=== PATIENT | male | born 1945 | race Caucasian/White ===

== ENCOUNTER → 2017-12-21 12:15 | Outpatient (CLI) | payer MEDICARE, SELFPAY ==
[2017-12-21 12:48] LABS: Alanine Aminotransfer ALT/SGPT 30 U/L (16-61); Anion Gap 5 (5-15); BUN 18 mg/dL (7-18); BUN/Creat Ratio 16.5 RATIO (10-20); CPK Total, Creatine Kinase 43 U/L (39-308); Calcium,Total 9.1 mg/dL (8.5-10.1); Chloride 105 mmol/L (98-107); Cholesterol 139 mg/dL (200); Creatinine, Serum 1.09 mg/dL (0.70-1.30); EST Glomerular Filtration Rate 70 mL/min (>60); Est Glom Filt Rate - Afr Amer 85 mL/min (>60); Glucose 143 mg/dL (74-106); High Density Lipoprotein 45 mg/dL; Potassium 3.9 mmol/L (3.5-5.1); Sodium Level 142 mmol/L (136-145); Triglycerides 129 mg/dL; Very Low Density Lipoprotein 26 mg/dL (5-40)
== END ==
PROVIDERS: Visit Provider Internal Medicine Cardiovascular Disease
DX: I25.10 Atherosclerotic heart disease of native coronary artery without angina pectoris (principal); I10 Essential (primary) hypertension
CPT/HCPCS: 80048; 80061; 82550; 84460

== ENCOUNTER → 2019-12-08 | Outpatient (CLI) | payer MEDICARE, SELFPAY ==
[2019-11-15 09:37] VITALS: BMI 28.5
--- NOTE | 2019-12-08 06:10 | ECHOCS_ITS ---
Reason For Study: CAD Procedure This was a 2D Doppler, Color Flow transthoracic echocardiogram. The study was technically difficult. Exam performed in department. Left Ventricle Normal LV size. Mild concentric left ventricular hypertrophy. The estimated ejection fraction is 40 %. Mild to moderate segmental systolic dysfunction (see wall motion). Infero-Basal: Akinetic. Basal inferoseptal: Akinetic. Mid-Inferior: Hypokinetic. Posterior-Basal: Hypokinetic. The rest of the wall segments are normal. Right Ventricle Normal RV size. Normal systolic function. Atria The left atrium is mildly enlarged. Normal right atrium. Mitral Valve Normal mitral valve. Mild (1+) eccentric mitral valve insufficiency. Tricuspid Valve The tricuspid valve is not well visualized. Mild (1+) tricuspid valve insufficiency. Pulmonary artery systolic pressure is 30 mmHg. Aortic Valve The aortic valve is not well visualized. Pulmonic Valve The pulmonic valve is not well visualized. Great Vessels Normal aortic root. The pulmonary artery is normal size. Normal inferior vena cava. Pericardium/Pleural No pericardial effusion. Medication Diluted definity 4ml given slow IV push to enhance endocardial definition. MMode/2D Measurements & Calculations LVIDd: 4.9 cm IVSd: 1.4 cm Ao root diam: 4.1 cm LVIDs: 4.1 cm LVPWd: 1.3 cm RVDd: 3.2 cm FS: 16.8 % LAV(MOD-bp): 66.8 ml LVAd ap4: 36.5 cm2 SV(MOD-sp4): 48.0 ml LAV(MOD-bp) Indexed: 32.7 ml/m2 EDV(MOD-sp4): 125.0 ml LAV(MOD-sp2): 59.4 ml EDV(sp4-el): 131.6 ml LAV(MOD-sp4): 79.3 ml LVAs ap4: 26.8 cm2 ESV(MOD-sp4): 77.1 ml ESV(sp4-el): 78.7 ml EF(MOD-sp4): 38.4 % EF(sp4-el): 40.2 % SV(sp4-el): 53.0 ml LA A4 area: 24.6 cm2 LA dimension(2D): 4.6 cm RA A4 area: 17.2 cm2 Doppler Measurements & Calculations MV E max bandar: 81.4 cm/sec Lat Peak E' Bandar: 7.0 cm/sec Med Peak E' Bandar: 2.9 cm/sec MV A max bandar: 104.5 cm/sec E/E' lat: 11.5 E/E' med: 28.0 MV E/A: 0.78 Ao V2 max: 132.0 cm/sec LV V1 max: 99.9 cm/sec PA V2 max: 69.3 cm/sec Ao max P.0 mmHg LV V1 max P.0 mmHg TR max bandar: 250.9 cm/sec TR max P.2 mmHg Interpretation Summary Normal LV size. The estimated ejection fraction is 40 %. Mild to moderate segmental systolic dysfunction (see wall motion). Pulmonary artery systolic pressure is 30 mmHg. Ordering Physician: Dylan Walker Referring Physician: Wilfred Luu Performed By: Merly Domínguez RDCS
--- NOTE | 2019-12-08 13:33 | STRESSREP ---
Stress Test Report Pharmacologic myocardial perfusion stress test. 74-year-old male with a history of coronary artery bypass surgery. Stress protocol: Resting EKG demonstrates normal sinus rhythm with a rate of 68 bpm left bundle branch block is noted. 0.4 mg of regadenoson was infused per usual protocol followed by rapid intravenous saline flush injection continuous EKG monitoring was performed. The maximum heart rate attained was 90 bpm which was 62% of maximal predicted heart rate the maximum workload was 1 metabolic equivalent. At rest there were no ST or T wave changes noted to suggest abnormal flow reserve left bundle branch block pattern was noted at peak infusion nonspecific ST-T wave changes were noted. The resting blood pressure was 120/72 with a final blood pressure 134/72 mmHg. Myocardial perfusion protocol. 14.6 mCi of technetium 99m sestamibi was injected at rest. 0.4 mg of regadenoson was infused per usual protocol peak infusion 45.0 mCi of technetium 99m sestamibi was injected stress images were obtained stress and rest images were reconstructed and compared in the short axis vertical long horizontal long axis. Gated images were also seen. Perfusion SPECT analysis: Review of the stress images demonstrate a mild defect noted in the mid anterior wall. This appears to be medium size. There is a large defect involving the basal to mid and distal inferior wall. The resting images demonstrate mild improvement in the mid anterior wall suggestive of mild anterior ischemia. The defect in the inferior wall is largely fixed suggestive of a previous extensive previous myocardial infarction. Gated SPECT analysis: The gated ejection fraction is 38%. Conclusion: Pharmacologic myocardial perfusion stress test with evidence of mild anterior ischemia. Previous inferior infarct noted. Mild cardiomyopathy present. Left bundle branch block present.
== END | disposition home or self-care (01) ==
PROVIDERS: PCP Family Medicine; Referring Provider Internal Medicine Cardiovascular Disease; Visit Provider Internal Medicine Cardiovascular Disease
DX: I25.10 Atherosclerotic heart disease of native coronary artery without angina pectoris (principal); Z95.1 Presence of aortocoronary bypass graft
CPT/HCPCS: 78452; 93017; 93306; A9500; Q9957; A4216; C8929; J2785

== ENCOUNTER 2019-12-18 08:25 | Day surgery (SDC) | payer MEDICARE, SELFPAY ==
[2019-11-15 09:37] VITALS: BMI 28.5
[2019-12-12 09:32] LABS: Absolute Lymphocyte Count 1.41 X10^3/uL (0.83-4.51); Absolute Neutrophil Count 4.4 X10^3/uL (2.0-7.7); Basophil# 0.04 X10^3/uL; Basophil% 0.6 % (0-1); Eosinophil# 0.42 X10^3/uL; Eosinophils% 6.1 % (0-5); Hematocrit 41.3 % (40-54); Hemoglobin 13.7 g/dL (13.0-16.5); Lymphocyte # 1.41 X10^3/ul (4.0); Lymphocyte % 20.5 % (19-41); Mean Corp Hgb Conc 33.2 g/dL (32-36); Mean Corpuscular Hgb 30.9 pg (27.0-32.0); Mean Corpuscular Volume 93.2 fL (80-94); Mean Platelet Vol. 10.2 fl (6.2-12.0); Monocyte# 0.64 X10^3/uL; Monocyte% 9.3 % (0-10); NRBC Flagged by Analyzer 0 % (0-5); Neutrophil # 4.35 X10^3/uL (2.7-7.7); Neutrophil % 63.2 % (47-70); Platelet Count 262 K/mm3 (150-450); RBC Distribution Width CV 12.8 % (11.6-14.6); RBC Distribution Width SD 43.8 fl (35.1-43.9); Red Blood Count 4.43 M/mm3 (4.6-6.2); White Blood Count 6.9 K/mm3 (4.4-11.0)
--- NOTE | 2019-12-12 09:35 | RAD_ITS ---
STUDY: X-RAY CHEST REASON FOR EXAM: Male, 74 years old. Abnormal stress test. No chest complaints. TECHNIQUE: PA and lateral views. COMPARISON: None. FINDINGS: Median sternotomy from prior CABG procedure. The lungs are clear and expanded. There is no demonstrated pleural abnormality. Normal size heart. Normal mediastinum and rolf. Normal visualized pulmonary arteries. Normal visualized aortic arch and descending thoracic aorta. Mild anterior wedging of T8, T9, T10 and T12 vertebral bodies are presumably from remote injury. Normal visualized ribs, clavicles, and shoulders. There is no demonstrated abnormality of the visualized soft tissue structures of the upper abdomen. RAD/Chest PA and Lateral IMPRESSION: 1. No acute cardiopulmonary pathology. 2. Mild anterior wedging of the T8, T9, T10 and T12 vertebral bodies are presumably from remote injury. Electronically Signed: Ld Davis MD at 8:35 EDT , Service support ,
[2019-12-12 09:41] LABS: International Normalized Ratio 1.3; Prothrombin Time (Protime)PT. 15.6 SECONDS (11.7-14.9)
[2019-12-12 09:42] LABS: Partial Thromboplast Time 30.3 Seconds (24.1-36.2)
[2019-12-12 10:02] LABS: Anion Gap 4 (5-15); BUN 20 mg/dL (7-18); BUN/Creat Ratio 16.3 RATIO (10-20); Calcium,Total 9.1 mg/dL (8.5-10.1); Chloride 108 mmol/L (98-107); Creatinine, Serum 1.23 mg/dL (0.70-1.30); EST Glomerular Filtration Rate 61 mL/min (>60); Est Glom Filt Rate - Afr Amer 74 mL/min (>60); Glucose 140 mg/dL (74-106); Potassium 3.9 mmol/L (3.5-5.1); Sodium Level 143 mmol/L (136-145)
[2019-12-15 08:45] VITALS: BMI 28.5
[2019-12-18] VITALS (13 sets, daily range): BP systolic 115–161; BP diastolic 70–87; PULSE 66–86; RESP 14–19; TEMP 36.6–37.2; O2SAT 92–96
--- NOTE | 2019-12-18 06:00 | HP_ITS ---
HPI HPI History of Present Illness Surgical H&P: Yes Details: Pleasant 74-year-old man who is transitioning his care to our practice here. He underwent coronary artery bypass surgery in 2004 with a saphenous vein graft to the circumflex artery, saphenous vein graft to the diagonal branch, and saphenous vein graft to the ramus intermedius and the right coronary artery. 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 In addition he does have a history of hypertension, hyperlipidemia, diabetes mellitus, chronic left bundle branch block. He underwent a stress test on 12/08/2019 which demonstrated evidence of mild anterior ischemia. Previous inferior infarct noted. Mild cardiomyopathy present. Left bundle branch block present. His echocardiogram demonstrated Normal LV size. The estimated ejection fraction is 40 %. Mild to moderate segmental systolic dysfunction (see wall motion). Pulmonary artery systolic pressure is 30 mmHg. Based on his stress test he will undergo a heart cath today. Intake Vital Signs 12/29/19 BMI 28.5 Intake Visit Reasons: Amb Documentation Allergies No Known Allergies Allergy (Unverified 11/15/19 09:35) Medications aspirin 81 mg tablet,delayed release 81 mg PO DAILY 11/13/19 [History Confirmed 12/29/19] atenolol 100 mg tablet 100 mg PO DAILY tab 11/13/19 [History Confirmed 12/29/19] cholecalciferol (vitamin D3) 25 mcg (1,000 unit) tablet 500 unit PO DAILY tab 11/13/19 [History Confirmed 12/29/19] fenofibric acid (choline) 135 mg capsule,delayed release 135 mg PO DAILY 11/13/19 [History Confirmed 12/29/19] hydrochlorothiazide 25 mg tablet 25 mg PO DAILY tab 11/13/19 [History Confirmed 12/29/19] lisinopril 40 mg tablet 40 mg PO DAILY tab 11/13/19 [History Confirmed 12/29/19] metformin 1,000 mg tablet 1,000 mg PO BID tab 11/13/19 [History Confirmed 12/29/19] multivitamin 1 tab PO DAILY 11/13/19 [History Confirmed 12/29/19] omega-3 fatty acids-fish oil 340 mg-1,000 mg capsule 1 cap PO DAILY 11/13/19 [History Confirmed 12/29/19] potassium chloride 10 mEq tablet,extended release(part/cryst) 10 meq PO DAILY tab 11/13/19 [History Confirmed 12/29/19] simvastatin 80 mg tablet 40 mg PO QHS tab 11/13/19 [History Confirmed 12/29/19] clopidogrel 75 mg tablet 75 mg PO DAILY #30 tab 12/08/19 [Rx Confirmed 12/29/19] PFSH Medical History Atherosclerosis of coronary artery of [place] heart without angina pectoris (Chronic) 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/05) Ischemic cardiomyopathy (Chronic) Left bundle branch block (LBBB) (Chronic) Essential (primary) hypertension (Chronic) Hyperlipidemia (Chronic) BPH (benign prostatic hyperplasia) (Chronic) Obesity (Chronic) Type 2 diabetes mellitus (Chronic) Surgical History Stented coronary artery (Chronic 12/18/19) H/O coronary artery bypass surgery (Resolved 07/08/05) History of cataract surgery (Resolved) History of left heart catheterization (Resolved 07/06/05) Family History Mother Hypertension Diabetes Father Heart disease Social History Smoking Status: Never smoker ROS Const Const: Negative for fatigue, weakness, headache(s), frequent falls, difficulty sleeping or excessive sweating Eyes Eyes: Negative for loss of peripheral vision, transient loss of vision, blurry vision, double vision or tunnel vision ENT ENT: Negative for headache(s) or balance problems Cardio Chest Pain: No Palpitations: No Edema: Bilateral (BLE areas of redness and trace swelling) Muscle aches with walking: None Resp Respiratory: Negative for SOB with activity, SOB at rest, SOB orthopnea\SOB lying down, Cough or paroxysmal nocturnal dyspnea GI GI: Negative nausea, vomiting, heartburn or black,tarry stools : Negative for hematuria Musc Musc: Negative for muscle aches/ myalgia, muscle weakness, joint pain or balance problems Skin Skin: Positive for rash (BLE areas of redness and trace swelling); negative non-healing lesions or unusual bruising Neuro Neuro: Negative for frequent falls, headache(s), weakness, blurry vision or double vision [place] Hematologic/Lymphatic: Negative for easy bleeding or easy bruising Endo Endo: Negative for fatigue or excessive sweating Psych Psych: Negative for anxiety or depression Allergy Allergy/Immunology: Positive for rash (BLE areas of redness and trace swelling) Cardiology Exam Const Appearance: cooperative, healthy appearing, no acute distress, well developed and well groomed Nutritional Appearance: average body habitus and well nourished Orientation: alert, awake and oriented x3 Head Head: normal to inspection, normocephalic and atraumatic Ears: hearing grossly normal bilaterally and external ears normal Nose: external nose normal, nares normal, nasal mucous membranes and turbinates normal, septum normal, no nasal discharge Face and Sinus: face symmetric Mouth: oral mucosae normal, tongue normal, oropharynx normal and moist mucous membranes Teeth and gingiva: dentition normal Throat: posterior oropharynx normal, tonsils normal and uvula midline Eyes General: appearance normal, both eyes and all related structures Eyelids: eyelids normal Conjunctivae: conjunctivae normal Pupils: PERRL, normal by confrontation and accommodation normal EOM: EOM intact bilaterally Neck Neck: normal visual inspection, trachea midline and no JVD JVD: +5 Carotids: normal carotid upstroke and bounding pulses Chest Chest inspection: normal inspection of the chest, symmetric chest movement and normal respiratory effort Auscultation: Bilateral: Clear to Auscultation Cardio Palpation: normal PMI Rate: regular rate Rhythm: regular rhythm Heart sounds: S1 normal, S2 normal and normal, physiologic split S2; negative rub, gallop or murmur GI GI: normal to inspection, soft, no hepatosplenomegaly and bowel sounds present Neuro General: alert, awake, oriented x3, gait normal, moves all extremities and no focal sensory deficit Skin Skin: no rashes or lesions noted Extremities Pulses: Normal: Right Femoral Pulse, Left Femoral Pulse, Right Dorsalis Pedis Pulse, Left Dorsalis Pedis Pulse, Right Posterior Tibial Pulse, Left Posterior Tibial Pulse, Right Radial Pulse, Left Radial Pulse Lower Extremity Edema: None: Bilateral Musculoskel Musculoskeletal: No joint tenderness Psych Psychological: normal affect Assessment & Plan Problems 1. Atherosclerosis of coronary artery of [place] heart without angina pectoris I25.10 Severe coronary artery disease involving the [place] left anterior descending artery in the proximal and mid areas, totally occluded left circumflex artery, high-grade stenosis noted of the ostial ramus intermedius, totally occluded right coronary artery. RECOMMENDATIONS ;Referred for immediate PCI per C done 12/18/2019 per [facility] @ [facility] 2. H/O coronary artery bypass surgery Z95.1 CABG x 3: SVG-D1, SVG-Ramus, SVG-RCA w/ excision of LA myxoma utilizing transatrial approach and pericardial patch to repair intra atrial septal defect 07/08/2005 3. Cardiomyopathy, ischemic I25.5 4. Essential hypertension I10 5. Old inferior wall myocardial infarction I25.2 with RV Infarct 6. Abnormal cardiovascular stress test R94.39 Plan Pt will undergo a heart cath today (12/18/2019), he will follow up accordingly in the office after procedure. He is aware that if he were to need a stent placed that he will need to spend the night. Coding Level of Care Code No Charge Diagnoses Atherosclerosis of coronary artery of [place] heart without angina pectoris I25.10 H/O coronary artery bypass surgery Z95.1 Cardiomyopathy, ischemic I25.5 Essential hypertension I10 Old inferior wall myocardial infarction I25.2 Abnormal cardiovascular stress test R94.39 Coding Level of Care Code No Charge Diagnoses Atherosclerosis of coronary artery of [place] heart without angina pectoris I25.10 H/O coronary artery bypass surgery Z95.1 Cardiomyopathy, ischemic I25.5 Essential hypertension I10 Old inferior wall myocardial infarction I25.2 Abnormal cardiovascular stress test R94.39 Supplemental Info Supplemental Information Labs LDL Cholesterol 68 mg/dL (0-130) 12/21/17 HDL Cholesterol 45 mg/dL (40-) 12/21/17 Triglycerides 129 mg/dL (-199) 12/21/17 VLDL Cholesterol 26 mg/dL (5-40) 12/21/17 Diagnostics Electrocardiogram 12/19/19 Echocardiogram 12/08/19 Stress Test Nuclear Medicine 12/08/19 Stress Test 12/08/19 Cardiac Catheterization 12/18/19 Chest X-Ray 12/12/19
--- NOTE | 2019-12-18 11:21 | CL.D_ITS ---
Patient Name: RAINA DELGADO Study Date: 12/18/2019 Performing: Dylan Walker MD Ht: 68.89 inches 175 cm : 1945 Wt: 194.01 lbs 88 kg Age: 74 Gender: male BSA: 2.04 PROCEDURE(S) PERFORMED [id number]/COR/LV/CABG [id number]-AWJ W OR WO PTCA, SINGLE CORONARY ARTERY [id number] AND/OR PTCA, SINGLE GRAFT CLINICAL PROFILE AND INDICATIONS Indications: Suspected CAD Heart Failure: None Stress/Imaging Stress Test w/SPECT MPI: Yes Result: Positive Intermediate RiskStress Test with SP ECT MPI: Positive Intermediate Risk CAD Presentations: No Sxs, no angina. CONCLUSIONS Severe coronary artery disease involving the [place] left anterior descending artery in the proximal a nd mid areas, totally occluded left circumflex artery, high-grade stenosis noted of the ostial ramus intermedius, totally occluded right coronary artery. RECOMMENDATIONS Referred for immediate PCI DESCRIPTION OF PROCEDURE The patient arrived to the procedure lab. The risks and benefits of the procedure as well as a full d escription of our services here and current unavailability of surgical backup were fully explained to the patient and/or their significant other prior to the catheterization. The Timeout was completed, verifying the correct patient and procedure. The patient's procedural site was prepped and draped in the usual fashion. Local anesthetic was given subcutaneously to right radial region with Lidocaine 2% . Using a modified Seldinger technique, arterial access was obtained via the right radial artery, a 6 Fr sheath was inserted. Left Coronary Artery selective angiography was performed in multiple views u sing a 5 Fr. 4.0 [place] catheter. Saphenous Vein graft to the DIAG 1 selective angiography was perform ed in multiple views using a 5 Fr. 4.0 [place] catheter. Right Coronary Artery selective angiography wa s then performed in multiple views using a 5 Fr. JR 5 catheter. Saphenous Vein graft to the Circumflex selective angiography was performed in multiple views using a 5 Fr. JR5 catheter. Saph enous Vein graft to the RCA selective angiography was performed in multiple views using a 5 Fr. JR5 c atheter. Left Ventriculography was performed in ORDONEZ projection using a 5 Fr. Pigtail catheter. LV to AO pullback pressures were then recorded. CORONARY ANGIOGRAPHY DOMINANCE: Right Dominant LEFT HEART ASSESSMENT Left Ventricular Ejection Fraction: by LV Gram 35 % Inferior Mid Akinesis. Anterior Hypokinesis - Moderate Depressed Left Ventricular systolic function LEFT MAIN: Mild calcification LEFT ANTERIOR DESCENDING ARTERY: PROX LAD: Moderate calcification, 70 % Stenosis MID LAD: 80 % Stenosis CIRCUMFLEX ARTERY: OSTIAL CIRC: is occluded RAMUS: 90 % Stenosis RIGHT CORONARY ARTERY: PROX RCA: is occluded GRAFTS: Saphenous Vein graft to the 1st Diagonal has a distal lesion of 95 % Saphenous Vein graft to the CIRC is totally occluded Saphenous Vein graft to the RCA is patent COLLATERAL FLOW: Collateral flow from Left to Right COMPLICATIONS PROCEDURE MEDICATIONS Fentanyl 50 mcg IV Versed 1 mg IV Oxygen: 2 L/min via nasal cannula Heparin diluted in 23cc Heparinized saline. Patient given 10cc IA of this solution. 12/18/2019 10:34: 12 Heparin 5000 unit(s) IV 12/18/2019 11:08:52 Verapamil 2.5mg, Ntg 100mcgs, 2000 units of Heparin diluted in 23cc Heparinized saline. Patient give n 10cc IA of this solution. 12/18/2019 10:34:12 SUMMARY OF HEMODYNAMIC DATA Time AIR REST ECG 08:47:18 ECG 10:18:56 AO 104/55 (74) SA 10:39:46 LV 115/-6, 2 11:00:07 LV 117/-4, 5 11:00:14 LV 98/-5, 2 11:01:00 LV 101/-3, 4 11:01:07 LVp 103/-3, 4 11:01:11 AOp 106/39 (64) 11:01:16 Signed By Dylan Walker MD On 12/18/2019 11:20:11 Dylan Walker MD
[2019-12-18 12:10] LABS: ACT Activated Clotting Time 186 sec (74-137)
--- NOTE | 2019-12-18 12:35 | EKG12_ITS ---
Test Reason : POST CATH Blood Pressure : / mmHG Vent. Rate : 067 BPM Atrial Rate : 067 BPM P-R Int : 204 ms QRS Dur : 170 ms QT Int : 482 ms P-R-T Axes : 046 014 159 degrees QTc Int : 509 ms Normal sinus rhythm Left bundle branch block Abnormal ECG When compared with ECG of 11-AUG-2005 10:33, Left bundle branch block has replaced Incomplete left bundle branch block Confirmed by BELKIS ALBRIGHT, DYLAN ([id number]), shim plug cutter DANIELLE LEMUS ([id number]) on 12/19/2019 7:49:05 AM Referred By: Dylan Tamayo Confirmed By:DYLAN TAMAYO MD
--- NOTE | 2019-12-18 15:18 | CHAPLAIN ---
Type of Pastoral Visit _x__ Initial Visit ___ Follow-up Visit ___ On-call Visit ___ General Patient Visit ___ Spiritual Assessment ___ Family Conference ___ Bereavement ___ Rapid Response ___ Code Blue ___ Other (describe below) Pastoral Care Referral From _x__ Patient _x__ Family ___ Nurse ___ Physician ___ Software Testing Specialist ___ Design Engineer Agricultural Equipment ___ Other (describe below) Sacrament/Intervention _x__ Active listening ___ Anointing ___ Adventist ___ Bereavement ___ Communion ___ Christal exploration ___ ___ Life review _x__ Prayer ___ Reconciliation ___ Sacrament of Sick _x__ Supportive presence ___ Wedding ___ Other (describe below) Pastoral Comments
--- NOTE | 2019-12-18 18:08 | PCM.DC.CCA ---
Discharge Diet: Low fat/ Low Cholesterol Discharge Activity: Return to Normal Activity Lifting Restrictions: 10 pounds and also avoid any pushing or pulling for 3 days after your test. Call your doctor if your incision/area has: Continuous Slow Oozing, Increased Pain/ Swelling, Increased Redness, Foul Smelling Discharge, Swelling at the incision site Call your doctor if you observe: Fever of 101 or Higher, Shortness of breath, Chest pain Remove Dressing in (days):: 1 Additional Dressing/Incision Instructions:: Keep the dressing (bandage) on until the next morning. You may then shower, but do not take a tub bath for 5 days after your test. It is normal to have some tenderness and discomfort at the puncture site. Sometimes bruising also occurs. However, if pain, numbness, or coldness occurs below the puncture site (in your leg, toes, arms or fingers) call your doctor at once. You may have a small, marble sized knot at the puncture site. This is normal. Do not rub it. It will go away in 4-6 weeks. Bleeding can occur from the area where the puncture was done. Blood may spurt or drip from the site. If blood spurts, apply pressure right away to stop bleeding and call 911. Although rare, bleeding into the tissue (hematoma) can also occur. If this happens, a large, firm area goose egg under the skin will appear. If any of these occur, lie down as flat as you can and have someone apply firm pressure to the cath site with a gauze pad or a clean washcloth for 10-15 minutes. Call 911 or go to the Emergency Department. Additional Instructions: You will need to stay on your Plavix for at least one year prior to stopping this for any reason. The purpose of this is to keep your stent open. If someone asks you to stop this you need to call the [facility] to ask if this is okay. Please keep your follow up with the [facility]. If you need to change this appt please call us to reschedule. We would like for you to participate in cardiac rehab. We can further discuss this at you office visit. There are several medications at are important for cardiac health. Below is a list of several medication classifactions, if you are on them and how much. If you are not on them the reason why. Aspirin at discharge? Yes This is an antiplatelet. Antiplatelet therapy at discharge? Yes- plavix This is also an antiplatelet. KEVIN/ARB at discharge? Yes- lisinopril This is for blood pressure. Statin at discharge? Yes- simvastatin. This is for cholesterol. Beta-meredith at discharge? yes- metoprolol This helps to control your heart rate. Allergies/Adverse Reactions: Allergies No Known Allergies Allergy (Unverified 11/15/19 09:35) Medications to take at Discharge aspirin 81 mg tablet,delayed release 81 mg PO DAILY 11/13/19 atenolol 100 mg tablet 100 mg PO DAILY tab 11/13/19 cholecalciferol (vitamin D3) 25 mcg (1,000 unit) tablet 500 unit PO DAILY tab 11/13/19 fenofibric acid (choline) 135 mg capsule,delayed release 135 mg PO DAILY 11/13/19 hydrochlorothiazide 25 mg tablet 25 mg PO DAILY tab 11/13/19 lisinopril 40 mg tablet 40 mg PO DAILY tab 11/13/19 metformin 1,000 mg tablet 1,000 mg PO BID tab 11/13/19 multivitamin 1 tab PO DAILY 11/13/19 omega-3 fatty acids-fish oil 340 mg-1,000 mg capsule 1 cap PO DAILY 11/13/19 potassium chloride 10 mEq tablet,extended release(part/cryst) 10 meq PO DAILY tab 11/13/19 simvastatin 80 mg tablet 40 mg PO QHS tab 11/13/19 clopidogrel 75 mg tablet 75 mg PO DAILY #30 tab 12/08/19 Orders to be completed after discharge: Phase II, Outpatient Cardiac Rehab Location: None Selected Primary Care Physician: Wilfred Luu MD [Primary Care Provider] - Test Results: Test results from this visit will be discussed in further detail at your follow-up appointment, if applicable. Please Follow Up With: Nicki Mazariegos PA When: 01/08 at 1530 Cardiac Rehabilitation Info Cardiac Rehabilitation Program Information: Cardiac Rehabilitation is important for patients like you who are recovering from a heart problem. Cardiac rehabilitation programs are recognized as integral to the continued care of the patient with coronary heart disease. The cardiac rehabilitation program is designed to optimize a patient's physical, psychological, and social functioning. Health infant childcare provider work in cardiac rehabilitation programs and assist you with getting the treatments you need to get stronger and healthier - like exercise, healthy eating habits, and medications. Cardiac rehabilitation has been show to help people with heart problems live longer and have better life enjoyment than people who do not go to cardiac rehabilitation. Please contact the Cardiac Rehabilitation Program at [facility] at in two weeks if you have not heard from them.
[2019-12-18] MEDS: Atorvastatin Calcium 20 MG Tablet PO (20:48)
--- NOTE | 2019-12-18 22:53 | NURSING ---
PATIENT REFUSING TO WEAR 02 AT THIS TIME. 92% RA
--- NOTE | 2019-12-18 23:54 | NURSING ---
PATIENT TOOK OFF HEART MONITOR. TRYING TO PULL OUT IV. RN EXPLAINED TO PATIENT IMPORTANCE OF LEAVING ALL THAT ON DUE TO HIM HAVING STENTS PLACED IN HIS HEART. PATIENT IS A/OX3 AND GETS VERY AGITATED WITH RN WHEN ASKING ORIENTATION QUESTIONS. PATIENT STATED GOT UPSET DUE TO BED ALARM GOING OFF EXPLAINED TO PATIENT JUST WANTED SOMEONE IN HERE WITH HIM TO REMIND HIM OF MOVING HIS RIGHT ARM. PATIENT HAS BEEN NOTED TO PUSH OFF WITH RIGHT ARM AND MOVE THAT EXTREMITY FREQUENTLY, AFTER BEING EDUCATED ABOUT RISK OF BLEEDING. PATIENT NOW IS REFUSING TO PUT ON HOSPITAL GOWN AND LAY IN BED. EDUCATED PATIENT THAT HE IS HERE OVER NIGHT TO MONITOR HIM AFTER HIS STENT BEING PLACED AND THEY WILL BE IN THE MORNING TO TAKE ANOTHER EKG OF HIS HEART, WHICH HE REPLIED, IF THEY CAN CATCH ME. ASKED IF RN CAN CALL , AND TOLD NO. WILL CONTINUE TO MONITOR.
--- NOTE | 2019-12-19 00:52 | NURSING ---
PATIENT GOT COAT ON STATES HE WANTS TO LEAVE, RN CALLED PATIENT'S SCOTT WHO SAID PATIENT GETS LIKE THIS AT NIGHT TIME, IT IS VERY COMMON FOR HIM TO ACT LIKE THIS AND GET DISORIENTATED IN NEW ENVIRONMENT. SHE SPOKE TO PATIENT AND TOLD HIM TO GO BACK ASLEEP AND SHE WILL BE HERE IN THE MORNING. PATIENT WAS AGREEABLE TO STAY AT THIS TIME.
[2019-12-19 02:53] VITALS: PULSE 73
[2019-12-19 03:00] VITALS: BP 137/70; PULSE 73; RESP 18; TEMP 36.6; O2SAT 95
--- NOTE | 2019-12-19 05:46 | NURSING ---
PATIENT MORE COOPERATIVE THIS AM, STATES VOIDING FINE. RIGHT WRIST IS STABLE NO HEMATOMA NOTED
[2019-12-19 06:04] VITALS: PULSE 72
[2019-12-19 06:36] LABS: Hematocrit 40.7 % (40-54); Hemoglobin 13.6 g/dL (13.0-16.5); Mean Corp Hgb Conc 33.4 g/dL (32-36); Mean Corpuscular Hgb 30.8 pg (27.0-32.0); Mean Corpuscular Volume 92.3 fL (80-94); Mean Platelet Vol. 10.4 fl (6.2-12.0); Platelet Count 226 K/mm3 (150-450); RBC Distribution Width SD 43.9 fl (35.1-43.9); Red Blood Count 4.41 M/mm3 (4.6-6.2); White Blood Count 8.2 K/mm3 (4.4-11.0)
[2019-12-19 06:59] LABS: ALB/GLOB Ratio 1.1 RATIO (0.9-2.4); AST(SGOT) 18 U/L (15-37); Alanine Aminotransfer ALT/SGPT 27 U/L (16-61); Albumin, Serum 3.8 g/dL (3.2-5.0); Alkaline Phosphatase 79 U/L (45-117); Anion Gap 4 (5-15); BUN 23 mg/dL (7-18); Calcium,Total 9.2 mg/dL (8.5-10.1); Chloride 108 mmol/L (98-107); Creatinine, Serum 1.15 mg/dL (0.70-1.30); EST Glomerular Filtration Rate 66 mL/min (>60); Est Glom Filt Rate - Afr Amer 80 mL/min (>60); Estimated Creatinine Clearance 54.65 ml/min; Globulin 3.6 g/dL (2.2-4.2); Glucose 129 mg/dL (74-106); Potassium 3.6 mmol/L (3.5-5.1); Protein, Total 7.4 g/dL (6.4-8.2); Sodium Level 140 mmol/L (136-145)
[2019-12-19] MEDS: Aspirin E.C. 81 MG Tablet PO (07:52)
[2019-12-19] MEDS: Fenofibrate 145 MG Tablet PO (07:52)
[2019-12-19] MEDS: Multivitamins,Therapeutic Tablet 1 TABLET PO (07:52)
[2019-12-19 08:00] VITALS: BP 130/65; PULSE 78; RESP 18; TEMP 36.6; O2SAT 90; O2SAT 95
--- NOTE | 2019-12-19 08:08 | PCM.PN.CARD ---
Subjectve: Patient seen and evaluated. Appears to be doing well post angioplasty. No complaints. Objective: Vital Signs Temp Pulse Resp BP Pulse Ox 97.8 F 72 18 137/70 H 95 12/19/19 03:00 12/19/19 06:04 12/19/19 03:00 12/19/19 03:00 12/19/19 03:00 Oxygen Flow Rate (L/min) 2 Oxygen Delivery Method Room Air Weight: 193 lb Body Mass Index (BMI) 28.5 General: Awake, Alert, Oriented x 3 HEENT: PERRL, EOMI, Sclera Non Icteric Neck: Supple, Good ROM, No Lymph Node Enlargement Lungs: Clear to auscultation Cardiovascular: Regular Rhythm, Normal S1, Normal S2, No Murmurs, No Rubs, No Gallops Vascular: No Carotid Bruits, Normal Femoral Pulses, Normal Radial Pulses, Normal Dorsalis Pedal Pulse, Normal Posterior Tibial Pulses Abdomen: Bowel Sounds Present, Soft, Non Tender, No HSM, No Organomegaly Extremities: No Cyanosis, No Clubbing, No edema Lymphatic: No Lymph Node Enlargement Neurological: No Focal Motor or Sensory Deficit 12/19/19 06:00: WBC 8.2, RBC 4.41 L, Hgb 13.6, Hct 40.7, MCV 92.3, MCH 30.8, MCHC 33.4, Plt Count 226, MPV 10.4 12/19/19 06:00: Sodium 140, Potassium 3.6, Chloride 108 H, Carbon Dioxide 28.0, Anion Gap 4 L, BUN 23 H, Creatinine 1.15, Est GFR (MDRD) Af Amer 80, Est GFR (MDRD) Non-Af 66, BUN/Creatinine Ratio 20.0, Glucose 129 H, Calcium 9.2, Total Bilirubin 0.40 Rhythm: EKG: ECHO: Stress Test: Cardiac Cath: PCI: CT Surgery: Holter monitor: EPS: PPM: CXR: Chest CT Scan: Medical Necessity - Tobacco Use Smoking Status: Never smoker Assessment/Plan Status post angioplasty and stenting of the left anterior descending artery as well as the ramus intermedius. No problems overnight and no laboratory abnormalities. Will discharge home for observation. The saphenous vein graft to the small diagonal branch would be observed for now. If he continues to exhibit symptoms then we may attempt to angioplasty and stents the above.
--- NOTE | 2019-12-19 09:03 | CRPHASE1_ITS ---
Patient Communication Former Patient:: Phase II PHII Cardiac Rehab Discussed with Patient:: Yes Guide to Cardiac Rehab Given to Patient:: Yes Cardiac Rehab Facility Choice List Given to Patient:: Yes Choice Program [facility] [place] PHII:: Communication Given to CR, Refer to [facility] Epic Cupid Analyst:: Rios Williamson Phase II Cardiac Rehab:: Yes Sessions:: 36 sessions - 3 days/wk, 12 weeks Risk Factors/Lifestyle Smoking Status: Never smoker Hx Hypertension: Yes Hx Diabetes Mellitus Type 1: No Hx Diabetes Mellitus Type 2: Yes Hx Metabolic Disorders: Yes Hx Dyslipidemia: Yes Hx Obesity: No - BMI 28.5 Stress: Home/Family Risk Factor for Sedentary Lifestyle: Moderate Risk Family History: Family History (Last Reviewed 11/15/19 @ 10:[address] Dylan Walker MD) Mother Hypertension Diabetes Father Heart disease Past Cardiac Illness: Coronary Artery Disease, Myocardial Infarction, Previous PCI w/Stent, Coronary Artery Bypass Graft Phase I Education Given On:: [place], Nutrition, Antiplatelet medication, Diabetes - Type II Issues Affecting Care:: None Knowledge of Condition:: Yes Learning Preferences: Verbal, Written - AT BEDSIDE Medical/Surgical History [place]:: Yes - HX 2004 CAD:: Yes Cardiomyopathy:: Yes - ISCHEMIC COPD:: No Diabetes:: Yes Diabetes Type I:: No Diabetes Type II:: Yes Hypertension:: Yes Dyslipidemia:: Yes PTCA:: Yes Pacemaker:: No Discharge/Home/Social Eval Discharge Disposition: Home Marital Status: Cardiac Rehabilitation Info Cardiac Rehabilitation Program Information: Cardiac Rehabilitation is important for patients like you who are recovering from a heart problem. Cardiac rehabilitation programs are recognized as integral to the continued care of the patient with coronary heart disease. The cardiac rehabilitation program is designed to optimize a patient's physical, psychological, and social functioning. Health rn care transition work in cardiac rehabilitation programs and assist you with getting the treatments you need to get stronger and healthier - like exercise, healthy eating habits, and medications. Cardiac rehabilitation has been show to help people with heart problems live longer and have better life enjoyment than people who do not go to cardiac rehabilitation. Please contact the Cardiac Rehabilitation Program at [facility] at in two weeks if you have not heard from them.
--- NOTE | 2019-12-19 09:08 | CRPH1.INSTRU ---
General Education CAD and cardiac anatomy and function:: Patient communicates acknowledgment - AT BEDSIDE, Family communicates acknowledgment Explanation of diagnoses and procedures:: Patient communicates acknowledgment, Family communicates acknowledgment Sign/Symptoms of CO:: Patient communicates acknowledgment, Family communicates acknowledgment Antiplatelet therapy: Patient communicates acknowledgment, Family communicates acknowledgment Proper use of NTG-SL: Not instructed Emergency procedures and activation of EMS: Patient communicates acknowledgment, Family communicates acknowledgment Compliance of all prescribed medications: Patient communicates acknowledgment, Family communicates acknowledgment Smoking Patient Nicotine/Smoking Risk Factors Are:: Never smoked Dyslipidemia Patient Dyslipidemia Risk Factors Are:: Total Cholesterol, Triglycerides, HDL, LDL Recommendations Include:: Lipid profile provided, Reviewed NCEP/ATP guidelines, Therapeutic Lifestyle Change dietary guidelines Dyslipidemia Response Code:: Patient communicates acknowledgment, Family communicates acknowledgment Overweight/Obesity Patient Overweight/Obesity Risk Factors Are:: BMI Normal [24-29 & > 65 years old] Hypertension Recommendations Include:: BP <130/80 if diabetic, DASH dietary guidelines, Decrease/maintain normal body weight, Moderation of ETOH Hypertension:: Patient communicates acknowledgment, Family communicates acknowledgment Heart Disease Patient Heart Disease Risk Factors Are:: Previous cardiac event Recommendations Include:: Educated family members of their risk, Educated family members of importance of prevention of heart disease Heart Disease Response Code:: Patient communicates acknowledgment, Family communicates acknowledgment Diabetes Patient Diabetes Risk Factors Are:: Elevated blood sugars Recommendations Include:: Maintain fasting blood sugars 70-110 md/dL, Maintain HgbA1c of 6% or less, Monitor blood sugar as prescribed, Diabetic dietary guidelines, Decrease/maintain body weight Diabetes:: Patient communicates acknowledgment, Family communicates acknowledgment Metabolic Syndrome Patient Metabolic Syndrome Risk Factors Are [3 of 5]:: Fasting blood sugar > 100 mg/dL, Waist circumference > 35 [female] or 40 [male], Hypertension Recommendations Include:: Reinforce compliance to risk factor modifications, Patient is diabetic, Encouraged follow-up with Primary Care Physician Metabolic Syndrome Response Code:: Patient communicates acknowledgment, Family communicates acknowledgment Sedentary Patient Sedentary Risk Factors Are:: Lack of regular exercise Recommendations Include:: Aerobic exercise 5-7 times/week for 20-30 minutes continuously, Benefits of regular exercise, Discussed home walking program, Monitored Outpatient Cardiac Rehab Sedentary Response Code:: Patient communicates acknowledgment, Family communicates acknowledgment Stress Recommendations Include:: Identification of stressors, and assessment of coping skills, Stress management techniques Stress Response Code:: Patient communicates acknowledgment, Family communicates acknowledgment
--- NOTE | 2019-12-19 10:00 | EKG12_ITS ---
Test Reason : AM EKG Blood Pressure : / mmHG Vent. Rate : 068 BPM Atrial Rate : 068 BPM P-R Int : 192 ms QRS Dur : 170 ms QT Int : 480 ms P-R-T Axes : 044 -10 151 degrees QTc Int : 510 ms Normal sinus rhythm Left bundle branch block Abnormal ECG When compared with ECG of 18-DEC-2019 13:09, MANUAL COMPARISON REQUIRED, DATA IS UNCONFIRMED Confirmed by DIMITRI GUERRA ([id number]), brands editor YOSVANY NEWMAN ([id number]) on 12/21/2019 9:32:07 AM Referred By: Dylan Walker Confirmed By:DIMITRI GUERRA
--- NOTE | 2019-12-21 17:27 | CL.I_ITS ---
Patient Name: RAINA DELGADO Study Date: 12/18/2019 Performing: Jeri Williamson MD Ht: 68.9 inches 175 cm : 1945 Wt: 194.01 lbs 88 kg Age: 74 Gender: male BSA: 2.04 PROCEDURE(S) PERFORMED [id number] W OR WO PTCA, SINGLE CORONARY ARTERY [id number] W OR WO PTCA, SINGLE CORONARY ARTERY CLINICAL PROFILE AND CO-MORBIDITIES Indications: Suspected CAD Heart Failure: None Stress/Imaging Stress Test w/SPECT MPI: Yes Result: Positive Intermediate Risk Stress Test with S PECT MPI: Positive Intermediate Risk CAD Presentations: No Sxs, no angina. CONCLUSIONS Successful PCI of LAD ands Ramus with ANUJA RECOMMENDATIONS GURJIT Suh for at least 12 months Follow up with Dr. Walker DESCRIPTION OF PROCEDURE The patient arrived to the procedure lab. The risks and benefits of the procedure as well as a full d escription of our services here and current unavailability of surgical backup were fully explained to the patient and/or their significant other prior to the catheterization. The Timeout was completed, verifying the correct patient and procedure. The patient's procedural site was prepped and draped in the usual fashion. Local anesthetic was given subcutaneously to right radial region with Lidocaine 2% Using a modified Seldinger technique,arterial access was obtained via the right radial artery, a 6Fr sheath was inserted. Left Coronary Artery selective angiography was performed in multiple views usin g a 5 Fr. 4.0 [place] catheter. Saphenous Vein graft to the DIAG 1 selective angiography was performed in multiple views using a 5 Fr. 4.0 [place] catheter. Right Coronary Artery selective angiography was t hen performed in multiple views using a 5 Fr. JR 5 catheter. Saphenous Vein graft to the Circumflex selective angiography was performed in multiple views using a 5 Fr. JR5 catheter. Saphenou s Vein graft to the RCA selective angiography was performed in multiple views using a [address] Left Ventriculography was performed in ORDONEZ projection using a 5 Fr. Pigtail catheter. LV to AO p ullback pressures were then recorded.The images were reviewed and options discussed. A decision was t hen made to proceed with an Intervention, IVUS or other adjunct procedure. Arterial sheath was exchanged for a 6 Fr Raabe Sheath. XB3.0 Guide catheter was inserted and enga ged into the LCA. BMW Guide wire was advanced to the LAD. Angiogram performed pre balloon dilatation. 2.5x20 Emerge Balloon catheter was advanced across lesion in the LAD, mid. PTCA balloon inflated at 10 atms for 30 secs. Angiogram performed post balloon dilatation. PTCA balloon inflated at 12 atms fo r 35 secs. Angiogram performed post balloon dilatation. 3.0x.38 Synergy Drug Eluting stent was advanc ed across the lesion in the LAD, mid. Angiogram performed pre stent deployment. Drug Eluting stent wa s removed intact, failed to cross lesion 2.5x30 NC Emerge Balloon catheter was advanced across lesion in the LAD, mid. PTCA balloon inflated at 16 atms for 31 secs. PTCA balloon inflated at 20 atms for 45 secs. Angiogram performed post balloon dilatation. 3.0x38 Synergy Drug Eluting stent was advanced across the lesion in the LAD, mid. Drug Eluting stent was removed intact, failed to cross lesion Runthru Guide wire was inserted as a zulema wire 3.0x38 Synergy Drug Eluting stent was advanced across the lesion in the LAD, mid. Angiogram performed pre stent deployment. Angiogram performed pos t stent deployment. 3.0x30 NC Emerge Balloon catheter was inserted post stent. Angiogram performed po st balloon dilatation. 2.0x12 Emerge Balloon catheter was advanced across lesion in the ramus branch, ostial. Angiogram performed pre balloon dilatation. PTCA balloon inflated at 14 atms for 39 secs. An giogram performed post balloon dilatation. 2.5x12 Synergy Drug Eluting stent was advanced across the lesion in the ramus branch, ostial. Angiogram performed post stent deployment. 2.5x12 NC Emerge Ballo on catheter was inserted post stent. Angiogram performed post balloon dilatation. The arterial padilla th was pulled and a TR Band was applied for hemostasis. 14cc air INTERVENTION INFORMATION LESION SITE: LAD (Mid) Lesion Complexity: High/C, chronic total occlusion: No, lesion at bifurcation: No, thrombus present: No, lesion length: 36 mm, culprit lesion: Yes, Previously treated lesion: No Pre Stenosis: 90 % Pre intervention MIRNA flow: 3 PROCEDURE: Drug Eluting Stent with pre and post dilatation Post Stenosis: 0 % Post intervention MIRNA flow: 3 Lesion Devices: Desai .014 BMW [place] Straight 190cm Cardinal 6 Fr XB3.0 100cm Guide Catheter Matt Sci EMERGE MR 2.50x20 BALLOON Matt Sci Synergy MR ANUJA 3.00x38 Matt Sci NC EMERGE MR 2.50x30 BALLOON Terumo .014 Runthrough Extra Floppy 180cm straight Matt Sci NC EMERGE MR 3.00x30 BALLOON LESION SITE: Ramus (Ostial) Lesion Complexity: High/C, chronic total occlusion: No, lesion at bifurcation: Yes, thrombus present: No, lesion length: 10 mm, culprit lesion: Yes, Previously treated lesion: No Pre Stenosis: 80 % Pre intervention MIRNA flow: 3 PROCEDURE: Drug Eluting Stent with pre and post dilatation Post Stenosis: 0 % Post intervention MIRNA flow: 3 Lesion Devices: Cardinal 6 Fr XB3.0 100cm Guide Catheter Terumo .014 Runthrough Extra Floppy 180cm straight Matt Sci EMERGE MR 2.00x12 BALLOON Matt Sci Synergy MR ANUJA 2.50x12 Matt Sci NC EMERGE MR 2.50x12 BALLOON COMPLICATIONS No Complications PROCEDURE MEDICATIONS Fentanyl 50 mcg IV Versed 1 mg IV Oxygen: 2 L/min via nasal cannula Heparin diluted in 23cc Heparinized saline. Patient given 10cc IA of this solution. 12/18/2019 10:34: 12 Heparin 5000 unit(s) IV 12/18/2019 11:08:52 Heparin 2000 unit(s) IV 12/18/2019 11:56:05 Verapamil 2.5mg, Ntg 100mcgs, 2000 units of Heparin diluted in 23cc Heparinized saline. Patient give n 10cc IA of this solution. 12/18/2019 10:34:12 IV Fluids: .9 NaCl 300cc 12/18/2019 12:11:51 SUMMARY OF HEMODYNAMIC DATA Time AIR REST ECG 08:47:18 ECG 10:18:56 AO 104/55 (74) SA 10:39:46 LV 115/-6, 2 11:00:07 LV 117/-4, 5 11:00:14 LV 98/-5, 2 11:01:00 LV 101/-3, 4 11:01:07 LVp 103/-3, 4 11:01:11 AOp 106/39 (64) 11:01:16 Signed By Jeri Williamson MD On 12/21/2019 17:26:40 Jeri Williamson MD
== END 2019-12-19 08:12 | disposition home or self-care (01) ==
LOC: CLSP 08:26 → PCU 12-19 07:16
PROVIDERS: Physician Assistant Medical; Specialist; PCP Family Medicine; Referring Provider Internal Medicine Cardiovascular Disease; Visit Provider Internal Medicine Cardiovascular Disease
DX: I25.10 Atherosclerotic heart disease of native coronary artery without angina pectoris (principal); R94.39 Abnormal result of other cardiovascular function study; I25.2 Old myocardial infarction; I10 Essential (primary) hypertension; E78.5 Hyperlipidemia, unspecified; E66.9 Obesity, unspecified; E11.9 Type 2 diabetes mellitus without complications; N40.0 Benign prostatic hyperplasia without lower urinary tract symptoms; I25.5 Ischemic cardiomyopathy; I44.7 Left bundle-branch block, unspecified; Z68.29 Body mass index [BMI] 29.0-29.9, adult; Z95.1 Presence of aortocoronary bypass graft; Z86.018 Personal history of other benign neoplasm; Z79.82 Long term (current) use of aspirin; Z79.899 Other long term (current) drug therapy; Z79.84 Long term (current) use of oral hypoglycemic drugs
CPT/HCPCS: 36415; 71046; 80048; 80053; 85025; 85027; 85347; 85610; 85730; 92928; 93005; 93459; 99152; 99153; J7040; Q9967; C1725; C1769; C1874; C1887; C1894; C9600

== ENCOUNTER → 2020-02-07 | Outpatient (CLI) | payer MEDICARE, SELFPAY ==
[2019-12-15 08:45] VITALS: BMI 28.5
[2020-01-09 11:26] VITALS: BMI 28.5
--- NOTE | 2020-02-07 13:01 | PCM.CR.ITP ---
Diagnosis - General Information Admitting Diagnosis: Z95.5 PCI with Stent Personal Learning Style:: Audio/Visual, Demonstration Stage of change r/t lifestyle modifications:: Contemplation Gave educational material for:: Treating Heart Disease, Emotions & Heart Disease, Stress Management & Relaxation, Sleep Disorders & Heart Disease, How The Heart Works, What it means to have Heart Disease, How Coronary Artery Disease is Diagnosed, Heart Procedures, What Heart Medications Do, Risk Factors & Modifications, Living an Active Life, Nutrition - Education/Goals Cardiac Rehabilitation Goals: 1. Maintain the individual as the primary focus of care. 2. To improve the patient's quality of life. 3. Identification of cardiac risk factors and provide cardiac risk factor management. 4. Enhance the psychosocial status of the patient. 5. Reconditioning enough to allow the patient to resume customary activities. 6. Control symptoms of cardiac disease Personal Goals: Initial Assessment: Improve energy level, Participate in home exercise program, Get back to work, or to resume activities faster, Improve knowledge of cardiac disease, Improve muscle strength and endurance, Improve diet and eating habits (eat healthier) Scale for measuring improvement of personal goals: Enter appropriate number in Comments. 2 = Unchanged. 3 = Slightly Better. 4 = Moderate Improvement. 5 = Met my Goal - Diagnosis & Disease Process Outcomes/Goals: Pt IDs own risk factors & lifestyle modifications by Session 10, Verbalizes symptoms of angina & response by session 3., Pt independently manages, Other Additional Outcomes/Goals: - Safety Referral to Physical Therapy: No Referral to [facility] Case Management: No Fall Risk Assessed:: Yes Assistive Devices:: None Exercise - Initial Assessment - Visit Date of Eval: 02/07/20 - initial eval - Physician Prescribed Exercise Modalities: Treadmill, Biodyne, Rower, Airdyne, NuStep, SciFit Frequency: 3x/week for 12 weeks [36 sessions] Intensity: 60-80% of age predicted maximum heart rate reserve Current METSs:: 3.0 Target Heart Rate:: 94-122 EKG Type: NSR - Outcomes & Goals Goals:: Verbalizes understanding of THR, RPE & goal METS by session 6, Documents in home exercise log/reports 30 min aerobic 5 day/wk by DC, Demonstrates accurate pulse taking by DC, Other additional outcome/goals: see below - Intervention & Plan Exercise Program Goals: Instruct on personal THR & RPE, Instruct on MET level & personal MET goal, Show patient to take own pulse /validate performance until accurate, Instruct on home exercise, Other additional plan/int - Physical Activity Home Exercise Physical Activity - Home Exercise: Safe Exercise, Warm-up, Self-monitoring, Cool-Down, Home Exercise > 30 min Daily, Sitting Time <3 hours/daily - Outcomes & Goals Outcomes/Goals: Demonstrates correct Warm-up/exercise Cool-Down (S3) if = 2.5 METs, Verbalizes symptoms of exercise intolerance by Session 3 (S3), Demonstrate safe equipment use (S3) & follows exercise prescrition (6), Other: See below - Intervention & Plan Plan/Intervention: Instruct warm-up & cool-down if exercising at > 2 METs, Instruct on symptoms of exercise intolerance & actions to take, Instruct & monitor on saf, Assess intial functional capacity & safety risk, Other See below Nutrition - Initial Assessment - Program Goals Nutrition Program Goals: LDL <100 optimal. 100 - 129 Near optimal. 130 - 159 Borderline High. 160 - 189 High. Total Cholesterol <200 desirable. 200 - 239 Borderline High. >/= 240 High. HDL < 40 Low >/=60 High. Triglycerides <150 desirable. <199 optimal. VlDL 5 - 40. HgbA1C <7%. BMI <25 Patient has diagnosis of Hyperlipidemia (ICD E78)?: Yes - Visit Date of Assessment:: 02/07/20 - initial eval - Cholesterol/Lipids Determine presence & major risk factors that modify LDL goal: Hypertension or hypertensive medication, Low HDL cholesterol <40 mg/dL*, Family history of premature CHD in Male < 55 years: female <65 yearsFa, Age men > 45 years; women >/= 55 years Outcomes/Goals: Pt IDs own risk factors & lifestyle modifications by Session 10, Verbalizes symptoms of angina & response by session 3., Pt independently manages, Other Additional Outcomes/Goals: Intervention/Plan: Advocate for lipid panel cholesterol medication if applicable, Instruct on personal lipid levels & lipid goals/NCEP guidelines, Instruct on cholesterol, Other additional plan/int Referral to dietitian:: No - declines - Diabetes (Other Core Measures) Diabetes Type: Diagnosis Type II ICD-10 E11 Non-Insulin Dependent?: Yes Referral to Diabetic Clinic:: No - Weight Mgt (Other Care) Height: 5 ft 8.9 in Weight:: 87.997 kg BMI: 28.7 Diagnosis Overweight/Obesity BMI> 30% ICD-10 E66: Yes Outcomes/Goals: Pt sets, maintains & shows weight loss goal & trend during rehab, Other additional outcomes/goals Intervention/Plan: Instruct on ideal BMI & set weight loss goal w/patient, Assist pt to ID & incorporate diet changes for weight loss by S9, Refer to Structured Weight Loss program as appropriate, Encourage goal of using 250-300dcal per session for weight loss, Other additional plan/interventions - Healthy Eating Habits Will attend diet classes:: Yes Outcomes/Goals:: Consume diet rich in vegs,fruits,whole grain/high fiber,fish,lean meat, Limit sat/trans fats,cholesterol & added salts & sugars, Other additional outcome/goals: Intervention/Plan:: Assess current eating habits, Other Additional plan/interventions - Education Gave educational materials for:: Signs & symptoms of hypoglycemia, Signs & symptoms of hyperglycemia, Relate diabetes to coronary artery disease, Healthy eating Medical - Initial Assessment - Visit Date of Eval: 02/07/20 - initial eval - Medication Compliance Preventative Medication(s):: Aspirin, KEVIN inhibitor, Statin/lipid, Beta meredith, ARB (Angiotensi Rcap) Doesn?t believe in the benefits of treatment?: No Believes medications are unnecessary or harmful?: No Has a concern about medication side effects?: No Expresses concern over the cost of medications?: No Outcomes/Goals: Verbalizes medications,desired effect & common side effects @ DC, Pt self-reports following medication regimen, Keeps card in wallet w/medications listed by DC, Other additional outcome/goals: Interventions/plans: Instruct on medication effects & side effects, Review medication list w/patient every two weeks, Instruct importance of taking meds as ordered & assist problem solving, Other additional - Tobacco Use Tobacco Use: Non-smoker Do you use smokeless tobacco?: No - Hypertension Hypertension Diagnosis:: Hypertension ICD-10 I10 Resting Blood Pressure:: 120/66 [place] [employer] Hypertension Guidelines: [place] [employer] Hypertension Guidelines. Normal BP Less than 120/80. Elevated BP 120/80. Hypertension Stage 1: BP 130-139/80-89. Hypertesnion Stage 2: BP 140 or higher/90 or higher. Hypertension Crisis: BP higher than 180/120 Outcomes/Goals: Able to verbalize/achieve optimal blood pressure <130/80, Incorporates diet changes & exercise for blood pressure control by DC, Other additional outcomes/goals Interventions/plan: Instruct on optimal blood pressure, hypertension & medications, Instruct on effects of sodium, alcohol, stress, exercise &hypertension, Other additional plan/interventions - Tobacco Cessation Referral Smoking Cessation Referral:: No Individual Education/Counseling:: No Education Schedule Given:: Yes Psychosocial - Initial Assess - VIsit Date of Eval: 02/07/20 - initial eval History of previous Mental disease:: No - Target Goals Target Goals: Assess presence or absence of depression. Using a valid screening tool, maximizes coping skills. Positive support system - Psychosocial Test Tool Used:: Vesna Roman QOL Cardiac, PHQ-9 Questionnaire phq-9 Severity: Severity. 1-4 Minimal Depression. 5-9 Mild Depression. 10-14 Moderate Depression. 15-19 Moderately Sever Depression. 20-27 Severe Depression. Rule: See PHQ-9 Score: 2 - Referral to Behavioral Health PS - Interventions: Yes Attend Stress Management Classes, No Referral to Behavioral Health if PHQ-9 score >9:, No Referral to [facility], No Referral to Physician if PHQ-9 if score is 5-9: - Outcomes/Goals: See list Psychosocial Outcomes/Goals:: ID's personal stressors & 2 strategies to manage stress by discharge, Other Additional outcome/goals: - Intervention/Plan: See List Interventions/Plan:: Assess stressors,coping strategies & signs of derpression on admission, Instruct/assist pt to develop coping & personal stress Mgt strategies, Refer to Behavioral Health if appropriate, Refer to Physician if appropriate, Instruct patient to recognize signs & symptoms of depression, Instruct patient to recog, Other additional plan/intervention Patient Health Questionnaire Initial Assessment 1. Little interest or pleasure in doing things: Not at all 2. Feeling down, depressed, or hopeless: Not at all 3. Trouble falling or staying asleep, or sleeping too much: Not at all 4. Feeling tired or having little energy: Several days 5. Poor appetite or overeating: Several days 6. Feeling bad about yourself -- or that you are a failure or have let yourself or your family down: Not at all 7. Trouble concentrating on things, such as reading the newspaper or watching television: Not at all 8. Moving or speaking so slowly that other people could have noticed. Or the opposite - being so fidgety or restless that you have been moving around a lot more than usual: Not at all 9. Thoughts that you would be better off , or of hurting yourself in some way: Not at all How difficult have these problems made it for you to do your work, take care of things at home, or get along with other people?: Not difficult at all Total Score: 2 ALBA-Q SV Test - Statements CAD is a disease of the arteries in the heart: I Don't Know Examples of risk factors for heart disease: True Angina is chest pain or discomfort: True The benefits of resistance training include: I Don't Know Eating more meat and dairy products: I Don't Know Anti-platelet medications such as aspirin are important: I Don't Know The only effective way to manage stress: False An exercise warm-up slowly increases heart rate: I Don't Know Prepared, processed foods usually have high sodium: True Depression is common after a heart attack: True The statin medications lower cholesterol: I Don't Know To control blood pressure, lower the amount of sodium: I Don't Know If someone gets chest discomfort during walking: I Don't Know Transfats are partially hydrogenated vegetable oils: I Don't Know Sleep apnea that is not treated increases the risk: I Don't Know To control cholesterol, one should become a vegetarian: I Don't Know Someone knows if he/she is exercising at the right level: I Don't Know Diabetes cannot be prevented with exercise & health eating: True Stress is a large risk for heart attack: True A diet that can help lower blood pressure is rich in: True - Total Score Total Correct Responses: 7 Self-Efficacy Initial Assessment We would like to know how confident you are in doing certain activities. Please select your confidence level for:: Select your confidence level for the following using the scale 1-10 where 1 is not at all confident and 10 is totally confident. Your score is the average of all 6 responses. Fatigue: How confident are you that you can keep the fatigue caused by your disease from interfering with the things you want to do? Select Number: 6 Physical Discomfort or Pain: How confident are you that you can keep the physical discomfort or pain of your disease from interfering with the things you want to do? Select Number: 8 Emotional Distress: How confident are you that you can keep the emotional distress caused by your disease from interfering with the things you want to do? Select Number: 6 Other Symptoms or Health Problems: How confident are you that you can keep other symptoms or health problems from interfering with the things you want to do? Select Number: 6 Different Tasks and Activities: How confident are you that you can do the different tasks and activities needed to manage your health condition so as to reduce your need to see a doctor? Select Number: 6 Medication: How confident are you that you can do things other than just taking medication to reduce how much your illness affects your everyday life? Select Number: 6 Total Score:: 6 Nutrition Survey - Nutrition Survey Instructions Scoring Instructions: Scoring is as follows: Yes = 1 points. No = 0 point. Patient score that is >/=12 is considered to be at potential nutritional risk and could benefit from a referral to a registered dietitian. - Nutrition Survey Initial Have you lost >10 lbs over the past 2 months without trying?: No Are you following a special diet at home for diabetes, low fat, or low salt?: No Are you interested in meeting with a dietitian for help understanding your diet?: No Do you eat less than 3 meals a day?: No Do you eat fatty meats (cruz, sausage, ribs, etc), fried foods, desserts, large amounts of salad dressings, margarine, butter, or cheese most days?: No Do you have food allergies? [Enter types in comment field]: No Do you eat in restaurants more than 3 times a week?: No Do you season food with salt, seasoning salt, or garlic salt?: No Do you used canned, boxed, frozen meals, or soups, seasoning packets?: No Total Score:: 0
--- NOTE | 2020-02-07 13:03 | CR.HP_ITS ---
CR - History & Physical - General Arrival date:: 02/07/20 Arrival time:: 13:03 Date of Referral:: 12/18/19 Date of CR Evaluation:: 02/07/20 Referring Physician: Dr. Dylan Walker Primary Diagnosis: Z95.5 PCI with Stent - History of Present Cardiac Event Onset Date: Enter Onset Date of cardiac illnesses in Comment field below Current stable Angina Pectoris:: No Acute Myocardial Infarction within 12 months:: No Coronary Artery Bypass Graft:: Yes - 2004 Heart valve replacement or repair:: No PTCA or coronary stenting:: Yes Interventions with present event:: PCI with Stent - Medications Home Medications: Ambulatory Orders Medication Instructions Recorded aspirin 81 mg tablet,delayed 81 mg PO DAILY 11/13/19 release atenolol 100 mg tablet 100 mg PO DAILY tab 11/13/19 hydrochlorothiazide 25 mg tablet 25 mg PO DAILY tab 11/13/19 lisinopril 40 mg tablet 40 mg PO DAILY tab 11/13/19 metformin 1,000 mg tablet 1,000 mg PO BID tab 11/13/19 multivitamin 1 tab PO DAILY 11/13/19 omega-3 fatty acids-fish oil 340 1 cap PO DAILY 11/13/19 mg-1,000 mg capsule potassium chloride 10 mEq 10 meq PO DAILY tab 11/13/19 tablet,extended release(part/cryst) simvastatin 80 mg tablet 40 mg PO QHS tab 11/13/19 allopurinol 100 mg tablet PO 01/09/20 clopidogrel 75 mg tablet 75 mg PO DAILY #90 tab 01/09/20 magnesium sulfate 100 mg capsule 100 mg PO DAILY 01/09/20 - Allergies Allergies/Adverse Reactions: Allergies No Known Allergies Allergy (Unverified 01/09/20 11:14) - Sleep Disorder Evaluation Hx of Sleep Apnea: No Do you snore loudly (louder than talking or can be heard through closed doors)?: No Do you often feel tired/ fatigued/ sleepy during daytime?: No Has anyone observed you stop breathing during sleep?: No History of Hypertension (for STOP score): Yes STOP Results: Negative Advanced Directives - Advanced Directives Power of Elevator Builder: Yes Living Will: Yes Advance Directives Information Provided: Yes Advance Directives on File: Yes DNR Order?:: No Past Medical History - Past Medical Illness Medical History: Past Medical History (Last Reviewed 12/29/19 @ 15:32 by PATRICIA Perkins) Atherosclerosis of coronary artery of [place] heart without angina pectoris (Chronic) I25.10 Severe coronary artery disease involving the [place] left anterior descending artery in the proximal and mid areas, totally occluded left circumflex artery, high-grade stenosis noted of the ostial ramus intermedius, totally occluded right coronary artery. 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/05 Z86.018 excision of LA myxoma utilizing transatrial approach and pericardial patch to repair intra atrial septal defect 07/08/2005 Ischemic cardiomyopathy (Chronic) I25.5 Left bundle branch block (LBBB) (Chronic) I44.7 Essential (primary) hypertension (Chronic) I10 Hyperlipidemia (Chronic) E78.5 BPH (benign prostatic hyperplasia) N40.0 Obesity E66.9 Type 2 diabetes mellitus E11.9 - Past Surgical History Surgical History: Past Surgical History (Last Reviewed 12/29/19 @ 15:32 by PATRICIA Perkins) Stented coronary artery (Chronic) Onset Date: 12/18/19 Z95.5 3.00 x 38 mm Synergy MR ANUJA to mLAD, 2.50 x 12 mm Synergy MR ANUJA to ramus 12/18/19 H/O coronary artery bypass surgery (Resolved) Onset Date: 07/08/05 Z95.1 CABG x 3: SVG-D1, SVG-Ramus, SVG-RCA w/ excision of LA myxoma utilizing transatrial approach and pericardial patch to repair intra atrial septal defect 07/08/2005 History of cataract surgery Z98.49 History of left heart catheterization Onset Date: 07/06/05 Z98.890 - Family History Summary Family History: Family History (Last Reviewed 12/29/19 @ 15:32 by PATRICIA Perkins) Mother Hypertension Diabetes Father Heart disease Social History - Smoking History Hx Tobacco Use: No Hx Smoking Exposure: No - Alcohol Use Alcohol Usage: No - Occupation Occupation (List type of work in comments):: Retired - Hobbies, Recreation, Social Activities Hobbies: None Recreational Activities: I am able to engage in all my recreational activities Social Environment - Status Marital Status: - Current Living Arrangements Living Environment:: Spouse - Children How many children do you have?: 3 Do any of your children live nearby?: Yes - Safety Do you feel safe in your surroundings?: Yes - Assistance Do you need any assistance at home?: none Review of Systems - Review of Systems Hints: Right click = Denies (Slash). Left click = Reports ([place]) Review of Present Symptoms: Reports: Appetite - Normal, Appetite - Special Diet, Sleep - Normal. Denies: Shortness of Breath at Rest, Shortness of Breath with Exertion, PVD, Operative Discomfort, Angina, Wound Healing, Dizziness/Lightheadedness, Fatigue, Heart Arrhythmia/Irregularities, Sexual Changes - Pain Is Patient Pain Free?: Yes Pain Location: none Risk Factor Assessment - Vital Signs Pulse Ox: 94 Blood Pressure: 120/66 - Pulse Pulse Rate: 72 Pulse Rhythm: Regular - Hypertension Blood Pressure Sitting - Left Arm: 120/66 - Stress Stress: Long-standing - Diabetes Diabetic History: Type II Nutrition Referral for Diabetes: No - Obesity Height: 5 ft 8.9 in Weight:: 88.001 kg Weight in Pounds: 194.0 lbs Body Mass Index (BMI): 28.7 Nutritional Referral for Obesity: No - Physical Inactivity Physical Inactivity: None - Risk Stratification Risk Guidelines: Lowest Risk: Risk Factor for Smoking, Moderate Risk: Risk Factor for Dyslipidemia, Risk Factor for Obesity, Risk Factor for Hypertension, Risk Factor for Sedentary Lifestyle, Risk Factor for Depression, Highest Risk: Risk Factor for Diabetes - For Smoking Smoking Risk Guidelines: Smoking Low Risk: None or quit greater than 6 months ago. Smoking Moderate Risk: Smoker or quit 6 months or less ago. Smoking High Risk: Smoker - For Dyslipidemia Dyslipidemia Risk Guidelines: Low Risk: Moderate Risk: High Risk: 15-25% fat 25.1-29% fat >/= 30% fat. <7% sat fat 7-9% sat fat >9% sat fat. <150 mg chol 150-299 mg chol >/= 300 mg chol. LDL <100 LDL 100-129 LDL >/= 130. Chol/HDL ratio <5.0 Chol/HDL ratio 5.0-6.0 Chol/HDL ratio >6.0. Triglycerides <100 Triglycerides 100-149 Triglycerides >/= 150 - For Diabetes Mellitus Diabetes Risk Guidelines: Diabetes Low Risk: HgA1c <6.5% and/or FBG <120. Diabetes Moderate Risk: HgA1c 6.6-7.9% and/or FBG 120-180. Diabetes High Risk: HgA1c >/= 8% and/or FBG >180 - For Obesity/Overweight Obesity/Overweight Risk Guidelines: Obesity Low Risk: BMI <25.0. Obesity Moderate Risk: BMI 25-29.9. Obesity High Risk: BMI >/= 30.0 - For Hypertension Hypertension Risk Guidelines: Hypertension Low Risk: Systolic <120 and Diastolic <80. Hypertension Moderate Risk: Systolic 120-139 and Diastolic 80-89. Hypertension High Risk: Systolic >/= 140 and Diastolic >/= 90 - For Sedentary Lifestyle Sedentary Lifestyle Risk Guidelines: Sedentary Lifestyle Low Risk: >/= 1,500 kcal/week. Sedentary Lifestyle Moderate Risk: 700-1,499 kcal/week. Sedentary Lifestyle High Risk: < 700 kcal/week - For Depression Depression Risk Guidelines: Depression Low Risk: Not clinically depressed. Depression Moderate Risk: Mildly depressed. Depression High Risk: Clinically depressed - Family History Family History: Family History (Last Reviewed 12/29/19 @ 15:32 by PATRICIA Perkins) Mother Hypertension Diabetes Father Heart disease Motivation - Motivation to Participate On a scale of 1 to 10, how prepared are you to commit to attending program?: 10 What do you see as barriers to successfully being able to complete the program?: none What do you see as the benefits of succesfully completing the program? In other words, what do you hope to get out of participating in the program?: improved health Are there issues you are dealing with that will interfere with completing the program?: none Do you have a spouse or signficant other, family or friends who will help support you to complete the program?: spouse
[2020-02-07 13:59] VITALS: BP 120/66; PULSE 72; O2SAT 94; BMI 28.7
[2020-02-07 14:08] VITALS: BP 120/66; BMI 28.7
== END | disposition home or self-care (01) ==
LOC: CR 12:55
PROVIDERS: PCP Family Medicine; Referring Provider Internal Medicine Cardiovascular Disease; Visit Provider Internal Medicine Cardiovascular Disease
DX: Z95.5 Presence of coronary angioplasty implant and graft (principal)

== ENCOUNTER 2020-03-01 11:30 | Outpatient (RCR) | payer MEDICARE, SELFPAY ==
[2020-02-07 13:54] VITALS: BMI 28.7
[2020-02-07 13:56] VITALS: BMI 28.7
== END 2020-03-03 23:59 ==
LOC: CR 11:30
PROVIDERS: PCP Family Medicine; Referring Provider Internal Medicine Cardiovascular Disease; Visit Provider Internal Medicine Cardiovascular Disease
DX: I25.10 Atherosclerotic heart disease of native coronary artery without angina pectoris (principal); Z95.1 Presence of aortocoronary bypass graft
CPT/HCPCS: 93798

== ENCOUNTER → 2020-03-11 11:45 | Outpatient (CLI) | payer MEDICARE, SELFPAY ==
[2020-02-07 13:59] VITALS: BMI 28.7
[2020-03-08 09:02] VITALS: BMI 28.4
[2020-03-11 12:59] LABS: Anion Gap 7 (5-15); BUN 22 mg/dL (7-18); BUN/Creat Ratio 18.3 RATIO (10-20); Calcium,Total 9.6 mg/dL (8.5-10.1); Chloride 103 mmol/L (98-107); EST Glomerular Filtration Rate 63 mL/min (>60); Est Glom Filt Rate - Afr Amer 76 mL/min (>60); Glucose 90 mg/dL (74-106); Magnesium 2.1 mg/dL (1.6-2.6); Potassium 3.9 mmol/L (3.5-5.1); Sodium Level 138 mmol/L (136-145); Thyroid Stim Hormone (TSH) 2.58 uIU/mL (0.358-3.74)
== END ==
PROVIDERS: PCP Family Medicine; Referring Provider Internal Medicine Cardiovascular Disease; Visit Provider Internal Medicine Cardiovascular Disease
DX: I25.10 Atherosclerotic heart disease of native coronary artery without angina pectoris (principal); I25.5 Ischemic cardiomyopathy; I10 Essential (primary) hypertension; Z95.1 Presence of aortocoronary bypass graft; Z95.5 Presence of coronary angioplasty implant and graft; Z86.018 Personal history of other benign neoplasm
CPT/HCPCS: 36415; 80048; 83735; 84443; 93798

== ENCOUNTER 2020-04-01 11:30 | Outpatient (RCR) | payer MEDICARE, SELFPAY ==
[2020-02-07 13:59] VITALS: BMI 28.7
[2020-02-07 14:08] VITALS: BMI 28.7
--- NOTE | 2020-03-08 08:52 | CR.ITP_ITS ---
Exercise - 30-day Assessment - Visit Date of Eval: 03/08/20 Session #:: 10 - Physician Prescribed Exercise Modalities: Treadmill, Airdyne, NuStep Frequency: 3x/week for 12 weeks [36 sessions] Intensity: 60-80% of age predicted maximum heart rate reserve Current METSs:: 3.5 Target Heart Rate:: 94-122 Target RPE 12-16:: Current RPE:: 11-13 Maximum Excercise HR:: 98 Resting Blood Pressure: 124/58 Maximum Exercise Blood Pressure: 140/64 EKG Type: NSR with BBB AND RARE PVCs AND PVCs. - Outcomes & Goals Goals:: Verbalizes understanding of THR, RPE & goal METS by session 6, Documents in home exercise log/reports 30 min aerobic 5 day/wk by DC, Demonstrates accurate pulse taking by DC - Intervention & Plan Exercise Program Goals: Instruct on personal THR & RPE, Instruct on MET level & personal MET goal, Show patient to take own pulse /validate performance until accurate, Instruct on home exercise - 30-day Reassessments 30 day Reassessments:: Progressing - Physical Activity Home Exercise Physical Activity - Home Exercise: Safe Exercise, Warm-up, Self-monitoring, Cool-Down, Home Exercise > 30 min Daily, Sitting Time <3 hours/daily - Outcomes & Goals Outcomes/Goals: Demonstrates correct Warm-up/exercise Cool-Down (S3) if = 2.5 METs, Verbalizes symptoms of exercise intolerance by Session 3 (S3), Demonstrate safe equipment use (S3) & follows exercise prescrition (6) - Intervention & Plan Plan/Intervention: Instruct warm-up & cool-down if exercising at > 2 METs, Instruct on symptoms of exercise intolerance & actions to take, Instruct & monitor on saf, Assess intial functional capacity & safety risk - 30-day Reassessments 30 day Reassessments:: Progressing Nutrition - 30-Day Assessment - Program Goals Nutrition Program Goals: LDL <100 optimal. 100 - 129 Near optimal. 130 - 159 Borderline High. 160 - 189 High. Total Cholesterol <200 desirable. 200 - 239 Borderline High. >/= 240 High. HDL < 40 Low >/=60 High. Triglycerides <150 desirable. <199 optimal. VlDL 5 - 40. HgbA1C <7%. BMI <25 Patient has diagnosis of Hyperlipidemia (ICD E78)?: Yes - Visit Date of Assessment:: 03/08/20 Session #:: 10 - Cholesterol/Lipids Triglycerides (mg/dL): 129 Total Cholesterol (mg/dL): 139 LDL Cholesterol (mg/dL): 68 HDL Cholesterol (mg/dL): 45 Determine presence & major risk factors that modify LDL goal: Hypertension or hypertensive medication, Age men > 45 years; women >/= 55 years Outcomes/Goals: Pt IDs own risk factors & lifestyle modifications by Session 10, Verbalizes symptoms of angina & response by session 3., Pt independently manages Intervention/Plan: Instruct on personal lipid levels & lipid goals/NCEP guidelines, Instruct on cholesterol Referral to dietitian:: Yes - MEDICAL NUTRITION THERAPY 30-day Reassessments:: Progressing - Diabetes (Other Core Measures) Diabetes Type: Not Applicable - Weight Mgt (Other Care) Not Applicable: Yes Height: 5 ft 8.9 in Weight:: 192 lb BMI: 28.4 Diagnosis Overweight/Obesity BMI> 30% ICD-10 E66: No Diagnosis High BMI/Morbid Obesity BMI> 35% ICD-10 Z68: No Outcomes/Goals: Pt sets, maintains & shows weight loss goal & trend during rehab Intervention/Plan: Instruct on ideal BMI & set weight loss goal w/patient, Assist pt to ID & incorporate diet changes for weight loss by S9, Encourage goal of using 250-300dcal per session for weight loss 30 day Reassessments:: Progressing - Healthy Eating Habits Will attend diet classes:: Yes Outcomes/Goals:: Consume diet rich in vegs,fruits,whole grain/high fiber,fish,lean meat, Limit sat/trans fats,cholesterol & added salts & sugars Intervention/Plan:: Assess current eating habits 30-day Reassessments:: Progressing - Education Gave educational materials for:: Healthy eating Medical- 30-Day Assessment - Visit Date of Eval: 03/08/20 Session #:: 10 - Medication Compliance Preventative Medication(s):: Aspirin, Clopidogrel/P2Y12 inhibit, Statin/lipid, Beta meredith H/O mental health issues: depression, anxiety, or addiction?: No Doesn?t believe in the benefits of treatment?: No Believes medications are unnecessary or harmful?: No Has a concern about medication side effects?: No Expresses concern over the cost of medications?: No Outcomes/Goals: Verbalizes medications,desired effect & common side effects @ DC, Pt self-reports following medication regimen, Keeps card in wallet w/medications listed by DC Interventions/plans: Instruct on medication effects & side effects, Review medication list w/patient every two weeks, Instruct importance of taking meds as ordered & assist problem solving 30-day Reassessments:: Progressing - Tobacco Use Tobacco Use: Non-smoker - Hypertension Hypertension Diagnosis:: Hypertension ICD-10 I10 Resting Blood Pressure:: 124/58 [place] [employer] Hypertension Guidelines: [place] [employer] Hypertension Guidelines. Normal BP Less than 120/80. Elevated BP 120/80. Hypertension Stage 1: BP 130-139/80-89. Hypertesnion Stage 2: BP 140 or higher/90 or higher. Hypertension Crisis: BP higher than 180/120 Peak Exercise Blood Pressure:: 140/64 Outcomes/Goals: Able to verbalize/achieve optimal blood pressure <130/80, Incorporates diet changes & exercise for blood pressure control by DC Interventions/plan: Instruct on optimal blood pressure, hypertension & medications, Instruct on effects of sodium, alcohol, stress, exercise &hypertension 30 day Reassessments:: Progressing - Tobacco Cessation Referral Smoking Cessation Referral:: No Individual Education/Counseling:: No Education Schedule Given:: Yes Psychosocial - 30-Day Assess - VIsit Date of Eval: 03/08/20 Session #:: 10 Not Applicable: No History of previous Mental disease:: Yes History of Emotional Disorders: Dementia - MILD DEMENTIA, PATIENT HAS DIFFICULTY RECALLING INSTRUCTIONS - Target Goals Target Goals: Assess presence or absence of depression. Using a valid screening tool, maximizes coping skills. Positive support system - Psychosocial Test Tool Used:: [employer] QOL Cardiac, PHQ-9 Questionnaire phq-9 Severity: Severity. 1-4 Minimal Depression. 5-9 Mild Depression. 10-14 Moderate Depression. 15-19 Moderately Sever Depression. 20-27 Severe Depression. Rule: - Referral to Behavioral Health PS - Interventions: Yes Attend Stress Management Classes, No Referral to Behavioral Health if PHQ-9 score >9:, No Referral to [facility], No Referral to Physician if PHQ-9 if score is 5-9: - Outcomes/Goals: See list Psychosocial Outcomes/Goals:: ID's personal stressors & 2 strategies to manage stress by discharge - Intervention/Plan: See List Interventions/Plan:: Assess stressors,coping strategies & signs of derpression on admission, Instruct/assist pt to develop coping & personal stress Mgt strateg ies, Instruct patient to recognize signs & symptoms of depression, Instruct patient to recog - 30-day Reassessments: 30 day Reassessments:: Progressing Patient Health Questionnaire 30-Day Re-eval Assessment 1. Little interest or pleasure in doing things: Not at all 2. Feeling down, depressed, or hopeless: Not at all 3. Trouble falling or staying asleep, or sleeping too much: Not at all 4. Feeling tired or having little energy: Not at all 5. Poor appetite or overeating: Not at all 6. Feeling bad about yourself -- or that you are a failure or have let yourself or your family down: Not at all 7. Trouble concentrating on things, such as reading the newspaper or watching television: Not at all 8. Moving or speaking so slowly that other people could have noticed. Or the opposite - being so fidgety or restless that you have been moving around a lot more than usual: Not at all 9. Thoughts that you would be better off , or of hurting yourself in some way: Not at all How difficult have these problems made it for you to do your work, take care of things at home, or get along with other people?: Not difficult at all Total Score: 0 Self-Efficacy 30-Day Re-eval Assessment We would like to know how confident you are in doing certain activities. Please select your confidence level for:: Select your confidence level for the following using the scale 1-10 where 1 is not at all confident and 10 is totally confident. Your score is the average of all 6 responses. Fatigue: How confident are you that you can keep the fatigue caused by your disease from interfering with the things you want to do? Select Number: 6 Physical Discomfort or Pain: How confident are you that you can keep the physical discomfort or pain of your disease from interfering with the things you want to do? Select Number: 8 Emotional Distress: How confident are you that you can keep the emotional distress caused by your disease from interfering with the things you want to do? Select Number: 6 Other Symptoms or Health Problems: How confident are you that you can keep other symptoms or health problems from interfering with the things you want to do? Select Number: 6 Different Tasks and Activities: How confident are you that you can do the different tasks and activities needed to manage your health condition so as to reduce your need to see a doctor? Select Number: 7 Medication: How confident are you that you can do things other than just taking medication to reduce how much your illness affects your everyday life? Select Number: 8 Total Score:: 6
[2020-03-08 09:02] VITALS: BP 124/58; BP 140/64; BMI 28.4
== END 2020-04-02 23:59 ==
LOC: CR 11:30
PROVIDERS: PCP Family Medicine; Referring Provider Internal Medicine Cardiovascular Disease; Visit Provider Internal Medicine Cardiovascular Disease
DX: I25.10 Atherosclerotic heart disease of native coronary artery without angina pectoris (principal); Z95.1 Presence of aortocoronary bypass graft
CPT/HCPCS: 93798

== ENCOUNTER 2020-05-03 11:30 | Outpatient (RCR) | payer MEDICARE, SELFPAY ==
[2020-02-07 13:59] VITALS: BMI 28.7
[2020-03-08 09:02] VITALS: BMI 28.4
[2020-04-03 00:29] VITALS: BP 124/58; BP 140/64
--- NOTE | 2020-04-08 08:16 | CR.ITP_ITS ---
Diagnosis - General Information Admitting Diagnosis: PCI with stent - Education/Goals Cardiac Rehabilitation Goals: 1. Maintain the individual as the primary focus of care. 2. To improve the patient's quality of life. 3. Identification of cardiac risk factors and provide cardiac risk factor management. 4. Enhance the psychosocial status of the patient. 5. Reconditioning enough to allow the patient to resume customary activities. 6. Control symptoms of cardiac disease Scale for measuring improvement of personal goals: Enter appropriate number in Comments. 2 = Unchanged. 3 = Slightly Better. 4 = Moderate Improvement. 5 = Met my Goal Exercise - 60-day Assessment - Visit Date of Eval: 04/08/20 Session #:: 22 - Physician Prescribed Exercise Modalities: Treadmill, Airdyne, NuStep Frequency: 3x/week for 12 weeks [36 sessions] Intensity: 60-80% of age predicted maximum heart rate reserve Current METSs:: 3.5 Target Heart Rate:: 94-122 Current RPE:: 11-13 Maximum Excercise HR:: 95 Resting Blood Pressure: 126/62 Maximum Exercise Blood Pressure: 132/64 EKG Type: NSR W/LBBB - Outcomes & Goals Goals:: Verbalizes understanding of THR, RPE & goal METS by session 6, Documents in home exercise log/reports 30 min aerobic 5 day/wk by DC, Demonstrates ac curate pulse taking by DC, Other additional outcome/goals: see below - Intervention & Plan Exercise Program Goals: Instruct on personal THR & RPE, Instruct on MET level & personal MET goal, Show patient to take own pulse /validate performance until accurate, Instruct on home exercise, Other additional plan/int - 30-day Reassessments 30 day Reassessments:: Progressing - Physical Activity Home Exercise Physical Activity - Home Exercise: Safe Exercise, Warm-up, Self-monitoring, [employer] l-Down, Home Exercise > 30 min Daily, Sitting Time <3 hours/daily - Outcomes & Goals Outcomes/Goals: Demonstrates correct Warm-up/exercise Cool-Down (S3) if = 2.5 METs, Verbalizes symptoms of exercise intolerance by Session 3 (S3), Demonstrate safe equipment use (S3) & follows exercise prescrition (6), Other: See below - Intervention & Plan Plan/Intervention: Instruct warm-up & cool-down if exercising at > 2 METs, Instruct on symptoms of exercise intolerance & actions to take, Instruct & monitor on saf, Assess intial functional capacity & safety risk, Other See below - 30-day Reassessments 30 day Reassessments:: Progressing Nutrition - 60-Day Assessment - Program Goals Nutrition Program Goals: LDL <100 optimal. 100 - 129 Near optimal. 130 - 159 Borderline High. 160 - 189 High. Total Cholesterol <200 desirable. 200 - 239 Borderline High. >/= 240 High. HDL < 40 Low >/=60 High. Triglycerides <150 desirable. <199 optimal. VlDL 5 - 40. HgbA1C <7%. BMI <25 Patient has diagnosis of Hyperlipidemia (ICD E78)?: Yes - Visit Date of Assessment:: 04/08/20 Session #:: 22 - Cholesterol/Lipids Determine presence & major risk factors that modify LDL goal: Hypertension or hypertensive medication, Family history of premature CHD in Male < 55 years: female <65 yearsFa Outcomes/Goals: Pt IDs own risk factors & lifestyle modifications by Session 10, Verbalizes symptoms of angina & response by session 3., Pt independently manages, Other Additional Outcomes/Goals: Intervention/Plan: Advocate for lipid panel cholesterol medication if applicable, Instruct on personal lipid levels & lipid goals/NCEP guidelines, Instruct on cholesterol, Other additional plan/int Referral to dietitian:: Yes - Medical nutrition therapy 30-day Reassessments:: Progressing - Diabetes (Other Core Measures) Diabetes Type: Not Applicable - Weight Mgt (Other Care) Height: 5 ft 8.9 in Weight:: 88.677 kg BMI: 28.9 Intervention/Plan: Instruct on ideal BMI & set weight loss goal w/patient, Assist pt to ID & incorporate diet changes for weight loss by S9, Refer to Structured Weight Loss program as appropriate, Encourage goal of using 250- 300dcal per session for weight loss, Other additional plan/interventions 30 day Reassessments:: Progressing - Healthy Eating Habits Will attend diet classes:: Yes Outcomes/Goals:: Consume diet rich in vegs,fruits,whole grain/high fiber,fish,lean meat, Limit sat/trans fats,cholesterol & added salts & sugars, Other additional outcome/goals: Intervention/Plan:: Assess current eating habits, Other Additional plan/interventions 30-day Reassessments:: Progressing Medical- 60-Day Assessment - Visit Date of Eval: 04/08/20 Session #:: 22 - Medication Compliance Preventative Medication(s):: Aspirin, Clopidogrel/P2Y12 inhibit H/O mental health issues: depression, anxiety, or addiction?: No Doesn?t believe in the benefits of treatment?: No Believes medications are unnecessary or harmful?: No Has a concern about medication side effects?: No Expresses concern over the cost of medications?: No Outcomes/Goals: Verbalizes medications,desired effect & common side effects @ DC, Pt self-reports following medication regimen, Keeps card in wallet w/medications listed by DC, Other additional outcome/goals: Interventions/plans: Instruct on medication effects & side effects, Review medication list w/patient every two weeks, Instruct importance of taking meds as ordered & assist problem solving, Other additional 30-day Reassessments:: Progressing - Hypertension Hypertension Diagnosis:: Hypertension ICD-10 I10 [place] [employer] Hypertension Guidelines: [place] [employer] Hypertension Guidelines. Normal BP Less than 120/80. Elevated BP 120/80. Hypertension Stage 1: BP 130-139/80-89. Hypertesnion Stage 2: BP 140 or higher/90 or higher. Hypertension Crisis: BP higher than 180/120 Outcomes/Goals: Able to verbalize/achieve optimal blood pressure <130/80, Incorporates diet changes & exercise for blood pressure control by DC, Other additional outcomes/goals Interventions/plan: Instruct on optimal blood pressure, hypertension & medications, Instruct on effects of sodium, alcohol, stress, exercise &hypertension, Other additional plan/interventions 30 day Reassessments:: Progressing - Tobacco Cessation Referral Smoking Cessation Referral:: No Individual Education/Counseling:: No Education Schedule Given:: Yes Psychosocial - 60-Day Assess - VIsit Date of Eval: 04/08/20 Session #:: 22 History of previous Mental disease:: Yes History of Emotional Disorders: Dementia - mild - Target Goals Target Goals: Assess presence or absence of depression. Using a valid screening tool, maximizes coping skills. Positive support system - Psychosocial Test Tool Used:: [employer] QOL Cardiac, PHQ-9 Questionnaire phq-9 Severity: Severity. 1-4 Minimal Depression. 5-9 Mild Depression. 10-14 Moderate Depression. 15-19 Moderately Sever Depression. 20-27 Severe Depression. Rule: - Referral to Behavioral Health PS - Interventions: Yes Attend Stress Management Classes, No Referral to Behavioral Health if PHQ-9 score >9:, No Referral to [facility], No Referral to Physician if PHQ-9 if score is 5-9: - 30-day Reassessments: 30 day Reassessments:: Progressing Patient Health Questionnaire 60-Day Re-eval Assessment 1. Little interest or pleasure in doing things: Not at all 2. Feeling down, depressed, or hopeless: Not at all 3. Trouble falling or staying asleep, or sleeping too much: Not at all 4. Feeling tired or having little energy: Not at all 5. Poor appetite or overeating: Not at all 6. Feeling bad about yourself -- or that you are a failure or have let yourself or your family down: Not at all 7. Trouble concentrating on things, such as reading the newspaper or watching television: Not at all 8. Moving or speaking so slowly that other people could have noticed. Or the opposite - being so fidgety or restless that you have been moving around a lot more than usual: Not at all 9. Thoughts that you would be better off , or of hurting yourself in some way: Not at all Total Score: 0 Self-Efficacy 60-Day Re-eval Assessment We would like to know how confident you are in doing certain activities. Please select your confidence level for:: Select your confidence level for the following using the scale 1-10 where 1 is not at all confident and 10 is totally confident. Your score is the average of all 6 responses. Fatigue: How confident are you that you can keep the fatigue caused by your disease from interfering with the things you want to do? Select Number: 6 Physical Discomfort or Pain: How confident are you that you can keep the physical discomfort or pain of your disease from interfering with the things you want to do? Select Number: 8 Emotional Distress: How confident are you that you can keep the emotional distress caused by your disease from interfering with the things you want to do? Select Number: 6 Other Symptoms or Health Problems: How confident are you that you can keep other symptoms or health problems from interfering with the things you want to do? Select Number: 6 Different Tasks and Activities: How confident are you that you can do the different tasks and activities needed to manage your health condition so as to reduce your need to see a doctor? Select Number: 7 Medication: How confident are you that you can do things other than just taking medication to reduce how much your illness affects your everyday life? Select Number: 8 Total Score:: 6
[2020-04-08 08:28] VITALS: BP 126/62; BMI 28.9
== END 2020-05-03 23:59 ==
LOC: CR 11:30
PROVIDERS: PCP Family Medicine; Referring Provider Internal Medicine Cardiovascular Disease; Visit Provider Internal Medicine Cardiovascular Disease
DX: I25.10 Atherosclerotic heart disease of native coronary artery without angina pectoris (principal); Z95.1 Presence of aortocoronary bypass graft; Z95.5 Presence of coronary angioplasty implant and graft
CPT/HCPCS: 93798

== ENCOUNTER 2020-05-08 11:30 | Outpatient (RCR) | payer MEDICARE, SELFPAY ==
[2020-02-07 13:59] VITALS: BMI 28.7
[2020-04-08 08:28] VITALS: BMI 28.9
[2020-05-04 00:28] VITALS: BP 124/58; BP 126/62; BP 140/64
== END 2020-06-03 23:59 ==
LOC: CR 11:30
PROVIDERS: PCP Family Medicine; Referring Provider Internal Medicine Cardiovascular Disease; Visit Provider Internal Medicine Cardiovascular Disease
DX: I25.10 Atherosclerotic heart disease of native coronary artery without angina pectoris (principal); Z95.1 Presence of aortocoronary bypass graft; Z95.5 Presence of coronary angioplasty implant and graft
CPT/HCPCS: 93798

== ENCOUNTER → 2020-11-25 08:44 | Outpatient (CLI) | payer MEDICARE, SELFPAY ==
[2020-04-08 08:28] VITALS: BMI 28.9
[2020-11-22 10:58] VITALS: BMI 29.2
[2020-11-25 10:50] LABS: AST(SGOT) 15 U/L (15-37); Alanine Aminotransfer ALT/SGPT 28 U/L (16-61); Albumin, Serum 3.7 g/dL (3.2-5.0); Alkaline Phosphatase 86 U/L (45-117); Bilirubin, Direct 0.15 mg/dL (0.00-0.30); Cholesterol 163 mg/dL (200); Globulin 3.6 g/dL (2.2-4.2); High Density Lipoprotein 48 mg/dL; Protein, Total 7.3 g/dL (6.4-8.2); Triglycerides 148 mg/dL; Very Low Density Lipoprotein 30 mg/dL (5-40)
== END ==
PROVIDERS: PCP Family Medicine; Referring Provider Internal Medicine Cardiovascular Disease; Visit Provider Internal Medicine Cardiovascular Disease
DX: E78.5 Hyperlipidemia, unspecified (principal); I25.10 Atherosclerotic heart disease of native coronary artery without angina pectoris
CPT/HCPCS: 36415; 80061; 80076

== ENCOUNTER 2020-12-02 06:45 | Outpatient (RCR) | payer MEDICARE, SELFPAY ==
[2020-04-08 08:28] VITALS: BMI 28.9
[2020-11-22 10:58] VITALS: BMI 29.2
== END 2020-12-02 23:59 ==
LOC: IMMUN 06:45
PROVIDERS: PCP Family Medicine; Visit Provider Family Medicine
DX: Z23 Encounter for immunization (principal)
CPT/HCPCS: 0011A; 0012A

== ENCOUNTER 2023-05-10 11:30 | Outpatient (RCR) | payer MEDICARE, SELFPAY ==
[2020-04-08 08:28] VITALS: BMI 28.9
--- NOTE | 2023-04-16 10:54 | HP.PTEVAL_ITS ---
Patient's Visit Information Visit Information Visit Information: RAINA DELGADO Jr. is a 77 year old M referred to Physical Therapy by Dr. Kyle Franco MD with a diagnosis of Axonal Sensorimotor Neuropathy. Date of Evaluation: 04/16/23 Physical Therapist: Zaida Jiménez DPT Visit Plan Plan: Follow up with [facility] for vestibular and goals/POC will be established Subjective Subjective: Patient is with today- who reports that neurologist sent them here for his balance. He gets dizzy- if he is somewhere that he doesn't have something to grab onto he falls and lands on his knees. He has dementia and sleeps for the majority of the day. is unsure of how often he is dizzy- some days are worse than others- she thinks its probably multiple times a day. He ended up on his knees yesterday due to his dizziness. He is able to get up off the floor as long as he has something to hold onto. They have a walker and 2 canes but he will not use them. Dizziness does not hinder him and thinks his notices it more than he does. He has no pain. He does sometimes struggle to get out of his recliner. No injuries from falls. reports in the last 2 weeks he has had a fall a week. PMHx: Meds: only change is now metamalamide which is for dementia Objective Objective: Posture: FH, RS-can correct with tactile cues but does not maintain Gait: no deviation noted- tess is slow- no loss of balance in clinic. HR/TR: able with UE A Strength: Core: fair plus, Hip: 5/5, Knee: 5/5, Ankle: 5/5 Flex: HS: moderate, Gastroc: moderate Balance/Special Test Scores Functional Gait Assessment Score: 18 % Disability: 40.0000 CATSIB Score (Max score 120 seconds): 90 Lower Extremity Functional Score: 47 Rehabilitation Potential Physical Therapy Diagnosis: Patient presents with imbalance leading to falls Rehabilitation Potential: Good Anticipated Interventions Patient/Client Instruction: Educate patient on: Benefits of Fitness Program Therapeutic Exercise to Include: Strength training, Endurance training, Balance training, Coordination, Agility training, Body mechanics, Postural training, Flexibilty training, Gait and locomotor training, Neuromotor development, Dynamic Lumbar Stabilization and Scapular Strength/Stabilization Text: Thank you for the opportunity to evaluate your patient. For Medicare and Medicare HMO plans, please review the plan of care and approve it. It will need to be FAXED BACK to us at [phone] for Medicare purposes. For Medicare only, by signing this I certify the plan of care. Please let me know if there are questions or concerns regarding this plan of car e. Physician Signature: Date:
--- NOTE | 2023-04-19 12:43 | HP.PTREVAL ---
Re-Evaluation Intro: Dr. Kyle Franco MD, It has been my pleasure to treat RAINA DELGADO Jr. 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 Please see the progress note below for an update on the physical therapy plan of care! Subjective Subjective: Trouble with dizzyness. says he was dizzy 3x in the last week, he cannot remember any of these. [place] a thud and found him on knees and he said at that time he was dizzy. Got up from floor one time and had to hold on as he was dizzy. He sits for 5 minutes and then he is fine. Happens about every other day. May hernandez ve been happening for a year or more. Not falling otherwise. Family Dr. Luu sent to [place] to check for Parkinsons. Now diagnosed with dementia, not Parkinson's. Is on a med called memantine to slow down dementia. Any falls seems to be dizzyness according to who relays all info to me as he cannot remember these things. Objective Objective/Function: FGA is slightly below normal for age. Appropriate corrections in foam stance , slower with ec. cervical aROM is WFL and painfree. as is UE AROM. - B hallpike kimo and roll testing. Oculomotor: no nystagmus with gaze or head shaking - ocular tilt - skew eye deviation - head thrust. Normal gaze and pursuit and saccades normal VOR No dizzyness or symptoms with position changes or bending today. Head shake not causing dizzyness. Plan Plan Plan: No signs of vestibular problems leading to dizzyness and falls. Recommended use of cane at all times based on FGA score and unknown cause of dizzyness leading to falls. Recommended also the benefits of balance ex foam ec and weight shifts as well as general strength which adn he are willing to pursue and be compliant with terminal make up operator. Please see 2x/week for 3-4 weeks for... 1. teach weight shifting and foam/ec ex as safety allows for balance 2. teach home based general strength Progress both of these to I. Please do some walking and head movements and bending to see if we can uncover pattern to dizzy symptoms Balance/Gait/Functional tests Balance/Special Test Scores Functional Gait Assessment Score: 21 % Disability: 30.0000 CATSIB Score (Max score 120 seconds): 112 Lower Extremity Functional Score: 47 Goals Goals Goal 1:: FGA to reduce fallr isk Goal Time Frame: 2-4 Weeks Goal 2:: Pt use cane regularly willingly in community Goal Time Frame: 2 Weeks Goal 3:: I appropriate HEP balance and strength to minimize future problems Goal Time Frame: 2-4 Weeks Goal 4:: Abolish falls due to dizzyness x 2 weeks Goal Time Frame: 2-4 Weeks Anticipated Interventions Anticipated Interventions Patient/Client Instruction: Educate patient on: Benefits of Fitness Program Therapeutic Exercise to Include: Strength training, Endurance training, Balance training, Coordination, Agility training, Body mechanics, Postural training, Flexibilty training, Gait and locomotor training, Neuromotor development, Dynamic Lumbar Stabilization and Scapular Strength/Stabilization Re-Evaluation Ending Re-evaluation ending: Please do not hesitate to contact me at [phone] by phone or if you have questions or concerns regarding this new plan of care! Sincerely, Clint Junior, DPT, OCS, CSCS
--- NOTE | 2023-05-10 12:23 | HP.PTDCSUM_ITS ---
Discharge Summary D/C summary: It has been my pleasure to treat RAINA DELGADO Jr. referred by Dr. Kyle Franco MD, with the diagnosis of Axonal Sensorimotor Neuropathy for a total of 8 visit(s). Discharge Date: Please see the following information for a summary of their discharge status. Subjective Subjective: Patient attends with - she feels that his dizziness is still there but he is a little more stable. They saw Dr. Luu who also told them that it the balance issue was probably because of his dementia. Overall Improvement % Improvement: 50 Objective Objective/Function: Pt has good strength via objective from evaluation- with training from ENVIRONMENTAL PROPERTY ASSESSOR patient was completing exercises of eyes closed and open on and off foam with sba for safety- and walking with head turns. is indep with HEP Goals Goal 1:: FGA to reduce fallr isk Goal Progress: Goal Met Goal 2:: Pt use cane regularly willingly in community Goal Progress: Goal Met Goal 3:: I appropriate HEP balance and strength to minimize future problems Goal Progress: Goal Met Goal 4:: Abolish falls due to dizzyness x 2 weeks Goal Progress: Progressing Plan Plan: Patient will continue his current HEP of 5 exercises with his - she also plans to do some research into using their [employer] membership and get him into pool exercises. D/C Information d/c sentence: If there are questions or concerns regarding this patient's physical therapy, please feel free to call me at [phone]. Thank you for the referral of this patient. Sincerely, Zaida Jiménez, DPT Balance/Gait/Functional tests Balance/Special Test Scores Functional Gait Assessment Score: 21 % Disability: 30.0000 CATSIB Score (Max score 120 seconds): 112 Lower Extremity Functional Score: 57
== END 2023-05-10 13:35 | disposition home or self-care (01) ==
LOC: PT 11:30
PROVIDERS: PCP Family Medicine; Referring Provider Psychiatry & Neurology Neurology; Visit Provider Psychiatry & Neurology Neurology
DX: R26.81 Unsteadiness on feet (principal); G62.89 Other specified polyneuropathies
CPT/HCPCS: 97110; 97162; 97164; 97530

== ENCOUNTER 2025-08-21 09:36 | Observation (INO) | payer MEDICARE, SELFPAY ==
[2020-04-08 08:28] VITALS: BMI 28.9
[2025-08-21] VITALS (13 sets, daily range): BP systolic 84–156; BP diastolic 52–89; PULSE 72–104; RESP 14–20; TEMP 36.3–37.1; O2SAT 93–99; BMI 29.5; BMI 28.2
--- NOTE | 2025-08-21 09:51 | CT_ITS ---
PROCEDURE: BRAIN/HEAD WITHOUT CONTRAST 08/21/2025 REASON FOR EXAM: FALL, CHANGE IN MENTAL STATUS TECHNIQUE: Procedure Code: CTBR Modality: CT Procedure: BRAIN/HEAD WITHOUT CONTRAST Coronal and Sagittal reconstruction series were provided. One or more dose reduction techniques were used (e.g., Automated exposure control, adjustment of the mA and/or kV according to patient size, use of iterative reconstruction technique. RADIATION DOSE SUMMARY: CTDlvol: 44.99 mGy DLP: 880.47 mGycm COMPARISON: None FINDINGS: Brain: Low density in the periventricular white matter suggests mild chronic small vessel ischemic changes. CSF Spaces: Moderate generalized cerebral atrophy findings suggestive of normal pressure hydrocephalus. Sinuses/Mastoids: Clear at visualized levels Bones: Unremarkable CT/Brain/Head without Contrast IMPRESSION: CHRONIC CHANGES. NO ACUTE FINDINGS. Questionable element of normal pressure h ydrocephalus. Reading Location: [id number]
--- NOTE | 2025-08-21 09:52 | EKG12_ITS ---
Test Reason : WEAKNES Blood Pressure : */* mmHG Vent. Rate : 69 BPM Atrial Rate : 69 BPM P-R Int : 172 ms QRS Dur : 170 ms QT Int : 492 ms P-R-T Axes : 20 -25 149 degrees QTcB Int : 527 ms Normal sinus rhythm Left bundle branch block Abnormal ECG Confirmed by LEATHA TAMAYO MD ([id number]), managing editor LUIS MATHEWS ([id number]) on 08/22/2025 6:50:05 AM Referred By: Confirmed By: LEATHA TAMAYO MD
--- NOTE | 2025-08-21 09:54 | ED.VIS.FALL ---
HPI HPI - Fall History of Present Illness Chief Complaint: Fall Detail of Chief Complaint: Fall Wednesday, and he had a fall today Informant: spouse/S.O. Limited: dementia (Vascular/Alzheimer's dementia per . Patient had MRI approximately 2 to 3 years ago at [facility]) Occured/Mechanism Occurred: Days Mechanism/Context: Yes cannot recall fall Narrative: is the primary informant. See HPI narrative Fall from Height (ft): Standing position Usually ambulates: Walker Pain/Injury Location: Unknown Associated Symptoms Associated Symptoms: Positive for - (Unknown) Length of loss of consciousness: Unknown Narrative Narrative: Patient is a 79-year-old male. Patient does have a living will. is the POA. did arrive. She states she was doing well until Wednesday. He is seen by visiting nurse through [facility]. Patient had fall on Wednesday. Since Wednesday he has not done well. He is much more confused than normal. When patient was asked why he was here his response was I do not know. He was unaware that he arrived by ambulance. He takes repeated verbal and tactile stimulus to open his eyes and attempt to answer questions. History is limited to what is able to tell me. Patient apparently fell on Wednesday. It was unwitnessed fall. He is not on an anticoagulant or antithrombotic. He was found on the floor facedown. He had a banana and 1 hand and a banana pill on the other hand. He had a fall today. He again was on the floor. When squad arrived he was on his hands and knees. states that she has been able to get him to walk from room to room. He has less energy. No other history is available. Prior similar symptoms: No Recent Illness/Hospitalization: No [facility] Medical History (Updated 08/21/25 @ 12:[address] 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) Essential (primary) hypertension Atherosclerosis of coronary artery of [place] heart without angina pectoris Home Medications ?Medication ?Instructions ?Recorded ?Last Taken ?Type atenolol 100 mg tablet 100 mg PO DAILY 11/13/19 08/17/25 History lisinopril 40 mg tablet 40 mg PO DAILY blood pressure 11/13/19 08/17/25 History metformin 1,000 mg tablet 1,000 mg PO BID blood sugar 11/13/19 08/17/25 History multivitamin 1 tab PO DAILY 11/13/19 08/17/25 History glimepiride 1 mg tablet 1 mg PO DAILY blood sugar 05/28/21 08/17/25 History allopurinol 100 mg tablet 200 mg PO DAILY gout 02/12/22 08/17/25 History aspirin 81 mg tablet,delayed 81 mg PO DAILY heart 08/21/25 08/17/25 History release (Ecotrin Low Strength) simvastatin 40 mg tablet 40 mg PO QHS 08/21/25 08/17/25 History Allergy/AdvReac Type Severity Reaction Status Date / Time No Known Allergies Allergy Verified 02/10/23 10:05 Family History Mother Hypertension Diabetes Father Heart disease Surgical History History of coronary artery stent placement (12/18/19) History of left heart catheterization (07/06/05) History of cataract surgery H/O coronary artery bypass surgery (07/08/05) Social History (Updated 08/21/25 @ 09:[address] Bertin Zamora MD) household members: spouse Smoking Status: Former smoker ROS ROS ED Review of Systems ROS Unobtainable: due to mental status EXAM Physical Exam Const Vital Signs: 08/21/25 09:38 08/21/25 09:40 08/21/25 10:37 Temperature 98.4 F Temperature Source Oral Pulse Rate 78 78 Respiratory Rate 18 16 Respiratory Effort Normal Non-Labored Respiratory Depth Normal Respiratory Pattern Normal Blood Pressure 156/88 H 115/72 Blood Pressure Mean 110 86 Pulse Ox 93 98 Oxygen Delivery Method Room Air Room Air Room Air 08/21/25 11:00 08/21/25 12:00 Temperature Temperature Source Pulse Rate 88 89 Respiratory Rate 18 18 Respiratory Effort Respiratory Depth Respiratory Pattern Blood Pressure 115/78 129/77 H Blood Pressure Mean 90 94 Pulse Ox 98 98 Oxygen Delivery Method Room Air Room Air Positive well nourished and well developed General Appearance ED: well developed and NAD HEENT Reports normocephalic, TM's clear and TM's normal bilaterally atraumatic Tympanic Membrane ED: Yes TM's clear Eyes PERRL and EOMs intact bilaterally Eyes Narrative: There is no nystagmus. General Eye ED: Yes pale conjunctiva; Negative for scleral icterus Neck full ROM, no lymphadenopathy and supple Chest Wall inspection of chest normal and palpation of chest normal Resp normal respiratory effort, no retractions and clear to auscultation bilaterally Cardio regular rate, regular rhythm, S1 normal heart sound, S2 normal heart sound and no murmurs GI non-tender, non-distended and no masses Narrative: Uncircumcised. Testes descended bilaterally. Yeast infection noted Back/Spine no CVA tenderness Extremity Extremity Narrative: Edema lower extremities. Avulsion of toenail second left toe. There is erythema of that toe. Neuro No oriented x3, CN's II-XII intact bilaterally and moves all extremities [place] Coma Scale: document GCS findings To Voice Obeys Commands Confused 13 Sensorium / Orientation: Negative for alert Psych Mood & Affect: depressed Skin Skin Narrative: Erythema second left toe. MDM MDM MDM Narrative Medical decision making narrative: Need to rule out traumatic injury, metabolic or infectious etiology for his decline in mental status since it was abrupt. Will obtain CT of the head, appropriate blood work, UA, since he is not tachypneic febrile or hypoxic and lungs were clear to auscultation x-ray was not obtained of the chest. He has no prior records. This is the first time he has been here. History & Record Review Additional record(s) reviewed:: No prior records Lab Data Attestation: I reviewed the patient's lab results. (CBC reveals mild anemia compared to prior. Comprehensive metabolic panel is unremarkable. Glucose slight elevated 115. BUN is slightly elevated 21. BUN to creatinine ratio is less than 20-1. Urine is negative.) Lab results narrative: CBC reveals mild anemia. Comparison was from 2019. With a normal BUN/creatinine ratio doubt this to be due to recent GI bleed. Urine is negative. Electrolyte panel is remarked for slight elevation in glucose at 115 with a slightly decreased CO2 and a normal anion gap. Labs: Laboratory Results - last 24 hr 08/21/25 08/21/25 10:32 11:00 WBC 8.4 RBC 3.79 L Hgb 11.2 L Hct 35.5 L MCV 93.7 MCH 29.6 MCHC 31.5 L RDW Std Deviation 50.9 H RDW Coeff of Carlos Enrique 14.8 H Plt Count 209 MPV 11.3 Immature Gran % (Auto) 0.500 Neut % (Auto) 77.1 H Lymph % (Auto) 5.2 L [place] % (Auto) 7.1 Eos % (Auto) 9.6 H Baso % (Auto) 0.5 Absolute Neuts (auto) 6.5 Absolute Lymphs (auto) 0.44 L Nucleated RBC % 0 Sodium 141 Potassium 3.6 Chloride 107 Carbon Dioxide 20.1 L Anion Gap 15 BUN 21 H Creatinine 1.10 Estim Creat Clear Calc 58.69 Est GFR (MDRD) Non-Af 67 BUN/Creatinine Ratio 18.6 Glucose 115 H Lactic Acid 1.3 Calcium 8.3 Total Bilirubin 0.82 AST 35 ALT 35 Alkaline Phosphatase 74 Total Protein 6.4 Albumin 3.4 Globulin 3.0 Albumin/Globulin Ratio 1.1 Urine Color Yellow Urine Clarity Clear Urine pH 5.0 Ur Specific [place] 1.025 Urine Protein 100 H Urine Glucose (UA) Normal Urine Ketones 5 H Urine Occult Blood 10 H Urine Nitrite Negative Urine Bilirubin Negative Urine Urobilinogen Normal Ur Leukocyte Esterase Negative Urine RBC 0-5 SEEN Urine WBC 0 SEEN Ur Squamous Epith Cells 0 SEEN Urine Bacteria 0 SEEN Urine Mucus 0 SEEN Radiography Diagnostic Testing: Clinical Impression(s) from Imaging Studies Brain CT 08/21/25 09:51 IMPRESSION: CHRONIC CHANGES. NO ACUTE FINDINGS. Questionable element of normal pressure hydrocephalus. Reading Location: [facility] CT of the head reveals no evidence of intracranial bleed on my review. There is no fluid noted in the sinuses. Awaiting formal read by radiologist, 1132 radiologist raise concern for normal pressure hydrocephalus. Since patient is not able to walk he will need to be admitted and have workup which would include an MRI which is much more sensitive than a CAT scan. EKG Initial EKG: Attestation: I personally reviewed and interpreted this EKG as follows: Interpretation: Sinus Rhythm (Rate is 69. There is a left bundle branch block. RI interval is 172 ms. Cures duration 170 ms. QT duration of 192 ms. [place] is to the left. This is unchanged from December 19, 2019. There is artifact) Prior: Unchanged Management Discussion w/another healthcare provider: Hospitalist (Spoke with Dr. Burrell. Patient to be admitted to PCU.) Treatment and Re-Evaluation Narrative: Patient's mental status has not changed. 's been informed of results and concerned that he may have normal pressure hydrocephalus based on CT interpretation by radiologist Discharge Plan Dx/Rx/DC Orders Clinical Impression: Acute alteration in mental status, Inability to walk, Frequent falls, Essential (primary) hypertension, Left bundle branch block (LBBB), History of coronary artery disease, Hyperlipidemia Disposition Disposition: Acute Care [facility]
[2025-08-21 10:45] LABS: Hematocrit 35.5 % (40-54); Hemoglobin 11.2 g/dL (13.0-16.5); Immature Granulocytes Count 0.040 X10^3/uL (0.0-0.0); Mean Corp Hgb Conc 31.5 g/dL (32-36); Mean Corpuscular Volume 93.7 fL (80-94); Mean Platelet Vol. 11.3 fl (6.2-12.0); NRBC Flagged by Analyzer 0 % (0-5); POSITIVE DIFFERENTIAL YES; Platelet Count 209 K/mm3 (150-450); RBC Distribution Width CV 14.8 % (11.6-14.6); RBC Distribution Width SD 50.9 fl (35.1-43.9); Red Blood Count 3.79 M/mm3 (4.6-6.2); White Blood Count 8.4 K/mm3 (4.4-11.0)
[2025-08-21 11:02] LABS: Mucous, Urine 0 SEEN /hpf (<or=2+); Squamous Epithelial Cells - UA 0 SEEN /hpf (0-5)
[2025-08-21 11:03] LABS: AST(SGOT) 35 U/L (<=37); Alanine Aminotransfer ALT/SGPT 35 U/L (<=46); Albumin, Serum 3.4 g/dL (3.4-4.8); Alkaline Phosphatase 74 U/L (40-129); Anion Gap 15 (5-15); BUN 21 mg/dL (4-19); BUN/Creat Ratio 18.6 RATIO (10-20); Calcium,Total 8.3 mg/dL (7.6-11.0); Carbon Dioxide 20.1 mmol/L (21.0-32.0); Chloride 107 mmol/L (98-108); Estimated Creatinine Clearance 58.69 ml/min (50-250); Globulin 3.0 g/dL (2.2-4.2); Glucose 115 mg/dL (70-99); Potassium 3.6 mmol/L (3.3-5.1)
[2025-08-21 11:04] LABS: Color, Urine Yellow (Yellow); Glucose, Dipstick Normal (Normal); Ketone-Dipstick 5 mg/dl (Negative); Leukocyte Esterase-Dipstick Negative /ul (Negative); Nitrite-Dipstick Negative (Negative); Occult Blood-Urine 10 /ul (Negative); Protein-Dipstick 100 mg/dl (Negative); Specific Gravity, Urine 1.025 (1.002-1.030); Urine Bilirubin Dipstick Negative (Negative)
[2025-08-21 11:12] LABS: Red Blood Cells-Urine 0-5 SEEN /hpf (0-5)
--- NOTE | 2025-08-21 12:46 | CASEMGMT ---
Care Management Face to Face with patient for initial transition planning/care coordination assessment in the ED. This lead technical writer introduced self and role at [facility]. Patient asleep on bed; patient's Heavenly was at bedside and welcomed SW visit. Heavenly willing to participate in assessment and is able to answer all questions appropriately. Care providers, pharmacy, and demographics verified. Admitting Diagnosis: Acute alteration in mental status Other diagnosis history: dementia, Ischemic cardiomyopathy, Hyperlipidemia, CAD PCP: [facility] Specialists: none Preferred Pharmacy: [facility] Insurance: [facility] Medicare Prescription Benefit: yes Living Will/HPOA: Heavenly is primary -- intends to bring in copies to place on file. LNOK: Heavenly, daughters Clara and Lala, son Rah Living Arrangements: lives with in a 2 story home with first floor living. 3 steps to enter from the front; 4 steps to enter from the side. has to help patient with all ADLs. Transportation: drives DME: shower chair, grab bars, walker. O2 in ED was simply for comfort, though states last doctor appointment, patient's O2 was low. HHC: none SNF/Rehab: none Community Resources: pays a production aide to come to the home for 3 hours on Mondays to give a break Patient goals: Patient's states not knowing what the plan should be. There has been conversation about palliative care or hospice care due to patient's dementia and decline. Patient denies any further needs or concerns at this time. Disposition Plan: admission to acute; RN CM/SW to follow for discharge planning needs that may arise. Kylee Patel, BUSINESS OFFICE SPECIALIST, SEPARATING MACHINE OPERATOR
--- NOTE | 2025-08-21 13:04 | MRI_ITS ---
PROCEDURE: BRAIN WITHOUT CONTRAST 08/21/2025 REASON FOR EXAM: [place] CONCERN FOR NPH TECHNIQUE: Procedure Code: MRIBR Modality: MR Procedure: BRAIN WITHOUT CONTRAST Multiplanar and multisequence images were obtained. COMPARISON: CT brain August 21, 2025. FINDINGS: Brain: Foci of hyperintense signal on T2 and FLAIR which are nonspecific but most likely due to chronic small vessel ischemia. Parenchymal volume loss consistent with brain atrophy. No restricted diffusion. No hemorrhage. No mass-effect or midline shift. The orbits are unremarkable. The midline structures and craniocervical junctions are within normal limits. No ventriculomegaly. Partial empty sella. Ventricles: Dilated out of proportion to the degree of cerebral atrophy. Major Intracranial Vessels: Patent. Sinuses: Clear. Mastoids: Clear. MRI/Brain without Contrast IMPRESSION: Dilated ventricles out of proportion to the degree of cerebral atrophy concerni ng for normal pressure hydrocephalus. Reading Location: [id number]
--- OUTSIDE RECORDS SUMMARY | 2025-08-21 13:08 | XMS RPT_ITS | CCD ---
Author Organization [facility] Care Team Providers Care Real Estate Branch Manager Name Role Phone AMARJIT, NAEEM E Unavailable Unavailable AMARJIT, NAEEM E Unavailable Unavailable AMARJIT, NAEEM Unavailable Unavailable AMARJIT, NAEEM Unavailable Unavailable WILFRED PUENTE Unavailable Unavailable AMARJIT, NAEEM Unavailable Unavailable SIDNEY OCASIONETH Unavailable Unavailable WILFRED PUENTE Unavailable Unavailable Wilfred Puente MD Primary Care Provider Wilfred Puente MD Primary Care Provider Dr. Wilfred Puente Primary Care Provider Dr. Wilfred Puente Referring Provider [phone] PATRICIA Mitchell Attending Provider Nicki Mitchell Attending Unavail able Wilfred Puente Referring Unavailable Wilfred Puente Primary Care Unavailable Wilfred Puente Primary Care Unavailable Dereck Franco Referring Unavailable Dereck Franco Attending Unavailable WILFRED PUENTE Primary Care Unavailable WILFRED PUENTE Attending Unavailable WILFRED PUENTE Primary Care Unavailable JANES ZAMORANO Attending Unavailable JANES ZAMORANO Attending Unavailable WILFRED PUENTE Primary Care Unavailable WILFRED PUENTE Primary Care Unavailable WILFRED PUENTE Attending Unavailable Medications Current Medications Medication Drug Class(es) Dates Sig (Normalized) Sig (Original) allopurinol 100 mg oral tablet (20 sources) Xanthine Oxidase Inhibitor Start: 06-16-2024 End: 07-18-2025 take 2 tablets by mouth once daily allopurinol (Zyloprim) 100 MG tablet Take 2 tablets (200 mg) by mouth daily. 180 tablet 1 07/18/2025 Active Start: 06-09-2022 End: 12-16-2023 take 2 tablets by mouth once daily allopurinol (Zyloprim) 100 MG tablet Take 2 tablets (200 mg) by mouth daily. 180 tablet 1 12/16/2023 Active Start: 02-12-2022 take 100 mg by mouth twice daily Allopurinol Active 100 MG PO TWICE A DAY February 12, 2022 10:42am Start: 01-09-2020 End: 02-12-2022 Allopurinol Discontinued PO January 09, 2020 12:00am February 12, 2022 10:43am aspirin 81 mg delayed release oral tablet (20 sources) Platelet Aggregation Inhibitor, Nonsteroidal Anti-inflammatory Drug Start: 11-13-2019 Aspirin (Adult Low Dose Aspirin) 81 mg tablet,delayed release (DR/EC) Active 81 MG PO DAILY November 13, 2019 1:00am atenolol 100 mg oral tablet (20 sources) beta-Adrenergic Meredith Start: 02-07-2015 End: 07-18-2025 take 1 tablet by mouth once daily atenolol (Tenormin) 100 MG tablet Take 1 tablet (100 mg) by mouth daily. 90 tablet 1 07/18/2025 Active clopidogrel 75 mg oral tablet (16 sources) P2Y12 Platelet Inhibitor Start: 09-12-2021 End: 04-29-2023 take 1 tablet by mouth in the morning clopidogrel (Plavix) 75 MG tablet Take 75 mg by mouth in the morning. 0 06/07/2022 Active Start: 12-08-2019 End: 05-28-2021 take 1 tablet by mouth once daily Clopidogrel (Plavix) 75 mg tablet Discontinued 75 MG PO DAILY 90 July 09, 2020 2:18pm May 28, 2021 8:59am donepezil hydrochloride 10 mg oral tablet (6 sources) Start: 01-19-2023 End: 01-19-2024 take 10 mg by mouth once daily Donepezil Active 10 MG PO DAILY February 10, 2023 12:00am Garlic (20 sources) Non-Standardized Food Allergenic Extract Start: 02-10-2023 take 1000 mg by mouth once daily Garlic Active 1000 MG PO DAILY February 10, 2023 12:00am End: 11-02-2024 Garlic 1000 MG capsule Take by mouth. 11/02/2024 Discontinued (Therapy completed) Garlic 1000 MG c apsule Take by mouth. Active Garlic 1000 MG c apsule Take by mouth. 0 Active glimepiride 1 mg oral tablet (20 sources) Sulfonylurea Start: 10-09-2024 End: 04-11-2025 take 1 tablet by mouth once daily at breakfast glimepiride (Amaryl) 1 MG tablet Take 1 tablet (1 mg) by mouth daily (with breakfast). 90 tablet 1 04/11/2025 Active Start: 04-07-2024 take 1 tablet by chai th once daily at breakfast glimepiride (Amaryl) 1 MG tablet Take 1 tablet (1 mg) by mouth daily (with breakfast). 90 tablet 1 04/07/2024 Active Start: 10-08-2023 take 1 tablet by chai th once daily before breakfast glimepiride (Amaryl) 1 MG tablet Take 1 tablet (1 mg) by mouth every morning (before breakfast). 90 tablet 1 10/08/2023 Active Start: 04-12-2023 take 1 tablet by chai th once daily before breakfast glimepiride (Amaryl) 1 MG tablet Take 1 tablet (1 mg) by mouth every morning (before breakfast). 90 tablet 1 04/12/2023 Active Start: 05-28-2021 End: 04-10-2023 take 1 tablet by mouth once daily before breakfast glimepiride (Amaryl) 1 MG tablet Take 1 tablet (1 mg) by mouth every morning (before breakfast). 90 tablet 1 10/02/2022 Active linseed oil 1000 mg oral capsule (20 sources) Start: 02-10-2023 End: 11-02-2024 take 1000 mg by mouth once daily Flaxseed Oil Active 1000 MG PO DAILY February 10, 2023 12:00am administer with a meal lisinopril 40 mg oral tablet (20 sources) Angiotensin Converting Enzyme Inhibitor Start: 02-14-2025 take 1 tablet by mouth once daily lisinopril 40 MG tablet Take 1 tablet (40 mg) by mouth daily. 90 tablet 1 02/14/2025 Active Start: 08-21-2024 take 1 tablet by chai th once daily lisinopril 40 MG tablet Take 1 tablet (40 mg) by mouth daily. 90 tablet 1 08/21/2024 Active Start: 02-21-2024 take 1 tablet by chai th once daily lisinopril 40 MG tablet Take 1 tablet (40 mg) by mouth daily. 90 tablet 1 02/21/2024 Active Start: 11-13-2019 End: 08-27-2023 take 1 tablet by mouth in the morning lisinopril 40 MG tablet Take 1 tablet (40 mg) by mouth in the morning. 90 tablet 1 08/20/2022 Active magnesium sulfate 100 mg oral capsule (2 sources) Start: 02-12-2022 take 250 mg by mouth once daily Magnesium Sulfate Active 250 MG PO DAILY February 12, 2022 10:43am Start: 01-09-2020 End: 02-12-2022 take 100 mg by mouth once daily Magnesium Sulfate Discontinued 100 MG PO DAILY January 09, 2020 12:00am February 12, 2022 10:43am metFORMIN hydrochloride 1000 mg oral tablet (20 sources) Biguanide Start: 06-16-2024 End: 08-10-2025 take 1 tablet by mouth twice daily at mealtime metFORMIN (Glucophage) 1000 MG tablet Take 1 tablet (1,000 mg) by mouth 2 times daily (with meals). 180 tablet 1 08/10/2025 Active Start: 11-13-2019 End: 12-16-2023 take 1 tablet by mouth in the morning metFORMIN (Glucophage) 1000 MG tablet Indications: Diabetes mellitus type 2 in obese (CMS/HCC) (HCC) Take 1 tablet (1,000 mg) by mouth in the morning and 1 tablet (1,000 mg) in the evening. Take with meals. 180 tablet 1 09/02/2022 Active Start: 11-13-2019 End: 11-13-2019 take 500 mg by mouth twice daily Metformin Discontinued 500 MG PO TWICE A DAY November 13, 2019 1:00am November 13, 2019 3:37pm Multivitamin preparation (1 source) Start: 11-13-2019 take 1 tablet by mouth once daily Multivitamin Active 1 TABLET PO DAILY November 13, 2019 1:00am potassium gluconate 2.5 meq oral tablet (1 source) Start: 02-10-2023 take 595 mg by mouth once daily Potassium Gluconate Active 595 MG PO DAILY February 10, 2023 12:00am simvastatin 40 mg oral tablet (20 sources) HMG-CoA Reductase Inhibitor Start: 07-06-2022 End: 07-25-2025 take 1 tablet by mouth once daily simvastatin (Zocor) 40 MG tablet Take 1 tablet (40 mg) by mouth Nightly. 90 tablet 1 07/25/2025 Active Start: 11-13-2019 take 40 mg by mouth at bedtime Simvastatin Active 40 MG PO AT BEDTIME November 13, 2019 1:00am Completed/Discontinued Medications Medication Drug Class(es) Dates Sig (Normalized) Sig (Original) cholecalciferol 0.025 mg oral tablet (1 source) Vitamin D Start: 0 End: 0 take 500 [IU] by mouth once daily Cholecalciferol (Vitamin D3) Discontinued 500 UNIT PO DAILY November 13, 2019 1:00am January 09, 2020 11:17am fenofibric acid 135 mg delayed release oral capsule (12 sources) Peroxisome Proliferator Receptor alpha Agonist Start: 0 End: 3 take 135 mg by mouth once daily Fenofibric Acid (Choline) Discontinued 135 MG PO DAILY November 13, 2019 1:00am January 09, 2020 11:18am hydroCHLOROthiazide 25 mg oral tablet (20 sources) Thiazide Diuretic Start: 4 End: 5 take 1 tablet by mouth once daily hydroCHLOROthiazide (HYDRODiuril) 25 MG tablet Indications: Essential hypertension Take 1 tablet (25 mg) by mouth daily. 90 tablet 1 08/21/2024 11/02/2024 Discontinued (Therapy completed) Start: 02-21-2024 take 1 tablet by chai th once daily hydroCHLOROthiazide (HYDRODiuril) 25 MG tablet Indications: Essential hypertension Take 1 tablet (25 mg) by mouth daily. 90 tablet 1 02/21/2024 Active Start: 11-13-2019 End: 08-27-2023 take 1 tablet by mouth once daily hydroCHLOROthiazide (HYDRODiuril) 25 MG tablet Indications: Essential hypertension Take 1 tablet (25 mg) by mouth daily. 90 tablet 1 09/02/2022 Active magnesium gluconate 500 mg oral tablet (20 sources) End: 11-02-2024 magnesium gluconate (Magonate) 500 MG tablet Take 250 mg by mouth in the morning. 11/02/2024 Discontinued (Therapy completed) memantine hydrochloride 10 mg oral tablet (20 sources) T-ncdzca-J-aspart ate Receptor Antagonist Start: 04-07-2023 End: 04-18-2025 take 1 tablet by mouth twice daily, then take 1 tablet by mouth once daily, then take 1 tablet by mouth twice daily memantine (Namenda) 10 MG tablet Take 1 tablet (10 mg) by mouth 2 times daily. He was told to take 1 tab nightly only for 7 days, then 1 tab po BID. 180 tablet 3 04/18/2024 11/02/2024 Discontinued (Therapy completed) Multiple Vitamins-Minerals (Oncovite) tablet (20 sources) Start: 08-12-2006 End: 11-02-2024 Multiple Vitamins-Minerals (Oncovite) tablet Take by mouth. 08/12/2006 11/02/2024 Discontinued (Therapy completed) Start: 08-12-2006 Multiple Vitam ins-Minerals (Oncovite) tablet Take by mouth. 08/12/2006 Active Start: 08-12-2006 Multiple Vitam ins-Minerals (Oncovite) tablet Take by mouth. 0 08/12/2006 Active [place]-3 Fatty Acids-Fish Oil (Fish Oil) 340-1,000 mg capsule (1 source) Start: 11-13-2019 End: 02-10-2023 take 1 capsule by mouth once daily [place]-3 Fatty Acids-Fish Oil (Fish Oil) 340-1,000 mg capsule Discontinued 1 CAP PO DAILY November 13, 2019 1:00am February 10, 2023 10:08am microencapsulated potassium chloride 10 meq extended release oral tablet (20 sources) Start: 11-13-2019 End: 02-10-2023 take 10 mEq by mouth once daily Potassium Chloride Discontinued 10 MEQ PO DAILY November 13, 2019 1:00am February 10, 2023 10:06am Start: 12-21-2016 End: 11-02-2024 take 1 tablet by mouth in the morning potassium chloride CR (Klor-Con) 10 MEQ ER tablet Take 10 mEq by mouth in the morning. 12/21/2016 11/02/2024 Discontinued (Therapy completed) Problems Active Problems Problem Classification Problem Date Documented Date Episodic/Chronic Conduction disorders (1 source) Left bundle branch block; Translations: [Left bundle-branch block, unspecified] 11-13-2019 Chronic Congestive heart failure; nonhypertensive (20 sources) Heart failure; Translations: [Heart failure, unspecified] Onset: 10-04-2023 08-07-2024 Chronic Coronary atherosclerosis and other heart disease (20 sources) Atherosclerotic heart disease of [place] coronary artery without angina pectoris; Translations: [Coronary atherosclerosis] Onset: 10-04-2004 07-16-2022 Chronic Delirium, dementia, and amnestic and other cognitive disorders (20 sources) Dementia; Translations: [Unspecified dementia without behavioral disturbance] Onset: 04-29-2023 Resolved: 05-03-2025 04-07-2023 Chronic Diabetes mellitus with complications (20 sources) Type 2 diabetes mellitus in obese; Translations: [Type 2 diabetes mellitus with other specified complication] Onset: 04-22-2022 Resolved: 11-02-2024 07-16-2022 Chronic Diabetes mellitus without complication (2 sources) Type 2 diabetes mellitus; Translations: [Type 2 diabetes mellitus without complications] Onset: 04-22-2022 08-07-2024 Chronic Disorders of lipid metabolism (20 sources) Hyperlipidemia; Translations: [Hyperlipidemia, unspecified] Onset: 09-23-2016 07-16-2022 Chronic Essential hypertension (20 sources) Essential (primary) hypertension; Translations: [Essential hypertension] Onset: 06-26-2015 07-16-2022 Chronic Gout and other crystal arthropathies (20 sources) Primary chronic gout without tophus of ankle and/or foot; Translations: [Idiopathic chronic gout, right ankle and foot, without tophus (tophi)] Onset: 04-16-2020 07-16-2022 Chronic Other nervous system disorders (1 source) Axonal sensorimotor neuropathy; Translations: [Other specified polyneuropathies] 04-07-2023 Chronic Other nervous system disorders (20 sources) Mixed sensory-motor polyneuropathy; Translations: [Other hereditary and idiopathic neuropathies] Onset: 06-29-2023 06-29-2023 Chronic Other nervous system disorders (2 sources) Numbness of lower limb ; Translations: [Anesthesia of skin] Episodic Other nervous system disorders (2 sources) Apraxia; Translations: [Apraxia] Episodic Other nervous system disorders (5 sources) Unsteady when standing; Translations: [Unsteadiness on feet] Episodic Other nervous system disorders (3 sources) Neglect of left side of body; Translations: [Neurologic neglect syndrome] 03-03-2024 Episodic Other nutritional; endocrine; and metabolic disorders (13 sources) Obesity; Translations: [Other obesity due to excess calories] Onset: 10-22-2021 10-28-2022 Chronic Other nutritional; endocrine; and metabolic disorders (20 sources) Obesity caused by energy imbalance; Translations: [Other obesity due to excess calories] Onset: 10-22-2021 10-28-2022 Chronic Other nutritional; endocrine; and metabolic disorders (2 sources) Obesity, unspecified; Translations: [Obesity, unspecified] Onset: 11-02-2024 Chronic Retinal detachments; defects; vascular occlusion; and retinopathy (1 source) Occlusion of right branch retinal artery; Translations: [Retinal artery branch occlusion, right eye] 06-16-2023 Chronic Unclassified (1 source) Unknown / UNK(Unknown) Onset: 12-21-2017 Past or Other Problems Problem Classification Problem Date Documented Da te Episodic/Chronic Cancer; other and unspecified primary (1 source) History of atrial myxoma; Translations: [Personal history of other benign neoplasm] Onset: 07-08-2005 11-14-2019 Episodic Mood disorders (18 sources) Mood disorders Onset: 09-14-2024 09-14-2024 Other nervous system disorders (20 sources) Ataxia; Translations: [Ataxia, unspecified] Onset: 10-28-2022 10-28-2022 Episodic Residual codes; unclassified (20 sources) Amnesia; Translations: [Other amnesia] Onset: 04-22-2022 07-16-2022 Episodic Results Test Name Value Interpretation Reference Range [facility] 36on 08-10-2025 36 Rx sent. Follow up as scheduled. [place] [id number] 07-25-2025 36 Rx sent. Follow up as scheduled. [address] 07-18-2025 36 Reviewed chart. Refi ll appropriate. RX sent. [facility] 36 Prescription Request : Last medication check: 05/03/25 Last physical exam: 11/02/24 Next scheduled appointment: 11/06/25 Last date of refill on this medication 01/09/25 [place] [id number] Prescription Request : Last medication check: 05/03/25 Last physical exam: 11/02/24 Next scheduled appointment: 11/06/25 Last date of refill on this medication 12/26/24 [facility] AMB POC HEMOGLOBIN A1C HbA1c (Bld) [Mass fraction] 6.1 % Abnormal - 5.7 % [facility] HbA1c (Bld) [Mass fraction]o n 05-03-2025 Interpretation and review of laboratory results Abnormal [facility] Office Visiton 05-03-2025 Follow-up visit [id number] Raina Valdez 1945 M Date Provider Department Center 05/03/2025 [id number] [facility] Family History Problem Relation Age of Onset High Blood Pressure Mother Diabetes Mother Dementia Father Heart disease Father Family Status - Relation Status Age at Mother Father Level of Service:46658 PA OFFICE/OUTPATIENT ESTABLISHED MOD MDM 30 MIN Reason for Visit and Comments: Alzheimer's Disease [423] Gout [3371147690] Diabetes [34] Hyperlipidemia [182] Hypertension [682123] Medication Check [[id number]] - 6 month Cough [28] - With a chest rattle - lots of phlegm Normal [facility] Progress Noteon 05-03-2025 Progress Note Controlled, continue simvastatin 40 mg nightly Normal [facility] Progress Note Controlled, today's A1c is 6.1 this is a significant improvement from previous when it was 9.0, continue metformin 1000 mg twice a day. Normal [facility] Progress Note Controlled, continue allopurinol 200 mg daily Normal [facility] Progress Note Controlled, continue lisinopril 40 mg daily, atenolol 100 mg daily Normal [facility] Progress Note 05/03/2025 Raina Valdez (: 1945) is a 79 y.o. male , Established patient, here for evaluation of the following chief complaint(s): Alzheimer's Disease, Gout, Diabetes, Hyperlipidemia, Hypertension, Medication Check (6 month), and Cough (With a chest rattle - lots of phlegm ) ASSESSMENT/PLAN: 1. 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 2. Essential hypertension Assessment & Plan: Controlled, continue lisinopril 40 mg daily, atenolol 100 mg daily 3. Type 2 diabetes mellitus with obesity (CMS/HCC) (HCC) (HCC) Assessment & Plan: Controlled, today's A1c is 6.1 this is a significant improvement from previous when it was 9.0, continue metformin 1000 mg twice a day. Orders: - AMB POC HEMOGLOBIN A1C 4. Hyperlipidemia LDL goal <70 Assessment & Plan: Controlled, continue simvastatin 40 mg nightly 5. 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 SUBJECTIVE/OBJECTIVE: UNRULY Whitney comes in today for 6-month follow-up on his Alzheimer's, he has progressively worsened and is pretty much full hands-on care and I did discuss with his to make sure she has the help that she needs to prevent burnout. He is also here for follow-up on his blood pressure which is excellent, his diabetes and his hyperlipidemia which is controlled. Review of Systems Unable to perform ROS: Dementia Vitals: 05/03/25 1018 BP: 132/70 Pulse: 71 Temp: 36.9 ?C (98.5 ?F) SpO2: (!) 87% Weight: 194 lb (88 kg) Height: 5' 6.5 (1.689 m) Physical Exam Vitals and nursing note reviewed. Constitutional: General: He is not in acute distress. Appearance: Normal appearance. HENT: Head: Normocephalic. Right Ear: Tympanic membrane, ear canal and external ear normal. Left Ear: Tympanic membrane, ear canal and external ear normal. Mouth/Throat: Mouth: Mucous membranes are moist. Pharynx: Oropharynx is clear. Eyes: Extraocular Movements: Extraocular movements intact. Pupils: Pupils are equal, round, and reactive to light. Cardiovascular: Rate and Rhythm: Normal rate and regular rhythm. Heart sounds: Normal heart sounds. Pulmonary: Effort: Pulmonary effort is normal. Breath sounds: Normal breath sounds. Musculoskeletal: Cervical back: Neck supple. Neurological: Mental Status: He is alert. Psychiatric: Cognition and Memory: Cognition is impaired. Memory is impaired. An electronic signature was used to authenticate this note. Wilfred Puente MD 05/03/2025 10:59 AM [facility] 36on 04-11-2025 36 Reviewed chart. Refi ll not appropriate, too soon. RX refused [facility] 36 Reviewed chart. Refi ll appropriate. RX sent. [facility] 36 Prescription Request : Last medication check: 04/26/24 Last physical exam: 11/02/24 Next scheduled appointment: 05/03/25 Last date of refill on this medication 10/09/24 Normal [facility] 36 Just refilled on 01/09 For 90 days with 1 refill. Please confirm and refuse rx. Normal [facility] Office Visiton 03-15-2025 Follow-up visit [id number] GeorgeRaina martinez 1945 M Date Provider Department Center 03/15/2025 [id number] ZAMORANO [facility] CS None Family History Problem Relation Age of Onset High Blood Pressure Mother Diabetes Mother Dementia Father Heart disease Father Family Status - Relation Status Age at Mother Father Level of Service:55126 PA OFFICE/OUTPATIENT ESTABLISHED HIGH MDM 40 MIN Reason for Visit and Comments: Dementia [30] Normal [facility] Progress Noteon 03-15-2025 Progress Note [facility] Social History Present at visit: patient, Heavenly Marital status: Children: 3 children (2 local) Living arrangement: with , own home >>09/14/24 same >>03/15/25 same Household safety problems: 2 falls backward >>09/14/24 almost fell backwards yesterday >>03/15/25 left a burner on recently, took off knobs, one fall Concerning Behaviors: owning, acts childlike >>09/14/24 same >>03/15/25 some hallucinations Wandering potential: Yes, patient was looking for , patient went out and got in the car, plan to put alarms on doors, another time, went out in the car at 4:00 AM, had opened garage door, got in car and started beeping horn >>09/14/24 now alarms and locks on doors, no incidents >>03/15/25 no Pets: Yes, dog , cares for dog Guns in the home: Unloaded and Ammunition kept in separate place Elder abuse: No/Denied Concerns >>09/14/24 no >>03/15/25 no Alcohol/Tobacco/Marijuana/Drug Use History: none service: Patient is , served in wartime (during ) Highest level of education: 2 years college Occupation: retired from [employer], owned a small business Activities: watches tv, not interested in things anymore, will sit on back porch >>09/14/24 watches tv, sleeps >>03/15/25 same Exercise: 3 days a week to do physical therapy exercises with him >>09/14/24 none Finances: not reviewed My Chart: Only uses Healthcare Power of Category Director: Yes: Heavenly then son Iker Financial Power of Category Director: Yes: Heavenly, then son Iker Living Will: Yes Guardian: No Code Status: Full Code Primary Caregiver: Heavenly Current care plan/supervision: can leave him for short periods of time, mostly with him >>09/14/24 only leaves patient twice per week to get groceries on Fridays or to volunteer on Mondays >>03/15/25 no longer leaving patient alone Community resources: None >>03/15/25 has a private pay caregiver once per week, 3 hours Caregiver stressors: has some stress, feels she is managing it ok >>03/15/25 feeling some stress, son comes once per week and talks with to help her with stress, helps her with technical stuff in the home Goals for care: evaluate memory, resources As a Caregiver, What Matters Most to You: >>03/23/24 Patient has had dementia diagnosis for at least 3 years. Patient needs much help. is providing most care, patient needs help with personal care. Patient unable to use phone, has apathy, some sundowning. SW talked to about considering video monitoring, alarms on doors, possibly a life alert. Discussed whether patient would know what to do in case of emergency. Discussed potential for wandering and falls. still leaves patient for up to 3 hours alone. >>09/14/24 Patient had some decline on memory test today. Staying stable in function. still is able to leave him about 2 times per week for short periods of time. SW went over some options to increase supervision during that time such as Adult Day Program[facility] and [facility]. >>03/15/25 Patient continues to have memory and functional decline. now has hired a private caregiver for 3 hours/1 day per week. Her son also helps her with some things and is a good support to to help her with caregiver stress. Wandering around in the house in the night. has door locks, alarms, and child locks on doors to help prevent wandering. No resources given today. Functional Status (I: Independent, A: Assisted, D: Dependent) ADLs I A D Notes Bathing [] [] [x] cues him to shower >>09/14/24 same >>03/15/25 doing more hands on help Dressing [] [] [x] lays out his clothes, sometimes helps him with dressing, will wear pjs under jeans sometimes >>09/14/24 same >>03/15/25 hands on help with dressing Toileting [] [] [x] Some accidents, wears Depends when going out, needs help with clean up >>09/14/24 same >>03/15/25 same Transfers [x] [] [] No issues >>09/14/24 has lift chair, has some trouble operating >>03/15/25 mostly can do on his own Feeding [x] [] [] No issues Ambulation [] [x] [] Has cane Assistive devices: Cane, Grab bars, and Walker IADLs I A D Telephone [] [] [x] Unable to use phone, sets up appointments, provides reminders >>09/14/24 same >>03/15/25 same Transportation [] [] [x] Driving safety concerns: Not currently driving >>09/14/24 now has State ID Shopping [] [] [x] shops >>09/14/24 same Meal prep [] [x] [] Can get cereal for himself, does prepare food for him if she will be gone, gets own snacks, mostly puts food in front of him, can't make coffee anymore >>09/14/24 sometimes has been eating cat food like cereal, needs more assistance >>03/15/25 will getting snacks for himself, puts meals in front of him Housework [] [] [x] Can do tasks if cued >>09/14/24 same >>03/15/25 cleans Medications [] [] [x (more content not included)... Normal [facility] Progress Note Review of Systems Constitutional: Positive for appetite change and fatigue. Negative for unexpected weight change. HENT: Positive for hearing loss and trouble swallowing. Negative for dental problem. Eyes: Positive for visual disturbance. Gastrointestinal: Negative for constipation and diarrhea. Genitourinary: Negative for difficulty urinating and dysuria. Musculoskeletal: Positive for gait problem. Negative for arthralgias and back pain. Neurological: Positive for speech difficulty and weakness. Negative for tremors. Psychiatric/Behavioral: Positive for confusion, hallucinations and sleep disturbance. Negative for agitation and dysphoric mood. The patient is not nervous/anxious. Normal [facility] Progress Note [facility] [place] [address] [facility] [address] Dept: [phone] Dept Loc: [phone] Visit type: [facility] Follow Up Visit Reason for Visit: Dementia Visit Date: 03/15/2025 Assessment and Plan 1. Mixed Alzheimer's and vascular dementia (HCC) -Slow progressive course of dementia -Discussed hallucinations are likely related to a combination of impaired vision and dementia. Likely misinterpreting objects. Hallucinations do not need treatment unless causing distress (not currently distressing -Letter written stating that he had a cognitive evaluation consistent with mixed vascular and Alzheimer's Disease dementia at our office in October 2020. I, Janes Zamorano MD, furnish ongoing care related to Raina Valdez single, serious and complex condition(s) dementia. I assume responsibility for the patient's ongoing medical care of this condition. Follow up in about 6 months (around 09/14/2025). Subjective HPI: Raina Valdez is a 79 y.o. male with past medical history of dementia, diabetes, CAD, hypertension, gout, Retinal artery occlusion of right eye who presents to the [facility] for a follow-up visit. The patient is known to me. Chart Review -We saw him at the [facility] over three years ago. He only did one appointment and did not follow up. I was concerned for Alzheimer's and/or vascular dementia. MOCA was a at that time. -His cognitive issues became apparent in July 2020 when was hospitalized for a broken knee cap. He didn't change his clothes and had trouble taking care of himself independently. reports that prior to that episode they had noticed a little bit of memory issues -He has been following with Dr Franco (Neurology) for dementia since 2022. [place] to be mixed Alzheimer's Disease and Vascular Dementia. He is on namenda. He used to be on aricept, but it was stopped due to decrease in appetite. -Seen by Dr Franco in February 2024. Dr Franco noted left sided nabila-neglect, which was new, and he ordered an MRI. Dr Franco referred to the [facility] to help him access services in the home. (MRI ended up being stable - no new strokes). -Re-established with [facility] in March 2024. Agree with diagnosis of mixed Alzheimer's Disease and vascular dementia. [place] it was likely moderate-severe mixed Alzheimer's Disease. Safest to have 24/7 supervision. MOCA 10/02 -Last seen in clinic in September 2024: Slow progressive course of mixed dementia but overall doing OK. MOCA: 07/03 He did see his PCP in October 2024. They opted to stop the memantine given the degree of his dementia. History obtained from caregiver(s): Heavenly -No changes when the memantine was stopped In October. No positive or negative changes. -Memory: Very poor. He does remember some remote computer terminal operator memory things but it is not reliable. She reports: I don't know what to believe anymore in terms of what he actually tells her. -He will see things now. For example: He pointed outside and said there was a gorilla. E may have thought the fence post was 2 men in pointy hats. Only makes these types of comments on objects at a distance. He is not distressed by the hallucination. It also doesn't happen every day. -He does have an eye doctor appointment coming up. He goes yearly. He does have cataracts. -Sleep: He has been awake at night a lot recently. He goes through cycles. Does wander within the house in the middle of the night. -2 weeks ago he left a burner on. She has since removed the knobs and only puts the knobs back on temporarily when she cooks. -Now has a recliner and TV in his bedroom. Will fall asleep in the recliner when the TV is on. Then, when he wakes up at night, he will just watch TV as opposed to wandering around the home -No wandering outside of the house Appetite: OK. He does snack in the middle of the night. Weight stable. Physical Health: No new issues. Doesn't leave house after dark because he doesn't maneuver well. He has a walker that he uses when needed. Mood: Good. Still makes a lot of jokes. Not all are appropriate says there is a lawsuit concerning [place] [employer] (involving potential exposure to toxins that could lead to disorders like Alzheimer's Disease) that they may join. Needs documentation about dementia prior to 2021 (when the lawsuit began). History obtained from patient: Doing Good. Memory: sometimes I think it is perfect and other times I think what in the world is going on here. Doesn't identify that he is receiving help due to his memory issues Sleep: No problem. Appetite: Certainly no problem. Mood: No problem there. Physical Health: fine. Eyesight OK. Not blurry Reviewed progress notes completed by KUSHAL (JOSH) and social work. Allergies[1] Current Medications[2] Medical History[3] Social History Tobacco (more content not included)... [place] [id number] 36 Rx sent. Follow up as scheduled. [place] [address] Prescription Request : lisinopril 40 MG tablet Last medication check: 11/02/24 Last physical exam: 11/02/24 Next scheduled appointment: 05/03/25 Last date of refill on this medication 08/21/24 ( qty 90 refill 1) [address] 01-09-2025 36 Reviewed chart. Refi ll appropriate. RX sent. [place] [address] Prescription Request : atenolol (Tenormin) 100 MG tablet simvastatin (Zocor) 40 MG tablet Last medication check: 11/02/24 Last physical exam: 11/02/24 Next scheduled appointment: 05/03/25 Last date of refill on this medication 07/07/24 - Both qty 90 [address] 12-26-2024 36 Prescription Request : Last medication check: 04/26/24 Last physical exam: 11/02/24 Next scheduled appointment: 05/03/25 Last date of refill on this medication 06/16/2024 [facility] 36on 11-07-2024 36 Called Heavenly hemphill and got Raina scheduled. [facility] 36 Name of Caller: Rosa adair Contact Reason for Appointment: 6 Month Check up in March - Requesting Wednesday or (Late morning/early Afternoon) Office Name: [facility] Medication Refills need, if any: N/A Medication Name: N/A [facility] 36on 11-06-2024 36 Patient established with geriatrics. Has appt with neurology within the next 2 weeks. Patient was seen by Dr. Puente on 11/02/2024. [place] [address] Message released to patient as written. Patient's further questions if applicable: Blood sugar is a little high at 165, chemistry is good with a slight decrease in kidney function although not significant. A1c is high at 9.0 which should give an average blood sugar of 210. Cholesterol is good, triglycerides are little high most likely due to his sugars being up a little bit. Uric acid is normal. Mrs Valdez is very concerned with his mental state. He gets up in the middle of the night. She tries to watch what he eats. She stated he was eating cat food one time. She is getting frustrated. Were all questions from office addressed or relayed to the patient from encounter: Yes [facility] 36 Lm on home and cell numbers [facility] 3611-03-2024 36 Lm for Heavenly to return call [facility] 36 ----- Message from Tima Puente MD sent at 11/03/2024 10:15 AM EST ----- Blood sugar is a little high at 165, chemistry is good with a slight decrease in kidney function although not significant. A1c is high at 9.0 which should give an average blood sugar of 210. Cholesterol is good, triglycerides are little high most likely due to his sugars being up a little bit. Uric acid is normal. [facility] 2911-02-2024 29 Addended by: WILFRED PUENTE on: 11/02/2024 10:58 AM Modules accepted: Orders [facility] 37on 11-02-2024 37 Personalized Prevent ative Plan for Raina Valdez - 11/02/2024 Medicare offers a range of preventative health benefits. Some of the tests and screenings are paid in full while others may be subject to a deductible, co-insurance, and / or copay. Some of these benefits include a comprehensive review of your medical history including lifestyle, illnesses that may run in your family, and various assessments and screenings as appropriate. After reviewing your medical record and screening and assessments performed today, your provider may have ordered immunizations, labs, imaging, and / or referrals for you. A list of these orders (if applicable) as well as your Preventative Care list are included within your After Visit Summary for your review. Other Preventative Recommendations: A preventive eye exam by an computer support specialist is recommended every 1-2 years to screen for glaucoma, cataracts, macular degeneration, and other eye disorders. A preventive dental visit is recommended every 6 months. Try to get at least 150 minutes of exercise per week or 10,000 steps per day on a pedometer. You need 1200-1500mg of calcium and 3787-1193 international units of vitamin D per day. It is possible to meet your calcium requirement with diet alone, but a vitamin D supplement is usually necessary to meet this goal. When exposed to the sun, use a sunscreen that protects against both UVA and UVB radiation with an SPF of 30 or greater. Reapply every 2-3 hours or after sweating, drying off with a towel, or swimming. Always wear a seat belt when traveling in a car. Always wear a helmet when riding a bicycle or a motorcycle [facility] Office Visiton 11-02-2024 Follow-up visit [id number] Raina Valdez 1945 M Date Provider Department Center 11/02/2024 [id number] PUENTE [facility] Family History Problem Relation Age of Onset High Blood Pressure Mother Diabetes Mother Dementia Father Heart disease Father Family Status - Relation Status Age at Mother Father Level of Service:G0439 PA PPPS, SUBSEQ VISIT Reason for Visit and Comments: Medicare Annual Wellness Visit Subsequent [677] Blood Work [775797] Normal [facility] Progress Noteon 11-02-2024 Progress Note Controlled, continue simvastatin 40 mg nightly Normal [facility] Progress Note Controlled, continue his metformin 1000 mg 2 times daily and his glimepiride 1 mg daily [facility] Progress Note Controlled, continue allopurinol 200 mg daily [facility] Progress Note Blood pressure is ac tually on the low side we will stop his hydrochlorothiazide and continue his atenolol 100 mg daily and his lisinopril 40 mg daily [facility] Progress Note Currently is very si gnificant, Vivek is no longer doing anything so we will stop that today. Normal [facility] Progress Note Patient verified by last name and date of . [facility] Progress Note Okay just [facility] [place] [address] [address] [facility] [address] Dept: [phone] Dept Chief Complaint: Raina Valdez is an 79 y.o. male here for an annual wellness visit. Assessment/Plan : Problem List Items Addressed This Visit 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) Currently is very significant, Vivek is no longer doing anything so we will stop that today. 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 Current Outpatient Medications Medication Sig Dispense Refill allopurinol (Zyloprim) 100 MG tablet Take 2 tablets (200 mg) by mouth daily. 180 tablet 1 aspirin 81 MG EC tablet Take 81 mg by mouth daily. atenolol (Tenormin) 100 MG tablet Take 1 tablet (100 mg) by mouth daily. 90 tablet 1 glimepiride (Amaryl) 1 MG tablet Take 1 tablet (1 mg) by mouth daily (with breakfast). 90 tablet 1 Glucose Blood (Blood Glucose Test) strip Test Bs daily 100 strip 5 Lancets Test Bs daily 50 each 2 lisinopril 40 MG tablet Take 1 tablet (40 mg) by mouth daily. 90 tablet 1 metFORMIN (Glucophage) 1000 MG tablet Take 1 tablet (1,000 mg) by mouth in the morning and 1 tablet (1,000 mg) in the evening. Take with meals. 180 tablet 1 simvastatin (Zocor) 40 MG tablet Take 1 tablet (40 mg) by mouth Nightly. 90 tablet 1 No current facility-administered medications for this visit. Also reviewed during this visit: The following health maintenance schedule was reviewed with the patient and provided in printed form in the after visit summary: Health Maintenance Topic Date Due Diabetes: Urine Albumin-Creatinine Ratio for Kidney Health 10/28/2023 Diabetes: Estimated Glomerular Filtration Rate for Kidney Health 11/01/2024 Depression Screening 09/14/2025 Medicare Advantage Annual Wellness Visit Completed Influenza Vaccine Completed Pneumococcal Vaccine: 50+ Years Completed RSV Immunization under 20 Months Aged Out HIB Vaccines Aged Out Hepatitis B Vaccines Aged Out IPV Vaccines Aged Out Hepatitis A Vaccines Aged Out Meningococcal Vaccine Aged Out Rotavirus Vaccines Aged Out HPV Vaccines Aged Out RSV Immunization for Adults Discontinued DTaP/Tdap/Td Vaccines Discontinued Zoster Vaccines Discontinued COVID-19 Vaccine Discontinued List of current healthcare providers: Patient Care Team: Wilfred Puente MD as PCP - General Orders Placed This Encounter Procedures Handicap Olivia 5 2029 Order Specific Question: The face to face evaluation was performed on Answer: 11/02/2024 Lipid panel Standing Status: Future Number of Occurrences: 1 Standing Expiration Date: 11/02/2025 Comprehensive metabolic panel Standing Status: Future Number of Occurrences: 1 Standing Expiration Date: 11/02/2025 Hemoglobin A1c Standing Status: Future Number of Occurrences: 1 Standing Expiration Date: 11/02/2025 Uric acid Standing Status: Future Number of Occurrences: 1 Standing Expiration Date: 11/02/2025 ROS: Unable to be done due to patient's dementia Physical Exam Vitals and nursing note reviewed. Constitutional: General: He is not in acute distress. Appearance: Normal appearance. HENT: Mouth/Throat: Mouth: Mucous membranes are moist. Pharynx: Oropharynx is clear. Eyes: Extraocular Movements: Extraocular movements intact. Conjunctiva/sclera: Conjunctivae normal. Pupils: Pupils are equal, round, and reactive to light. Neck: Vascular: No carotid bruit. Cardiovascular: Rate and Rhythm: Normal rate and regular rhythm. Heart sounds: Normal heart sounds. No murmur heard. Pulmonary: Effort: Pulmonary effort is normal. Breath sounds: Normal breath sounds. Abdominal: General: Bowel sounds are normal. Palpations: Abdomen is soft. Tenderness: There is no abdominal tenderness. Musculoskeletal: General: Normal range of motion. Cervical back: Neck supple. Lymphadenopathy: Cervical: No cervical adenopathy. Skin: General: Skin is warm and dry. Neurological: General: No focal deficit present. Mental Status: He is alert and oriented to person (more content not included)... [facility] 36on 10-27-2024 36 lm to pre-visit plan for appointment with Dr Puente on 11/02/24 10:30. Please ask patient to arrive 15 minutes early with Photo ID, insurance card Fasting: yes Put call through to office for pvp [facility] 36on 10-09-2024 36 Rx sent. Follow up as scheduled. [facility] 36 Prescription Request : Last medication check: 04/26/24 Last physical exam: 11/01/23 Next scheduled appointment: 11/02/24 Last date of refill on this medication 04/07/24 [facility] 37on 09-14-2024 37 He was first seen fo r his memory issues on 10/28/2020. In the note, it lists my concern for Dementia. You can call our office for further directions on how to request records. [facility] Office Visiton 09-14-2024 Follow-up visit [id number] Raina Valdez 1945 M Date Provider Department Center 09/14/2024 [id number] ZAMORANO [facility] None Family History Problem Relation Age of Onset High Blood Pressure Mother Diabetes Mother Dementia Father Heart disease Father Family Status - Relation Status Age at Mother Father Level of Service:12372 PA OFFICE/OUTPATIENT ESTABLISHED MOD MDM 30 MIN Reason for Visit and Comments: Dementia [30] Normal [facility] Progress Noteon 09-14-2024 Progress Note [facility]/Kecia french Social History Present at visit: patient, reema Burdick Marital status: Children: 3 children (2 local) Living arrangement: with , own home >>09/14/24 same Household safety problems: 2 falls backward >>09/14/24 almost fell backwards yesterday Concerning Behaviors: owning, acts childlike >>09/14/24 same Wandering potential: Yes, patient was looking for , patient went out and got in the car, plan to put alarms on doors, another time, went out in the car at 4:00 AM, had opened garage door, got in car and started beeping horn >>09/14/24 now alarms and locks on doors, no incidents Pets: Yes, dog , cares for dog Guns in the home: Unloaded and Ammunition kept in separate place Elder abuse: No/Denied Concerns >>09/14/24 no Alcohol/Tobacco/Marijuana/Drug Use History: none service: Patient is , served in wartime (during ) Highest level of education: 2 years college Occupation: retired from [employer], owned a small business Activities: watches tv, not interested in things anymore, will sit on back porch >>09/14/24 watches tv, sleeps Exercise: 3 days a week to do physical therapy exercises with him >>09/14/24 none Finances: not reviewed My Chart: Only uses Healthcare Power of Category Director: Yes: Heavenly then alvin Dong Financial Power of Category Director: Yes: Heavenly, then alvin Dong Living Will: Yes Guardian: No Code Status: Full Code Primary Caregiver: Heavenly Current care plan/supervision: can leave him for short periods of time, mostly with him >>09/14/24 only leaves patient twice per week to get groceries on Fridays or to volunteer on Mondays Community resources: None Caregiver stressors: has some stress, feels she is managing it ok Goals for care: evaluate memory, resources As a Caregiver, What Matters Most to You: >>06/20/24 Patient has had dementia diagnosis for at least 3 years. Patient needs much help. is providing most care, patient needs help with personal care. Patient unable to use phone, has apathy, some sundowning. SW talked to about considering video monitoring, alarms on doors, possibly a life alert. Discussed whether patient would know what to do in case of emergency. Discussed potential for wandering and falls. still leaves patient for up to 3 hours alone. >>09/14/24 Patient had some decline on memory test today. Staying stable in function. still is able to leave him about 2 times per week for short periods of time. SW went over some options to increase supervision during that time such as Adult Day Program/[facility] and [facility]. Resources given today: [employer] [facility] info, [facility] Functional Status (I: Independent, A: Assisted, D: Dependent) ADLs I A D Notes Bathing [] [x] [] cues him to shower >>09/14/24 same Dressing [] [x] [] lays out his clothes, sometimes helps him with dressing, will wear pjs under jeans sometimes >>09/14/24 same Toileting [] [x] [] Some accidents, wears Depends when going out, needs help with clean up >>09/14/24 same Transfers [x] [] [] No issues >>09/14/24 has lift chair, has some trouble operating Feeding [x] [] [] No issues Ambulation [] [x] [] Has cane Assistive devices: Cane, Grab bars, and Walker IADLs I A D Telephone [] [] [x] Unable to use phone, sets up appointments, provides reminders >>09/14/24 same Transportation [] [] [x] Driving safety concerns: Not currently driving >>09/14/24 now has State ID Shopping [] [] [x] shops >>09/14/24 same Meal prep [] [x] [] Can get cereal for himself, does prepare food for him if she will be gone, gets own snacks, mostly puts food in front of him, can't make coffee anymore >>09/14/24 sometimes has been eating cat food like cereal, needs more assistance Housework [] [x] [] Can do tasks if cued >>09/14/24 same Medications [] [] [x] administers >>09/14/24 same Finances [] [] [x] handles >>09/14/24 same Normal [facility] Progress Note [facility] [place] [address] [place] [address] Dept: [phone] Dept Loc: [phone] Visit type: [facility] Follow Up Visit Reason for Visit: Dementia Visit Date: 09/14/2024 Assessment and Plan 1. Mixed Alzheimer's and vascular dementia (HCC) -Slow progressive worsening of mixed Alzheimer's Disease and vascular dementia. Now with more safety features in the house hold. -Continue memantine Follow up in about 6 months (around 03/15/2025). Subjective HPI: Raina Valdez is a 78 y.o. male with past medical history of dementia, diabetes, CAD, hypertension, gout, Retinal artery occlusion of right eye who presents to the [facility] for a follow-up visit. The patient is known to me. Chart Review -We saw him at the [facility] over three years ago. He only did one appointment and did not follow up. I was concerned for Alzheimer's and/or vascular dementia. MOCA was a 17/30 at that time. -His cognitive issues became apparent in July 2020 when was hospitalized for a broken knee cap. He didn't change his clothes and had trouble taking care of himself independently. reports that prior to that episode they had noticed a little bit of memory issues -He has been following with Dr Franco (Neurology) for dementia since 2022. [place] to be mixed Alzheimer's Disease and Vascular Dementia. He is on namenda. He used to be on aricept, but it was stopped due to decrease in appetite. -Seen by Dr Franco in February 2024. Dr Franco noted left sided nabila-neglect, which was new, and he ordered an MRI. Dr Franco referred to the [facility] to help him access services in the home. (MRI ended up being stable - no new strokes). -Re-established with [facility] in March 2024. Agree with diagnosis of mixed Alzheimer's Disease and vascular dementia. [place] it was likely moderate-severe mixed Alzheimer's Disease. Safest to have 26/04 supervision. MOCA 10/02 History obtained from caregiver(s): Heavenly -He has been doing well since the last appointment in March -He now has alarms on the doors. Has a bar on the sliding door at night so that he can't open it on his own (before she started putting the bar there, he did get out into the backyard in the middle of the night and was not able to get back in) -Only on his own for a couple of hours 2 times a week when is out shopping/volunteering -There are video cameras in the house now to help with supervision -He sometimes has trouble recognizing his house. -May get a bit anxious in the middle of the night. Fretted about needing to get a big order in the middle of the night. He was able to be redirected to bed. -Does get up in the middle of the night and will eat. Ate some cat food with milk (thought it was cereal. Didn't eat too much of itl). has been putting out other foods for him to snack on to distract him from the cat food. He will eat bananas and oranges if left on the counter for him. Appetite: OK. Sometimes expresses that he isn't hungry. will be able to get him to eat small portions when that occurs Mood: Doing well overall. Some worrying in the middle of the night. If upset - will be childlike. Hallucinations: May misinterpret some objects if he cannot see them clearly. Physical health: no new health issues. No medication changes History obtained from patient: Memory: Seems alright. Hasn't notice any trouble - helps him at home. For example: will help with appointments. Not sure what else she helps with Sleep: No problem. Appetite: No problem Mood: No complaints, I don't know. Has been feel OK - not worried or upset Vision: Fine. Physical health: no problems. Feels well. Reviewed progress notes completed by KUSHAL (JOSH) and social work. No Known Allergies Current Outpatient Medications Medication Sig Dispense Refill allopurinol (Zyloprim) 100 MG tablet Take 2 tablets (200 mg) by mouth daily. 180 tablet 1 aspirin 81 MG EC tablet Take 81 mg by mouth daily. atenolol (Tenormin) 100 MG tablet Take 1 tablet (100 mg) by mouth daily. 90 tablet 1 Flaxseed, Linseed, (Flax Seed Oil) 1000 MG capsule Take by mouth. Garlic 1000 MG capsule Take by mouth. glimepiride (Amaryl) 1 MG tablet Take 1 tablet (1 mg) by mouth daily (with breakfast). 90 tablet 1 Glucose Blood (Blood Glucose Test) strip Test Bs daily 100 strip 5 hydroCHLOROthiazide (HYDRODiuril) 25 MG tablet Take 1 tablet (25 mg) by mouth daily. 90 tablet 1 Lancets Test Bs daily 50 each 2 lisinopril 40 MG tablet Take 1 tablet (40 mg) by mouth daily. 90 tablet 1 magnesium gluconate (Magonate) 500 MG tablet Take 250 mg by mouth in the morning. memantine (Namenda) 10 MG tablet Take 1 tablet (10 mg) by mouth 2 times daily. He was told to take 1 tab nightly only for 7 days, then 1 tab po BID. 180 tablet 3 metFORMIN (Glucophage) 1000 MG tabl (more content not included)... Normal [facility] Progress Note Review of Systems Constitutional: Positive for appetite change and fatigue. Negative for unexpected weight change. HENT: Positive for hearing loss. Negative for dental problem and trouble swallowing. Eyes: Positive for visual disturbance. Gastrointestinal: Positive for constipation and diarrhea. Genitourinary: Negative for difficulty urinating and dysuria. Musculoskeletal: Negative for arthralgias, back pain and gait problem. Neurological: Negative for tremors, speech difficulty and weakness. Psychiatric/Behavioral: Positive for confusion, hallucinations and sleep disturbance. Negative for agitation and dysphoric mood. The patient is nervous/anxious. Normal [facility] 36on 08-21-2024 36 Should have refills available for the glucose test strips. Rx sent for the hydrochlorothiazide and lisinopril. Follow up as scheduled. Normal [facility] 36 Prescription Request : Last medication check: 04/26/24 Last physical exam: 11/01/23 Next scheduled appointment: 11/02/24 Last date of refill on this medication 06/16/24 100 strips 5 refills 02/21/24 90 and [address] med[address] [facility] AMB POC HEMOGLOBIN A1Con HbA1c (Bld) [Mass fraction] 7.1 % Abnormal - 5.7 % [facility] HbA1c (Bld) [Mass fraction]o n 04-26-2024 Interpretation and review of laboratory results Abnormal [facility] MR Brain WO contraston 04-03 1. Diminished cerebr al volume and evidence of chronic white matter small vessel ischemic change without acute intracranial abnormality. 2. Partial empty sella configuration. 3. Paranasal sinus disease. 4. Small bilateral mastoid effusions, right greater than left. Report Dictated on Electronically Signed By: Fernando Eagle MD Electronically Signed Date/Time: 04/03/2024 4:52 PM EDT [facility] Patient Name: RAINA VALDEZ : 1945 Exam Date/Time: 04/03/2024 16:03 Procedure: MR BRAIN WO CONTRAST Ordering Provider: FRANCO JAMES Reason For Exam: Left hemineglect, new since prior MRI in February 2023 EXAMINATION: MRI of the brain without contrast. EXAM DATE & TIME: 04/03/2024 4:03 PM EDT INDICATION: Left hemineglect, new since prior MRI in February 2023 ADDITIONAL INFORMATION: 78-year-old male with new left hemineglect since prior brain MRI presents for evaluation COMPARISON: MRI brain dated 02/09/2023 LIMITATIONS: None TECHNIQUE: Sagittal T1, coronal T2, transaxial T2, FLAIR, gradient echo and diffusion weighted sequences were performed through the brain. FINDINGS: Ventricular system and Extra-axial spaces: Generalized enlargement of the ventricles and sulci is noted without extracerebral collection with mass effect. Cerebral and cerebellar parenchyma: Periventricular foci of increased signal intensity on T2 and FLAIR are identified without mass effect or restricted diffusion, compatible with chronic microvascular ischemic change. No additional focal parenchymal enhancing or nonenhancing lesion is identified throughout the cerebrum or cerebellum. Brainstem: Normal. Sella turcica and pituitary: There is partial empty sella configuration. Vascular system: Normal signal void is noted within the major intracranial vessels. Paranasal sinuses: Mucosal thickening is present in the ethmoid and maxillary sinuses. Mastoid air cells: There are small bilateral mastoid effusions, right greater than left. Orbits: Normal. [facility] Fernando Eagle MD - 04/03/2024 [facility] 1945 [id number] Exam Date/Time: 04/03/2024 16:03 Procedure: MR BRAIN WO CONTRAST Ordering Provider: FRANCO JAMES Reason For Exam: Left hemineglect, new since prior MRI in February 2023 EXAMINATION: MRI of the brain without contrast. EXAM DATE & TIME: 04/03/2024 4:03 PM EDT INDICATION: Left hemineglect, new since prior MRI in February 2023 ADDITIONAL INFORMATION: 78-year-old male with new left hemineglect since prior brain MRI presents for evaluation COMPARISON: MRI brain dated 02/09/2023 LIMITATIONS: None TECHNIQUE: Sagittal T1, coronal T2, transaxial T2, FLAIR, gradient echo and diffusion weighted sequences were performed through the brain. FINDINGS: Ventricular system and Extra-axial spaces: Generalized enlargement of the ventricles and sulci is noted without extracerebral collection with mass effect. Cerebral and cerebellar parenchyma: Periventricular foci of increased signal intensity on T2 and FLAIR are identified without mass effect or restricted diffusion, compatible with chronic microvascular ischemic change. No additional focal parenchymal enhancing or nonenhancing lesion is identified throughout the cerebrum or cerebellum. Brainstem: Normal. Sella turcica and pituitary: There is partial empty sella configuration. Vascular system: Normal signal void is noted within the major intracranial vessels. Paranasal sinuses: Mucosal thickening is present in the ethmoid and maxillary sinuses. Mastoid air cells: There are small bilateral mastoid effusions, right greater than left. Orbits: Normal. IMPRESSION: 1. Diminished cerebral volume and evidence of chronic white matter small vessel ischemic change without acute intracranial abnormality. 2. Partial empty sella configuration. 3. Paranasal sinus disease. 4. Small bilateral mastoid effusions, right greater than left. Report Dictated on Electronically Signed By: Fernando Eagle MD Electronically Signed Date/Time: 04/03/2024 4:[address] [facility] Radiology Study observation (narrative) [facility] MR Brain WO contrastOrdered By: Fernando Eagle on 04-03-2024 [facility] Work Phone: PT D/C Summary (1)on 023 PT D/C Summary (1) [facility] [address] [place] [address] / REHABILITATION SERVICES DISCHARGE SUMMARY MR#: [id number] Acct: [id number] Name: RAINA VALDEZ Jr. Rep #: [id number] : 1945 77 From: Zaida Jiménez DPT Referring Dr.: Dr. Dereck Franco MD Status: REG RCR Insurance: [employer] SELF PAY INSURANCE Discharge Summary D/C summary: It has been my pleasure to treat RAINA VALDEZ Jr. referred by Dr. Dereck Franco MD, with the diagnosis of Axonal Sensorimotor Neuropathy for a total of 8 visit(s). Discharge Date: Please see the following information for a summary of their discharge status. Subjective Subjective: Patient attends with - she feels that his dizziness is still there but he is a little more stable. They saw Dr. Puente who also told them that it the balance issue was probably because of his dementia. Overall Improvement % Improvement: 50 Objective Objective/Function: Pt has good strength via objective from evaluation- with training from MET[employer]IE FINISH[employer] patient was completing exercises of eyes closed and open on and off foam with sba for safety- and walking with head turns. is indep with HEP Goals Goal 1:: FGA to reduce fallr isk Goal Progress: Goal Met Goal 2:: Pt use cane regularly willingly in community Goal Progress: Goal Met Goal 3:: I appropriate HEP balance and strength to minimize future problems Goal Progress: Goal Met Goal 4:: Abolish falls due to dizzyness x 2 weeks Goal Progress: Progressing Plan Plan: Patient will continue his current HEP of 5 exercises with his - she also plans to do some research into using their [email or web address] membership and get him into pool exercises. D/C Information d/c sentence: If there are questions or concerns regarding this patient's physical therapy, please feel free to call me at [phone]. Thank you for the referral of this patient. Sincerely, Zaida Jiménez DPT Balance/Gait/Functional tests Balance/Special Test Scores Functional Gait Assessment Score: 21 % Disability: 30.0000 CATSIB Score (Max score 120 seconds): 112 Lower Extremity Functional Score: 57 05/10/23 1223 CC: Dr. Wilfred Puente MD; Dr. Dereck Franco MD ELR Signed Normal [facility] Re-Evaluation - PT (1)on Re-Evaluation - PT (1) [facility] [address] [place] [address] / REEVALUATION / MEDICARE RECERTIFICATION PHYSICAL THERAPY MR#: [id number] Acct: [id number] Name: RAINA VALDEZ JrAc Rep #: [id number] : 1945 77 From: Clint Junior DPT, OCS, CSCS Referring Dr.: Dr. Dereck Franco MD Status:REG RCR Insurance: [employer] SELF PAY INSURANCE Re-Evaluation Intro: Dr. Dereck Franco MD, It has been my pleasure to treat RAINA VALDEZ over the last 2 visits for Axonal Sensorimotor Neuropathy. Please see the progress note below for an update on the physical therapy plan of care! Subjective Subjective: Trouble with dizzyness. says he was dizzy 3x in the last week, he cannot remember any of these. [place] a thud and found him on knees and he said at that time he was dizzy. Got up from floor one time and had to hold on as he was dizzy. He sits for 5 minutes and then he is fine. Happens about every other day. May hernandez ve been happening for a year or more. Not falling otherwise. Family Dr. Puente sent to [place] to check for Parkinsons. Now diagnosed with dementia, not Parkinson's. Is on a med called memantine to slow down dementia. Any falls seems to be dizzyness according to who relays all info to me as he cannot remember these things. Objective Objective/Function: FGA is slightly below normal for age. Appropriate corrections in foam stance , slower with ec. cervical aROM is WFL and painfree. as is UE AROM. - B hallpike kimo and roll testing. Oculomotor: no nystagmus with gaze or head shaking - ocular tilt - skew eye deviation - head thrust. Normal gaze and pursuit and saccades normal VOR No dizzyness or symptoms with position changes or bending today. Head shake not causing dizzyness. Plan Plan Plan: No signs of vestibular problems leading to dizzyness and falls. Recommended use of cane at all times based on FGA score and unknown cause of dizzyness leading to falls. Recommended also the benefits of balance ex foam ec and weight shifts as well as general strength which adn he are willing to pursue and be compliant with remote computer terminal operator. Please see 2x/week for 3-4 weeks for... 1. teach weight shifting and foam/ec ex as safety allows for balance 2. teach home based general strength Progress both of these to I. Please do some walking and head movements and bending to see if we can uncover pattern to dizzy symptoms Balance/Gait/Functional tests Balance/Special Test Scores Functional Gait Assessment Score: 21 % Disability: 30.0000 CATSIB Score (Max score 120 seconds): 112 Lower Extremity Functional Score: 47 Goals Goals Goal 1:: FGA to reduce fallr isk Goal Time Frame: 2-4 Weeks Goal 2:: Pt use cane regularly willingly in community Goal Time Frame: 2 Weeks Goal 3:: I appropriate HEP balance and strength to minimize future problems Goal Time Frame: 2-4 Weeks Goal 4:: Abolish falls due to dizzyness x 2 weeks Goal Time Frame: 2-4 Weeks Anticipated Interventions Anticipated Interventions Patient/Client Instruction: Educate patient on: Benefits of Fitness Program Therapeutic Exercise to Include: Strength training, Endurance training, Balance training, Coordination, Agility training, Body mechanics, Postural training, Flexibilty training, Gait and locomotor training, Neuromotor development, Dynamic Lumbar Stabilization and Scapular Strength/Stabilization Re-Evaluation Ending Re-evaluation ending: Please do not hesitate to contact me at [phone] by phone or if you have questions or concerns regarding this new plan of care! Sincerely, Clint Junior, DPT, OCS, CSCS 04/19/23 1243 CC: Dr. Wilfred Puente MD; Dr. Dereck Franco MD EBG Signed For Medicare only, by signing this I certify the plan of care. Physicians Signature Date Normal [facility] Inital Evaluation (1) - PTon 04-16-2023 Inital Evaluation (1) - PT [facility] [address] [place] [address] / REHABILITATION SERVICES INITIAL EVALUATION MR#: [id number] Acct: [id number] Name: RAINA VALDEZ Jr. Rep #: [id number] : 1945 77 From: Zaida Jiménez DPT Referring Dr.: Dr. Dereck Franco MD Status: REG RCR Insurance: [employer] SELF PAY INSURANCE Patient's Visit Information Visit Information Visit Information: RAINA VALDEZ Jr. is a 77 year old M referred to Physical Therapy by Dr. Dereck Franco MD with a diagnosis of Axonal Sensorimotor Neuropathy. Date of Evaluation: 04/16/23 Physical Therapist: Zaida Jiménez DPT Visit Plan Plan: Follow up with EBG for vestibular and goals/POC will be established Subjective Subjective: Patient is with today- who reports that neurologist sent them here for his balance. He gets dizzy- if he is somewhere that he doesn't have something to grab onto he falls and lands on his knees. He has dementia and sleeps for the majority of the day. is unsure of how often he is dizzy- some days are worse than others- she thinks its probably multiple times a day. He ended up on his knees yesterday due to his dizziness. He is able to get up off the floor as long as he has something to hold onto. They have a walker and 2 canes but he will not use them. Dizziness does not hinder him and thinks his notices it more than he does. He has no pain. He does sometimes struggle to get out of his recliner. No injuries from falls. reports in the last 2 weeks he has had a fall a week. PMHx: Meds: only change is now metamalamide which is for dementia Objective Objective: Posture: FH, RS-can correct with tactile cues but does not maintain Gait: no deviation noted- tess is slow- no loss of balance in clinic. HR/TR: able with UE A Strength: Core: fair plus, Hip: 5/5, Knee: 5/5, Ankle: 5/5 Flex: HS: moderate, Gastroc: moderate Balance/Special Test Scores Functional Gait Assessment Score: 18 % Disability: 40.0000 CATSIB Score (Max score 120 seconds): 90 Lower Extremity Functional Score: 47 Rehabilitation Potential Physical Therapy Diagnosis: Patient presents with imbalance leading to falls Rehabilitation Potential: Good Anticipated Interventions Patient/Client Instruction: Educate patient on: Benefits of Fitness Program Therapeutic Exercise to Include: Strength training, Endurance training, Balance training, Coordination, Agility training, Body mechanics, Postural training, Flexibilty training, Gait and locomotor training, Neuromotor development, Dynamic Lumbar Stabilization and Scapular Strength/Stabilization Text: Thank you for the opportunity to evaluate your patient. For Medicare and Medicare HMO plans, please review the plan of care and approve it. It will need to be FAXED BACK to us at [phone] for Medicare purposes. For Medicare only, by signing this I certify the plan of care. Please let me know if there are questions or concerns regarding this plan of care. Physician Signature: Date:__ 04/16/23 1054 CC: Dr. Wilfred Puente MD; Dr. Dereck Franco MD ELR Signed Normal [facility] Cardiology Visit Reporton Cardiology Visit Report [facility] [address] [place] [address] OFFICE VISIT Date of Service: 02/10/23 MR#: [id number] Acct: [id number] Name: RAINA VALDEZ Jr. Rep #: [id number] : 1945 Provider: PATRICIA Evans Age/Sex: 77/M Location: [facility] [place] [facility] Status: Signed HPI HPI History of Present Illness Details: This is a 76-year-old gentleman that presents here today for a cardiovascular follow-up.He underwent coronary artery bypass surgery in 2004 with a saphenous vein graft to the circumflex artery, saphenous vein graft to the diagonal branch, and saphenous vein graft to the ramus intermedius and the right coronary artery with most recent stenting to his LAD and ramus in December 2019. 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 In addition he does have a history of hypertension, hyperlipidemia, diabetes mellitus, chronic left bundle branch block. Pt is having issues with balance and dizziness. He is being worked up for dementia. He does not have any chest discomfort/heaviness/tightness. He does not have any worsening symptoms of shortness of breath. He denies any PND. He does not have any orthopnea. He does not have any symptoms of congestive heart failure. He does not have any palpitations that he is aware of. He does not have any lightheadedness or dizziness. He does not have any near-syncope or syncope. He does not have any lower extremity edema. He does not have any symptoms of claudication. Intake Vital Signs 02/10/23 10:01 02/10/23 10:05 Height 5 ft 9 in 5 ft 9 in Weight: 197 lb 2 oz BMI 29.1 BP 129/74 H Blood Pressure Location Lt brachial Position Sitting Respiration 16 Pulse 69 Pulse Source Auscultation Intake Visit Reasons: 1 YR FU Occupational Therapy Teacher Required: No Accompanied by: Allergies No Known Allergies Allergy (Verified 02/10/23 10:05) Medications aspirin 81 mg tablet,delayed release (Adult Low Dose Aspirin) 81 mg PO DAILY 11/13/19 [History Confirmed 02/10/23] atenolol 100 mg tablet 100 mg PO DAILY 11/13/19 [History Confirmed 02/10/23] hydrochlorothiazide 25 mg tablet 25 mg PO DAILY 11/13/19 [History Confirmed 02/10/23] lisinopril 40 mg tablet 40 mg PO DAILY 11/13/19 [History Confirmed 02/10/23] metformin 1,000 mg tablet 1,000 mg PO BID 11/13/19 [History Confirmed 02/10/23] multivitamin 1 tab PO DAILY 11/13/19 [History Confirmed 02/10/23] simvastatin 80 mg tablet 40 mg PO QHS 11/13/19 [History Confirmed 02/10/23] glimepiride 1 mg tablet 1 mg PO DAILY 05/28/21 [History Confirmed 02/10/23] allopurinol 100 mg tablet 100 mg PO BID 02/12/22 [History Confirmed 02/10/23] magnesium sulfate 100 mg capsule 250 mg PO DAILY 02/12/22 [History Confirmed 02/10/23] donepezil 10 mg tablet 10 mg PO DAILY 02/10/23 [History Confirmed 02/10/23] flaxseed oil 1,000 mg capsule 1,000 mg PO DAILY 02/10/23 [History Confirmed 02/10/23] garlic 1,000 mg capsule 1,000 mg PO DAILY 02/10/23 [History Confirmed 02/10/23] potassium gluconate 595 mg (99 mg) tablet 595 mg PO DAILY 02/10/23 [History Confirmed 02/10/23] [facility] Medical History Atherosclerosis of coronary artery of [place] heart without angina pectoris BPH (benign prostatic hyperplasia) Essential (primary) hypertension History of atrial myxoma (07/08/05) Hyperlipidemia Ischemic cardiomyopathy Left bundle branch block (LBBB) Obesity Old inferior wall myocardial infarction (2004) Type 2 diabetes mellitus Surgical History H/O coronary artery bypass surgery (07/08/05) History of cataract surgery History of coronary artery stent placement (12/18/19) History of left heart catheterization (07/06/05) Family History Mother Hypertension Diabetes Father Heart disease ROS Const Const: Negative for fatigue, weakness, body ache, fever(s), headache(s), chills, frequent falls, night sweats, daytime sleepiness, difficulty sleeping, excessive sweating, weight gain, weight loss, increased appetite, poor appetite, anorexia or other Eyes Eyes: Negative for blurry vision or double vision ENT ENT: Positive for dizziness (follow w/ neurologist, recent MRI, no results as of yet) and balance problems (patient has a cane and walker, not using); Negative for headache(s) Cardio Chest Pain: No Palpitations: No Edema: None Muscle aches with walking: None Resp Respiratory: Negative for SOB with activity, SOB at rest, SOB orthopnea SOB lying down, Cough, Coughing up blood/hemoptysis, chest congestion, pain on inspiration, snoring, stridor, wheezing, crackles, paroxysmal nocturnal dyspnea or other Musc Musc: Positive for balance problems (pat (more content not included)... Normal [facility] Comprehensive metabolic 1998 panelon 10-29-2022 Albumin [Mass/Vol] 4.3 g/dL 3.6 - 5.1 g/dL [facility] ALP [Catalytic activity/Vol] 93 U/L 35 - 144 U/L [facility] ALT [Catalytic activity/Vol] 13 U/L 9 - 46 U/L [facility] Anion gap [Moles/Vol] 8 mmol/L [facility] AST [Catalytic activity/Vol] 13 U/L 10 - 35 U/L [facility] Bilirubin [Mass/Vol] 0.5 mg/dL 0.2 - 1.2 mg/dL [facility] Calcium [Mass/Vol] 9.6 mg/dL 8.6 - 10.3 mg/dL [facility] Chloride [Moles/Vol] 100 mmol/L 98 - 110 mmol/L [facility] CO2 [Moles/Vol] 31 mmol/L 20 - 32 mmol/L [facility] Creatinine [Mass/Vol] 1.22 mg/dL 0.70 - 1.28 mg/dL [facility] GFR/1.73 sq M.predicted among non-blacks MDRD (S/P/Bld) [Vol rate/Area] 60 mL/min/{1.73_m2} > OR = 60 mL/min/1.[address] [facility] Comment on above: The eGFR is based on the CKD-EPI 2020 eq uation. To calculate the new eGFR from a previous Creatinine or Cystatin C result, go to https://www.kidney.org/professionals/ kdoqi/gfr%5Fcalculator Glucose [Mass/Vol] 102 mg/dL High 65 - 99 mg/dL [facility] Comment on above: Fasting reference interval For someone without known diabetes, a glucose value between 100 and 125 mg/dL is consistent with prediabetes and should be confirmed with a follow-up test. Potassium [Moles/Vol] 3.9 mmol/L 3.5 - 5.3 mmol/L [facility] Protein [Mass/Vol] 6.9 g/dL 6.1 - 8.1 g/dL [facility] Sodium [Moles/Vol] 139 mmol/L 135 - 146 mmol/L [facility] Urea nitrogen [Mass/Vol] 25 mg/dL 7 - 25 mg/dL [facility] Hemoglobin A1con 10-29-2022 HbA1c (Bld) [Mass fraction] 7.0 % High [facility] Comment on above: For someone without known diabetes, a he [facility] A1c value of 6.5% or greater indicates that they may have diabetes and this should be confirmed with a follow-up test. For someone with known diabetes, a value <7% indicates that their diabetes is well controlled and a value greater than or equal to 7% indicates suboptimal control. A1c targets should be individualized based on duration of diabetes, age, comorbid conditions, and other considerations. Currently, no consensus exists regarding use of hemoglobin A1c for diagnosis of diabetes for children. Lipid 1996 panelon 3 Cholesterol [Mass/Vol] 133 mg/dL [facility] - 200 mg/dL [facility] Cholesterol in HDL [Mass/Vol] 35 mg/dL Low > OR = 40 [facility] Cholesterol in LDL [Mass/Vol] 72 mg/dL mg/dL (calc) [facility] Comment on above: Reference range: <100 Desirable range <100 mg/dL for primary prevention; <70 mg/dL for patients with CHD or diabetic patients with > or = 2 CHD risk factors. LDL-C is now calculated using the Jose Luis-Saida calculation, which is a validated novel method providing better accuracy than the Friedewald equation in the estimation of LDL-C. Jose Luis DASILVA et al. LUI. 2013;310(19): 5314-1992 (http://education.[employer]/faq/VAW835) Cholesterol non HDL [Mass/Vol] 98 mg/dL [facility] Comment on above: For patients with diabetes plus 1 major ASCVD risk factor, treating to a non-HDL-C goal of <100 mg/dL (LDL-C of <70 mg/dL) is considered a therapeutic option. Cholesterol.tota l/Cholesterol in HDL [Mass ratio] 3.8 {ratio} [facility] Triglyceride [Mass/Vol] 189 mg/dL High [facility] - 150 mg/dL [facility] Microalbumin/Creatinine rati o panel (U)on 10-29-2022 Albumin DL <= 20 mg/L (U) [Mass/Vol] 1.4 mg/dL See Note: [facility] Comment on above: Reference Range: Reference Range Not established Albumin/Creatini ne (U) [Mass ratio] 12 [facility] Comment on above: The ADA defines abnormalities in albumin excretion as follows: Albuminuria Category Result (mcg/mg creatinine) Normal to Mildly increased <30 Moderately increased 30-299 Severely increased > OR = 300 The ADA recommends that at least two of three specimens collected within a 3-6 month period be abnormal before considering a patient to be within a diagnostic category. Creatinine (U) [Mass/Vol] 117 mg/dL 20 - 320 mg/dL [facility] No Panel Informationon 10-29 Interpretation and review of laboratory results Abnormal [facility] Uric acidon 10-29-2022 Urate [Mass/Vol] 4.7 mg/dL 4.0 - 8.0 mg/dL [facility] Comment on above: Therapeutic target for gout patients: <6 .0 mg/dL CNOVon 12-21-2017 CNOV Office Visit (AGCARDWST) REBEKAH VALDEZ JR. ([id number]) 1945 MDate Time Provider Department12/21/17 9:30 AM NAEEM OACSIO During your visit today, we recorded the following information about you: Pulse Blood pressure Weight Height 67/minute 128/90 89 kg 1.727 Aleisha Ocasio MD 12/21/2017 12:02 PM SignedPERTINENT CARDIAC HISTORYASHD - s/p CABG 2005Atrial myxoma resected 2005HTNHLLBBBDMADHERENCE TO GUIDELINESACE-I or ARB for HF with prior LVEFANDlt;40 (NQF 0081) - N/AASA or Plavix for ASHD (NQF 0067) - metBeta meredith for ASHD with prior MD or prior LVEFANDlt;40 (NQF 0070) - N/ABeta meredith for HF with prior LVEFANDlt;40 (NQF 0083) - N/AACE-I or ARB for ASHD with DM or prior LVEFANDlt;40 (NQF 0066) - N/AStatin therapy for ASHD or FHL or DM - metBMI documented and plan if ANDgt;25 (NQF 0421) - lifestyle recommendation formTobacco use screening and referral (NQF 0028) - lifestyle recommendation formRecommendation for whole food, plant based diet - lifestyle recommendation formCLINICAL IMPRESSION/PLAN:Raina Valdez Jr. has stable ischemic heart disease. His blood pressure iswell-controlled. There is no evidence of progressive conduction disease.I reminded him to have labs done. He reports blood pressures at home have beenin the 120/70 range. I asked him to monitor these.I will see him in 8 months or as needed. If there is increased chest pain orshortness of breath, he has been advised to contact me.Written and verbal health teaching given to patient, patient verbalizesunderstanding and agrees with treatment plan.This note was generated using [employer] voice recognition system, and there may besome incorrect words, spellings, and punctuation that were not noted inchecking the note before saving.DIAGNOSIS FOR VISIT:Left bundle branch blockASHDHISTORY OF PRESENT ILLNESSRaina Valdez Jr. returns for follow-up of multiple cardiac issues, as notedabove.He reports stable exercise tolerance. He takes his dog for a walk several timesper day. He's had no chest discomfort. He denies orthopnea, edema, syncope,palpitations, TIAs, amaurosis and claudication.ALLERGIES:ALLERGIESN o Known AllergiesCURRENT OUTPATIENT MEDICATIONS:CHOLECALCIFEROL, VITAMIN D3, (VITAMIN D3 ORAL) Take 500 mg by mouth once daily.potassium chloride (K-TAB) 10 mEq tablet Take 1 tablet by mouth once daily.hydrochlorothiazide (HYDRODIURIL, ESIDRIX) 25 mg tablet Take 1 tablet by mouthonce daily.atenolol (TENORMIN) 100 mg tablet Take 1 tablet by mouth once daily.Fenofibric Acid 135 mg cpDR Take 135 mg by mouth once daily.metFORMIN 500 mg tablet Take 1 tablet by mouth twice daily with meals.lisinopril 40 mg tablet Take 1 tablet by mouth once daily.simvastatin 80 mg ORAL tablet Take 80 mg by mouth daily at bedtime.THERAPEUTIC MULTIVITAMIN TAB Take one(1) tablet daily.FISH OIL CAP 1000mg once daily by mouthASPIRIN 81 MG TAB Take one (1) tablet daily .PHYSICAL EXAMINATION:VITAL SIGNS: BP 128/90 Pulse 67 Ht 5' 8ANDquot; (1.73m) Wt 196 lb 4.8 oz(89.0kg) BMI 29.85 kg/(m2).Chest: Clear to percussion and auscultation. Trachea is midline. Air entry isequal. Cardiac: Regular rhythm. S2 is paradoxically split. PMI isnondisplaced. There is a soft systolic ejection murmur. Carotids are briskwithout bruits. JVP is less than 10 cm. Abdomen: Soft and nontender. Thereare no pulsatile masses or bruits. No liver enlargement. Bowel sounds areactive. Extremities: No edema. Pulses are intact and symmetrical.EKG shows sinus rhythm with left bundle. There is no change from 12/21/16.Laboratory studies are due.Electronically Signed:Naeem Ocasio [facility] 2017 9:45 [facility]: Ari Reese MD 12/21/2017 9:45 AM SignedLIFESTYLE CHANGEA healthy lifestyle is the most important component of your overall treatmentplan. Please give serious thought to the following areas and commit to makinglong term changes.EAT A WHOLE FOOD, PLANT BASED DIETThe nutrition your body gets is more important than the medicine you take.What matters most is the overall way you eat. We encourage you to minimize theuse of animal products (which include dairy and all meats except fatty fish)and use whole, unprocessed plant foods to provide your protein, vitamins andother nutrients. We have a lot of information to share with you on this topic. We also hold Shared Medical Appointments, where you can come visit with in the company of other patients and spend over an hour talking aboutthe challenges of changing the way you eat. This is not a ANDquot;dietANDquot;.It is a way of life that you will keep with you.EXERCISE REGULARLYIt is not important to spend hours in the gym, lifting weights and perspiringheavily. A total of 2-3 hours per week of aerobic (causing you to bemoderately short of breath) exercise is sufficient to improve your health.Talk to us before you begin a new exercise program, if you have heart diseaseor experience shortness of breath or chest pain.REDUCE STRESSChronic emotional and physical stress leads to disease. Ways of reducingstress include meditation, visualization, prayer, yoga and other forms ofrelaxation therapy. Consistency is the house. Find a technique that works foryou and do it every day.CULTIVATE RELATIONSHIPSLoneliness and isolation have a major negative impact on health. Seek outothers who can love, care for and nurture you. Avoid hurtful relationships.MAINTAIN IDEAL BODY WEIGHTThe best way to do this is to do all the things above. Our bodies naturallyfind the right weight if we keep moving and feed ourselves the right food. Ifyour BMI is greater than 25, we strongly recommend a referral to a weightmanagement program. Please speak to us or your family physician aboutavailable programs.AVOID NICOTINE IN ALL FORMSThis includes all tobacco products, whether chewed, smoked, vaped, or rubbed onthe skin. Smoking cessation programs, which can make use of tobaccosubstitutes, medications to suppress cravings and behavior management, areavailable. Please contact your family physician about programs in your area.Referring Provider: NAEEM OCASIO [[id number]]Allergies As of Date: 12/21/2017(No Known Allergies)Date Reviewed: 12/21/2017Reviewed by: Lay Valentine - Fully AssessedReason for Visit: Follow Up [171]Primary Visit Diagnosis:ASHD (arteriosclerotic heart disease) [I25.10] Other Visit Diagnosis:Essential hypertension [I10]Order(s):ECG B/O W INTERP (MED OFFICE) [ECG06] Order #: [id number] BASIC METABOLIC PNL [SQBMP] Order #: [id number] FUTURE LIPID PANEL BASIC [SQLIPB] Order #: [id number] FUTURE ALT/SGPT [SQALT] Order #: [id number] FUTURE CK CREATINE KINASE [SQCK] Order #: [id number] FUTUREPrescriptions as of 12/21/2017 Sig: VITAMIN D3 ORAL Take 500 mg by mouth once frandy* POTASSIUM CHLORIDE ER 10 MEQ * Take 1 tablet by mouth once d* HYDROCHLOROTHIAZIDE 25 MG TAB* Take 1 tablet by mouth once d* ATENOLOL 100 MG TABLET Take 1 tablet by mouth once d* FENOFIBRIC ACID (CHOLINE) 135* Take 135 mg by mouth once frandy* METFORMIN 500 MG TABLET Take 1 tablet by mouth twice * Patient taking differently: Take 1,000 mg by mouth twice * LISINOPRIL 40 MG TABLET Take 1 tablet by mouth once d* SIMVASTATIN 80 MG TABLET Take 80 mg by mouth daily at * THERAPEUTIC MULTIVITAMIN TABL* Take one(1) tablet daily. FISH OIL 500 MG CAPSULE 1000mg once daily by mouth ASPIRIN 81 MG TABLET Take one (1) tablet daily .Problem List As Of Date 12/21/2017 Noted Resolved HYPERTENSION NOS [I10] INVALID FOR* MIXED HYPERLIPIDEMIA [E78.2] INVALID FOR* Other instructions from your clinician: LIFESTYLE CHANGE A healthy lifestyle is the most important component of your overall treatment plan. Please give serious thought to the following areas and commit to making snf changes. EAT A WHOLE FOOD, PLANT BASED DIET The nutrition your body gets is more important than the medicine you take. What matters most is the overall way you eat. We encourage you to minimize the use of animal products (which include dairy and all meats except fatty fish) and use whole, unprocessed plant foods to provide your protein, vitamins and other nutrients. We have a lot of information to share with you on this topic. We also hold Shared Medical Appointments, where you can come visit with Dr. Ocasio in the company of other patients and spend over an hour talking about the challenges of changing the way you eat. This is not a diet. It is a way of life that you will keep with you. EXERCISE REGULARLY It is not important to spend hours in the gym, lifting weights and perspiring heavily. A total of 2-3 hours per week of aerobic (causing you to be moderately short of breath) exercise is sufficient to improve your health. Talk to us before you begin a new exercise program, if you have heart disease or experience shortness of breath or chest pain. REDUCE STRESS Chronic emotional and physical stress leads to disease. Ways of reducing stress include meditation, visualization, prayer, yoga and other forms of relaxation therapy. Consistency is the house. Find a technique that works for you and do it every day. CULTIVATE RELATIONSHIPS Loneliness and isolation have a major negative impact on health. Seek out others who can love, care for and nurture you. Avoid hurtful relationships. MAINTAIN IDEAL BODY WEIGHT The best way to do this is to do all the things above. Our bodies naturally find the right weight if we keep moving and feed ourselves the right food. If your BMI is greater than 25, we strongly recommend a referral to a weight management program. Please speak to us or your family physician about available programs. AVOID NICOTINE IN ALL FORMS This includes all tobacco products, whether chewed, smoked, vaped, or rubbed on the skin. Smoking cessation programs, which can make use of tobacco substitutes, medications to suppress cravings and behavior management, are available. Please contact your family physician about programs in your area. Status:Closed by NAEEM OCASIO MD on 12/21/17 [facility] PROGRESSon 12-21-2017 PROGRESS HNO ID: [id number] thor: Naeem Meredith: (none)Author Type: PhysicianType: Progress NotesFiled: 12/21/2017 12:02 PMNote Text:PERTINENT CARDIAC HISTORYASHD - s/p CABG 2005Atrial myxoma resected 2005HTNHLLBBBDMADHERENCE TO GUIDELINESACE-I or ARB for HF with prior LVEF<40 (NQF 0081) - N/AASA or Plavix for ASHD (NQF 0067) - metBeta meredith for ASHD with prior MD or prior LVEF<40 (NQF 0070) - N/ABeta meredith for HF with prior LVEF<40 (NQF 0083) - N/AACE-I or ARB for ASHD with DM or prior LVEF<40 (NQF 0066) - N/AStatin therapy for ASHD or FHL or DM - metBMI documented and plan if >25 (NQF 0421) - lifestyle recommendation formTobacco use screening and referral (NQF 0028) - lifestyle recommendationformRecommendation for whole food, plant based diet - lifestyle recommendationformCLINICAL IMPRESSION/PLAN:Raina Valdez Jr. has stable ischemic heart disease. His blood pressure iswell-controlled. There is no evidence of progressive conduction disease.I reminded him to have labs done. He reports blood pressures at home havebeen in the 120/70 range. I asked him to monitor these.I will see him in 8 months or as needed. If there is increased chest painor shortness of breath, he has been advised to contact me.Written and verbal health teaching given to patient, patient verbalizesunderstanding and agrees with treatment plan.This note was generated using Pro[employer] voice recognition system, and theremay be some incorrect words, spellings, and punctuation that were notnoted in checking the note before saving.DIAGNOSIS FOR VISIT:Left bundle branch blockASHDHISTORY OF PRESENT ILLNESSRaina Valdez Jr. returns for follow-up of multiple cardiac issues, asnoted above.He reports stable exercise tolerance. He takes his dog for a walk severaltimes per day. He's had no chest discomfort. He denies orthopnea, edema,syncope, palpitations, TIAs, amaurosis and claudication.ALLERGIES:ALLERGIESN o Known AllergiesCURRENT OUTPATIENT MEDICATIONS:CHOLECALCIFEROL, VITAMIN D3, (VITAMIN D3 ORAL) Take 500 mg by mouth oncedaily.potassium chloride (K-TAB) 10 mEq tablet Take 1 tablet by mouth oncedaily.hydrochlorothiazide (HYDRODIURIL, ESIDRIX) 25 mg tablet Take 1 tablet bymouth once daily.atenolol (TENORMIN) 100 mg tablet Take 1 tablet by mouth once daily.Fenofibric Acid 135 mg cpDR Take 135 mg by mouth once daily.metFORMIN 500 mg tablet Take 1 tablet by mouth twice daily with meals.lisinopril 40 mg tablet Take 1 tablet by mouth once daily.simvastatin 80 mg ORAL tablet Take 80 mg by mouth daily at bedtime.THERAPEUTIC MULTIVITAMIN TAB Take one(1) tablet daily.FISH OIL CAP 1000mg once daily by mouthASPIRIN 81 MG TAB Take one (1) tablet daily .PHYSICAL EXAMINATION:VITAL SIGNS: BP 128/90 Pulse 67 Ht 5' 8 (1.73m) Wt 196 lb 4.8 oz(89.0kg) BMI 29.85 kg/(m2).Chest: Clear to percussion and auscultation. Trachea is midline. Airentry is equal. Cardiac: Regular rhythm. S2 is paradoxically split.PMI is nondisplaced. There is a soft systolic ejection murmur. Carotidsare brisk without bruits. JVP is less than 10 cm. Abdomen: Soft andnontender. There are no pulsatile masses or bruits. No liverenlargement. Bowel sounds are active. Extremities: No edema. Pulses areintact and symmetrical.EKG shows sinus rhythm with left bundle. There is no change from 12/21/16.Laboratory studies are due.Electronically Signed:Naeem Ocasio, [facility] 2017 9:45 [facility]: Wilfred Puente MD [facility] Vital Signs Date Time Vital Sign Value Performing Clinician Facility 05-03-2025 10:18-0400 Body height 168.9 cm Wilfred Puente MD Work Phone: [facility] 05-03-2025 10:18-0400 Body mass index (BMI) [Ratio] 30.84 kg/m2 Wilfred Puente MD Work Phone: [facility] 05-03-2025 10:18-0400 Body temperature 98.49 [degF] Wilfred Puente MD Work Phone: [facility] 05-03-2025 10:18-0400 Body weight 88 kg Wilfred Puente MD Work Phone: [facility] 05-03-2025 10:18-0400 Diastolic blood pressure 70 mm[Hg] Wilfred Puente MD Work Phone: [facility] 05-03-2025 10:18-0400 Heart rate 71 /min Wilfred Puente MD Work Phone: [facility] 05-03-2025 10:18-0400 SaO2% (BldA) [Mass fraction] 87 % Wilfred Puente MD Work Phone: [facility] 05-03-2025 10:18-0400 Systolic blood pressure 132 mm[Hg] Wilfred Puente MD Work Phone: [employer] 03-15-2025 12:49-0400 Body mass index (BMI) [Ratio] 31.13 kg/m2 Janes Zamorano MD Work Phone: [employer] 03-15-2025 12:49-0400 Body weight 88.81 kg Janes Zamorano MD Work Phone: [employer] [facility] 03-15-2025 12:49-0400 Diastolic blood pressure 69 mm[Hg] Janes Zamorano MD Work Phone: [facility] 03-15-2025 12:49-0400 Heart rate 71 /min Janes Zamorano MD Work Phone: [employer] 03-15-2025 12:49-0400 Systolic blood pressure 128 mm[Hg] Janes Zamorano MD Work Phone: [facility] 11-02-2024 10:16-0500 Body height 168.9 cm Wilfred Puente MD Work Phone: [employer] 11-02-2024 10:16-0500 Body mass index (BMI) [Ratio] 31.73 kg/m2 Wilfred Puente MD Work Phone: [employer] 11-02-2024 10:16-0500 Body weight 90.54 kg Wilfred Puente MD Work Phone: [employer] 11-02-2024 10:16-0500 Diastolic blood pressure 62 mm[Hg] Wilfred Puente MD Work Phone: [employer] 11-02-2024 10:16-0500 Heart rate 74 /min Wilfred Puente MD Work Phone: [employer] 11-02-2024 10:16-0500 SaO2% (BldA) [Mass fraction] 90 % Wilfred Puente MD Work Phone: [employer] 11-02-2024 10:16-0500 Systolic blood pressure 98 mm[Hg] Wilfred Puente MD Work Phone: [employer] 09-14-2024 10:49-0500 Body mass index (BMI) [Ratio] 31.51 kg/m2 Janes Zamorano MD Work Phone: [facility] 09-14-2024 10:49-0500 Body weight 89.9 kg Janes Zamorano MD Work Phone: [facility] 09-14-2024 10:49-0500 Diastolic blood pressure 73 mm[Hg] Janes Zamorano MD Work Phone: [facility] 09-14-2024 10:49-0500 Heart rate 81 /min Janes Zamorano MD Work Phone: [facility] 09-14-2024 10:49-0500 Systolic blood pressure 122 mm[Hg] Janes Zamorano MD Work Phone: [facility] 04-26-2024 10:19-0400 Body height 168.9 cm Wilfred Puente MD Work Phone: [facility] 04-26-2024 10:19-0400 Body mass index (BMI) [Ratio] 31.48 kg/m2 Wilfred Puente MD Work Phone: [facility] 04-26-2024 10:19-0400 Body weight 89.81 kg Wilfred Puente MD Work Phone: [facility] 04-26-2024 10:19-0400 Diastolic blood pressure 65 mm[Hg] Wilfred Puente MD Work Phone: [facility] 04-26-2024 10:19-0400 Heart rate 68 /min Wilfred Puente MD Work Phone: [facility] 04-26-2024 10:19-0400 SaO2% (BldA) [Mass fraction] 91 % Wilfred Puente MD Work Phone: [facility] 04-26-2024 10:19-0400 Systolic blood pressure 106 mm[Hg] Wilfred Puente MD Work Phone: [facility] 04-18-2024 10:00-0400 Body height 168.9 cm Pilar Danielle CNP Work Phone: [facility] 04-18-2024 10:00-0400 Body mass index (BMI) [Ratio] 31.19 kg/m2 Pilar Lewis INVOICE MACHINE OPERATOR - CHOIR ACCOMPANIST Work Phone: [facility] 04-18-2024 10:00-0400 Body weight 89 kg Pilar Wagnerlellan INVOICE MACHINE OPERATOR - CHOIR ACCOMPANIST Work Phone: [facility] 04-18-2024 10:00-0400 Diastolic blood pressure 71 mm[Hg] Pilar Lewis INVOICE MACHINE OPERATOR - CHOIR ACCOMPANIST Work Phone: [facility] 04-18-2024 10:00-0400 Heart rate 75 /min Pilar Joshua INVOICE MACHINE OPERATOR - CHOIR ACCOMPANIST Work Phone: [facility] 04-18-2024 10:00-0400 Systolic blood pressure 129 mm[Hg] Pilar Geean INVOICE MACHINE OPERATOR - CHOIR ACCOMPANIST Work Phone: [facility] 03-23-2024 15:53-0400 Diastolic blood pressure 71 mm[Hg] Janes Zamorano MD Work Phone: [facility] 03-23-2024 15:53-0400 Heart rate 86 /min Janes Zamorano MD Work Phone: [facility] 03-23-2024 15:53-0400 Systolic blood pressure 125 mm[Hg] Janes Zamorano MD Work Phone: [facility] 03-23-2024 15:50-0400 Body height 168.9 cm Janes Zamorano MD Work Phone: [facility] 03-23-2024 15:50-0400 Body mass index (BMI) [Ratio] 31.19 kg/m2 Janes Zamorano MD Work Phone: [facility] 03-23-2024 15:50-0400 Body weight 89 kg Janes Zamorano MD Work Phone: [facility] 03-03-2024 09:59-0400 Body height 170.2 cm Dereck Franco MD Work Phone: [facility] 03-03-2024 09:59-0400 Body mass index (BMI) [Ratio] 30.54 kg/m2 Dereck Franco MD Work Phone: [facility] 03-03-2024 09:59-0400 Body weight 88.45 kg Dereck Franco MD Work Phone: [facility] 03-03-2024 09:59-0400 Diastolic blood pressure 78 mm[Hg] Dereck Franco MD Work Phone: [facility] 03-03-2024 09:59-0400 Heart rate 78 /min Dereck Franco MD Work Phone: [facility] 03-03-2024 09:59-0400 Systolic blood pressure 127 mm[Hg] Dereck Franco MD Work Phone: [facility] 11-01-2023 14:09-0500 Body height 170.2 cm Wilfred Puente MD Work Phone: [employer] 11-01-2023 14:09-0500 Body mass index (BMI) [Ratio] 30.98 kg/m2 Wilfred Puente MD Work Phone: [employer] 11-01-2023 14:09-0500 Body weight 89.72 kg Wilfred Puente MD Work Phone: [employer] 11-01-2023 14:09-0500 Diastolic blood pressure 65 mm[Hg] Wilfred Puente MD Work Phone: [employer] 11-01-2023 14:09-0500 Heart rate 70 /min Wilfred Puente MD Work Phone: [employer] 11-01-2023 14:09-0500 SaO2% (BldA) [Mass fraction] 90 % Wilfred Puente MD Work Phone: [employer] 11-01-2023 14:09-0500 Systolic blood pressure 115 mm[Hg] Wilfred Puente MD Work Phone: [employer] 06-16-2023 10:34-0400 Body mass index (BMI) [Ratio] 30.7 kg/m2 Dereck Franco MD Work Phone: [facility] 06-16-2023 10:34-0400 Body weight 88.91 kg Dereck Franco MD Work Phone: [facility] [facility] 06-16-2023 10:34-0400 Diastolic blood pressure 75 mm[Hg] Dereck Franco MD Work Phone: [facility] 06-16-2023 10:34-0400 Heart rate 65 /min Dereck Franco MD Work Phone: [facility] 06-16-2023 10:34-0400 Systolic blood pressure 134 mm[Hg] Dereck Franco MD Work Phone: [facility] 04-29-2023 14:21-0400 Body height 170.2 cm Wilfred Puente MD Work Phone: [facility] 04-29-2023 14:21-0400 Body mass index (BMI) [Ratio] 30.13 kg/m2 Wilfred Puente MD Work Phone: [facility] 04-29-2023 14:21-0400 Body weight 87.27 kg Wilfred Puente MD Work Phone: [facility] 04-29-2023 14:21-0400 Diastolic blood pressure 67 mm[Hg] Wilfred Puente MD Work Phone: [facility] 04-29-2023 14:21-0400 Heart rate 73 /min Wilfred Puente MD Work Phone: [facility] 04-29-2023 14:21-0400 SaO2% (BldA) [Mass fraction] 92 % Wilfred Puente MD Work Phone: [facility] 04-29-2023 14:21-0400 Systolic blood pressure 112 mm[Hg] Wilfred Puente MD Work Phone: [facility] 04-07-2023 09:54-0400 Body height 170.2 cm Dereck Franco MD Work Phone: [facility] 04-07-2023 09:54-0400 Body mass index (BMI) [Ratio] 30.35 kg/m2 Dereck Franco MD Work Phone: [facility] 04-07-2023 09:54-0400 Body weight 87.91 kg Dereck Franco MD Work Phone: [facility] 04-07-2023 09:54-0400 Diastolic blood pressure 85 mm[Hg] Dereck Franco MD Work Phone: [facility] 04-07-2023 09:54-0400 Heart rate 66 /min Dereck Franco MD Work Phone: [facility] 04-07-2023 09:54-0400 Systolic blood pressure 146 mm[Hg] Dereck Franco MD Work Phone: [facility] 02-10-2023 10:05-0400 Body height 175.[address] Wilfred Puente Work Phone: [facility] 02-10-2023 10:05-0400 Body mass index (BMI) [Ratio] 29.1 kg/m2 Dr. Wilfred Puente Work Phone: [facility] 02-10-2023 10:05-0400 Body weight 89.[address] Wilfred Puente Work Phone: [facility] 02-10-2023 10:05-0400 Diastolic blood pressure 74 mm[Hg] Dr. Wilfred Puente Work Phone: [facility] 02-10-2023 10:05-0400 Heart rate 69 /min Dr. Wilfred Puente Work Phone: [facility] 02-10-2023 10:05-0400 Respiratory rate 16 /min Dr. Wilfred Puente Work Phone: [facility] 02-10-2023 10:05-0400 Systolic blood pressure 129 mm[Hg] Dr. Wilfred Puente Work Phone: [facility] 10-28-2022 13:07-0500 Body height 171.5 cm Wilfred Puente MD Work Phone: [facility] 10-28-2022 13:07-0500 Body mass index (BMI) [Ratio] 30.46 kg/m2 Wilfred Puente MD Work Phone: [facility] 10-28-2022 13:07-0500 Body weight 89.54 kg Wilfred Puente MD Work Phone: [facility] 10-28-2022 13:07-0500 Diastolic blood pressure 68 mm[Hg] Wilfred Puente MD Work Phone: [facility] 10-28-2022 13:07-0500 Heart rate 69 /min Wilfred Puente MD Work Phone: [facility] 10-28-2022 13:07-0500 Systolic blood pressure 122 mm[Hg] Wilfred Puente MD Work Phone: [facility] Encounters Encounter Date Encounter Type Care Provider Facility Start: 08-10-2025 End: 08-10-2025 Refill Wilfred Puente MD Work Phone: [facility] Start: 07-25-2025 End: 07-25-2025 Refill Nena Bridenthal INVOICE MACHINE OPERATOR - CHOIR ACCOMPANIST Work Phone: [facility] Start: 07-18-2025 End: 07-18-2025 Refill Nena Bridenthal INVOICE MACHINE OPERATOR - CHOIR ACCOMPANIST Work Phone: [facility] Start: 05-03-2025 End: 05-03-2025 Office outpatient visit 25 minutes Wilfred Puente MD Work Phone: 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 Start: 12-26-2024 End: 12-26-2024 Refill Keturah Pizarro INVOICE MACHINE OPERATOR - CHOIR ACCOMPANIST Work Phone: [facility] Start: 11-07-2024 End: 11-07-2024 Telephone encounter Janes Zamorano MD Work Phone: [facility] Comment on above: Appointment Start: 11-03-2024 End: 11-06-2024 Telephone encounter Wilfred Puente MD Work Phone: [facility] Comment on above: Results Start: 11-02-2024 End: 11-02-2024 Assay of hemosiderin, quant Wilfred Puente MD Work Phone: [facility] Work Phone: Start: 11-02-2024 End: 11-02-2024 Patient encounter procedure Wilfred Puente MD Work Phone: 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; Hyperlipidemia LDL goal <70 Start: 11-02-2024 End: 11-02-2024 ambulatory [facility] Start: 11-02-2024 End: 11-02-2024 Encounter for general adult medical examination without abnormal findings [facility] Start: 09-14-2024 End: 09-14-2024 Office outpatient visit 25 minutes Janes Zamorano MD Work Phone: [facility] Comment on above: 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; Diabetes mellitus type 2 in obese (HCC); Hyperlipidemia LDL goal <70; Essential hypertension Start: 04-18-2024 End: 04-18-2024 Office outpatient visit 25 minutes Pilar Lewis INVOICE MACHINE OPERATOR - CHOIR ACCOMPANIST Work Phone: [facility] Comment on above: Dementia without beh avioral disturbance (HCC) (Primary Dx); Unsteadiness on feet Start: 04-03-2024 End: 04-03-2024 Subsequent hospital visit by physician Dereck Franco MD Work Phone: [facility] Comment on above: Nabila-neglect of left side; Ataxia Start: 03-23-2024 End: 03-23-2024 Office outpatient new 60 minutes Janes Zamorano MD Work Phone: [facility] Comment on above: 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) Start: 03-03-2024 End: 03-03-2024 Office outpatient visit 25 minutes Dereck Franco MD Work Phone: [facility] Comment on above: Nabila-neglect of left side (Primary Dx); Dementia with behavioral disturbance (HCC); Ataxia Start: 01-11-2024 Refill Keturah Pizarro APRN - CHOIR ACCOMPANIST Work Phone: [facility] Start: 12-16-2023 Maisha Puente MD Work Phone: [facility] Comment on above: Diabetes mellitus ty pe 2 in obese (CMS/HCC) (HCC) (HCC) Start: 11-01-2023 End: 11-01-2023 Patient encounter procedure Wilfred Puente MD Work Phone: [facility] Comment on above: Medicare annual well ness visit, subsequent (Primary Dx); Diabetes mellitus type 2 in obese (CMS/HCC) (HCC) (HCC); 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); Essential hypertension; Atherosclerosis of [place] coronary artery of [place] heart without angina pectoris; 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; Hyperlipidemia LDL goal <70 Start: 08-27-2023 Maisha Puente MD Work Phone: [facility] Comment on above: Essential hypertensi on Start: 07-07-2023 Maisha Puente MD Work Phone: [facility] Start: 06-22-2023 Maisha Puente MD Work Phone: [facility] Start: 06-16-2023 End: 06-16-2023 Office outpatient visit 25 minutes Dereck Franco MD Work Phone: [facility] Comment on above: Dementia without beh avioral disturbance (HCC) (Primary Dx); Retinal artery branch occlusion of right eye; Hypertriglyceridemia; Unsteadiness on feet Start: 05-23-2023 Refill Nena erickson INVOICE MACHINE OPERATOR - CHOIR ACCOMPANIST Work Phone: [facility] Comment on above: Diabetes mellitus ty pe 2 in obese (CMS/HCC) (HCC) Start: 05-10-2023 End: 05-10-2023 ambulatory Wilfred Puente Facility:[facility] Start: 05-10-2023 End: 05-10-[address] Wilfred Puente Work Phone: [facility] Work Phone: Start: 05-10-2023 End: 05-10-[address] 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); 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 behavioral disturbance, psychotic disturbance, mood disturbance, or anxiety (HCC) Start: 04-10-2023 Refill Keturah Pizarro INVOICE MACHINE OPERATOR - CHOIR ACCOMPANIST Work Phone: [facility] Start: 04-07-2023 End: 04-07-2023 Office outpatient visit 25 minutes Dereck Franco MD Work Phone: [facility] Comment on above: Axonal sensorimotor neuropathy (Primary Dx); Dementia without behavioral disturbance (HCC); Unsteadiness on feet Start: 02-10-2023 End: 02-10-2023 ambulatory Nicki GOMEZ Facility:[facility] Start: 02-10-2023 End: 02-10-[address] Wilfred Puente Work Phone: [facility] Work Phone: Start: 02-09-2023 End: 02-09-2023 Subsequent hospital visit by physician [facility] Mr Exam Room 1 [facility] Comment on above: Ataxia; Apraxia; Unsteadiness on feet Start: 02-01-2023 End: 02-01-2023 Subsequent hospital visit by physician Dereck Franco MD Work Phone: [facility] Comment on above: Numbness in both leg s Start: 01-10-2023 Refill Wilfred Puente MD Work Phone: [facility] Start: 12-15-2022 Refill Wilfred Puente MD Work Phone: [facility] Start: 10-28-2022 End: 10-28-2022 Patient encounter procedure Wilfred Puente MD Work Phone: 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; Diabetes mellitus type 2 in obese (CMS/HCC) (HCC); Memory loss; Hyperlipidemia LDL goal <70; Ataxia; Atherosclerosis of [place] coronary artery of [place] heart without angina pectoris Start: 08-23-2018 Ambulatory NAEEM OCASIO Facility :[facility] Start: 12-21-2017 End: 12-21-2017 Ambulatory NAEEM OCASIO [facility] Procedures Date Procedure Procedure Detail Performing Clinician Start: 05-03-2025 Hemoglobin glycosyla boone a1c Wilfred Puente MD Work Phone: Start: 03-15-2025 Adult depression screening assessment Janes Zamorano MD Work Phone: Start: 11-02-2024 Adult depression screening assessment Wilfred Puente MD Work Phone: Start: 09-14-2024 Adult depression screening assessment Janes Zamorano MD Work Phone: Start: 04-26-2024 Hemoglobin glycosyla boone a1c Wilfred Puente MD Work Phone: Start: 04-26-2024 Adult depression screening assessment Wilfred Puente MD Work Phone: Start: 04-03-2024 Mri brain brain stem w/o contrast material Dereck Franco MD Work Phone: Start: 03-23-2024 Adult depression screening assessment Janes Zamorano MD Work Phone: Start: 11-01-2023 Adult depression screening assessment Wilfred Puente MD Work Phone: Start: 10-28-2022 Comprehensive metabo lic panel Wilfred Puente MD Work Phone: Start: 10-28-2022 Lipid panel Wilfred Smith MD Work Phone: Start: 10-28-2022 Urine albumin quantitative Wilfred Puente MD Work Phone: Start: 10-28-2022 Lipid 1996 panel - S hugo or Plasma Wilfred Puente MD Work Phone: Start: 10-27-2022 Adult depression screening assessment [facility] 1 Start: 10-22-2021 Lipid 1996 panel - S hugo or Plasma Wilfred Puente MD Work Phone: Start: 12-18-2019 History of placement of stent for coronary artery disease History of coronary artery stent placement Dr. Wilfred Puente Work Phone: Start: 07-08-2005 History of coronary artery bypass grafting H/O coronary artery bypass surgery Dr. Wilfred Puente Work Phone: Plan of Treatment Date Care Activity Detail Author Start: 03-15-2026 Depression Screening Depression Screening [facility] Start: 11-06-2025 End: 11-06-2025 Patient encounter procedure 11/06/2025 11:15 AM EST Office Visit [facility] [address] [place] [address] Wilfred Puente MD [address] [place], [place] [address] [address] [facility] Start: 11-02-2025 Depression Screening Depression Screening [facility] Start: 11-02-2025 Diabetes: Estimated Glomerular Filtration Rate for [facility] Diabetes: Estimated Glomerular Filtration Rate for [facility] Start: 09-14-2025 Depression Screening Depression Screening [facility] Start: 09-13-2025 End: 09-13-2025 Patient encounter procedure 09/13/2025 1:00 PM EST Office Visit [facility] [place] [phone] Janes Zamorano MD [address] [place] [id number] [facility] Start: 06-04-2025 Influenza vaccination Influenza Vaccine (#1) [facility] Start: 05-03-2025 End: 05-03-2025 Patient encounter procedure 05/03/2025 10:30 AM EDT Office Visit [address] [place] [address] Wilfred Puente MD [address] [place], [place] [address] [address] [facility] Start: 04-26-2025 Depression Screening Depression Screening [facility] Start: 03-23-2025 Depression Screening Depression Screening [facility] Start: 03-15-2025 End: 03-15-2025 Patient encounter procedure 03/15/2025 1:00 PM EDT Office Visit [facility] [place] [phone] Janes Zamorano MD [address] [address] 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 Comment on above: Expected: 11/02/2024 (Approximate), Expi res: 11/02/2025 Start: 11-02-2024 End: 11-02-2025 Hemoglobin A1c measurement Hemoglobin A1c Lab Routine Type 2 diabetes mellitus with obesity (CMS/HCC) (HCC) (HCC) Expected: 11/02/2024 (Approximate), Expires: 11/02/2025 [facility] Comment on above: Expected: 11/02/2024 (Approximate), Expi res: 11/02/2025 Start: 11-02-2024 End: 11-02-2025 Lipid 1996 panel - Serum or Plasma Lipid panel Lab Routine Hyperlipidemia LDL goal <70 Expected: 11/02/2024 (Approximate), Expires: 11/02/2025 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 Comment on above: Expected: 11/02/2024 (Approximate), Expi res: 11/02/2025 Start: 11-02-2024 End: 11-02-2024 Patient encounter procedure [facility] Start: 11-01-2024 Depression Screening Depression Screening [facility] Start: 11-01-2024 Diabetes: Estimated Glomerular Filtration Rate for [facility] Diabetes: Estimated Glomerular Filtration Rate for [facility] Start: 10-10-2024 End: 10-10-2024 Patient encounter procedure 10/10/2024 11:00 AM EST Office Visit [facility] [address] [facility] [address] [place] [address] Pilar Lewis APRN - ANILA [address] [place] [address] [facility] Start: 09-14-2024 End: 09-14-2024 Patient encounter procedure 09/14/2024 11:00 AM EST [facility] [address] [place] [phone] Janes Zamorano MD [address] [address] [facility] Start: 08-23-2024 End: 08-23-2024 Patient encounter procedure [facility] Start: 06-08-2024 End: 06-08-2024 Patient encounter procedure [facility] Start: 06-04-2024 Influenza vaccination Influenza Vaccine (#1) [facility] Start: 04-29-2024 DTaP/Tdap/Td Vaccines (1 - Tdap) DTaP/Tdap/Td Vaccines (1 - Tdap) [facility] Comment on above: Postponed from 1962 (Patient Refus ed) Start: 04-29-2024 Hepatitis C screening Hepatitis C Screening [facility] Comment on above: Postponed from 1961 (Patient Refus ed) Start: 04-29-2024 Zoster Vaccines (1 of 2) Zoster Vaccines (1 of 2) [facility] Comment on above: Postponed from 1993 (Patient Refus ed) Start: 04-26-2024 End: 04-26-2024 Patient encounter procedure 04/26/2024 10:30 AM EDT Office Visit [facility] [address] [place] [address] [place] [address] Wilfred Puente MD [address] [place] [address] [facility] [place] [address] [facility] Start: 04-18-2024 End: 04-18-2024 Patient encounter procedure 04/18/2024 10:00 AM EDT Office Visit [facility] [address] [place] [phone] Pilar Lewis APRN - CHOIR ACCOMPANIST [address] [place] [address] [facility] Start: 04-03-2024 End: 04-03-2024 Patient encounter procedure 04/03/2024 3:30 PM EDT Appointment [facility] [address] [place] [phone] Dereck Franco MD [address] [place] [address] [facility] Start: 03-03-2024 End: 03-03-2025 MR Brain WO contrast MR brain wo contrast Imaging Routine Nabila-neglect of left side Ataxia Expected: 03/03/2024, Expires: 03/03/2025 [facility] Work Phone: Comment on above: Expected: 03/03/2024, Expires: Start: 03-03-2024 End: 03-03-2024 Patient encounter procedure 03/03/2024 10:00 AM EDT Office Visit [facility] [address] [place] [phone] Dereck Franco MD [address] [place] [address] [facility] Start: 11-27-2023 Medicare Advantage Annual Wellness Visit (AWV) Medicare Advantage Annual Wellness Visit (AWV) [facility] Start: 11-01-2023 End: 11-01-2024 Comprehensive metabolic 1998 panel - Serum or Plasma Comprehensive metabolic panel Lab Routine Diabetes mellitus type 2 in obese (CMS/HCC) (HCC) (HCC) Expected: 11/01/2023 (Approximate), Expires: 11/01/2024 [facility] Work Phone: Comment on above: Expected: 11/01/2023 (Approximate), Expi res: 11/01/2024 Start: 11-01-2023 End: 11-01-2024 Hemoglobin A1c measurement Hemoglobin A1c Lab Routine Diabetes mellitus type 2 in obese (CMS/HCC) (HCC) (HCC) Expected: 11/01/2023 (Approximate), Expires: 11/01/2024 [facility] Comment on above: Expected: 11/01/2023 (Approximate), Expi res: 11/01/2024 Start: 11-01-2023 End: 11-01-2024 Microalbumin/Creatini ne panel in random Urine Microalbumin / creatinine urine ratio Lab Routine Diabetes mellitus type 2 in obese (CMS/HCC) (HCC) (HCC) Expected: 11/01/2023 (Approximate), Expires: 11/01/2024 [facility] Comment on above: Expected: 11/01/2023 (Approximate), Expi res: 11/01/2024 Start: 11-01-2023 End: 11-01-2023 Patient encounter procedure [facility] Start: 11-01-2023 End: 11-01-2024 Urate [Mass/volume] in Serum or Plasma Uric acid Lab Routine 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 Start: 10-28-2023 Lip[address] Lipid Panel [facility] Start: 10-28-2023 Urine screening for protein Diabetes: Urine Protein Screening [facility] Start: 10-27-2023 Depression Screening Depression Screening [facility] Start: 09-03-2023 End: 09-03-2023 Patient encounter procedure 09/03/2023 12:00 PM EST Office Visit [facility] [address] [facility] [address] [place] [address] Dereck Franco MD [address] [facility] [address] [place] [address] [facility] Start: 06-16-2023 End: 06-16-2024 Lipid 1996 panel - Serum or Plasma Lipid panel Lab Routine Retinal artery branch occlusion of right eye Hypertriglyceridemia Expected: 06/16/2023 (Approximate), Expires: 06/16/2024 [facility] Work Phone: Comment on above: Expected: 06/16/2023 (Approximate), Expi res: 06/16/2024 Start: 06-16-2023 End: 06-16-2023 Patient encounter procedure 06/16/2023 10:30 AM EDT Office Visit [facility] [address] [facility] [address] [place] [address] Dereck Franco MD [address] [facility] [address] [place] [address] [facility] Start: 06-04-2023 COVID-19 Vaccine () COVID-19 Vaccine ( season) [facility] Start: 06-04-2023 Influenza vaccination Influenza Vaccine (#1) [facility] Start: 04-29-2023 End: 04-29-2023 Patient encounter procedure [facility] Start: 04-29-2023 End: 04-29-2024 Basic metabolic 1998 panel - Serum or Plasma Basic metabolic panel Lab Routine Diabetes mellitus type 2 in obese (CMS/HCC) (HCC) Expected: 04/29/2023 (Approximate), Expires: 04/29/2024 [facility] Comment on above: Expected: 04/29/2023 (Approximate), Expi res: 04/29/2024 Start: 04-29-2023 End: 04-29-2024 Hemoglobin A1c/Hemoglobin.total in Blood Hemoglobin A1c Lab Routine Diabetes mellitus type 2 in obese (CMS/HCC) (HCC) Expected: 04/29/2023 (Approximate), Expires: 04/29/2024 [facility] Work Phone: Comment on above: Expected: 04/29/2023 (Approximate), Expi res: 04/29/2024 Start: 04-07-2023 End: 04-07-2023 Patient encounter procedure 04/07/2023 Office Visit Neurology Dereck Franco MD [address] [facility] [address] [place] [address] [facility] Start: 02-09-2023 End: 02-09-2023 Patient encounter procedure 02/09/2023 Appointment Radiology [facility] Start: 01-26-2023 Hemoglobin A1c measurement Diabetes: Hemoglobin A1C [facility] Start: 01-19-2023 End: 01-19-2023 Patient encounter procedure 01/19/2023 Office Visit Neurology Dereck Franco MD [address] [facility] [address] [place] [address] [facility] [employer] [facility] Start: 12-01-2022 COVID-19 Vaccine (5 - Moderna series) COVID-19 Vaccine (5 - Moderna series) [facility] Start: 10-28-2022 End: 10-27-2023 Comprehensive metabolic 1998 panel - Serum or Plasma Comprehensive metabolic panel Lab Routine Diabetes mellitus type 2 in obese (CMS/HCC) (HCC) Expected: 10/28/2022 (Approximate), Expires: 10/27/2023 [facility] Comment on above: Expected: 10/28/2022 (Approximate), Expi res: 10/27/2023 Start: 10-28-2022 End: 10-27-2023 Hemoglobin A1c/Hemoglobin.total in Blood Hemoglobin A1c Lab Routine Diabetes mellitus type 2 in obese ([facility]/HCC) ([facility]) Expected: 10/28/2022 (Approximate), Expires: 10/27/2023 [facility] Comment on above: Expected: 10/28/2022 (Approximate), Expi res: 10/27/2023 Start: 10-28-2022 End: 10-27-2023 Lipid 1996 panel - Serum or Plasma Lipid panel Lab Routine Hyperlipidemia LDL goal <70 Expected: 10/28/2022 (Approximate), Expires: 10/27/2023 [facility] Comment on above: Expected: 10/28/2022 (Approximate), Expi res: 10/27/2023 Start: 10-28-2022 End: 10-27-2023 Microalbumin/Creatini ne panel in random Urine Microalbumin / creatinine urine ratio Lab Routine Diabetes mellitus type 2 in obese ([facility]) ([facility]) Expected: 10/28/2022 (Approximate), Expires: 10/27/2023 [facility] Work Phone: Comment on above: Expected: 10/28/2022 (Approximate), Expi res: 10/27/2023 Start: 10-28-2022 End: 10-28-2023 Urate [Mass/volume] in Serum or Plasma Uric acid Lab Routine 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 Start: 10-22-2022 Urine screening for protein Diabetes: Urine Protein Screening [facility] Start: 07-23-2022 Hemoglobin A1c measurement Diabetes: Hemoglobin A1C [facility] Start: 2003 Hepatitis B Vaccines (1 of 3 - Risk 3-dose series) Hepatitis B Vaccines (1 of 3 - Risk 3-dose series) [facility] Start: 2003 RSV Immunization aged 60 or older (1 - 1-dose 60+ series) RSV Immunization aged 60 or older (1 - 1-dose 60+ series) [facility] Start: 1993 Zoster Vaccines (1 of 2) Zoster Vaccines (1 of 2) [facility] Start: 1962 DTaP/Tdap/Td Vaccines (1 - Tdap) DTaP/Tdap/Td Vaccines (1 - Tdap) [facility] Start: 1961 Hepatitis C screening Hepatitis C Screening [facility] Start: 1953 Diabetic foot examination Diabetes: Foot Exam [facility] Start: 1953 Glaucoma screening Diabetes: Retinopathy Screening [facility] Start: 1953 Preventive dental service Diabetes: Dental Exam [facility] Start: 1943 Hepatitis B Vaccines (1 of 3 - 3-dose series) Hepatitis B Vaccines (1 of 3 - 3-dose series) [facility] Start: 1943 Medicare Advantage Annual Wellness Visit (AWV) Medicare Advantage Annual Wellness Visit (AWV) [facility] End: 02-09-2023 MR Brain WO contrast [employer] Work Phone: Comment on above: Once for 1 Occurrences starting 02/10/20 until 02/09/2023 End: 02-01-2023 Nerve conduction test with EMG [facility] Work Phone: Comment on above: Once for 1 Occurrences starting 02/02/20 until 02/01/2023 Immunizations Immunization Date Immunization Notes Care Provider [facility] 08-03-2024 influenza, high dose seasonal, preservative-free Janes Zamorano MD Work Phone: [facility] 08-03-2024 influenza virus vacc ine, unspecified formulation Keturah Pizarro INVOICE MACHINE OPERATOR - CHOIR ACCOMPANIST Work Phone: [facility] 07-14-2023 Influenza, High-dose Seasonal, Quadrivalent, Preservative Free Janes Zamorano MD Work Phone: [facility] 07-14-2023 influenza, seasonal, injectable, preservative free Wilfred Puente MD Work Phone: [facility] 07-14-2023 influenza virus vacc ine, unspecified formulation Dereck Franco MD Work Phone: [facility] 07-15-2022 Influenza, High-dose Seasonal, Quadrivalent, Preservative Free Wilfred Puente MD Work Phone: [facility] 07-15-2022 influenza virus vacc ine, unspecified formulation Dereck Franco MD Work Phone: [facility] 09-12-2021 Pfizer SARS-CoV-2 Vaccination Wilfred Puente MD Work Phone: [facility] 08-04-2021 influenza, high dose seasonal, preservative-free Wilfred Puente MD Work Phone: [facility] 08-04-2021 Influenza, High-dose Seasonal, Quadrivalent, Preservative Free Wilfred Puente MD Work Phone: [facility] 12-30-2020 Covid (Moderna) Dr. Wilfred Puente Work Phone: [facility] 12-02-2020 Covid (Moderna) Dr. Wilfred Puente Work Phone: [facility] 07-15-2020 influenza virus vacc ine, unspecified formulation Wilfred Puente MD Work Phone: [facility] 07-15-2020 Seasonal, quadrivale nt, recombinant, injectable influenza vaccine, preservative free Wilfred Puente MD Work Phone: [facility] 04-16-2020 pneumococcal polysaccharide vaccine, 23 valent Wilfred Puente MD Work Phone: [facility] 07-19-2019 Seasonal, quadrivale nt, recombinant, injectable influenza vaccine, preservative free Wilfred Puente MD Work Phone: [facility] 04-12-2019 pneumococcal conjuga te vaccine, 13 valent Wilfred Puente MD Work Phone: [facility] 07-18-2018 influenza, high dose seasonal, preservative-free Wilfred Puente MD Work Phone: [facility] 09-02-2017 influenza virus vacc ine, unspecified formulation Wilfred Puente MD Work Phone: [facility] 09-02-2017 influenza, high dose seasonal, preservative-free Wilfred Puente MD Work Phone: [facility] 09-12-2016 influenza virus vacc ine, unspecified formulation Wilfred Puente MD Work Phone: [facility] 07-10-2015 influenza virus vacc ine, unspecified formulation Wilfred Puente MD Work Phone: [facility] 07-10-2015 influenza virus vacc ine, whole virus Wilfred Puente MD Work Phone: [facility] 06-20-2014 influenza, seasonal, injectable Wilfred Puente MD Work Phone: [facility] Payers Date Payer Category Payer Self-pay [id number] 2022 Medicare [id number] 2022 Medicare HMO [employer] [id number] 2022 Medicare [id number] Medicare MEDICARE PART A B [id number] Unknown [id number] Unknown [id number] Social History Date Type Detail Facility Tobacco smoking status NHIS Never smoked tobacco [facility] Start: 10-28-2022 End: 05-03-2025 Alcohol intake Current non-drinker of alcohol (finding) [facility] Start: 10-28-2022 End: 10-30-2024 Alcohol intake [facility] Start: 10-27-2022 History SDOH Alcohol Frequency [address] [facility] Start: 10-27-2022 History SDOH Alcohol Std Drinks 0 [facility] Start: 1945 Sex Assigned At Not on file S [facility] Start: 10-18-2022 End: 06-16-2023 Exposure to SARS-CoV-2 (event) Not sure [facility] Start: 10-27-2022 End: 10-30-2024 Alcohol Use Disorder Identification Test - Consumption [AUDIT-C] [facility] How often to you hav e a drink containing alcohol? Never [facility] How many standard dr inks containing alcohol do you have on a typical day? Patient does not drink [facility] (I/We) worried wheth er (my/our) food would run out before (I/we) got money to buy more. Never true [facility] In the past 12 month s, was there a time when you were not able to pay the mortgage or rent on time? No [facility] Start: 01-01-2020 Tobacco smoking status NHIS Un known if ever smoked [facility] Start: 1945 Sex Assigned At Male W [facility] Are you now , , , , never or living with a partner? [facility] Do you feel stress - tense, restless, nervous, or anxious, or unable to sleep at night because your mind is troubled all the time - these days [OSQ] Not at all [facility] Start: 05-04-2022 [facility]finding[facility] Do you belong to any clubs or organizations such as pentecostal groups, unions, fraternal or athletic groups, or school groups? Yes [facility] Do you feel stress - tense, restless, nervous, or anxious, or unable to sleep at night because your mind is troubled all the time - these days [OSQ] Very much [facility] How often do you nee d to have someone help you when you read instructions, pamphlets, or other written material from your doctor or pharmacy [SILS] Always [facility] Medical Equipment Procedure Code Equipment Code Equipment Origin al Text Equipment Identifier Dates Test Bs bid [id number] Start: 05-19-2021 End: 04-29-2023 Test Bs daily [id number] Start: 04-29-2023 End: 11-01-2023 Test Bs daily [id number] Start: 04-29-2023 Test Bs daily [id number] Start: 11-01-2023 Test Bs daily [id number] Start: 06-16-2024 Functional Status Date Assessment Result Facility 03-15-2025 Patient Health Questionnaire 2 item (PHQ- 2) [Reported] [facility] Clinical Notes 10-28-2022 to 08-10-2025 Telephone Encounter - MADELIN Lynn CNP - 08/10/2025 11:31 AM ESTTelephone Encounter - MADELIN Lynn CNP - 08/10/2025 11:31 AM Dennis Puente MD - 05/03/2025 10:30 AM EDT Note Date & Type Note Facility 08-10-2025 Telephone encounter Note Rx sent. Follow up as scheduled. [facility] 08-10-2025 Miscellaneous Notes Rx sent. Follow up as scheduled. documented in this encounter [facility] 07-25-2025 Telephone encounter Note Rx sent. Follow up as scheduled. [facility] 07-25-2025 Miscellaneous Notes Rx sent. Follow up as scheduled. documented in this encounter [facility] 07-18-2025 Telephone encounter Note Reviewed chart. Refill appropriate. RX sent. [facility] 07-18-2025 Miscellaneous Notes Reviewed chart. Refill appropriate. RX sent. Prescription Request: Last medication check: 05/03/25 Last physical exam: 11/02/24 Next scheduled appointment: 11/06/25 Last date of refill on this medication 01/09/[address] this encounter [facility] 07-18-2025 Telephone encounter Note Prescription Request: Last medication check: 05/03/25 Last physical exam: 11/02/24 Next scheduled appointment: 11/06/25 Last date of refill on this medication 01/09/25 [facility] 07-18-2025 Telephone encounter Note Prescription Request: Last medication check: 05/03/25 Last physical exam: 11/02/24 Next scheduled appointment: 11/06/25 Last date of refill on this medication 12/26/24 [facility] 07-18-2025 Miscellaneous Notes Prescription Request: Last medication check: 05/03/25 Last physical exam: 11/02/24 Next scheduled appointment: 11/06/25 Last date of refill on this medication 12/26/24 documented in this encounter [facility] 05-03-2025 Evaluation + Plan note Associated Problem(s): Hyperlipidemia LDL goal <70 Controlled, continue simvastatin [address] [facility] 05-03-2025 Miscellaneous Notes Associated Problem(s): Hyperlipidemia LDL goal <70 Controlled, continue simvastatin 40 mg nightly Associated Problem(s): Type 2 diabetes mellitus with obesity (CMS/HCC) (HCC) (HCC) Controlled, today's A1c is 6.1 this is a significant improvement from previous when it was 9.0, continue metformin 1000 mg twice a day. 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 documented in this encounter [facility] 05-03-2025 Evaluation + Plan note Associated Problem(s): Type 2 diabetes mellitus with obesity (CMS/HCC) (HCC) (HCC) Controlled, today's A1c is 6.1 this is a significant improvement from previous when it was 9.0, continue metformin 1000 [address] 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 05-03-2025 Evaluation + Plan note Associated Problem(s): Essential hypertension Controlled, continue lisinopril 40 mg daily, atenolol [address] [facility] 05-03-2025 Evaluation + Plan note Associated Problem(s): 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) Slowly progressing, discussed with his the need for help to make sure she does not get burned out and she does have some help in place. [facility] 05-03-2025 Note Slowly progressing, discussed with his the need for help to make sure she does not get burned out and she does have some help in place. [facility] 05-03-2025 History of Present illness Narrative Images from the original note were not included. 05/03/2025 Raina Valdez (: 1945) is a 79 y.o. male , Established patient, here for evaluation of the following chief complaint(s): Alzheimer's Disease, Gout, Diabetes, Hyperlipidemia, Hypertension, Medication Check (6 month), and Cough (With a chest rattle - lots of phlegm ) ASSESSMENT/PLAN: 1. 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 2. Essential hypertension Assessment & Plan: Controlled, continue lisinopril 40 mg daily, atenolol 100 mg daily 3. Type 2 diabetes mellitus with obesity (CMS/HCC) ([facility]) ([facility]) Assessment & Plan: Controlled, today's A1c is 6.1 this is a significant improvement from previous when it was 9.0, continue metformin 1000 mg twice a day. Orders: - AMB POC HEMOGLOBIN A1C 4. Hyperlipidemia LDL goal <70 Assessment & Plan: Controlled, continue simvastatin 40 mg nightly 5. 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 SUBJECTIVE/OBJECTIVE: UNRULY Whitney comes in today for 6-month follow-up on his Alzheimer's, he has progressively worsened and is pretty much full hands-on care and I did discuss with his to make sure she has the help that she needs to prevent burnout. He is also here for follow-up on his blood pressure which is excellent, his diabetes and his hyperlipidemia which is controlled. Review of Systems Unable to perform ROS: Dementia Vitals: 05/03/25 1018 BP: 132/70 Pulse: 71 Temp: 36.9 C (98.5 F) SpO2: (!) 87% Weight: 194 lb (88 kg) Height: 5' 6.5 (1.689 m) Physical Exam Vitals and nursing note reviewed. Constitutional: General: He is not in acute distress. Appearance: Normal appearance. HENT: Head: Normocephalic. Right Ear: Tympanic membrane, ear canal and external ear normal. Left Ear: Tympanic membrane, ear canal and external ear normal. Mouth/Throat: Mouth: Mucous membranes are moist. Pharynx: Oropharynx is clear. Eyes: Extraocular Movements: Extraocular movements intact. Pupils: Pupils are equal, round, and reactive to light. Cardiovascular: Rate and Rhythm: Normal rate and regular rhythm. Heart sounds: Normal heart sounds. Pulmonary: Effort: Pulmonary effort is normal. Breath sounds: Normal breath sounds. Musculoskeletal: Cervical back: Neck supple. Neurological: Mental Status: He is alert. Psychiatric: Cognition and Memory: Cognition is impaired. Memory is impaired. An electronic signature was used to authenticate this note. Wilfred Puente MD 05/03/2025 10:59 AM documented in this encounter [facility] 04-11-2025 Telephone encounter Note Reviewed chart. Refill not appropriate, too soon. RX refused [facility] 04-11-2025 Miscellaneous Notes Reviewed chart. Refill not appropriate, too soon. RX refused Just refilled on 01/09/25 For 90 days with 1 refill. Please confirm and refuse rx. documented in this encounter [facility] 04-11-2025 Telephone encounter Note Reviewed chart. Refill appropriate. RX sent. [facility] 04-11-2025 Miscellaneous Notes Reviewed chart. Refill appropriate. RX sent. Prescription Request: Last medication check: 04/26/24 Last physical exam: 11/02/24 Next scheduled appointment: 05/03/25 Last date of refill on this medication 10/09/[address] encounter [facility] 04-11-2025 Telephone encounter Note Prescription Request: Last medication check: 04/26/24 Last physical exam: 11/02/24 Next scheduled appointment: 05/03/25 Last date of refill on this medication 10/09/24 [facility] 04-11-2025 Telephone encounter Note Just refilled on 01/09/25 For 90 days with 1 refill. Please confirm and refuse rx. [facility] 03-15-2025 History of Present illness Narrative Images from the original note were not included. [facility] [address] Dept: [phone] Dept Loc: [phone] Visit type: [facility] Follow Up Visit Reason for Visit: Dementia Visit Date: 03/15/2025 Assessment and Plan 1. Mixed Alzheimer's and vascular dementia (HCC) -Slow progressive course of dementia -Discussed hallucinations are likely related to a combination of impaired vision and dementia. Likely misinterpreting objects. Hallucinations do not need treatment unless causing distress (not currently distressing -Letter written stating that he had a cognitive evaluation consistent with mixed vascular and Alzheimer's Disease dementia at our office in October 2020. IJanes MD, furnish ongoing care related to Raina Valdez single, serious and complex condition(s) dementia. I assume responsibility for the patient's ongoing medical care of this condition. Follow up in about 6 months (around 09/14/2025). Subjective HPI: Raina Valdez is a 79 y.o. male with past medical history of dementia, diabetes, CAD, hypertension, gout, Retinal artery occlusion of right eye who presents to the [facility] for a follow-up visit. The patient is known to me. Chart Review -We saw him at the [facility] over three years ago. He only did one appointment and did not follow up. I was concerned for Alzheimer's and/or vascular dementia. MOCA was a at that time. -His cognitive issues became apparent in July 2020 when was hospitalized for a broken knee cap. He didn't change his clothes and had trouble taking care of himself independently. reports that prior to that episode they had noticed a little bit of memory issues -He has been following with Dr Franco (Neurology) for dementia since 2022. [place] to be mixed Alzheimer's Disease and Vascular Dementia. He is on namenda. He used to be on aricept, but it was stopped due to decrease in appetite. -Seen by Dr Franco in February 2024. Dr Franco noted left sided nabila-neglect, which was new, and he ordered an MRI. Dr Franco referred to the [facility] to help him access services in the home. (MRI ended up being stable - no new strokes). -Re-established with [facility] in March 2024. Agree with diagnosis of mixed Alzheimer's Disease and vascular dementia. [place] it was likely moderate-severe mixed Alzheimer's Disease. Safest to have / supervision. MOCA 10/02 -Last seen in clinic in September 2024: Slow progressive course of mixed dementia but overall doing OK. MOCA: 07/03 He did see his PCP in October 2024. They opted to stop the memantine given the degree of his dementia. History obtained from caregiver(s): Heavenly -No changes when the memantine was stopped In October. No positive or negative changes. -Memory: Very poor. He does remember some snf memory things but it is not reliable. She reports: I don't know what to believe anymore in terms of what he actually tells her. -He will see things now. For example: He pointed outside and said there was a gorilla. E may have thought the fence post was 2 men in pointy hats. Only makes these types of comments on objects at a distance. He is not distressed by the hallucination. It also doesn't happen every day. -He does have an eye doctor appointment coming up. He goes yearly. He does have cataracts. -Sleep: He has been awake at night a lot recently. He goes through cycles. Does wander within the house in the middle of the night. -2 weeks ago he left a burner on. She has since removed the knobs and only puts the knobs back on temporarily when she cooks. -Now has a recliner and TV in his bedroom. Will fall asleep in the recliner when the TV is on. Then, when he wakes up at night, he will just watch TV as opposed to wandering around the home -No wandering outside of the house Appetite: OK. He does snack in the middle of the night. Weight stable. Physical Health: No new issues. Doesn't leave house after dark because he doesn't maneuver well. He has a walker that he uses when needed. Mood: Good. Still makes a lot of jokes. Not all are appropriate says there is a lawsuit concerning [place] [employer] (involving potential exposure to toxins that could lead to disorders like Alzheimer's Disease) that they may join. Needs documentation about dementia prior to 2021 (when the lawsuit began). History obtained from patient: Doing Good. Memory: sometimes I think it is perfect and other times I think what in the world is going on here. Doesn't identify that he is receiving help due to his memory issues Sleep: No problem. Appetite: Certainly no problem. Mood: No problem there. Physical Health: fine. Eyesight OK. Not blurry Reviewed progress notes completed by KUSHAL BALLARD) and social work. Allergies[1] Current Medications[2] Medical History[3] Social History Tobacco Use Smoking status: Never Smokeless tobacco: Never Substance Use Topics Alcohol use: No Surgical History[4] Family History[5] Family Status Relation Name Status Mother Kelly valdez Father Raina valdez sr No partnership data on file Objective Vitals: 03/15/25 1249 BP: 128/69 BP Location: Left arm Patient Position: Sitting Pulse: 71 Weight: 195 lb 12.8 oz (88.8 kg) Wt Readings from Last 3 Encounters: 03/15/25 195 lb 12.8 oz (88.8 kg) 11/02/24 199 lb 9.6 oz (90.5 kg) 09/14/24 198 lb 3.2 oz (89.9 kg) Physical Exam Constitutional: General: He is not in acute distress. Appearance: He is not ill-appearing. Comments: He has a cane with him HENT: Head: Normocephalic and atraumatic. Right Ear: No decreased hearing noted. Left Ear: No decreased hearing noted. Cardiovascular: Rate and Rhythm: Normal rate and regular rhythm. Heart sounds: No murmur heard. No friction rub. No gallop. Pulmonary: Effort: Pulmonary effort is normal. Breath sounds: Normal breath sounds. No wheezing, rhonchi or rales. Musculoskeletal: Right lower leg: No edema. Left lower leg: Edema (trace) present. Neurological: Mental Status: He is alert. Psychiatric: Attention and Perception: Attention normal. Cognition and Memory: Cognition is impaired. Memory is impaired. Data Reviewed and Summarized Testing: The following tests were performed at today's visit and scanned in to thechart: MMSE score:1130 Clock drawing score: 2/7 PHQ-9 score: 0 I independently reviewed the Mini Mental Status Exam and Clock Draw Test from 03/15/2025. Test scanned in to the chart. I spent total time of 45 minutes face to face with the patient and/or family discussing the diagnosis and importance of compliance with the treatment plan as well as documenting on the day of the visit. In addition, that total time includes the following (this does not include the time spent in Advanced Care Planning which, if done, was documented elsewhere in the note): -Reviewing previous notes, -Reviewing previous cognitive tests, -Obtaining and/or reviewing separately obtained history, -Communicating results to the patient/family/caregiver, -Counseling/educating the patient/family/caregiver, -Documenting clinical information in the patients electronic record, -Coordination of care for the patient, and -Performing a medically appropriate exam and/or evaluation [1] No Known Allergies [2] Current Outpatient Medications Medication Sig Dispense Refill allopurinol (Zyloprim) 100 MG tablet Take 2 tablets (200 mg) by mouth daily. 180 tablet 1 aspirin 81 MG EC tablet Take 81 mg by mouth daily. atenolol (Tenormin) 100 MG tablet Take 1 tablet (100 mg) by mouth daily. 90 tablet 1 glimepiride (Amaryl) 1 MG tablet Take 1 tablet (1 mg) by mouth daily (with breakfast). 90 tablet 1 Glucose Blood (Blood Glucose Test) strip Test Bs daily 100 strip 5 Lancets Test Bs daily 50 each 2 lisinopril 40 MG tablet Take 1 tablet (40 mg) by mouth daily. 90 tablet 1 metFORMIN (Glucophage) 1000 MG tablet Take 1 tablet (1,000 mg) by mouth 2 times daily (with meals). 180 tablet 1 simvastatin (Zocor) 40 MG tablet Take 1 tablet (40 mg) by mouth Nightly. 90 tablet 1 No current facility-administered medications for this visit. [3] Past Medical History: Diagnosis Date CAD (coronary artery disease) Contact dermatitis and other eczema, due to unspecified cause Dementia (HCC) Hyperlipidemia Hypertension Hypertrophy of prostate without urinary obstruction and other lower urinary tract symptoms (LUTS) Nonspecific abnormal finding in stool contents Type II or unspecified type diabetes mellitus without mention of complication, not stated as uncontrolled (HCC) [4] Past Surgical History: Procedure Laterality Date CARDIAC CATHETERIZATION 12/18/2019 CATARACT EXTRACTION Bilateral CORONARY ARTERY BYPASS GRAFT STENT CENTRAL VEIN AV GRAFT [5] Family History Problem Relation Name Age of Onset High Blood Pressure Mother Kelly valdez Diabetes Mother Kelly valdez Dementia Father Raina valdez sr Heart disease Father Raina valdez sr Review of Systems Constitutional: Positive for appetite change and fatigue. Negative for unexpected weight change. HENT: Positive for hearing loss and trouble swallowing. Negative for dental problem. Eyes: Positive for visual disturbance. Gastrointestinal: Negative for constipation and diarrhea. Genitourinary: Negative for difficulty urinating and dysuria. Musculoskeletal: Positive for gait problem. Negative for arthralgias and back pain. Neurological: Positive for speech difficulty and weakness. Negative for tremors. Psychiatric/Behavioral: Positive for confusion, hallucinations and sleep disturbance. Negative for agitation and dysphoric mood. The patient is not nervous/anxious. Senior Services/Geriatrics Social History Present at visit: patient, Heavenly Marital status: Children: 3 children (2 local) Living arrangement: with , own home >>09/14/24 same >>03/15/25 same Household safety problems: 2 falls backward >>09/14/24 almost fell backwards yesterday >>03/15/25 left a burner on recently, took off knobs, one fall Concerning Behaviors: owning, acts childlike >>09/14/24 same >>03/15/25 some hallucinations Wandering potential: Yes, patient was looking for , patient went out and got in the car, plan to put alarms on doors, another time, went out in the car at 4:00 AM, had opened garage door, got in car and started beeping horn >>09/14/24 now alarms and locks on doors, no incidents >>03/15/25 no Pets: Yes, dog , cares for dog Guns in the home: Unloaded and Ammunition kept in separate place Elder abuse: No/Denied Concerns >>09/14/24 no >>03/15/25 no Alcohol/Tobacco/Marijuana/Drug Use History: none service: Patient is , served in wartime (during ) Highest level of education: 2 years college Occupation: retired from [employer], owned a small business Activities: watches tv, not interested in things anymore, will sit on back porch >>09/14/24 watches tv, sleeps >>03/15/25 same Exercise: 3 days a week to do physical therapy exercises with him >>09/14/24 none Finances: not reviewed My Chart: Only uses Healthcare Power of Category Director: Yes: Heavenly then alvin [employer] Power of Category Director: Yes: Heavenly, then son Iker Living Will: Yes Guardian: No Code Status: Full Code Primary Caregiver: Heavenly Current care plan/supervision: can leave him for short periods of time, mostly with him >>09/14/24 only leaves patient twice per week to get groceries on Fridays or to volunteer on Mondays >>03/15/25 no longer leaving patient alone Community resources: None >>03/15/25 has a private pay caregiver once per week, 3 hours Caregiver stressors: has some stress, feels she is managing it ok >>03/15/25 feeling some stress, son comes once per week and talks with to help her with stress, helps her with technical stuff in the home Goals for care: evaluate memory, resources As a Caregiver, What Matters Most to You: >>03/23/24 Patient has had dementia diagnosis for at least 3 years. Patient needs much help. is providing most care, patient needs help with personal care. Patient unable to use phone, has apathy, some sundowning. SW talked to about considering video monitoring, alarms on doors, possibly a life alert. Discussed whether patient would know what to do in case of emergency. Discussed potential for wandering and falls. still leaves patient for up to 3 hours alone. >>09/14/24 Patient had some decline on memory test today. Staying stable in function. still is able to leave him about 2 times per week for short periods of time. SW went over some options to increase supervision during that time such as Adult Day Program/[facility] and [facility]. >>03/15/25 Patient continues to have memory and functional decline. now has hired a private caregiver for 3 hours/1 day per week. Her son also helps her with some things and is a good support to to help her with caregiver stress. Wandering around in the house in the night. has door locks, alarms, and child locks on doors to help prevent wandering. No resources given today. Functional Status (I: Independent, A: Assisted, D: Dependent) ADLs I A D Notes Bathing [] [] [x] cues him to shower >>09/14/24 same >>03/15/25 doing more hands on help Dressing [] [] [x] lays out his clothes, sometimes helps him with dressing, will wear pjs under jeans sometimes >>09/14/24 same >>03/15/25 hands on help with dressing Toileting [] [] [x] Some accidents, wears Depends when going out, needs help with clean up >>09/14/24 same >>03/15/25 same Transfers [x] [] [] No issues >>09/14/24 has lift chair, has some trouble operating >>03/15/25 mostly can do on his own Feeding [x] [] [] No issues Ambulation [] [x] [] Has cane Assistive devices: Cane, Grab bars, and Walker IADLs I A D Telephone [] [] [x] Unable to use phone, sets up appointments, provides reminders >>09/14/24 same >>03/15/25 same Transportation [] [] [x] Driving safety concerns: Not currently driving >>09/14/24 now has State ID Shopping [] [] [x] shops >>09/14/24 same Meal prep [] [x] [] Can get cereal for himself, does prepare food for him if she will be gone, gets own snacks, mostly puts food in front of him, can't make coffee anymore >>09/14/24 sometimes has been eating cat food like cereal, needs more assistance >>03/15/25 will getting snacks for himself, puts meals in front of him Housework [] [] [x] Can do tasks if cued >>09/14/24 same >>03/15/25 cleans Medications [] [] [x] administers >>09/14/24 same Finances [] [] [x] handles >>09/14/24 same documented in this encounter [facility] 01-09-2025 Telephone encounter Note Reviewed chart. Refill appropriate. RX sent. [facility] 01-09-2025 Miscellaneous Notes Reviewed chart. Refill appropriate. RX sent. Prescription Request: atenolol (Tenormin) 100 MG tablet simvastatin (Zocor) 40 MG tablet Last medication check: 11/02/24 Last physical exam: 11/02/24 Next scheduled appointment: 05/03/25 Last date of refill on this medication 07/07/24 - Both qty 90 1 refill. documented in this encounter [facility] 01-09-2025 Telephone encounter Note Prescription Request: atenolol (Tenormin) 100 MG tablet simvastatin (Zocor) 40 MG tablet Last medication check: 11/02/24 Last physical exam: 11/02/24 Next scheduled appointment: 05/03/25 Last date of refill on this medication 07/07/24 - Both qty [address] [facility] 12-26-2024 Telephone encounter Note Prescription Request: Last medication check: 04/26/24 Last physical exam: 11/02/24 Next scheduled appointment: 05/03/25 Last date of refill on this medication 06/16/2024 [facility] 12-26-2024 Miscellaneous Notes Prescription Request: Last medication check: 04/26/24 Last physical exam: 11/02/24 Next scheduled appointment: 05/03/25 Last date of refill on this medication 06/16/2024 documented in this encounter [facility] 11-07-2024 Telephone encounter Note Called Heavenly Diaz scheduled. [facility] 11-07-2024 Miscellaneous Notes Called Heavenly Diaz scheduled. Name of Caller: Heavenly Contact Reason for Appointment: 6 Month Check up in March - Requesting Wednesday or (Late morning/early Afternoon) Office Name: [facility] Medication Refills need, if any: N/A Medication Name: N/A documented in this encounter [facility] 11-07-2024 Telephone encounter Note Name of Caller: Heavenly Contact Reason for Appointment: 6 Month Check up in March - Requesting Wednesday or (Late morning/early Afternoon) Office Name: [facility] Medication Refills need, if any: N/A Medication Name: N/A [facility] 11-06-2024 Telephone encounter Note Patient established with geriatrics. Has appt with neurology within the next 2 weeks. Patient was seen by Dr. Puente on 11/02/2024. [facility] 11-06-2024 Miscellaneous Notes Patient established with geriatrics. Has appt with neurology within the next 2 weeks. Patient was seen by Dr. Puente on 11/02/2024. Message released to patient as written. Patient's further questions if applicable: Blood sugar is a little high at 165, chemistry is good with a slight decrease in kidney function although not significant. A1c is high at 9.0 which should give an average blood sugar of 210. Cholesterol is good, triglycerides are little high most likely due to his sugars being up a little bit. Uric acid is normal. Mrs Valdez is very concerned with his mental state. He gets up in the middle of the night. She tries to watch what he eats. She stated he was eating cat food one time. She is getting frustrated. Were all questions from office addressed or relayed to the patient from encounter: Yes Lm on home and cell numbers Lm for Heavenly to return call ----- Message from Wilfred Puente MD sent at 11/03/2024 10:15 AM EST ----- Blood sugar is a little high at 165, chemistry is good with a slight decrease in kidney function although not significant. A1c is high at 9.0 which should give an average blood sugar of 210. Cholesterol is good, triglycerides are little high most likely due to his sugars being up a little bit. Uric acid is normal. documented in this encounter [facility] 11-06-2024 Telephone encounter Note Message released to patient as written. Patient's further questions if applicable: Blood sugar is a little high at 165, chemistry is good with a slight decrease in kidney function although not significant. A1c is high at 9.0 which should give an average blood sugar of 210. Cholesterol is good, triglycerides are little high most likely due to his sugars being up a little bit. Uric acid is normal. Mrs Valdez is very concerned with his mental state. He gets up in the middle of the night. She tries to watch what he eats. She stated he was eating cat food one time. She is getting frustrated. Were all questions from office addressed or relayed to the patient from encounter: Yes [employer] [facility] 11-06-2024 Telephone encounter Note Lm on home and cell numbers [employer] [facility] 11-03-2024 Telephone encounter Note Lm for Heavenly to return call [facility] [facility] 11-03-2024 Telephone encounter Note ----- Message from Wilfred Puente MD sent at 11/03/2024 10:15 AM EST ----- Blood sugar is a little high at 165, chemistry is good with a slight decrease in kidney function although not significant. A1c is high at 9.0 which should give an average blood sugar of 210. Cholesterol is good, triglycerides are little high most likely due to his sugars being up a little bit. Uric acid is normal. 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 [facility] 11-02-2024 History of Present illness Narrative Patient verified by last name and date of . Images from the original note were not included. [place] just [facility] [address] [address] [facility] [address] [facility] [address] Dept: [phone] Dept Chief Complaint: Raina Valdez is an 79 y.o. male here for an annual wellness visit. Assessment/Plan : Problem List Items Addressed This Visit 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) Currently is very significant, Vivek is no longer doing anything so we will stop that today. 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 Current Outpatient Medications Medication Sig Dispense Refill allopurinol (Zyloprim) 100 MG tablet Take 2 tablets (200 mg) by mouth daily. 180 tablet 1 aspirin 81 MG EC tablet Take 81 mg by mouth daily. atenolol (Tenormin) 100 MG tablet Take 1 tablet (100 mg) by mouth daily. 90 tablet 1 glimepiride (Amaryl) 1 MG tablet Take 1 tablet (1 mg) by mouth daily (with breakfast). 90 tablet 1 Glucose Blood (Blood Glucose Test) strip Test Bs daily 100 strip 5 Lancets Test Bs daily 50 each 2 lisinopril 40 MG tablet Take 1 tablet (40 mg) by mouth daily. 90 tablet 1 metFORMIN (Glucophage) 1000 MG tablet Take 1 tablet (1,000 mg) by mouth in the morning and 1 tablet (1,000 mg) in the evening. Take with meals. 180 tablet 1 simvastatin (Zocor) 40 MG tablet Take 1 tablet (40 mg) by mouth Nightly. 90 tablet 1 No current facility-administered medications for this visit. Also reviewed during this visit: The following health maintenance schedule was reviewed with the patient and provided in printed form in the after visit summary: Health Maintenance Topic Date Due Diabetes: Urine Albumin-Creatinine Ratio for Kidney Health 10/28/2023 Diabetes: Estimated Glomerular Filtration Rate for Kidney Health 11/01/2024 Depression Screening 09/14/2025 Medicare Advantage Annual Wellness Visit Completed Influenza Vaccine Completed Pneumococcal Vaccine: 50+ Years Completed RSV Immunization under 20 Months Aged Out HIB Vaccines Aged Out Hepatitis B Vaccines Aged Out IPV Vaccines Aged Out Hepatitis A Vaccines Aged Out Meningococcal Vaccine Aged Out Rotavirus Vaccines Aged Out HPV Vaccines Aged Out RSV Immunization for Adults Discontinued DTaP/Tdap/Td Vaccines Discontinued Zoster Vaccines Discontinued COVID-19 Vaccine Discontinued List of current healthcare providers: Patient Care Team: Wilfred Puente MD as PCP - General Orders Placed This Encounter Procedures Handicap Pl[place]sey 5 2029 Order Specific Question: The face to face evaluation was performed on Answer: 11/02/2024 Lipid panel Standing Status: Future Number of Occurrences: 1 Standing Expiration Date: 11/02/2025 Comprehensive metabolic panel Standing Status: Future Number of Occurrences: 1 Standing Expiration Date: 11/02/2025 Hemoglobin A1c Standing Status: Future Number of Occurrences: 1 Standing Expiration Date: 11/02/2025 Uric acid Standing Status: Future Number of Occurrences: 1 Standing Expiration Date: 11/02/2025 ROS: Unable to be done due to patient's dementia Physical Exam Vitals and nursing note reviewed. Constitutional: General: He is not in acute distress. Appearance: Normal appearance. HENT: Mouth/Throat: Mouth: Mucous membranes are moist. Pharynx: Oropharynx is clear. Eyes: Extraocular Movements: Extraocular movements intact. Conjunctiva/sclera: Conjunctivae normal. Pupils: Pupils are equal, round, and reactive to light. Neck: Vascular: No carotid bruit. Cardiovascular: Rate and Rhythm: Normal rate and regular rhythm. Heart sounds: Normal heart sounds. No murmur heard. Pulmonary: Effort: Pulmonary effort is normal. Breath sounds: Normal breath sounds. Abdominal: General: Bowel sounds are normal. Palpations: Abdomen is soft. Tenderness: There is no abdominal tenderness. Musculoskeletal: General: Normal range of motion. Cervical back: Neck supple. Lymphadenopathy: Cervical: No cervical adenopathy. Skin: General: Skin is warm and dry. Neurological: General: No focal deficit present. Mental Status: He is alert and oriented to person, place, and time. Psychiatric: Mood and Affect: Mood normal. Objective : BP 98/62 Pulse 74 Ht 5' 6.5 (1.689 m) Wt 199 lb 9.6 oz (90.5 kg) SpO2 90% BMI 31.73 kg/m No results found. Subjective : Raina comes in today for his AWV, he has very severe Alzheimer's disease and pretty much does not answer any questions for himself and definitely cannot remember 3 words or draw clock. He is here for follow-up on his diabetes which blood sugar numbers look pretty decent so we will get an A1c today, will recheck his cholesterol for hyperlipidemia. His blood pressure is on the low side so we will stop his hydrochlorothiazide and we will stop all of his [id number] medications . Health Risk Assessment: General: General In general, how would you say your health is?: (Patient-Rptd) (P) Good In the past 7 days, have you experienced any of the following: New or Increased Pain, New or Increased Fatigue, Loneliness, Social Isolation, Stress or Anger?: (Patient-Rptd) (P) No Do you get the social and emotional suppport you need?: (Patient-Rptd) (P) Yes Health Habits/Nutrition: Health Habits / Nutrition On average, how many days per week do you engage in moderate to strenous exercise (like a brisk walk)?: (!) (Patient-Rptd) (P) 0 days On average, how man minutes do you engage in exercise at this level?: (!) (Patient-Rptd) (P) 0 min Have you lost any weight without trying in the past 3 months? : (Patient-Rptd) (P) No Have you seen the dentist within the past year?: (!) (Patient-Rptd) (P) No Interventions: Hearing/ Vision: Hearing / Vision Do you or your family notice any trouble with your hearing that hasn't been managed with hearing aids?: (Patient-Rptd) (P) No Do you have difficulty driving, watching TV, or doing any of your daily activities because of your eyesight?: (Patient-Rptd) (P) No Have you had an eye exam within the past year?: (Patient-Rptd) (P) Yes No results found. Safety: Safety Do you have a working smoke detector?: (Patient-Rptd) (P) Yes Do you have any tripping hazards - loose or unsecured carpets or rugs?: (Patient-Rptd) (P) No Do you have any tripping hazards - clutter in doorways, halls, or stairs?: (Patient-Rptd) (P) No Do you have either shower bars, grab bars, non-slip mats or non-slip surfaces in your shower or bathtub? : (Patient-Rptd) (P) Yes Do all your stairways have a railing or banister? : (Patient-Rptd) (P) Yes Do you fasten your seatbelt when you are in a car?: (Patient-Rptd) (P) Yes ADL: ADL In the past 7 days, did you need help from others to perform any of the following everyday activities: Eating, dressing, grooming,bathing, toileting, or walking / balance? : (!) (Patient-Rptd) (P) Yes Select all that apply: (Patient-Rptd) (P) Dressing, Grroming, Bathing, Toileting, Walking / Balance In the past 7 days, did you need help from others to take care of any of the following: laundry, housekeeping, banking / finances,shopping, telephone use, food preparation, transportation, or taking medications? : (Patient-Rptd) (P) Yes Select all that apply: (Patient-Rptd) (P) Laundry, Housekeeping, Banking / Finances, Shopping, Telephone Use, Food Preparation, Transportation, Taking Medications Interventions: Living Will: Living Will Do you have a living will?: (Patient-Rptd) (P) Yes Cognitive: Cognitive Screening: Mini-Cog Clock Drawing Test (CDT): (Unable to do due to patient's Alzheimer's dementia) Words Recalled: (Unable to do due to patient's Alzheimer's dementia) Interventions: Fall Risk: Fall Risk One or more falls in the last year:: (Patient-Rptd) (P) Yes Advised to use a cane or walker to get around safely:: (Patient-Rptd) (P) Yes Feels unsteady when walking:: (Patient-Rptd) (P) Yes Steadies self on furniture while walking at home:: (Patient-Rptd) (P) Yes Worried about falling:: (Patient-Rptd) (P) No Interventions: Depression Screening: Over the past 2 weeks, how often have you been bothered by any of the following problems? Little interest or pleasure in doing things: Not at all Feeling down, depressed, or hopeless: Not at all Patient Health Questionnaire-2 Score: 0 Interventions: Tobacco Use: Social History Tobacco Use Smoking Status Never Smokeless Tobacco Never Alcohol Use: Audit Alcohol Screening Q1: How often do you have a drink containing alcohol?: (Patient-Rptd) (P) Never Q2: How many drinks containing alcohol do you have on a typical day when you are drinking?: (Patient-Rptd) (P) Patient does not drink Q3: How often do you have six or more drinks on one occasion?: (Patient-Rptd) (P) Never Audit-C Score: (Patient-Rptd) (P) 0 Skip to questions 9-10?: (Patient-Rptd) (P) 1 Social Drivers of Health: SDOH risk assessment performed and documented today by members of the health care team. A total time of 0-5 minutes was spent obtaining information from the patient and discussing options to address the patient's social risk factors and unmet needs. Social Drivers of Health with Concerns Concerns Present Physical Activity: Inactive (10/30/2024) Stress: Stress Concern Present (10/30/2024) Health Literacy: Inadequate Health Literacy (10/30/2024) Recent Concerns Present Depression: Not at risk (11/02/2024) Recent Concern: Depression - At risk (09/14/2024) documented in this encounter [facility] 11-02-2024 Instructions Wilfred Puente MD - 11/02/2024 10:30 AM EST Personalized Preventative Plan for Raina Valdez - 11/02/2024 Medicare offers a range of preventative health benefits. Some of the tests and screenings are paid in full while others may be subject to a deductible, co-insurance, and / or copay. Some of these benefits include a comprehensive review of your medical history including lifestyle, illnesses that may run in your family, and various assessments and screenings as appropriate. After reviewing your medical record and screening and assessments performed today, your provider may have ordered immunizations, labs, imaging, and / or referrals for you. A list of these orders (if applicable) as well as your Preventative Care list are included within your After Visit Summary for your review. Other Preventative Recommendations: A preventive eye exam by an computer support specialist is recommended every 1-2 years to screen for glaucoma, cataracts, macular degeneration, and other eye disorders. A preventive dental visit is recommended every 6 months. Try to get at least 150 minutes of exercise per week or 10,000 steps per day on a pedometer. You need 1200-1500mg of calcium and 8915-9774 international units of vitamin D per day. It is possible to meet your calcium requirement with diet alone, but a vitamin D supplement is usually necessary to meet this goal. When exposed to the sun, use a sunscreen that protects against both UVA and UVB radiation with an SPF of 30 or greater. Reapply every 2-3 hours or after sweating, drying off with a towel, or swimming. Always wear a seat belt when traveling in a car. Always wear a helmet when riding a bicycle or a motorcycle documented in this encounter [facility] 11-02-2024 Note Addended by: WILFRED PUENTE on: 11/02/2024 10:58 AM Modules accepted: Orders [facility] 11-02-2024 Note Addended by: WILFRED PUENTE on: 11/02/2024 10:58 AM Modules accepted: Orders [facility] 11-02-2024 Note Addended by: WILFRED PUENTE on: 11/02/2024 10:58 AM Modules accepted: Orders [facility] 09-14-2024 History of Present illness Narrative Images from the original note were not included. [id number] [facility] [address] [id number] Dept: [phone] Dept Loc: [phone] Visit type: [facility] Follow Up Visit Reason for Visit: Dementia Visit Date: 09/14/2024 Assessment and Plan 1. Mixed Alzheimer's and vascular dementia (HCC) -Slow progressive worsening of mixed Alzheimer's Disease and vascular dementia. Now with more safety features in the house hold. -Continue memantine Follow up in about 6 months (around 03/15/2025). Subjective HPI: Raina Valdez is a 78 y.o. male with past medical history of dementia, diabetes, CAD, hypertension, gout, Retinal artery occlusion of right eye who presents to the [facility] for a follow-up visit. The patient is known to me. Chart Review -We saw him at the [facility] over three years ago. He only did one appointment and did not follow up. I was concerned for Alzheimer's and/or vascular dementia. MOCA was a at that time. -His cognitive issues became apparent in July 2020 when was hospitalized for a broken knee cap. He didn't change his clothes and had trouble taking care of himself independently. reports that prior to that episode they had noticed a little bit of memory issues -He has been following with Dr Franco (Neurology) for dementia since 2022. [place] to be mixed Alzheimer's Disease and Vascular Dementia. He is on namenda. He used to be on aricept, but it was stopped due to decrease in appetite. -Seen by Dr Franco in February 2024. Dr Franco noted left sided nabila-neglect, which was new, and he ordered an MRI. Dr Franco referred to the [facility] to help him access services in the home. (MRI ended up being stable - no new strokes). -Re-established with [facility] in March 2024. Agree with diagnosis of mixed Alzheimer's Disease and vascular dementia. [place] it was likely moderate-severe mixed Alzheimer's Disease. Safest to have 24/7 supervision. MOCA 10/02 History obtained from caregiver(s): Heavenly -He has been doing well since the last appointment in March -He now has alarms on the doors. Has a bar on the sliding door at night so that he can't open it on his own (before she started putting the bar there, he did get out into the backyard in the middle of the night and was not able to get back in) -Only on his own for a couple of hours 2 times a week when is out shopping/volunteering -There are video cameras in the house now to help with supervision -He sometimes has trouble recognizing his house. -May get a bit anxious in the middle of the night. Fretted about needing to get a big order in the middle of the night. He was able to be redirected to bed. -Does get up in the middle of the night and will eat. Ate some cat food with milk (thought it was cereal. Didn't eat too much of itl). has been putting out other foods for him to snack on to distract him from the cat food. He will eat bananas and oranges if left on the counter for him. Appetite: OK. Sometimes expresses that he isn't hungry. will be able to get him to eat small portions when that occurs Mood: Doing well overall. Some worrying in the middle of the night. If upset - will be childlike. Hallucinations: May misinterpret some objects if he cannot see them clearly. Physical health: no new health issues. No medication changes History obtained from patient: Memory: Seems alright. Hasn't notice any trouble - helps him at home. For example: will help with appointments. Not sure what else she helps with Sleep: No problem. Appetite: No problem Mood: No complaints, I don't know. Has been feel OK - not worried or upset Vision: Fine. Physical health: no problems. Feels well. Reviewed progress notes completed by KUSHAL BALLARD) and social work. No Known Allergies Current Outpatient Medications Medication Sig Dispense Refill allopurinol (Zyloprim) 100 MG tablet Take 2 tablets (200 mg) by mouth daily. 180 tablet 1 aspirin 81 MG EC tablet Take 81 mg by mouth daily. atenolol (Tenormin) 100 MG tablet Take 1 tablet (100 mg) by mouth daily. 90 tablet 1 Flaxseed, Linseed, (Flax Seed Oil) 1000 MG capsule Take by mouth. Garlic 1000 MG capsule Take by mouth. glimepiride (Amaryl) 1 MG tablet Take 1 tablet (1 mg) by mouth daily (with breakfast). 90 tablet 1 Glucose Blood (Blood Glucose Test) strip Test Bs daily 100 strip 5 hydroCHLOROthiazide (HYDRODiuril) 25 MG tablet Take 1 tablet (25 mg) by mouth daily. 90 tablet 1 Lancets Test Bs daily 50 each 2 lisinopril 40 MG tablet Take 1 tablet (40 mg) by mouth daily. 90 tablet 1 magnesium gluconate (Magonate) 500 MG tablet Take 250 mg by mouth in the morning. memantine (Namenda) 10 MG tablet Take 1 tablet (10 mg) by mouth 2 times daily. He was told to take 1 tab nightly only for 7 days, then 1 tab po BID. 180 tablet 3 metFORMIN (Glucophage) 1000 MG tablet Take 1 tablet (1,000 mg) by mouth in the morning and 1 tablet (1,000 mg) in the evening. Take with meals. 180 tablet 1 Multiple Vitamins-Minerals (Oncovite) tablet Take by mouth. potassium chloride CR (Klor-Con) 10 MEQ ER tablet Take 10 mEq by mouth in the morning. simvastatin (Zocor) 40 MG tablet Take 1 tablet (40 mg) by mouth Nightly. 90 tablet 1 No current facility-administered medications for this visit. Past Medical History: Diagnosis Date CAD (coronary artery disease) Contact dermatitis and other eczema, due to unspecified cause Hyperlipidemia Hypertension Hypertrophy of prostate without urinary obstruction and other lower urinary tract symptoms (LUTS) Nonspecific abnormal finding in stool contents Type II or unspecified type diabetes mellitus without mention of complication, not stated as uncontrolled (HCC) Social History Tobacco Use Smoking status: Never Smokeless tobacco: Never Substance Use Topics Alcohol use: No Alcohol/week: 0.0 standard drinks of alcohol Past Surgical History: Procedure Laterality Date CARDIAC CATHETERIZATION 12/18/2019 CATARACT EXTRACTION Bilateral CORONARY ARTERY BYPASS GRAFT Family History Problem Relation Name Age of Onset High Blood Pressure Mother Diabetes Mother Dementia Father Heart disease Father Family Status Relation Name Status Mother Father No partnership data on file Objective Vitals: 09/14/24 1049 BP: 122/73 BP Location: Right arm Patient Position: Sitting Pulse: 81 Weight: 198 lb 3.2 oz (89.9 kg) Wt Readings from Last 3 Encounters: 09/14/24 198 lb 3.2 oz (89.9 kg) 04/26/24 198 lb (89.8 kg) 04/18/24 196 lb 3.2 oz (89 kg) Physical Exam Constitutional: General: He is not in acute distress. Appearance: He is not ill-appearing. HENT: Head: Normocephalic and atraumatic. Cardiovascular: Rate and Rhythm: Normal rate and regular rhythm. Heart sounds: No murmur heard. No friction rub. No gallop. Pulmonary: Effort: Pulmonary effort is normal. Breath sounds: Normal breath sounds. No wheezing, rhonchi or rales. Musculoskeletal: Right lower leg: No edema. Left lower leg: No edema. Neurological: Mental Status: He is alert. Psychiatric: Attention and Perception: Attention normal. Mood and Affect: Mood and affect normal. Cognition and Memory: Cognition is impaired. Memory is impaired. Comments: Answers are brief Data Reviewed and Summarized Testing: The following tests were performed at today's visit and scanned in to thechart: MoCA score: 9/30, MIS score: 3/15 Clock drawing score: 1/7 PHQ-9 score: 3 (poultry husbandry worker said he didn't seem to understand the questions) I independently reviewed the [facility]qui[facility] Cognitive Assessment from 09/14/2024. Test scanned in to the chart. I spent total time of 36 minutes face to face with the patient and/or family discussing the diagnosis and importance of compliance with the treatment plan as well as documenting on the day of the visit. In addition, that total time includes the following (this does not include the time spent in Advanced Care Planning which, if done, was documented elsewhere in the note): -Reviewing previous notes, -Reviewing previous cognitive tests, -Obtaining and/or reviewing separately obtained history, -Communicating results to the patient/family/caregiver, -Counseling/educating the patient/family/caregiver, -Documenting clinical information in the patients electronic record, -Coordination of care for the patient, and -Performing a medically appropriate exam and/or evaluation IJanes MD, furnish ongoing care related to Raina Valdez single, serious and complex condition(s) Dementia. I assume responsibility for the patient's ongoing medical care of this condition. Review of Systems Constitutional: Positive for appetite change and fatigue. Negative for unexpected weight change. HENT: Positive for hearing loss. Negative for dental problem and trouble swallowing. Eyes: Positive for visual disturbance. Gastrointestinal: Positive for constipation and diarrhea. Genitourinary: Negative for difficulty urinating and dysuria. Musculoskeletal: Negative for arthralgias, back pain and gait problem. Neurological: Negative for tremors, speech difficulty and weakness. Psychiatric/Behavioral: Positive for confusion, hallucinations and sleep disturbance. Negative for agitation and dysphoric mood. The patient is nervous/anxious. [facility] Social History Present at visit: patient, Heavenly Marital status: Children: 3 children (2 local) Living arrangement: with , own home >>09/14/24 same Household safety problems: 2 falls backward >>09/14/24 almost fell backwards yesterday Concerning Behaviors: owning, acts childlike >>09/14/24 same Wandering potential: Yes, patient was looking for , patient went out and got in the car, plan to put alarms on doors, another time, went out in the car at 4:00 AM, had opened garage door, got in car and started beeping horn >>09/14/24 now alarms and locks on doors, no incidents Pets: Yes, dog , cares for dog Guns in the home: Unloaded and Ammunition kept in separate place Elder abuse: No/Denied Concerns >>09/14/24 no Alcohol/Tobacco/Marijuana/Drug Use History: none service: Patient is , served in wartime (during [place]) Highest level of education: 2 years college Occupation: retired from [employer], owned a small business Activities: watches tv, not interested in things anymore, will sit on back porch >>09/14/24 watches tv, sleeps Exercise: 3 days a week to do physical therapy exercises with him >>09/14/24 none Finances: not reviewed My Chart: Only uses Healthcare Power of Category Director: Yes: Heavenly then son Iker Financial Power of Category Director: Yes: Heavenly, then son Iker Living Will: Yes Guardian: No Code Status: Full Code Primary Caregiver: , Heavenly Current care plan/supervision: can leave him for short periods of time, mostly with him >>09/14/24 only leaves patient twice per week to get groceries on Fridays or to volunteer on Mondays Community resources: None Caregiver stressors: has some stress, feels she is managing it ok Goals for care: evaluate memory, resources As a Caregiver, What Matters Most to You: >>03/23/24 Patient has had dementia diagnosis for at least 3 years. Patient needs much help. is providing most care, patient needs help with personal care. Patient unable to use phone, has apathy, some sundowning. SW talked to about considering video monitoring, alarms on doors, possibly a life alert. Discussed whether patient would know what to do in case of emergency. Discussed potential for wandering and falls. still leaves patient for up to 3 hours alone. >>09/14/24 Patient had some decline on memory test today. Staying stable in function. still is able to leave him about 2 times per week for short periods of time. SW went over some options to increase supervision during that time such as [facility] and [facility]. Resources given today: [employer] [facility] info, [facility] Functional Status (I: Independent, A: Assisted, D: Dependent) ADLs I A D Notes Bathing [] [x] [] cues him to shower >>12/12/24 same Dressing [] [x] [] lays out his clothes, sometimes helps him with dressing, will wear pjs under jeans sometimes >>24 same Toileting [] [x] [] Some accidents, wears Depends when going out, needs help with clean up >>24 same Transfers [x] [] [] No issues >>24 has lift chair, has some trouble operating Feeding [x] [] [] No issues Ambulation [] [x] [] Has cane Assistive devices: Cane, Grab bars, and Walker IADLs I A D Telephone [] [] [x] Unable to use phone, sets up appointments, provides reminders >>09/14/24 same Transportation [] [] [x] Driving safety concerns: Not currently driving >>09/14/24 now has State ID Shopping [] [] [x] shops >>09/14/24 same Meal prep [] [x] [] Can get cereal for himself, does prepare food for him if she will be gone, gets own snacks, mostly puts food in front of him, can't make coffee anymore >>09/14/24 sometimes has been eating cat food like cereal, needs more assistance Housework [] [x] [] Can do tasks if cued >>09/14/24 same Medications [] [] [x] administers >>09/14/24 same Finances [] [] [x] handles >>09/14/24 same documented in this encounter [facility] 09-14-2024 Instructions Janes Zamorano MD - 09/14/2024 11:00 AM EST He was first seen for his memory issues on 10/28/2020. In the note, it lists my concern for Dementia. You can call our office for further directions on how to request records. documented in this encounter [facility] 07-07-2024 Telephone encounter Note Reviewed chart. Refill appropriate. RX sent. [facility] 07-07-2024 Miscellaneous Notes Reviewed chart. Refill appropriate. RX sent. Prescription Request: Last medication check: 04/26/24 Last physical exam: 11/01/23 Next scheduled appointment: 11/02/24 Last date of refill on this medication 01/11/24 90 day 1 refill documented in this encounter [facility] 07-07-2024 Telephone encounter Note Prescription Request: Last medication check: 04/26/24 Last physical exam: 11/01/23 Next scheduled appointment: 11/02/24 Last date of refill on this medication 01/11/[address] [facility] 05-19-2024 Telephone encounter Note Cancelled Sept and left message to schedule Dec. [facility] 05-19-2024 Miscellaneous Notes Cancelled Sept and left message to schedule Dec. Name of Caller: Heavenly Contact Reason for Appointment: Heavenly states they were told it was not necessary for patient to keep the 06/08/24 appointment and could make it in September. States she would like to cancel the 06/08 appointment and would call back to reschedule around July. Please advise. Office Name: [facility] Services Medication Refills need, if any: n/a Medication Name: n/a documented in this encounter [facility] 05-18-2024 Telephone encounter Note Name of Caller: Heavenly Contact Reason for Appointment: Heavenly states they were told it was not necessary for patient to keep the 06/08/24 appointment and could make it in September. States she would like to cancel the 06/08 appointment and would call back to reschedule around July. Please advise. Office Name: [facility] Medication Refills need, if any: n/a Medication Name: n/a [facility] 04-26-2024 Evaluation + Plan note Associated Problem(s): Hyperlipidemia LDL goal <70 Hold, continue simvastatin [address] [facility] 04-26-2024 Miscellaneous Notes Associated Problem(s): Hyperlipidemia LDL goal <70 Hold, continue simvastatin 40 mg daily Associated Problem(s): Diabetes mellitus type 2 in obese (HCC) Moderately well-controlled A1c today is 7.2, blood sugars that he brings that are not bad a couple are a little high. 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 He did not tolerate donepezil so that was stopped. documented in this encounter [facility] 04-26-2024 Evaluation + Plan note Associated Problem(s): Diabetes mellitus type 2 in obese (HCC) Moderately well-controlled A1c today is 7.2, blood sugars that he brings that are not bad a couple are a little high. Continue glimepiride 1 mg daily metformin [address] [facility] 04-26-2024 Evaluation + Plan note Associated Problem(s): Essential hypertension Controlled, continue atenolol 100 mg daily hydrochlorothiazide 25 mg daily lisinopril [address] 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 04-26-2024 Evaluation + Plan note Associated Problem(s): 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 behavioral disturbance, psychotic disturbance, mood disturbance, or anxiety (HCC) Slowly progressing [employer] 04-26-2024 Evaluation + Plan note Associated Problem(s): 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) Continues to slowly progress, most likely Vivek is not doing anything at this time. He did not tolerate donepezil so that was stopped. [employer] [facility] 04-26-2024 History of Present illness Narrative Patient was verified by name and . Images from the original note were not included. 04/26/2024 Raina Valdez (: 1945) is a 78 y.o. male , Established patient, here for evaluation of the following chief complaint(s): 6 Month Follow-up (Medicine Check), Diabetes, Hypertension, Hyperlipidemia, Gout, Alzheimer's Disease, and Health Maintenance (Declines TDAP/Declines Shingrix/Did not get an RSV vaccine or a 5th COVID vaccine) ASSESSMENT/PLAN: 1. 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) Assessment & Plan: Continues to slowly progress, most likely Vivek is not doing anything at this time. He did not tolerate donepezil so that was stopped. 2. 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 behavioral disturbance, psychotic disturbance, mood disturbance, or anxiety (HCC) Assessment & Plan: Slowly progressing 3. 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 Diabetes mellitus type 2 in obese (HCC) Assessment & Plan: Moderately well-controlled A1c today is 7.2, blood sugars that he brings that are not bad a couple are a little high. Continue glimepiride 1 mg daily metformin 1000 mg twice a day Orders: - AMB POC HEMOGLOBIN A1C 5. Hyperlipidemia LDL goal <70 Assessment & Plan: Hold, continue simvastatin 40 mg daily 6. Essential hypertension Assessment & Plan: Controlled, continue atenolol 100 mg daily hydrochlorothiazide 25 mg daily lisinopril 40 mg daily Follow up in about 6 months (around 10/27/2024). SUBJECTIVE/OBJECTIVE: HPI -Raina comes in today for a 6-month follow-up on his Alzheimer's, which is accompanied by vascular dementia, these are slowly progressing. He also has a history of diabetes and his blood sugars do not look too bad today we will get an A1c, his hyperlipidemia and his gout. His lab work 6 months ago was excellent for his cholesterol and gout. Raina is unable to really answer any questions he does answer no to everything asked him on review of systems however his does fill in the blanks Review of Systems Constitutional: Negative for chills and fever. Respiratory: Negative for shortness of breath. Cardiovascular: Negative for chest pain and palpitations. Gastrointestinal: Negative for abdominal pain, blood in stool, constipation and diarrhea. Genitourinary: Negative for dysuria, frequency, hematuria and urgency. Vitals: 04/26/24 1019 BP: 106/65 Pulse: 68 SpO2: 91% Weight: 198 lb (89.8 kg) Height: 5' 6.5 (1.689 m) Physical Exam Vitals and nursing note reviewed. Constitutional: General: He is not in acute distress. Appearance: Normal appearance. HENT: Head: Normocephalic. Mouth/Throat: Mouth: Mucous membranes are moist. Pharynx: Oropharynx is clear. Eyes: Extraocular Movements: Extraocular movements intact. Pupils: Pupils are equal, round, and reactive to light. Cardiovascular: Rate and Rhythm: Normal rate and regular rhythm. Heart sounds: Normal heart sounds. Pulmonary: Effort: Pulmonary effort is normal. Breath sounds: Normal breath sounds. Abdominal: General: Bowel sounds are normal. Palpations: Abdomen is soft. Musculoskeletal: Cervical back: Neck supple. Right lower leg: No edema. Left lower leg: No edema. Neurological: Mental Status: He is alert. An electronic signature was used to authenticate this note. Wilfred Puente MD 04/26/2024 11:49 AM documented in this encounter [facility] 04-18-2024 History of Present illness Narrative Visit type: Established Patient Reason for Visit: Follow-up and Memory Loss Assessment and Plan 1. Dementia without behavioral disturbance (HCC) 2. Unsteadiness on feet Subjective HPI: MOCA B at 01/2023 visit 10/02 MRI brain 2022 Atrophy and chronic ischemic change. 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 Diminished cerebral volume and evidence of chronic white matter small vessel ischemic change without acute intracranial abnormality. 2. Partial empty sella configuration. 3. Paranasal sinus disease. 4. Small bilateral mastoid effusions, right greater than left. He did establish with Geriatric services reports no recent falls. Last fall occurred in January He says his memory is fine states that some good and bad days has always cooked and managed fiances She has been driving for the past 4 yrs He needs assistance with dressing. picks out clothes reports that he frequently gets up during the night and will eat sweets REVIEW OF SYSTEMS: Review of Systems Constitutional: Negative. HENT: Negative. Eyes: Negative. Respiratory: Negative. Cardiovascular: Negative. Gastrointestinal: Negative. Endocrine: Negative. Genitourinary: Negative. Musculoskeletal: Negative. Skin: Negative. Allergic/Immunologic: Negative. Neurological: Memory loss Hematological: Negative. Psychiatric/Behavioral: Negative. No Known Allergies Outpatient Medications Prior to Visit Medication Sig Dispense Refill allopurinol (Zyloprim) 100 MG tablet Take 2 tablets (200 mg) by mouth daily. 180 tablet 1 aspirin 81 MG EC tablet Take 81 mg by mouth daily. atenolol (Tenormin) 100 MG tablet Take 1 tablet (100 mg) by mouth daily. 90 tablet 1 Flaxseed, Linseed, (Flax Seed Oil) 1000 MG capsule Take by mouth. Garlic 1000 MG capsule Take by mouth. glimepiride (Amaryl) 1 MG tablet Take 1 tablet (1 mg) by mouth daily (with breakfast). 90 tablet 1 Glucose Blood (Blood Glucose Test) strip Test Bs daily 50 strip 2 hydroCHLOROthiazide (HYDRODiuril) 25 MG tablet Take 1 tablet (25 mg) by mouth daily. 90 tablet 1 Lancets Test Bs daily 50 each 2 lisinopril 40 MG tablet Take 1 tablet (40 mg) by mouth daily. 90 tablet 1 magnesium gluconate (Magonate) 500 MG tablet Take 250 mg by mouth in the morning. metFORMIN (Glucophage) 1000 MG tablet Take 1 tablet (1,000 mg) by mouth in the morning and 1 tablet (1,000 mg) in the evening. Take with meals. 180 tablet 1 Multiple Vitamins-Minerals (Oncovite) tablet Take by mouth. potassium chloride CR (Klor-Con) 10 MEQ ER tablet Take 10 mEq by mouth in the morning. simvastatin (Zocor) 40 MG tablet Take 1 tablet (40 mg) by mouth Nightly. 90 tablet 1 memantine (Namenda) 10 MG tablet Take 1 tablet (10 mg) by mouth 2 times daily. He was told to take 1 tab nightly only for 7 days, then 1 tab po BID. 180 tablet 3 No facility-administered medications prior to visit. Past Medical History: Diagnosis Date CAD (coronary artery disease) Contact dermatitis and other eczema, due to unspecified cause Hyperlipidemia Hypertension Hypertrophy of prostate without urinary obstruction and other lower urinary tract symptoms (LUTS) Nonspecific abnormal finding in stool contents Type II or unspecified type diabetes mellitus without mention of complication, not stated as uncontrolled (HCC) Social History Tobacco Use Smoking status: Never Smokeless tobacco: Never Substance Use Topics Alcohol use: No Alcohol/week: 0.0 standard drinks of alcohol Past Surgical History: Procedure Laterality Date CARDIAC CATHETERIZATION 12/18/2019 CATARACT EXTRACTION Bilateral CORONARY ARTERY BYPASS GRAFT Family History Problem Relation Name Age of Onset High Blood Pressure Mother Diabetes Mother Dementia Father Heart disease Father Objective Vitals: BP 129/71 (BP Location: Right arm, Patient Position: Sitting, BP Cuff Size: Adult) Pulse 75 Ht 5' 6.5 (1.689 m) Wt 196 lb 3.2 oz (89 kg) BMI 31.19 kg/m General Appearance: Patient is in no apparent distress. Head is normocephalic, atraumatic Cardiovascular: Regular rate and rhythm. No heart murmurs. No carotid bruit Neurologic: Mentation: Alert and oriented to person Speech and Language: Speech and language normal Concentration and Attention: Concentration normal Memory: Memory abnormal Fund of Knowledge: Fund of knowledge abnormal Cranial Nerves: II, III, IV, V, , VII, VIII, IX, X, XI, XII examined and were intact. Motor: Strength: Strength 5 out of 5 with normal tone Alternating Movements: Normal Cogwheel Rigidity: None Tone: Tone is normal Tremor / Involuntary Movements: None Deep Tendon Reflexes: 1 out of 4 symmetrical in all four limbs. Sensory: Normal sensation upper and lower extremities Coordination: Normal coordination upper and lower extremities Gait and Station: Station is normal. Gait is normal with use of cane Data Reviewed and Summarized DIAGNOSTIC TESTING CBC: Lab Results Component Value Date WBC 9.1 10/22/2021 RBC 4.21 (L) 10/22/2021 HGB 13.4 10/22/2021 MCV 94.6 10/22/2021 MCH 31.9 10/22/2021 MCHC 33.7 10/22/2021 RDW 14.2 10/22/2021 MPV 10.6 (H) 10/22/2021 CMP: Lab Results Component Value Date NA 139 04/22/2022 K 4.2 04/22/2022 CL 103 04/22/2022 CO2 28 11/01/2023 BUN 24 11/01/2023 CREATININE 1.10 11/01/2023 AGRATIO 1.6 11/01/2023 GLUCOSE 132 (H) 11/01/2023 PROT 6.5 11/01/2023 CALCIUM 9.3 11/01/2023 BILITOT 0.4 11/01/2023 ALKPHOS 75 11/01/2023 AST 16 11/01/2023 ALT 16 11/01/2023 BMP: Lab Results Component Value Date NA 139 04/22/2022 K 4.2 04/22/2022 CL 103 04/22/2022 CO2 28 11/01/2023 BUN 24 11/01/2023 CREATININE 1.10 11/01/2023 CALCIUM 9.3 11/01/2023 GLUCOSE 132 (H) 11/01/2023 PT/INR: No results found for: PROTIME, INR PTT: No results found for: APTT, PTT[APTT} FLP: Lab Results Component Value Date TRIG 167 (A) 10/22/2021 HDL 37 (L) 10/22/2021 TSH: Lab Results Component Value Date TSH 3.00 01/19/2023 VITAMIN B12: VITAMIN B12 Date Value Ref Range Status 01/19/2023 835 200 - 1,100 pg/mL Final No results found for: PHENYTOIN, PHENOBARB, VALPROATE, CBMZ No components found for: TOPIRA @RESULTINGLABINFO@ C REACTIVE PROTEIN Date Value Ref Range Status 10/16/2019 <5.0 0.0 - 6.0 mg/L Final Comment: . No results found for: FABIEN, IMMUNOGLOBUL, OLIGOBANDS No results found for: AYI09OM, HEPCAB C REACTIVE PROTEIN Date Value Ref Range Status 10/16/2019 <5.0 0.0 - 6.0 mg/L Final Comment: . VERA Titer Date Value Ref Range Status 10/16/2019 1:160 (A) <1:40 [titer] Final FERRITIN: No results found for: FERRITIN ---- MR brain wo contrast Narrative: Patient Name: RAINA VALDEZ : 1945 Exam Date/Time: 04/03/2024 16:03 Procedure: MR BRAIN WO CONTRAST Ordering Provider: FRANCO JAMES Reason For Exam: Left hemineglect, new since prior MRI in February 2023 EXAMINATION: MRI of the brain without contrast. EXAM DATE & TIME: 04/03/2024 4:03 PM EDT INDICATION: Left hemineglect, new since prior MRI in February 2023 ADDITIONAL INFORMATION: 78-year-old male with new left hemineglect since prior brain MRI presents for evaluation COMPARISON: MRI brain dated 02/09/2023 LIMITATIONS: None TECHNIQUE: Sagittal T1, coronal T2, transaxial T2, FLAIR, gradient echo and diffusion weighted sequences were performed through the brain. FINDINGS: Ventricular system and Extra-axial spaces: Generalized enlargement of the ventricles and sulci is noted without extracerebral collection with mass effect. Cerebral and cerebellar parenchyma: Periventricular foci of increased signal intensity on T2 and FLAIR are identified without mass effect or restricted diffusion, compatible with chronic microvascular ischemic change. No additional focal parenchymal enhancing or nonenhancing lesion is identified throughout the cerebrum or cerebellum. Brainstem: Normal. Sella turcica and pituitary: There is partial empty sella configuration. Vascular system: Normal signal void is noted within the major intracranial vessels. Paranasal sinuses: Mucosal thickening is present in the ethmoid and maxillary sinuses. Mastoid air cells: There are small bilateral mastoid effusions, right greater than left. Orbits: Normal. Impression: 1. Diminished cerebral volume and evidence of chronic white matter small vessel ischemic change without acute intracranial abnormality. 2. Partial empty sella configuration. 3. Paranasal sinus disease. 4. Small bilateral mastoid effusions, right greater than left. Report Dictated on Electronically Signed By: Fernando Eagle MD Electronically Signed Date/Time: 04/03/2024 4:52 PM EDT @[email or web address]@ IMPRESSION and PLAN: Problem List Items Addressed This Visit None Visit Diagnoses Dementia without behavioral disturbance (HCC) - Primary Unsteadiness on feet MRI brain without new findings He has not fallen since January Continue Namenda/Memantine 10mg twice daily No problem-specific Assessment & Plan notes found for this encounter. MADELIN Majano CNP I spent 30 minutes caring for this patient today, reviewing labs, records, seeing the patient, documenting in the record and arranging for studies. Electronically signed by @ADAM@ on @TDNR@ at @NOWNR@ documented in this encounter [facility] 04-18-2024 Instructions MADELIN Shaffer CNP - 04/18/2024 10:00 AM EDT MRI brain without new findings He has not fallen since January Continue Namenda/Memantine 10mg twice daily documented in this encounter [facility] 03-23-2024 History of Present illness Narrative Images from the original note were not included. [facility] [address] [place] [address] Dept: [phone] Dept Loc: [phone] Visit type: [facility] Initial Assessment Visit Date: 03/23/2024 Reason for Visit: Dementia Assessment and Plan 1. Mixed Alzheimer's and vascular dementia (HCC) [place] [facility] [place] - Mental status change with cognitive deficits in the following areas: short term memory, executive functions, visuospatial function, language, attention, orientation, and insight which have been slowly progressive over time with subsequent impairment in function. History and exam are concerning for Moderately severe stage Mixed Alzheimer's & Vascular Dementia. -Agree with diagnosis of mixed Alzheimer's Disease and vascular dementia -he is also following with Neurology for dementia. He is getting a brain MRI in April. -A lot of information given to regarding dementia care. -Recommend door alarms and video monitoring -Discussed that he would not know what to do in an emergency. It is safest for him to have / supervision -Suggested adult day care Follow up in about 6 months (around 09/22/2024). Subjective HPI: Raina Valdez is a 78 y.o. male with past medical history of dementia, diabetes, CAD, hypertension, gout, Retinal artery occlusion of right eye who presents to the [facility] for a comprehensive geriatric assessment. The patient is known to me but it has been over three years Chart Review -We saw him at the [facility] over three years ago. He only did one appointment and did not follow up. I was concerned for Alzheimer's and/or vascular dementia. MOCA was a at that time. -His cognitive issues became apparent in July 2020 when was hospitalized for a broken knee cap. He didn't change his clothes and had trouble taking care of himself independently. reports that prior to that episode they had noticed a little bit of memory issues -He has been following with Dr Franco (Neurology) for dementia since 2022. [place] to be mixed Alzheimer's Disease and Vascular Dementia. He is on namenda. He used to be on aricept, but it was stopped due to decrease in appetite. -He was last seen by Dr Franco in February 2024. Dr Franco noted left sided nabila-neglect, which was new, and he ordered an MRI. Dr Franco referred to the [facility] to help him access services in the home. The MRI is scheduled for April 03 -TSH one year ago (performed for memory loss) was 3 -Vitamin b12 one year ago: 835 History obtained from caregiver(s): - Heavenly -He started having cognitive issues in July 2020. was in the hospital for a few days with a broken knee cap. He saw us once in October 2022 but did not follow up as he was dealing with issues with his heart -Memory loss was progressive for the past three years since that appointment -Can only follow a one step instruction -Short term memory is poor -longterm memory: remembers family membres and his years. -he is not violent. -If he gets frustrated he will act like a child. takes a step back and then reapproaches him a bit later. -He was doing fairly well until December. However, now he needs help dressing. He has had more trouble with bladder incontinence. -Will have 2-3 days where he sleeps a lot. -He is up more at night. Gets delusions at night. He will say he is ready to go home. Even when he is already at home -has dizziness that comes and goes. Last time in December. Mood: -generally OK -No major anxiety issues unless he watches something distressing on TV Sleep: He sleeps very well Appetite: It varies. Sometimes he is not hungry and other times he is hungry. No weight loss Short term memory loss: Severity (as seen by the provider based on caregiver history): moderate, Duration- symptoms started in 2019, Timing- slowly progressive,, Cognition is the worst in the middle of the night, cognitive changes are stable day to day, Context- (give details of any yes answers) history of stroke- no, history of head trauma- yes, had concussion and was in the hospital for 2-3 days, this was 45 years ago. history of seizures- no, history of hospitalization or surgery that made memory worse- Yes. 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 He told some wild stories while in the hospital. He was in his mid-60s. History of cancer? - No Hearing Loss? - yes Hearing Aids? - no Associated signs and symptoms- delusions or hallucinations- He may misinterpret objects (ie: he saw a pile of leaves and thought it was a rabbit). Will also have delusions at night (ie: thought a man was coming to picking table worker a check for tires). paranoia- no Trouble sleeping? no Symptoms of REM-related sleep disorder- Does he/she appear to act out their dreams while sleeping (punch or flail arms, shout or scream? No History obtained from patient: Memory: Seems fine. He denies any trouble with his memory. Mood: no problems. Hallucinations: none Vision: fine. Sleep: Fine. Appetite: Good. -Not getting any exercise. -Doesn't do puzzles or brain games. Physical health: Fine. He doesn't know what his medications are for. Hearing Screen: HHIE-S: Able to identify 06-04-1: no, Reviewed progress notes completed by KUSHAL BALLARD)and social work. No Known Allergies Current Outpatient Medications Medication Sig Dispense Refill allopurinol (Zyloprim) 100 MG tablet Take 2 tablets (200 mg) by mouth daily. 180 tablet 1 aspirin 81 MG EC tablet Take 81 mg by mouth daily. atenolol (Tenormin) 100 MG tablet Take 1 tablet (100 mg) by mouth daily. 90 tablet 1 Flaxseed, Linseed, (Flax Seed Oil) 1000 MG capsule Take by mouth. Garlic 1000 MG capsule Take by mouth. glimepiride (Amaryl) 1 MG tablet Take 1 tablet (1 mg) by mouth every morning (before breakfast). 90 tablet 1 Glucose Blood (Blood Glucose Test) strip Test Bs daily 50 strip 2 hydroCHLOROthiazide (HYDRODiuril) 25 MG tablet Take 1 tablet (25 mg) by mouth daily. 90 tablet 1 Lancets Test Bs daily 50 each 2 lisinopril 40 MG tablet Take 1 tablet (40 mg) by mouth daily. 90 tablet 1 magnesium gluconate (Magonate) 500 MG tablet Take 250 mg by mouth in the morning. memantine (Namenda) 10 MG tablet Take 1 tablet (10 mg) by mouth 2 times daily. He was told to take 1 tab nightly only for 7 days, then 1 tab po BID. 180 tablet 3 metFORMIN (Glucophage) 1000 MG tablet Take 1 tablet (1,000 mg) by mouth in the morning and 1 tablet (1,000 mg) in the evening. Take with meals. 180 tablet 1 Multiple Vitamins-Minerals (Oncovite) tablet Take by mouth. potassium chloride CR (Klor-Con) 10 MEQ ER tablet Take 10 mEq by mouth in the morning. simvastatin (Zocor) 40 MG tablet Take 1 tablet (40 mg) by mouth Nightly. 90 tablet 1 No current facility-administered medications for this visit. Past Medical History: Diagnosis Date CAD (coronary artery disease) Contact dermatitis and other eczema, due to unspecified cause Hyperlipidemia Hypertension Hypertrophy of prostate without urinary obstruction and other lower urinary tract symptoms (LUTS) Nonspecific abnormal finding in stool contents Type II or unspecified type diabetes mellitus without mention of complication, not stated as uncontrolled (HCC) Social History Tobacco Use Smoking status: Never Smokeless tobacco: Never Substance Use Topics Alcohol use: No Alcohol/week: 0.0 standard drinks of alcohol Past Surgical History: Procedure Laterality Date CARDIAC CATHETERIZATION 12/18/2019 CATARACT EXTRACTION Bilateral CORONARY ARTERY BYPASS GRAFT Family History Problem Relation Name Age of Onset High Blood Pressure Mother Diabetes Mother Dementia Father Heart disease Father Family Status Relation Name Status Mother Father No partnership data on file Objective Vitals: 03/23/24 1550 03/23/24 1553 BP: 119/71 125/71 BP Location: Left arm Left arm Patient Position: Sitting Standing Pulse: 71 86 Weight: 196 lb 3.2 oz (89 kg) Height: 5' 6.5 (1.689 m) Wt Readings from Last 3 Encounters: 03/23/24 196 lb 3.2 oz (89 kg) 03/03/24 195 lb (88.5 kg) 11/01/23 197 lb 12.8 oz (89.7 kg) Physical Exam Constitutional: General: He is not in acute distress. Appearance: He is not ill-appearing. HENT: Head: Normocephalic and atraumatic. Right Ear: Decreased hearing noted. Left Ear: Decreased hearing noted. Cardiovascular: Rate and Rhythm: Normal rate and regular rhythm. Heart sounds: No murmur heard. No friction rub. No gallop. Pulmonary: Effort: Pulmonary effort is normal. Breath sounds: Normal breath sounds. No wheezing, rhonchi or rales. Abdominal: Palpations: Abdomen is soft. Musculoskeletal: Right lower leg: No edema. Left lower leg: No edema. Neurological: Mental Status: He is alert. Coordination: [id number] Test normal. Comments: Strength grossly equally in upper and lower extremities bilaterally Psychiatric: Attention and Perception: Attention normal. Mood and Affect: Mood normal. Affect is blunt. Behavior: Behavior is cooperative. Cognition and Memory: Cognition is impaired. Memory is impaired. Comments: Answers are short/blunt Data Reviewed and Summarized Old records reviewed and summarized here: See above Labs: Lab Results Component Value Date WBC 9.1 10/22/2021 HGB 13.4 10/22/2021 MCV 94.6 10/22/2021 Lab Results Component Value Date NA 139 04/22/2022 K 4.2 04/22/2022 CL 103 04/22/2022 CO2 28 11/01/2023 BUN 24 11/01/2023 CREATININE 1.10 11/01/2023 GLUCOSE 132 (H) 11/01/2023 CALCIUM 9.3 11/01/2023 PROT 6.5 11/01/2023 BILITOT 0.4 11/01/2023 ALKPHOS 75 11/01/2023 AST 16 11/01/2023 ALT 16 11/01/2023 AGRATIO 1.6 11/01/2023 GLOB 2.5 11/01/2023 Lab Results Component Value Date TSH 3.00 01/19/2023 No results found for: FOLATE Lab Results Component Value Date [id number] 01/19/2023 No results found for: RPR Testing: The following tests were performed at today's visit and scanned in to the chart: MoCA score: 12/30, MIS score: 0/15 Clock drawing score: 1/7 PHQ-9 score: 0 I independently reviewed the [facility] Cognitive Assessment from 03/23/2024. Test scanned in to the chart. I spent total time of 75 minutes face to face with the patient and/or family discussing the diagnosis and importance of compliance with the treatment plan as well as documenting on the day of the visit. In addition, that total time includes the following: -Reviewing previous notes, -Reviewing labs, -Reviewing previous cognitive tests, -Obtaining and/or reviewing separately obtained history, -Communicating results to the patient/family/caregiver, -Counseling/educating the patient/family/caregiver, -Documenting clinical information in the patients electronic record, -Coordination of care for the patient, and -Performing a medically appropriate exam and/or evaluation Review of Systems Constitutional: Positive for appetite change and fatigue. Negative for fever and unexpected weight change. HENT: Negative for dental problem, hearing loss and trouble swallowing. Eyes: Negative for visual disturbance. Respiratory: Negative for cough and shortness of breath. Cardiovascular: Negative for leg swelling. Gastrointestinal: Positive for constipation and diarrhea. Genitourinary: Negative for difficulty urinating and dysuria. Musculoskeletal: Positive for gait problem. Negative for arthralgias and back pain. Neurological: Positive for speech difficulty. Negative for tremors and weakness. Psychiatric/Behavioral: Positive for confusion, hallucinations and sleep disturbance. Negative for agitation and dysphoric mood. The patient is not nervous/anxious. [facility] Services[facility]Geriatrics Social History Present at visit: patient, reema Burdick Marital status: Children: 3 children (2 local) Living arrangement: with , own home Household safety problems: 2 falls backward Concerning Behaviors: Sundowning, acts childlike Wandering potential: Yes, patient was looking for , patient went out and got in the car, plan to put alarms on doors, another time, went out in the car at 4:00 AM, had opened garage door, got in car and started beeping horn Pets: Yes, dog , cares for dog Guns in the home: Unloaded and Ammunition kept in separate place Elder abuse: No/Denied Concerns Alcohol/Tobacco/Marijuana/Drug Use History: none service: Patient is , served in wartime (during ) Highest level of education: 2 years college Occupation: retired from [employer], owned a small business Activities: watches tv, not interested in things anymore, will sit on back porch Exercise: 3 days a week to do physical therapy exercises with him Finances: not reviewed My Chart: Only uses Healthcare Power of Category Director: Yes: Heavenly then alvin Dong Financial Power of Category Director: Yes: Heavenly, then son Iker Living Will: Yes Guardian: No Code Status: Full Code Primary Caregiver: Heavenly benavidez Current care plan/supervision: can leave him for short periods of time, mostly with him Community resources: None Caregiver stressors: has some stress, feels she is managing it ok Goals for care: evaluate memory, resources As a Caregiver, What Matters Most to You: >>03/23/24 Patient has had dementia diagnosis for at least 3 years. Patient needs much help. is providing most care, patient needs help with personal care. Patient unable to use phone, has apathy, some sundowning. SW talked to about considering video monitoring, alarms on doors, possibly a life alert. Discussed whether patient would know what to do in case of emergency. Discussed potential for wandering and falls. still leaves patient for up to 3 hours alone. Functional Status (I: Independent, A: Assisted, D: Dependent) ADLs I A D Notes Bathing [] [x] [] cues him to shower Dressing [] [x] [] lays out his clothes, sometimes helps him with dressing, will wear pjs under jeans sometimes Toileting [] [x] [] Some accidents, wears Depends when going out, needs help with clean up Transfers [x] [] [] No issues Feeding [x] [] [] No issues Ambulation [] [x] [] Has cane Assistive devices: Cane, Grab bars, and Walker IADLs I A D Telephone [] [] [x] Unable to use phone, sets up appointments, provides reminders Transportation [] [] [x] Driving safety concerns: Not currently driving Shopping [] [] [x] shops Meal prep [] [x] [] Can get cereal for himself, does prepare food for him if she will be gone, gets own snacks, mostly puts food in front of him, can't make coffee anymore Housework [] [x] [] Can do tasks if cued Medications [] [] [x] administers Finances [] [] [x] handles Educational materials reviewed and provided at today's visit: Memory/Cognitive Ability Next Steps After an Alzheimer's Diagnosis Alzheimer's Association info/hotline Memory Tips (moderate to severe) 5Ms Dealing with Dementia Stages for Memory Loss Exercise/Activities Dementia exercise tips Activities/Reminiscence guide Communication/Behaviors Communication - All Stages Communication Tips Redirecting Confabulation Therapeutic Fibbing Apathy Wandering Caregiver Stress Coping Techniques for Caregiver Stress Home Care/Facility Options [facility] list Home Care Agency list Community Programs GPS Trackers Diet Healthy Nutrition for Older Adults - [facility] Injury Prevention/Home Safety [facility] Home Safety Checklist Falls Prevention Conversation Guide for Caregivers Sleep Day/Night Reversal Personal Care Bathing Tips documented in this encounter [facility] 03-03-2024 History of Present illness Narrative Images from the original note were not included. [facility] [address] [place] [address] [facility] [address] Dept: [phone] Dept Loc: [phone] Visit type: Established Patient Reason for Visit: Follow-up and Dementia Assessment and Plan 1. Nabila-neglect of left side - MR brain wo contrast 2. Dementia with behavioral disturbance (HCC) [place] [facility] 3. Ataxia - MR brain wo contrast Subjective HPI: He had two falls earlier this month. His reports that he was on his back for both of the events, but she did not see the fall. He was advised to consider laser intervention on his eyes by his eye doctors. Ask informant to rate the patient's ability using the following scoring system: Dependent= 3 Requires Assistance= 2 Has difficulty but does by self= 1 Normal= 0 Never did the activity but could do now= 0 Never did and would have difficulty now= 1 Score Writing checks, paying bills, balancing checkbook 3 Assembling tax records, business affairs, or papers 3 Shopping alone for clothes, household necessities or groceries 3 Playing a game of skill, working on a hobby 3 Heating water, making a cup of coffee turning off stove after use 3 Preparing a balanced meal 3 Keeping track of current events 3 Paying attention to, understanding, discussing TV, book, magazine 0 Remembering appointments, family occasions, holidays, medications 3 Traveling out of neighborhood, driving, arranging to take a bus 3 Total Score 27 Evaluation Sum scores (range 0-30). Cut-point of 9 (dependent in 3 or more activities) is recommended to indicate impaired function and possible cognitive impairment. He needs more help with getting dressed. He is having incontinence. He is not having the dizziness or balance issues. He has hot fallen. He had an evaluation in the [facility] where they found that he had an occlusion. We discussed that his LDL cholesterol number was good and his triglycerides were better. He continues to have constipation. He has had issues of constipation and diarrhea. REVIEW OF SYSTEMS: Review of Systems Constitutional: Negative for appetite change, chills, diaphoresis, fever and unexpected weight change. HENT: Negative for dental problem and mouth sores. Eyes: Negative for discharge and itching. Respiratory: Negative for chest tightness. Cardiovascular: Negative for chest pain and leg swelling. Gastrointestinal: Negative for rectal pain and vomiting. Endocrine: Negative for polydipsia, polyphagia and polyuria. Genitourinary: Negative for decreased urine volume, flank pain and genital sores. Musculoskeletal: Negative for arthralgias. Skin: Negative for color change. Allergic/Immunologic: Negative for food allergies and immunocompromised state. Neurological: Positive for dizziness and numbness. Memory loss Hematological: Negative for adenopathy. Does not bruise/bleed easily. Psychiatric/Behavioral: Negative for agitation, behavioral problems, decreased concentration, sleep disturbance and suicidal ideas. No Known Allergies Current Outpatient Medications: allopurinol (Zyloprim) 100 MG tablet, Take 2 tablets (200 mg) by mouth daily., Disp: 180 tablet, Rfl: 1 aspirin 81 MG EC tablet, Take 81 mg by mouth daily., Disp: , Rfl: atenolol (Tenormin) 100 MG tablet, Take 1 tablet (100 mg) by mouth daily., Disp: 90 tablet, Rfl: 1 Flaxseed, Linseed, (Flax Seed Oil) 1000 MG capsule, Take by mouth., Disp: , Rfl: Garlic 1000 MG capsule, Take by mouth., Disp: , Rfl: glimepiride (Amaryl) 1 MG tablet, Take 1 tablet (1 mg) by mouth every morning (before breakfast)., Disp: 90 tablet, Rfl: 1 Glucose Blood (Blood Glucose Test) strip, Test Bs daily, Disp: 50 strip, Rfl: 2 hydroCHLOROthiazide (HYDRODiuril) 25 MG tablet, Take 1 tablet (25 mg) by mouth daily., Disp: 90 tablet, Rfl: 1 Lancets, Test Bs daily, Disp: 50 each, Rfl: 2 lisinopril 40 MG tablet, Take 1 tablet (40 mg) by mouth daily., Disp: 90 tablet, Rfl: 1 magnesium gluconate (Magonate) 500 MG tablet, Take 250 mg by mouth in the morning., Disp: , Rfl: memantine (Namenda) 10 MG tablet, Take 1 tablet (10 mg) by mouth 2 times daily. He was told to take 1 tab nightly only for 7 days, then 1 tab po BID., Disp: 180 tablet, Rfl: 3 metFORMIN (Glucophage) 1000 MG tablet, Take 1 tablet (1,000 mg) by mouth in the morning and 1 tablet (1,000 mg) in the evening. Take with meals., Disp: 180 tablet, Rfl: 1 Multiple Vitamins-Minerals (Oncovite) tablet, Take by mouth., Disp: , Rfl: potassium chloride CR (Klor-Con) 10 MEQ ER tablet, Take 10 mEq by mouth in the morning., Disp: , Rfl: simvastatin (Zocor) 40 MG tablet, Take 1 tablet (40 mg) by mouth Nightly., Disp: 90 tablet, Rfl: 1 Past Medical History: Diagnosis Date CAD (coronary artery disease) Contact dermatitis and other eczema, due to unspecified cause Hyperlipidemia Hypertension Hypertrophy of prostate without urinary obstruction and other lower urinary tract symptoms (LUTS) Nonspecific abnormal finding in stool contents Type II or unspecified type diabetes mellitus without mention of complication, not stated as uncontrolled (HCC) Social History Tobacco Use Smoking status: Never Smokeless tobacco: Never Substance Use Topics Alcohol use: No Alcohol/week: 0.0 standard drinks of alcohol Past Surgical History: Procedure Laterality Date CARDIAC CATHETERIZATION 12/18/2019 CATARACT EXTRACTION Bilateral CORONARY ARTERY BYPASS GRAFT Family History Problem Relation Name Age of Onset High Blood Pressure Mother Diabetes Mother Dementia Father Heart disease Father Objective Vitals: BP 127/78 (BP Location: Right arm, Patient Position: Sitting, BP Cuff Size: Adult) Pulse 78 Ht 5' 7 (1.702 m) Wt 195 lb (88.5 kg) BMI 30.54 kg/m General Appearance: Patient is in no apparent distress. Head is normocephalic, atraumatic Cardiovascular: Regular rate and rhythm. No heart murmurs. No carotid bruit. My ophthalmic exam was normal, but it was limited. Neurologic: Mentation: Alert and oriented to person and somewhat to place; had trouble with time. Speech and Language: Speech and language normal Concentration and Attention: Concentration normal Memory: Memory 3/3 immed, 0/3 short Fund of Knowledge: Fund of knowledge normal Cranial Nerves: II, III, IV, V, , VII, VIII, IX, X, XI, XII examined and were intact. Seems intact, but sometimes not attending to things on his lef Motor: Strength: Strength 5 out of 5 with normal tone Alternating Movements: Normal Cogwheel Rigidity: None Tone: Tone is normal Tremor / Involuntary Movements: None Deep Tendon Reflexes: 1 out of 4 symmetrical in all four limbs. Coordination: He has difficulty complying with commands involving the left side, particularly the left hand/arm Gait and Station: Station is normal. Gait is abnormal. He is unsteady on turns Data Reviewed and Summarized DIAGNOSTIC TESTING A report of nerve conduction studies and electromyography of both lower extremities Date of service: February 01, 2023 Findings: Sensory nerve conduction studies disclosed absent responses in the superficial peroneal nerves bilaterally, but normal response latencies and amplitudes in the sural nerves bilaterally. Motor nerve conduction studies disclosed normal distal latencies, response amplitudes and conduction velocities in the peroneal/fibular and tibial nerves bilaterally. Tibial nerve H-reflex latencies were mildly prolonged bilaterally. Needle EMG examination disclosed normal spontaneous activity in the vastus medialis and lateralis, tibialis anterior, lateral gastrocnemius, extensor digitorum brevis and abductor hallucis bilaterally, as well as the left extensor hallucis longus. Motor unit potential recruitment was markedly decreased in the left extensor digitorum brevis and moderately decreased in the right extensor digitorum brevis and abductor hallucis bilaterally; in each of these muscles there were enlarged polyphasic motor unit potentials. Motor unit potential recruitment was slightly decreased in the vastus lateralis bilaterally, the right tibialis anterior and the left extensor hallucis longus; in each of these muscles there were occasional enlarged motor unit potentials. There were occasional enlarged motor unit potentials in the left lateral gastrocnemius without impairment of recruitment. Motor unit potential recruitment and morphology were normal in the vastus medialis bilaterally, the right lateral gastrocnemius, and the left tibialis anterior. 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 There was a marked discrepancy between the severity of the abnormalities on the needle EMG examination and the intact nerve conduction studies, apart from the absent superficial peroneal sensory nerve responses. These nerve conduction studies record the fastest responses from large myelinated nerve fibers, and may not detect (or may underestimate the severity of) neuropathies that preferentially affect small and unmyelinated fibers. It is possible that the patient's symptoms may be related to a small-fiber neuropathy that would be greatly underestimated by this testing. However, all motor nerve fibers are large and myelinated. Thus the widespread abnormalities seen on electromyography indicate considerable involvement of large myelinated motor fibers along with small unmyelinated sensory fibers. 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 A less attractive diagnostic option can be arrived at by disregarding the absence of superficial peroneal sensory responses and declaring the nerve conduction studies normal. In this case, the EMG findings would be explained by multiple chronic motor radiculopathies involving L4-S1 bilaterally rather than a polyneuropathy. This option discounts the largely symmetric and prominent [id number] gradient of the EMG abnormalities and the predominance of impaired sensation in the patient's complaints, although the latter could be attributed to simultaneous sensory radiculopathies that are not detected by this testing due to anatomic considerations. Clinical correlation is advised. Eitan Christensen MD CBC: Lab Results Component Value Date WBC 9.1 10/22/2021 RBC 4.21 (L) 10/22/2021 HGB 13.4 10/22/2021 MCV 94.6 10/22/2021 MCH 31.9 10/22/2021 MCHC 33.7 10/22/2021 RDW 14.2 10/22/2021 MPV 10.6 (H) 10/22/2021 CMP: Lab Results Component Value Date NA 139 04/22/2022 K 4.2 04/22/2022 CL 103 04/22/2022 CO2 28 11/01/2023 BUN 24 11/01/2023 CREATININE 1.10 11/01/2023 AGRATIO 1.6 11/01/2023 GLUCOSE 132 (H) 11/01/2023 PROT 6.5 11/01/2023 CALCIUM 9.3 11/01/2023 BILITOT 0.4 11/01/2023 ALKPHOS 75 11/01/2023 AST 16 11/01/2023 ALT 16 11/01/2023 BMP: Lab Results Component Value Date NA 139 04/22/2022 K 4.2 04/22/2022 CL 103 04/22/2022 CO2 28 11/01/2023 BUN 24 11/01/2023 CREATININE 1.10 11/01/2023 CALCIUM 9.3 11/01/2023 GLUCOSE 132 (H) 11/01/2023 PT/INR: No results found for: PROTIME, INR PTT: No results found for: APTT, PTT[APTT} FLP: Lab Results Component Value Date TRIG 167 (A) 10/22/2021 HDL 37 (L) 10/22/2021 TSH: Lab Results Component Value Date TSH 3.00 01/19/2023 VITAMIN B12: VITAMIN B12 Date Value Ref Range Status 01/19/2023 835 200 - 1,100 pg/mL Final No results found for: PHENYTOIN, PHENOBARB, VALPROATE, CBMZ No components found for: TOPIRA @RESULTINGLABINFO@ C REACTIVE PROTEIN Date Value Ref Range Status 10/16/2019 <5.0 0.0 - 6.0 mg/L Final Comment: . No results found for: FABIEN, IMMUNOGLOBUL, OLIGOBANDS No results found for: [id number], HEPCAB C REACTIVE PROTEIN Date Value Ref Range Status 10/16/2019 <5.0 0.0 - 6.0 mg/L Final Comment: . VERA Titer Date Value Ref Range Status 10/16/2019 1:160 (A) <1:40 [titer] Final FERRITIN: No results found for: FERRITIN ---- MR brain wo contrast Narrative: [facility] 1945 [id number] Exam Date/Time: 02/09/2023 12:02 Procedure: MR BRAIN WO CONTRAST Ordering Provider: FRANCO JAMES Reason For Exam: Dizziness, persistent/recurrent, cardiac or vascular cause suspected MRI BRAIN WITHOUT CONTRAST: INDICATION: Dizziness. COMPARISON: None MR imaging of the brain was performed with sagittal T1 weighted, axial T2 weighted and FLAIR scans, and axial diffusion scans. The ventricles and sulci are enlarged, consistent with atrophy. There is no evidence of mass lesion or cerebral edema. There is no suggestion of intracranial hemorrhage on the gradient echo T2 sequence. There is no hydrocephalus, midline shift, or herniation. No epidural or subdural collections are present. On the FLAIR sequence a mild degree of increased signal is seen to affected germinal matrix adjacent to the lateral ventricles. Focal and confluent areas of increased T2 signal are noted within the subcortical and periventricular white matter, consistent with chronic ischemia. Diffusion weighted images are negative. The sella turcica is partially empty. The brain stem is unremarkable. Within the posterior fossa of the anatomy of the cerebellar pontine cistern is unremarkable as are the internal auditory canals and labyrinthine structures. Flow void is seen within the vessels of the [place]. The globes and orbital contents are grossly normal. There is mild mucosal thickening of the ethmoid air cells. There is partial opacification of the right mastoid air cells. Impression: Atrophy and chronic ischemic change. Mild paranasal sinusitis. Report Dictated on Electronically Signed By: Corbin Kessler Electronically Signed Date/Time: 02/10/2023 11:54 AM EDT Component Ref Range & Units 2 mo ago 10 mo ago 1 yr ago 2 yr ago 3 yr ago CHOLESTEROL, TOTAL <200 mg/dL 139 133 HDL CHOLESTEROL > OR = 40 mg/dL 40 35 Low 37 Low R 46 R 37 Low R TRIGLYCERIDES <150 mg/dL 176 High 189 High 167 Abnormal 182 Abnormal 136 LDL-CHOLESTEROL mg/dL (calc) 74 72 CM IMPRESSION and PLAN: Diagnosis Plan 1. Nabila-neglect of left side MR brain wo contrast 2. Dementia with behavioral disturbance (HCC) [facility] 3. Ataxia MR brain wo contrast This is a new finding since the prior exam and since the February 2023 MRI brain. It is medically necessary for him to have an MRI brainto see if he has had a new right parietal stroke. Referral to geriatric shelter to get him accesss to services in the home. MRI brain for the recent falls. Dereck Franco MD I spent 30 minutes caring for this patient today, reviewing labs, records, seeing the patient, documenting in the record and arranging for studies. @SIGNATURE@ documented in this encounter [facility] 01-11-2024 Telephone encounter Note Reviewed chart. Refill appropriate. RX sent. [facility] 01-11-2024 Miscellaneous Notes Reviewed chart. Refill appropriate. RX sent. Prescription Request: Last medication check: 04/29/23 Last physical exam: 10/29/23 Next scheduled appointment: 04/26/24 Last date of refill on this medication 07/07/23 documented in this encounter [facility] 01-11-2024 Telephone encounter Note Prescription Request: Last medication check: 04/29/23 Last physical exam: 10/29/23 Next scheduled appointment: 04/26/24 Last date of refill on this medication 07/07/23 [facility] 12-16-2023 Telephone encounter Note Prescription Request: Last medication check: 04/29/23 Last physical exam: 11/01/23 Next scheduled appointment: 04/26/24 Last date of refill on this medication: 05/24/23 [facility] 12-16-2023 Miscellaneous Notes Prescription Request: Last medication check: 04/29/23 Last physical exam: 11/01/23 Next scheduled appointment: 04/26/24 Last date of refill on this medication: 05/24/23 documented in this encounter [facility] 12-16-2023 Telephone encounter Note Prescription Request: Last medication check: 04/29/23 Last physical exam: 11/01/23 Next scheduled appointment: 04/26/24 Last date of refill on this medication: 06/22/23 [facility] 12-16-2023 Miscellaneous Notes Prescription Request: Last medication check: 04/29/23 Last physical exam: 11/01/23 Next scheduled appointment: 04/26/24 Last date of refill on this medication: 06/22/23 [address] this encounter [facility] 11-01-2023 Evaluation + Plan note Associated Problem(s): Hyperlipidemia LDL goal <70 Controlled, continue simvastatin [address] 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 11-01-2023 Evaluation + Plan note Associated Problem(s): Diabetes mellitus type 2 in obese (CMS/HCC) (HCC) (HCC) Controlled, continue glimepiride 1 mg daily and metformin 1000 [address] twice a day 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 11-01-2023 Evaluation + Plan note Associated Problem(s): Atherosclerosis of [place] coronary artery of [place] heart without angina pectoris Stable, has had no recent angina, follow-up with [facility] 11-01-2023 Evaluation + Plan note Associated Problem(s): Essential hypertension Controlled, continue atenolol 100 mg daily hydrochlorothiazide 25 mg daily and lisinopril [address] [facility] 11-01-2023 Evaluation + Plan note Associated Problem(s): 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) Stable on current dose of Namenda 10 mg twice a day [facility] 01-29-2024 History of Present illness Narrative Patient verified by last name and date of . 6 [facility] [address] [facility] [place] [address] Visit type: Established Patient Reason for Visit: Medicare Annual Wellness Visit Subsequent, Blood Work, and Health Maintenance (Rsv vaccine- not done/5th covid vaccine- not done) Assessment and Plan Problem List Items Addressed This Visit Nervous 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) Stable on current dose of Namenda 10 mg twice a day Circulatory Atherosclerosis of [place] coronary artery of [place] heart without angina pectoris Stable, has had no recent angina, follow-up with [facility] Essential hypertension Controlled, continue atenolol 100 mg daily hydrochlorothiazide 25 mg daily and lisinopril 40 mg a day Musculoskeletal 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 Subjective HPI Raina comes in today for his annual Medicare well visit, he is also here for follow-up on his diabetes and he brings in blood sugar numbers which most look pretty good occasionally he will get a high 1, he is here for follow-up on his Alzheimer's disease which seems to be fairly stable he is seeing neurology, hypertension and his blood pressure looks great today. He has coronary disease he has idiopathic gout and hyperlipidemia I have reviewed and reconciled the medication list with the patient today. Current Outpatient Medications Medication Sig Dispense Refill allopurinol (Zyloprim) 100 MG tablet Take 2 tablets (200 mg) by mouth daily. 180 tablet 1 aspirin 81 MG EC tablet Take 81 mg by mouth daily. atenolol (Tenormin) 100 MG tablet Take 1 tablet (100 mg) by mouth daily. 90 tablet 1 Flaxseed, Linseed, (Flax Seed Oil) 1000 MG capsule Take by mouth. Garlic 1000 MG capsule Take by mouth. glimepiride (Amaryl) 1 MG tablet Take 1 tablet (1 mg) by mouth every morning (before breakfast). 90 tablet 1 hydroCHLOROthiazide (HYDRODiuril) 25 MG tablet Take 1 tablet (25 mg) by mouth daily. 90 tablet 1 Lancets Test Bs daily 50 each 2 lisinopril 40 MG tablet Take 1 tablet (40 mg) by mouth daily. 90 tablet 1 magnesium gluconate (Magonate) 500 MG tablet Take 250 mg by mouth in the morning. memantine (Namenda) 10 MG tablet Take 1 tablet (10 mg) by mouth 2 times daily. He was told to take 1 tab nightly only for 7 days, then 1 tab po BID. 180 tablet 3 metFORMIN (Glucophage) 1000 MG tablet Take 1 tablet (1,000 mg) by mouth in the morning and 1 tablet (1,000 mg) in the evening. Take with meals. 180 tablet 1 Multiple Vitamins-Minerals (Oncovite) tablet Take by mouth. potassium chloride CR (Klor-Con) 10 MEQ ER tablet Take 10 mEq by mouth in the morning. simvastatin (Zocor) 40 MG tablet Take 1 tablet (40 mg) by mouth Nightly. 90 tablet 1 Glucose Blood (Blood Glucose Test) strip Test Bs daily 50 strip 2 No current facility-administered medications for this visit. Medications Discontinued During This Encounter Medication Reason Glucose Blood (Blood Glucose Test) strip Reorder List of current healthcare providers: Patient Care Team: Wilfred Puente MD as PCP - General The following health maintenance schedule was reviewed with the patient and provided in printed form in the after visit summary: Health Maintenance Topic Date Due Medicare Advantage Annual Wellness Visit (AWV) Never done RSV Immunization aged 60 or older (1 - 1-dose 60+ series) Never done COVID-19 Vaccine ( - 2022- season) 2023 Depression Screening 10/27/2023 DTaP/Tdap/Td Vaccines (1 - Tdap) 04/29/2024 (Originally 1964) Zoster Vaccines (1 of 2) 04/29/2024 (Originally 1993) Influenza Vaccine Completed Pneumococcal Vaccine: 65+ Years Completed RSV Immunization under 20 Months Aged Out HIB Vaccines Aged Out Hepatitis B Vaccines Aged Out IPV Vaccines Aged Out Hepatitis A Vaccines Aged Out Meningococcal Vaccine Aged Out Rotavirus Vaccines Aged Out HPV Vaccines Aged Out Orders Placed This Encounter Procedures Comprehensive metabolic panel Standing Status: Future Number of Occurrences: 1 Standing Expiration Date: 11/01/2024 Microalbumin / creatinine urine ratio Standing Status: Future Number of Occurrences: 1 Standing Expiration Date: 11/01/2024 Hemoglobin A1c Standing Status: Future Number of Occurrences: 1 Standing Expiration Date: 11/01/2024 Uric acid Standing Status: Future Number of Occurrences: 1 Standing Expiration Date: 11/01/2024 Health Risk Assessment: General In general, how would you say your health is?: Good In the past 7 days, have you experienced any of the following: New or Increased Pain, New or Increased Fatigue, Loneliness, Social Isolation, Stress or Anger?: No Do you get the social and emotional suppport you need?: Yes Interventions: Health Habits / Nutrition On average, how many days per week do you engage in moderate to strenous exercise (like a brisk walk)?: 3 days On average, how man minutes do you engage in exercise at this level?: 30 min Have you lost any weight without trying in the past 3 months? : No Have you seen the dentist within the past year?: (!) No Interventions: Dental exam overdue: Patient declines dental evaluation Hearing / Vision Do you or your family notice any trouble with your hearing that hasn't been managed with hearing aids?: (!) Yes Do you have difficulty driving, watching TV, or doing any of your daily activities because of your eyesight?: No Have you had an eye exam within the past year?: Yes No results found. Interventions: Safety Do you have a working smoke detector?: Yes Do you have any tripping hazards - loose or unsecured carpets or rugs?: No Do you have any tripping hazards - clutter in doorways, halls, or stairs?: No Do you have either shower bars, grab bars, non-slip mats or non-slip surfaces in your shower or bathtub? : Yes Do all your stairways have a railing or banister? : Yes Do you fasten your seatbelt when you are in a car?: Yes Interventions: ADL In the past 7 days, did you need help from others to perform any of the following everyday activities: Eating, dressing, grooming,bathing, toileting, or walking / balance? : No In the past 7 days, did you need help from others to take care of any of the following: laundry, housekeeping, banking / finances,shopping, telephone use, food preparation, transportation, or taking medications? : Yes Select all that apply: Taking Medications, Transportation, Food Preparation, Telephone Use, Shopping, Banking / Finances, Housekeeping, Laundry Interventions: Living Will Do you have a living will?: Yes Interventions: Cognitive: Cognitive Screening: Mini-Cog Clock Drawing Test (CDT): (!) 0 Words Recalled: 0 Total Score: 0 Total Score Interpretation: Abnormal Mini-Cog Interventions: This patient has Alzheimer's and he is being followed by neurology. Fall Risk: Interventions: No falls Depression Screening: Over the past 2 weeks, how often have you been bothered by any of the following problems? Little interest or pleasure in doing things: Not at all Feeling down, depressed, or hopeless: Not at all Patient Health Questionnaire-2 Score: 0 Interventions: Tobacco Use: Social History Tobacco Use Smoking Status Never Smokeless Tobacco Never Interventions: Alcohol Use: Audit Alcohol Screening Q2: How many drinks containing alcohol do you have on a typical day when you are drinking?: Patient does not drink Interventions: Drug Use: Drug Abuse Screening Test (DAST-10) Have you used drugs other than those required for medical reasons?: No Interventions: Review of Systems Constitutional: Negative for activity change, appetite change, chills, fever and unexpected weight change. HENT: Negative for ear pain and sore throat. Respiratory: Negative for shortness of breath. Cardiovascular: Negative for chest pain and palpitations. Gastrointestinal: Negative for abdominal pain, blood in stool, constipation and diarrhea. Genitourinary: Negative for dysuria, frequency, hematuria and urgency. Musculoskeletal: Negative for arthralgias and back pain. Skin: Negative. Neurological: Negative for weakness and numbness. Psychiatric/Behavioral: Negative for dysphoric mood. The patient is not nervous/anxious. Immunization History Administered Date(s) Administered Covid-19, Pfizer Bivalent Booster, (Age 12y+), Im, 30 Mcg/0e 08/03/2022 Influenza Whole 07/10/2015 Influenza, High Dose Seasonal, Preservative Free 09/02/2017, 07/18/2018, 08/04/2021 Influenza, High-dose Seasonal, Quadrivalent, Preservative Free 08/04/2021, 07/15/2022 Influenza, Unspecified 07/10/2015, 09/12/2016, 09/02/2017, 07/15/2020 Influenza, recombinant, quadrivalent, injectable, preservative free 07/19/2019, 07/15/2020 Influenza, seasonal, injectable 06/20/2014 Influenza, seasonal, injectable, preservative free 07/14/2023 Moderna SARS-CoV-2 Vaccination 12/02/2020, 12/30/2020 Pfizer SARS-CoV-2 Vaccination 09/12/2021 Pneumococcal Conjugate PCV 13 04/12/2019 Pneumococcal Polysaccharide PPSV23 04/16/2020 No Known Allergies Outpatient Medications Prior to Visit Medication Sig Dispense Refill allopurinol (Zyloprim) 100 MG tablet Take 2 tablets (200 mg) by mouth daily. 180 tablet 1 aspirin 81 MG EC tablet Take 81 mg by mouth daily. atenolol (Tenormin) 100 MG tablet Take 1 tablet (100 mg) by mouth daily. 90 tablet 1 Flaxseed, Linseed, (Flax Seed Oil) 1000 MG capsule Take by mouth. Garlic 1000 MG capsule Take by mouth. glimepiride (Amaryl) 1 MG tablet Take 1 tablet (1 mg) by mouth every morning (before breakfast). 90 tablet 1 hydroCHLOROthiazide (HYDRODiuril) 25 MG tablet Take 1 tablet (25 mg) by mouth daily. 90 tablet 1 Lancets Test Bs daily 50 each 2 lisinopril 40 MG tablet Take 1 tablet (40 mg) by mouth daily. 90 tablet 1 magnesium gluconate (Magonate) 500 MG tablet Take 250 mg by mouth in the morning. memantine (Namenda) 10 MG tablet Take 1 tablet (10 mg) by mouth 2 times daily. He was told to take 1 tab nightly only for 7 days, then 1 tab po BID. 180 tablet 3 metFORMIN (Glucophage) 1000 MG tablet Take 1 tablet (1,000 mg) by mouth in the morning and 1 tablet (1,000 mg) in the evening. Take with meals. 180 tablet 1 Multiple Vitamins-Minerals (Oncovite) tablet Take by mouth. potassium chloride CR (Klor-Con) 10 MEQ ER tablet Take 10 mEq by mouth in the morning. simvastatin (Zocor) 40 MG tablet Take 1 tablet (40 mg) by mouth Nightly. 90 tablet 1 Glucose Blood (Blood Glucose Test) strip Test Bs daily 50 strip 2 No facility-administered medications prior to visit. Past Medical History: Diagnosis Date CAD (coronary artery disease) Contact dermatitis and other eczema, due to unspecified cause Hyperlipidemia Hypertension Hypertrophy of prostate without urinary obstruction and other lower urinary tract symptoms (LUTS) Nonspecific abnormal finding in stool contents Type II or unspecified type diabetes mellitus without mention of complication, not stated as uncontrolled (HCC) Social History Socioeconomic History Marital status: Tobacco Use Smoking status: Never Smokeless tobacco: Never Vaping Use Vaping Use: Never used Substance and Sexual Activity Alcohol use: No Alcohol/week: 0.0 standard drinks of alcohol Drug use: No Sexual activity: Not Currently Social Determinants of Health Financial Resource Strain: Low Risk (04/29/2023) Overall Financial Resource Strain (CARDIA) Difficulty of Paying Living Expenses: Not hard at all Food Insecurity: No Food Insecurity (04/29/2023) Hunger Vital Sign Worried About Running Out of Food in the Last Year: Never true Ran Out of Food in the Last Year: Never true Transportation Needs: No Transportation Needs (04/29/2023) PRAPARE - Transportation Lack of Transportation (Medical): No Lack of Transportation (Non-Medical): No Physical Activity: Insufficiently Active (04/29/2023) Exercise Vital Sign Days of Exercise per Week: 2 days Minutes of Exercise per Session: 30 min Housing Stability: Low Risk (04/29/2023) Housing Stability Vital Sign Unable to Pay for Housing in the Last Year: No Number of Places Lived in the Last Year: 1 Unstable Housing in the Last Year: No Past Surgical History: Procedure Laterality Date CARDIAC CATHETERIZATION 12/18/2019 CATARACT EXTRACTION Bilateral CORONARY ARTERY BYPASS GRAFT Past Surgical History: Procedure Laterality Date CARDIAC CATHETERIZATION 12/18/2019 CATARACT EXTRACTION Bilateral CORONARY ARTERY BYPASS GRAFT Family History Problem Relation Name Age of Onset High Blood Pressure Mother Diabetes Mother Dementia Father Heart disease Father Objective BP 115/65 Pulse 70 Ht 5' 7 (1.702 m) Wt 197 lb 12.8 oz (89.7 kg) SpO2 90% BMI 30.98 kg/m Physical Exam Vitals and nursing note reviewed. Constitutional: General: He is not in acute distress. Appearance: Normal appearance. HENT: Right Ear: Tympanic membrane, ear canal and external ear normal. Left Ear: Tympanic membrane, ear canal and external ear normal. Mouth/Throat: Mouth: Mucous membranes are moist. Pharynx: Oropharynx is clear. Eyes: Extraocular Movements: Extraocular movements intact. Conjunctiva/sclera: Conjunctivae normal. Pupils: Pupils are equal, round, and reactive to light. Neck: Thyroid: No thyromegaly. Vascular: No carotid bruit. Cardiovascular: Rate and Rhythm: Normal rate and regular rhythm. Heart sounds: Normal heart sounds. No murmur heard. Pulmonary: Effort: Pulmonary effort is normal. Breath sounds: Normal breath sounds. Abdominal: General: Bowel sounds are normal. Palpations: Abdomen is soft. Tenderness: There is no abdominal tenderness. Musculoskeletal: General: Normal range of motion. Cervical back: Neck supple. Lymphadenopathy: Cervical: No cervical adenopathy. Skin: General: Skin is warm and dry. Neurological: General: No focal deficit present. Mental Status: He is alert and oriented to person, place, and time. Psychiatric: Mood and Affect: Mood normal. Data Reviewed Labs: Imaging/Testing: Wilfred Puente MD 11/01/2023 3:27 PM Patient was verified by name and . Venipuncture completed on left hand. documented in this encounter [facility] 08-27-2023 Telephone encounter Note Rx sent. Follow up as scheduled. [facility] 08-27-2023 Miscellaneous Notes Rx sent. Follow up as scheduled. Prescription Request: Last medication check: 04/29/23 Last physical exam: 10/28/2022 Next scheduled appointment: 11/01/2023 Last date of refill on this medication: 02/24/23 documented in this encounter [facility] 08-27-2023 Telephone encounter Note Prescription Request: Last medication check: 04/29/23 Last physical exam: 10/28/2022 Next scheduled appointment: 11/01/2023 Last date of refill on this medication: 02/24/23 [facility] 07-07-2023 Telephone encounter Note Rx sent. Follow up as scheduled. [facility] 07-07-2023 Miscellaneous Notes Rx sent. Follow up as scheduled. Prescription Request: Last medication check: 04/29/23 Last physical exam: 10/28/2022 Next scheduled appointment: 11/01/2023 Last date of refill on this medication: 01/11/23 documented in this encounter [facility] 07-07-2023 Telephone encounter Note Prescription Request: Last medication check: 04/29/23 Last physical exam: 10/28/2022 Next scheduled appointment: 11/01/2023 Last date of refill on this medication: 01/11/23 [facility] 06-22-2023 Telephone encounter Note Prescription Request: Last medication check: 04/29/23 Last physical exam: 10/28/2022 Next scheduled appointment: 11/01/2023 Last date of refill on this medication: 3/14/23 [facility] 06-22-2023 Miscellaneous Notes Prescription Request: Last medication check: 04/29/23 Last physical exam: 10/28/2022 Next scheduled appointment: 11/01/2023 Last date of refill on this medication: 12/15/22 documented in this encounter [facility] 06-16-2023 History of Present illness Narrative Images from the original note were not included. [facility] [address] [place] [address] [facility] [address] Dept: [phone] Dept Loc: [phone] Visit type: Established Patient Reason for Visit: Follow-up and Memory Loss Assessment and Plan 1. Dementia without behavioral disturbance (HCC) 2. Retinal artery branch occlusion of right eye 3. Hypertriglyceridemia 4. Unsteadiness on feet Subjective HPI: He is eating better since coming off the donepezil. Stage Mild: 1 No difficulty, either subjectively or objectively. 2 Complains of forgetting location of objects. Subjective work difficulties. 3 Decreased job functioning evident to co-workers. Difficulty in traveling to new locations. Decreased organizational capacity. 4 Decreased ability to perform complex tasks, e.g. planning dinner for guests, handling personal finances (such as forgetting to pay bills), difficulty marketing, etc.* His family is making sure he gets his meds and bills get paid. He is having dizziness and instability of gait/stance. He has hot fallen. He had an evaluation in the [facility] where they found that he had an occlusion. He has had issues of constipation and diarrhea. REVIEW OF SYSTEMS: Review of Systems Constitutional: Negative for appetite change, chills, diaphoresis, fever and unexpected weight change. HENT: Negative for dental problem and mouth sores. Eyes: Negative for discharge and itching. Respiratory: Negative for chest tightness. Cardiovascular: Negative for chest pain and leg swelling. Gastrointestinal: Negative for rectal pain and vomiting. Endocrine: Negative for polydipsia, polyphagia and polyuria. Genitourinary: Negative for decreased urine volume, flank pain and genital sores. Musculoskeletal: Negative for arthralgias. Skin: Negative for color change. Allergic/Immunologic: Negative for food allergies and immunocompromised state. Neurological: Positive for dizziness and numbness. Memory loss Hematological: Negative for adenopathy. Does not bruise/bleed easily. Psychiatric/Behavioral: Negative for agitation, behavioral problems, decreased concentration, sleep disturbance and suicidal ideas. No Known Allergies Current Outpatient Medications: allopurinol (Zyloprim) 100 MG tablet, Take 2 tablets (200 mg) by mouth daily., Disp: 180 tablet, Rfl: 1 aspirin 81 MG EC tablet, Take 81 mg by mouth daily., Disp: , Rfl: atenolol (Tenormin) 100 MG tablet, Take 1 tablet (100 mg) by mouth daily., Disp: 90 tablet, Rfl: 1 Flaxseed, Linseed, (Flax Seed Oil) 1000 MG capsule, Take by mouth., Disp: , Rfl: Garlic 1000 MG capsule, Take by mouth., Disp: , Rfl: glimepiride (Amaryl) 1 MG tablet, Take 1 tablet (1 mg) by mouth every morning (before breakfast)., Disp: 90 tablet, Rfl: 1 Glucose Blood (Blood Glucose Test) strip, Test Bs daily, Disp: 50 strip, Rfl: 2 hydroCHLOROthiazide (HYDRODiuril) 25 MG tablet, Take 1 tablet (25 mg) by mouth daily., Disp: 90 tablet, Rfl: 1 Lancets, Test Bs daily, Disp: 50 each, Rfl: 2 lisinopril 40 MG tablet, Take 1 tablet (40 mg) by mouth daily., Disp: 90 tablet, Rfl: 1 magnesium gluconate (Magonate) 500 MG tablet, Take 250 mg by mouth in the morning., Disp: , Rfl: memantine (Namenda) 10 MG tablet, Take 1 tablet (10 mg) by mouth 2 times daily. He was told to take 1 tab nightly only for 7 days, then 1 tab po BID., Disp: 180 tablet, Rfl: 3 metFORMIN (Glucophage) 1000 MG tablet, Take 1 tablet (1,000 mg) by mouth in the morning and 1 tablet (1,000 mg) in the evening. Take with meals., Disp: 180 tablet, Rfl: 1 Multiple Vitamins-Minerals (Oncovite) tablet, Take by mouth., Disp: , Rfl: potassium chloride CR (Klor-Con) 10 MEQ ER tablet, Take 10 mEq by mouth in the morning., Disp: , Rfl: simvastatin (Zocor) 40 MG tablet, Take 1 tablet (40 mg) by mouth Nightly., Disp: 90 tablet, Rfl: 1 Past Medical History: Diagnosis Date CAD (coronary artery disease) Contact dermatitis and other eczema, due to unspecified cause Hyperlipidemia Hypertension Hypertrophy of prostate without urinary obstruction and other lower urinary tract symptoms (LUTS) Nonspecific abnormal finding in stool contents Type II or unspecified type diabetes mellitus without mention of complication, not stated as uncontrolled (HCC) Social History Tobacco Use Smoking status: Never Smokeless tobacco: Never Substance Use Topics Alcohol use: No Alcohol/week: 0.0 standard drinks of alcohol Past Surgical History: Procedure Laterality Date CARDIAC CATHETERIZATION 12/18/2019 CATARACT EXTRACTION Bilateral CORONARY ARTERY BYPASS GRAFT Family History Problem Relation Name Age of Onset High Blood Pressure Mother Diabetes Mother Dementia Father Heart disease Father Objective Vitals: BP 134/75 (BP Location: Left arm) Pulse 65 Wt 196 lb (88.9 kg) BMI 30.70 kg/m General Appearance: Patient is in no apparent distress. Head is normocephalic, atraumatic Cardiovascular: Regular rate and rhythm. No heart murmurs. No carotid bruit. My ophthalmic exam was normal, but it was limited. Neurologic: Mentation: Alert and oriented to person and somewhat to place; had trouble with time. Speech and Language: Speech and language normal Concentration and Attention: Concentration normal Memory: Memory 3/3 immed, 0/3 short (got two with clues) Fund of Knowledge: Fund of knowledge normal Cranial Nerves: II, III, IV, V, , VII, VIII, IX, X, XI, XII examined and were intact. Motor: Strength: Strength 5 out of 5 with normal tone Alternating Movements: Normal Cogwheel Rigidity: None Tone: Tone is normal Tremor / Involuntary Movements: None Deep Tendon Reflexes: 1 out of 4 symmetrical in all four limbs. Coordination: Normal coordination upper and lower extremities Gait and Station: Station is normal. Gait is abnormal. He is unsteady on turns Data Reviewed and Summarized DIAGNOSTIC TESTING Component Ref Range & Units 5 mo ago (10/28/22) 11 mo ago (04/22/22) 1 yr ago (10/22/21) 1 yr ago (04/16/21) 2 yr ago (10/17/20) 2 yr ago (04/16/20) 3 yr ago (10/16/19) HEMOGLOBIN A1C - [facility] <5.7 % of total Hgb 7.0 High 6.8 Abnormal R, CM 6.9 Abnormal A report of nerve conduction studies and electromyography of both lower extremities Date of service: February 01, 2023 Findings: Sensory nerve conduction studies disclosed absent responses in the superficial peroneal nerves bilaterally, but normal response latencies and amplitudes in the sural nerves bilaterally. Motor nerve conduction studies disclosed normal distal latencies, response amplitudes and conduction velocities in the peroneal/fibular and tibial nerves bilaterally. Tibial nerve H-reflex latencies were mildly prolonged bilaterally. Needle EMG examination disclosed normal spontaneous activity in the vastus medialis and lateralis, tibialis anterior, lateral gastrocnemius, extensor digitorum brevis and abductor hallucis bilaterally, as well as the left extensor hallucis longus. Motor unit potential recruitment was markedly decreased in the left extensor digitorum brevis and moderately decreased in the right extensor digitorum brevis and abductor hallucis bilaterally; in each of these muscles there were enlarged polyphasic motor unit potentials. Motor unit potential recruitment was slightly decreased in the vastus lateralis bilaterally, the right tibialis anterior and the left extensor hallucis longus; in each of these muscles there were occasional enlarged motor unit potentials. There were occasional enlarged motor unit potentials in the left lateral gastrocnemius without impairment of recruitment. Motor unit potential recruitment and morphology were normal in the vastus medialis bilaterally, the right lateral gastrocnemius, and the left tibialis anterior. 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 There was a marked discrepancy between the severity of the abnormalities on the needle EMG examination and the intact nerve conduction studies, apart from the absent superficial peroneal sensory nerve responses. These nerve conduction studies record the fastest responses from large myelinated nerve fibers, and may not detect (or may underestimate the severity of) neuropathies that preferentially affect small and unmyelinated fibers. It is possible that the patient's symptoms may be related to a small-fiber neuropathy that would be greatly underestimated by this testing. However, all motor nerve fibers are large and myelinated. Thus the widespread abnormalities seen on electromyography indicate considerable involvement of large myelinated motor fibers along with small unmyelinated sensory fibers. 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 A less attractive diagnostic option can be arrived at by disregarding the absence of superficial peroneal sensory responses and declaring the nerve conduction studies normal. In this case, the EMG findings would be explained by multiple chronic motor radiculopathies involving L4-S1 bilaterally rather than a polyneuropathy. This option discounts the largely symmetric and prominent [id number] gradient of the EMG abnormalities and the predominance of impaired sensation in the patient's complaints, although the latter could be attributed to simultaneous sensory radiculopathies that are not detected by this testing due to anatomic considerations. Clinical correlation is advised. Eitan Christensen MD CBC: Lab Results Component Value Date WBC 9.1 10/22/2021 RBC 4.21 (L) 10/22/2021 HGB 13.4 10/22/2021 MCV 94.6 10/22/2021 MCH 31.9 10/22/2021 MCHC 33.7 10/22/2021 RDW 14.2 10/22/2021 MPV 10.6 (H) 10/22/2021 CMP: Lab Results Component Value Date NA 139 04/22/2022 K 4.2 04/22/2022 CL 103 04/22/2022 CO2 29 04/29/2023 BUN 28 (H) 04/29/2023 CREATININE 1.18 04/29/2023 GLUCOSE 94 04/29/2023 PROT 6.9 10/28/2022 CALCIUM 9.5 04/29/2023 BILITOT 0.5 10/28/2022 ALKPHOS 93 10/28/2022 AST 13 10/28/2022 ALT 13 10/28/2022 BMP: Lab Results Component Value Date NA 139 04/22/2022 K 4.2 04/22/2022 CL 103 04/22/2022 CO2 29 04/29/2023 BUN 28 (H) 04/29/2023 CREATININE 1.18 04/29/2023 CALCIUM 9.5 04/29/2023 GLUCOSE 94 04/29/2023 HEMOGLOBIN A1C - [facility] <5.7 % of total Hgb 6.6 High 7.0 High CM Component Ref Range & Units 7 mo ago 1 yr ago 2 yr ago 3 yr ago CHOLESTEROL, TOTAL <200 mg/dL 133 HDL CHOLESTEROL > OR = 40 mg/dL 35 Low 37 Low R 46 R 37 Low R TRIGLYCERIDES <150 mg/dL 189 High 167 Abnormal 182 Abnormal 136 LDL-CHOLESTEROL mg/dL (calc) 72 PT/INR: No results found for: PROTIME, INR PTT: No results found for: APTT, PTT[APTT} FLP: Lab Results Component Value Date TRIG 167 (A) 10/22/2021 HDL 37 (L) 10/22/2021 TSH: Lab Results Component Value Date TSH 3.00 01/19/2023 VITAMIN B12: VITAMIN B12 Date Value Ref Range Status 01/19/2023 835 200 - 1,100 pg/mL Final No results found for: PHENYTOIN, PHENOBARB, VALPROATE, CBMZ No components found for: TOPIRA @RESULTINGLABINFO@ C REACTIVE PROTEIN Date Value Ref Range Status 10/16/2019 <5.0 0.0 - 6.0 mg/L Final Comment: . No results found for: FABIEN, IMMUNOGLOBUL, OLIGOBANDS No results found for: WPW98KA, HEPCAB C REACTIVE PROTEIN Date Value Ref Range Status 10/16/2019 <5.0 0.0 - 6.0 mg/L Final Comment: . VERA Titer Date Value Ref Range Status 10/16/2019 1:160 (A) <1:40 [titer] Final FERRITIN: No results found for: FERRITIN ---- MR brain wo contrast Narrative: Patient Name: RAINA VALDEZ : 1945 Exam Date/Time: 02/09/2023 12:02 Procedure: MR BRAIN WO CONTRAST Ordering Provider: FRANCO JAMES Reason For Exam: Dizziness, persistent/recurrent, cardiac or vascular cause suspected MRI BRAIN WITHOUT CONTRAST: INDICATION: Dizziness. COMPARISON: None MR imaging of the brain was performed with sagittal T1 weighted, axial T2 weighted and FLAIR scans, and axial diffusion scans. The ventricles and sulci are enlarged, consistent with atrophy. There is no evidence of mass lesion or cerebral edema. There is no suggestion of intracranial hemorrhage on the gradient echo T2 sequence. There is no hydrocephalus, midline shift, or herniation. No epidural or subdural collections are present. On the FLAIR sequence a mild degree of increased signal is seen to affected germinal matrix adjacent to the lateral ventricles. Focal and confluent areas of increased T2 signal are noted within the subcortical and periventricular white matter, consistent with chronic ischemia. Diffusion weighted images are negative. The sella turcica is partially empty. The brain stem is unremarkable. Within the posterior fossa of the anatomy of the cerebellar pontine cistern is unremarkable as are the internal auditory canals and labyrinthine structures. Flow void is seen within the vessels of the [place]. The globes and orbital contents are grossly normal. There is mild mucosal thickening of the ethmoid air cells. There is partial opacification of the right mastoid air cells. Impression: Atrophy and chronic ischemic change. Mild paranasal sinusitis. Report Dictated on Electronically Signed By: Corbin Kessler Electronically Signed Date/Time: 02/10/2023 11:54 AM EDT IMPRESSION and PLAN: Diagnosis Plan 1. Dementia without behavioral disturbance (HCC) 2. Retinal artery branch occlusion of right eye 3. Hypertriglyceridemia 4. Unsteadiness on feet Stable Continue the memantine. He is to get a lipid panel for the hypertriglyceridemia. I was thinking of starting Vascepa, but he is having constipation so I held off. Watching this unsteadiness. He was advised to use a cane more often. DERECK FRANCO MD I spent 30 minutes caring for this patient today, reviewing labs, records, seeing the patient, documenting in the record and arranging for studies. @SIGNATURE@ documented in this encounter [facility] 05-24-2023 Telephone encounter Note Reviewed chart. Refill appropriate. RX sent. [facility] 05-24-2023 Miscellaneous Notes Reviewed chart. Refill appropriate. RX sent. Prescription Request: Last medication check: 04/29/23 Last physical exam: 10/28/2022 Next scheduled appointment: 11/01/2023 Last date of refill on this medication: 09/02/2022 documented in this encounter [facility] 05-24-2023 Telephone encounter Note Prescription Request: Last medication check: 04/29/23 Last physical exam: 10/28/2022 Next scheduled appointment: 11/01/2023 Last date of refill on this medication: 09/02/2022 [facility] 05-10-2023 Discharge summary Note Date/Time May 10, 2023 12:23pm [facility] Physical [facility] [facility] [place] [address] / REHABILITATION SERVICES DISCHARGE SUMMARY MR#: [id number] Acct: [id number] Name: RAINA VALDEZ Jr. Rep #: [id number] : 1945 77 From: Zaida Pérez Referring Dr.: Dr. Dereck Franco MD Status: REG R Insurance: [employer] SELF PAY INSURANCE Discharge Summary D/C summary: It has been my pleasure to treat RAINA VALDEZ referred by Dr. Dereck Franco MD, with the diagnosis of Axonal Sensorimotor Neuropathy for a total of 8visit(s). Discharge Date: Please see the following information for a summary of their discharge status. Subjective Subjective: Patient attends with - she feels that his dizziness is still there but he is a little more stable. They saw Dr. Puente who also told them that it the balance issue was probably because of his dementia. Overall Improvement % Improvement: 50 Objective Objective/Function: Pt has good strength via objective from evaluation- with training from [employer] patient was completing exercises of eyes closed and open on and off foam with sba for safety- and walking with head turns. is indep with HEP Goals Goal 1:: FGA to reduce fallr isk Goal Progress: Goal Met Goal 2:: Pt use cane regularly willingly in community Goal Progress: Goal Met Goal 3:: I appropriate HEP balance and strength to minimize future problems Goal Progress: Goal Met Goal 4:: Abolish falls due to dizzyness x 2 weeks Goal Progress: Progressing Plan Plan: Patient will continue his current HEP of 5 exercises with his - she also plans to do some research into using their [employer] and get him into pool exercises. D/C Information d/c sentence: If there are questions or concerns regarding this patient's physical therapy, please feel free to call me at [phone]. Thank you for the referral of thispatient. Sincerely, Zaida Jiménez, DPT Balance/Gait/Functional tests Balance/Special Test Scores Functional Gait Assessment Score: 21 % Disability: 30.0000 CATSIB Score (Max score 120 seconds): 112 Lower Extremity Functional Score: 57 <Electronically signed by Zaida Jiménez DPT> 05/10/23 1223 CC: Dr. Wilfred Puente MD; Dr. Dereck Franco MD ~ ELR Signed [facility] Work Phone: [phone]) 135-459407-27-2023 Evaluation + Plan note* Assessment & Plan Note - Wilfred Puente MD - 04/29/2023 4:22 PM EDTAssociated Problem(s): Hyperlipidemia LDL goal <70 Controlled, continue simvastatin [address] [id number] Miscellaneous Notes* Assessment & Plan Note - Wilfred Puente MD - 04/29/2023 4:22 PM EDTAssociated Problem(s): Hyperlipidemia LDL goal <70 Controlled, continue simvastatin 40 mg daily * Assessment & Plan Note - Wilfred Puente MD - 04/29/2023 4:20 PM EDT Associated Problem(s): Diabetes mellitus type 2 in obese (CMS/HCC) (HCC) Controlled, he brings in blood sugar numbers which are being tested about every other day and theselook good. We will get repeat lab work continue metformin 1000 mg twice a day milligrams daily and glimepiride 1 mg daily * Assessment & Plan Note - Wilfred Puente MD - 04/29/2023 4:19 PM EDT Associated Problem(s): Essential hypertension Controlled, continue atenolol hydrochlorothiazide 25 mg daily and lisinopril 40 daily * Assessment & Plan Note - Wilfred uPente MD - 04/29/2023 4:19 PM EDT Associated Problem(s): Atherosclerosis of [place] coronary artery of [place] heart without angina pectoris Talita, has had no recent angina follows with cardiology * Assessment & Plan Note - Wilfred Puente MD - 04/29/2023 4:19 PM EDT Associated Problem(s): 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 behavioral disturbance, psychotic disturbance, mood disturbance, or anxiety (HCC) Stable, on Namenda per neurologist. * Assessment & Plan Note - Wilfred Puente MD - 04/29/2023 4:18 PM EDT Associated Problem(s): 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) Currently talita was switched by his neurologist to Namenda documented in [facility]07-27-2023 Evaluation + Plan note* Assessment & Plan Note - Wilfred Puente MD - 04/29/2023 4:20 PM EDT Associated Problem(s): Diabetes mellitus type 2 in obese (CMS/HCC) (HCC) Controlled, he brings in blood sugar numbers which are being tested about every other day and theselook good. We will get repeat lab work continue metformin 1000 mg twice a day milligrams daily and glimepiride 1 mg daily [place] [id number] Evaluation + Plan note* Assessment & Plan Note - Wilfred Puente MD - 04/29/2023 4:19 PM EDTAssociated Problem(s): Essential hypertension Controlled, continue atenolol hydrochlorothiazide 25 mg daily and lisinopril 40 daily [place] [id number] Evaluation + Plan note* Assessment & Plan Note - Wilfred Puente MD - 04/29/2023 4:19 PM EDTAssociated Problem(s): Atherosclerosis of [place] coronary artery of [place] heart without angina pect richard Stable, has had no recent angina follows with cardiology [place] [id number] Evaluation + Plan note* Assessment & Plan Note - Wilfred Puente MD - 04/29/2023 4:19 PM EDTAssociated Problem(s): 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 behavioral disturbance, psychotic disturbance, mood disturbance, or anxiety ([facility]) Stable, on Namenda per neurologist. [place] [id number] Evaluation + Plan note* Assessment & Plan Note - Wilfred Puente MD - 04/29/2023 4:18 PM EDTAssociated Problem(s): 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) Currently stable was switched by his neurologist to Namenda [facility] [id number] History of Present illness Narrative* Bernarda Morel MA - 04/29/2023 2:30 PM EDT Patient verified by last name and date of . * Wilfred Puente MD - 04/29/2023 2:30 PM EDT Images from the original note were not included. 04/29/2023 Raina Valdez (: 1945) is a 77 y.o. male , Established patient, here for evaluation of the following chief complaint(s): Hyperlipidemia, Hypertension, Diabetes, Medication Check, Blood Work, and Health Maintenance (Hep cscreening- refuse/Tdap vaccine- refuse/Shingles vaccine- refuse) ASSESSMENT/PLAN: 1. Diabetes mellitus type 2 in obese (CMS/HCC) (HCC) Assessment & Plan: Controlled, he brings in blood sugar numbers which are being tested about every other day and theselook good. We will get repeat lab work continue metformin 1000 mg twice a day milligrams daily and glimepiride 1 mg daily Orders: - Hemoglobin A1c - Basic metabolic panel - Glucose Blood (Blood Glucose Test) strip; Test Bs daily, Normal - Lancets; Test Bs daily, Normal 2. Atherosclerosis of [place] coronary artery of [place] heart without angina pectoris Assessment & Plan: Stable, has had no recent angina follows with cardiology 3. Essential hypertension Assessment & Plan: Controlled, continue atenolol hydrochlorothiazide 25 mg daily and lisinopril 40 daily 4. Hyperlipidemia LDL goal <70 Assessment & Plan: Controlled, continue simvastatin 40 mg daily 5. 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) Assessment & Plan: Currently talita was switched by his neurologist to Namenda 6. 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 behavioral disturbance, psychotic disturbance, mood disturbance, or anxiety ([facility]) Assessment & Plan: Stable, on Namenda per neurologist. Follow up in about 6 months (around 10/30/2023). SUBJECTIVE/OBJECTIVE: UNRULY Whitney comes in today for 6-month follow-up on his diabetes, coronary disease, hypertension hyperlipidemia and he has been seeing a neurologist and now has a diagnosis of Alzheimer's and vascular dementia. He currently has no complaints, see ROS. Review of Systems Constitutional: Negative for activity change, appetite change, chills, fever and unexpected weight change. HENT: Negative for ear pain and sore throat. Respiratory: Negative for shortness of breath. Cardiovascular: Negative for chest pain and palpitations. Gastrointestinal: Negative for abdominal pain, blood in stool, constipation and diarrhea. Genitourinary: Negative for dysuria, frequency, hematuria and urgency. Musculoskeletal: Negative for arthralgias and back pain. Skin: Negative. Neurological: Negative for weakness and numbness. Psychiatric/Behavioral: Negative for dysphoric mood. The patient is not nervous/anxious. Vitals: 04/29/23 1421 BP: 112/67 Pulse: 73 SpO2: 92% Weight: 192 lb 6.4 oz (87.3 kg) Height: 5' 7 (1.702 m) Physical Exam Vitals and nursing note reviewed. Constitutional: General: He is not in acute distress. Appearance: Normal appearance. He is obese. HENT: Right Ear: Tympanic membrane, ear canal and external ear normal. Left Ear: Tympanic membrane, ear canal and external ear normal. Mouth/Throat: Mouth: Mucous membranes are moist. Pharynx: Oropharynx is clear. Eyes: Extraocular Movements: Extraocular movements intact. Pupils: Pupils are equal, round, and reactive to light. Neck: Vascular: No carotid bruit. Cardiovascular: Rate and Rhythm: Normal rate and regular rhythm. Heart sounds: Normal heart sounds. No murmur heard. Pulmonary: Effort: Pulmonary effort is normal. Breath sounds: Normal breath sounds. Abdominal: General: Bowel sounds are normal. Palpations: Abdomen is soft. Tenderness: There is no abdominal tenderness. Musculoskeletal: General: Normal range of motion. Cervical back: Neck supple. Lymphadenopathy: Cervical: No cervical adenopathy. Skin: General: Skin is warm and dry. Neurological: General: No focal deficit present. Mental Status: He is alert and oriented to person, place, and time. Psychiatric: Mood and Affect: Mood normal. An electronic signature was used to authenticate this note. Wilfred Puente MD 04/29/2023 4:23 PM documented in this [facility]07-10-2023 Telephone encounter Note* Telephone Encounter - MADELIN Lynn CNP - 04/12/2023 10:09 AM EDT Rx sent. Follow up as scheduled. [id number] Miscellaneous Notes* Telephone Encounter - MADELIN Lynn CNP - 04/12/2023 10:09 AM EDT Rx sent. Follow up as scheduled. * Telephone Encounter - Bernarda Morel MA - 04/12/2023 7:47 AM EDT Prescription Request: Last medication check: 04/22/22 Last physical exam: 10/28/22 Next scheduled appointment: 04/29/23 Last date of refill on this medication 10/02/22 90 day 1 refill documented in this [facility]07-10-2023 Telephone encounter Note* Telephone Encounter - Bernarda Morel MA - 04/12/2023 7:47 AM EDT Prescription Request: Last medication check: 04/22/22 Last physical exam: 10/28/22 Next scheduled appointment: 04/29/23 Last date of refill on this medication 10/02/[address] [id number] History of Present illness Narrative* Dereck Franco MD - 04/07/2023 10:00 AM EDT Images from the original note were not included. [facility] [address] [place] [address] [facility] [address] Dept: [phone] Dept Loc: [phone] Visit type: Established Patient Reason for Visit: Follow-up (After mri ) Assessment and Plan 1. Axonal sensorimotor neuropathy 2. Dementia without behavioral disturbance (HCC) Subjective HPI: He is not eating as well since starting the donepezil. Stage Mild: 1 No difficulty, either subjectively or objectively. 2 Complains of forgetting location of objects. Subjective work difficulties. 3 Decreased job functioning evident to co-workers. Difficulty in traveling to new locations. Decreased organizational capacity. 4 Decreased ability to perform complex tasks, e.g. planning dinner for guests, handling personal finances (such as forgetting to pay bills), difficulty marketing, etc.* His family is making sure he gets his meds and bills get paid. He is having dizziness and instability of gait/stance. He had one fall without injury. REVIEW OF SYSTEMS: Review of Systems Constitutional: Negative for appetite change, chills, diaphoresis, fever and unexpected weight change. HENT: Negative for dental problem and mouth sores. Eyes: Negative for discharge and itching. Respiratory: Negative for chest tightness. Cardiovascular: Negative for chest pain and leg swelling. Gastrointestinal: Negative for rectal pain and vomiting. Endocrine: Negative for polydipsia, polyphagia and polyuria. Genitourinary: Negative for decreased urine volume, flank pain and genital sores. Musculoskeletal: Negative for arthralgias. Skin: Negative for color change. Allergic/Immunologic: Negative for food allergies and immunocompromised state. Neurological: Positive for dizziness and numbness. Memory loss Hematological: Negative for adenopathy. Does not bruise/bleed easily. Psychiatric/Behavioral: Negative for agitation, behavioral problems, decreased concentration, sleepdisturbance and suicidal ideas. No Known Allergies Current Outpatient Medications: allopurinol (Zyloprim) 100 MG tablet, Take 2 tablets (200 mg) by mouth daily., Disp: 180 tablet, Rfl: 1 aspirin 81 MG EC tablet, Take 81 mg by mouth daily., Disp: , Rfl: atenolol (Tenormin) 100 MG tablet, Take 1 tablet (100 mg) by mouth daily., Disp: 90 tablet, Rfl: 1 choline fenofibrate (Trilipix) [address] capsule, Take 135 mg by mouth in the morning., Disp: , Rfl: clopidogrel (Plavix) 75 MG tablet, Take 75 mg by mouth in the morning., Disp: , Rfl: Flaxseed, Linseed, (Flax Seed Oil) 1000 MG capsule, Take by mouth., Disp: , Rfl: Garlic 1000 MG capsule, Take by mouth., Disp: , Rfl: glimepiride (Amaryl) 1 MG tablet, Take 1 tablet (1 mg) by mouth every morning (before breakfast)., Disp: 90 tablet, Rfl: 1 Glucose Blood (Blood Glucose Test) strip, Test Bs bid, Disp: , Rfl: hydroCHLOROthiazide (HYDRODiuril) 25 MG tablet, Take 1 tablet (25 mg) by mouth daily., Disp: 90 tablet, Rfl: 1 lisinopril 40 MG tablet, Take 1 tablet (40 mg) by mouth daily., Disp: 90 tablet, Rfl: 1 magnesium gluconate (Magonate) 500 MG tablet, Take 250 mg by mouth in the morning., Disp: , Rfl: metFORMIN (Glucophage) 1000 MG tablet, Take 1 tablet (1,000 mg) by mouth in the morning and 1 tablet (1,000 mg) in the evening. Take with meals., Disp: 180 tablet, Rfl: 1 Multiple Vitamins-Minerals (Oncovite) tablet, Take by mouth., Disp: , Rfl: potassium chloride CR (Klor-Con) 10 MEQ ER tablet, Take 10 mEq by mouth in the morning., Disp: , Rfl: simvastatin (Zocor) 40 MG tablet, Take 1 tablet (40 mg) by mouth Nightly., Disp: 90 tablet, Rfl: 1 memantine (Namenda) 10 MG tablet, Take 1 tablet (10 mg) by mouth 2 times daily. He was told to take1 tab nightly only for 7 days, then 1 tab po BID., Disp: 180 tablet, Rfl: 3 Past Medical History: Diagnosis Date CAD (coronary artery disease) Contact dermatitis and other eczema, due to unspecified cause Hyperlipidemia Hypertension Hypertrophy of prostate without urinary obstruction and other lower urinary tract symptoms (LUTS) Nonspecific abnormal finding in stool contents Type II or unspecified type diabetes mellitus without mention of complication, not stated as uncontrolled (HCC) Social History Tobacco Use Smoking status: Never Smokeless tobacco: Never Substance Use Topics Alcohol use: No Alcohol/week: 0.0 standard drinks of alcohol Past Surgical History: Procedure Laterality Date CARDIAC CATHETERIZATION 12/18/2019 CATARACT EXTRACTION Bilateral CORONARY ARTERY BYPASS GRAFT Family History Problem Relation Name Age of Onset High Blood Pressure Mother Diabetes Mother Dementia Father Heart disease Father Objective Vitals: BP (!) 146/85 (BP Location: Right arm, Patient Position: Sitting, BP Cuff Size: Adult) Pulse 66 Ht 5' 7 (1.702 m) Wt 193 lb 12.8 oz (87.9 kg) BMI 30.35 kg/m General Appearance: Patient is in no apparent distress. Head is normocephalic, atraumatic Cardiovascular: Regular rate and rhythm. No heart murmurs. No carotid bruit Neurologic: Mentation: Alert and oriented to person and place; had trouble with time. Speech and Language: Speech and language normal Concentration and Attention: Concentration normal Memory: Memory 2/3 immed, 0/3 short (even with clues) Fund of Knowledge: Fund of knowledge normal Cranial Nerves: II, III, IV, V, , VII, VIII, IX, X, XI, XII examined and were intact. Motor: Strength: Strength 5 out of 5 with normal tone Alternating Movements: Normal Cogwheel Rigidity: None Tone: Tone is normal Tremor / Involuntary Movements: None Deep Tendon Reflexes: 1 out of 4 symmetrical in all four limbs. Coordination: Normal coordination upper and lower extremities Gait and Station: Station is normal. Gait is abnormal Data Reviewed and Summarized DIAGNOSTIC TESTING Component Ref Range & Units 5 mo ago (10/28/22) 11 mo ago (04/22/22) 1 yr ago (10/22/21) 1 yr ago (04/16/21) 2 yr ago (10/17/20) 2 yr ago (04/16/20) 3 yr ago (10/16/19) HEMOGLOBIN A1C - [facility] <5.7 % of total Hgb 7.0 High 6.8 Abnormal R, CM 6.9 Abnormal A report of nerve conduction studies and electromyography of both lower extremities Date of service: February 01, 2023 Findings: Sensory nerve conduction studies disclosed absent responses in the superficial peroneal nerves bilaterally, but normal response latencies and amplitudes in the sural nerves bilaterally. Motor nerve conduction studies disclosed normal distal latencies, response amplitudes and conduction velocities in the peroneal/fibular and tibial nerves bilaterally. Tibial nerve H-reflex latencies were mildly prolonged bilaterally. Needle EMG examination disclosed normal spontaneous activity in the vastus medialis and lateralis, tibialis anterior, lateral gastrocnemius, extensor digitorum brevis and abductor hallucis bilaterally, as well as the left extensor hallucis longus. Motor unit potential recruitment was markedly decreased in the left extensor digitorum brevis and moderately decreased in the right extensor digitorum brevis and abductor hallucis bilaterally; in each of these muscles there were enlarged polyphasic motor unit potentials. Motor unit potential recruitment was slightly decreased in the vastus lateralisbilaterally, the right tibialis anterior and the left extensor hallucis longus; in each of these mus cles there were occasional enlarged motor unit potentials. There were occasional enlarged motor unit potentials in the left lateral gastrocnemius without impairment of recruitment. Motor unit potential recruitment and morphology were normal in the vastus medialis bilaterally, the right lateral gastrocnemius, and the left tibialis anterior. 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 There was a marked discrepancy between the severity of the abnormalities on the needle EMG examination and the intact nerve conduction studies, apart from the absent superficial peroneal sensory nerve responses. These nerve conduction studies record the fastest responses from large myelinated nervefibers, and may not detect (or may underestimate the severity of) neuropathies that preferentially affect small and unmyelinated fibers. It is possible that the patient's symptoms may be related to asmall-fiber neuropathy that would be greatly underestimated by this testing. However, all motor nerve fibers are large and myelinated. Thus the widespread abnormalities seen onelectromyography indicate considerable involvement of large myelinated motor fibers along with small unmyelinated sensory fibers. 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 A less attractive diagnostic option can be arrived at by disregarding the absence of superficial peroneal sensory responses and declaring the nerve conduction studies normal. In this case, the EMG findings would be explained by multiple chronic motor radiculopathies involving L4-S1 bilaterally rather than a polyneuropathy. This option discounts the largely symmetric and prominent [id number] gradient of the EMG abnormalities and the predominance of impaired sensation in the patient's complaints, although the latter could be attributed to simultaneous sensory radiculopathies that are not detected by this testing due to anatomic considerations. Clinical correlation is advised. Eitan Christensen MD CBC: Lab Results Component Value Date WBC 9.1 10/22/2021 RBC 4.21 (L) 10/22/2021 HGB 13.4 10/22/2021 MCV 94.6 10/22/2021 MCH 31.9 10/22/2021 MCHC 33.7 10/22/2021 RDW 14.2 10/22/2021 MPV 10.6 (H) 10/22/2021 CMP: Lab Results Component Value Date NA 139 04/22/2022 K 4.2 04/22/2022 CL 103 04/22/2022 CO2 31 10/28/2022 BUN 25 10/28/2022 CREATININE 1.22 10/28/2022 GLUCOSE 102 (H) 10/28/2022 PROT 6.9 10/28/2022 CALCIUM 9.6 10/28/2022 BILITOT 0.5 10/28/2022 ALKPHOS 93 10/28/2022 AST 13 10/28/2022 ALT 13 10/28/2022 BMP: Lab Results Component Value Date NA 139 04/22/2022 K 4.2 04/22/2022 CL 103 04/22/2022 CO2 31 10/28/2022 BUN 25 10/28/2022 CREATININE 1.22 10/28/2022 CALCIUM 9.6 10/28/2022 GLUCOSE 102 (H) 10/28/2022 PT/INR: No results found for: PROTIME, INR PTT: No results found for: APTT, PTT[APTT} FLP: Lab Results Component Value Date TRIG 167 (A) 10/22/2021 HDL 37 (L) 10/22/2021 TSH: Lab Results Component Value Date TSH 3.00 01/19/2023 VITAMIN B12: VITAMIN B12 Date Value Ref Range Status 01/19/2023 835 200 - 1,100 pg/mL Final No results found for: PHENYTOIN, PHENOBARB, VALPROATE, CBMZ No components found for: TOPIRA @RESULTINGLABINFO@ C REACTIVE PROTEIN Date Value Ref Range Status 10/16/2019 <5.0 0.0 - 6.0 mg/L Final Comment: . No results found for: FABIEN, IMMUNOGLOBUL, OLIGOBANDS No results found for: [id number], HEPCAB C REACTIVE PROTEIN Date Value Ref Range Status 10/16/2019 <5.0 0.0 - 6.0 mg/L Final Comment: . VERA Titer Date Value Ref Range Status 10/16/2019 1:160 (A) <1:40 [titer] Final FERRITIN: No results found for: FERRITIN ---- MR brain wo contrast Narrative: Patient Name: RAINA VALDEZ : 1945 Exam Date/Time: 02/09/2023 12:02 Procedure: MR BRAIN WO CONTRAST Ordering Provider: FRANCO JAMES Reason For Exam: Dizziness, persistent/recurrent, cardiac or vascular cause suspected MRI BRAIN WITHOUT CONTRAST: INDICATION: Dizziness. COMPARISON: None MR imaging of the brain was performed with sagittal T1 weighted, axial T2 weighted and FLAIR scans,and axial diffusion scans. The ventricles and sulci are enlarged, consistent with atrophy. There is no evidence of mass lesionor cerebral edema. There is no suggestion of intracranial hemorrhage on the gradient echo T2 sequence. There is no hydrocephalus, midline shift, or herniation. No epidural or subdural collections arepresent. On the FLAIR sequence a mild degree of increased signal is seen to affected germinal matrix adjacent to the lateral ventricles. Focal and confluent areas of increased T2 signal are noted within the subcortical and periventricular white matter, consistent with chronic ischemia. Diffusion weighted images are negative. The sella turcica is partially empty. The brain stem is unremarkable. Within the posterior fossa of the anatomy of the cerebellar pontine cistern is unremarkable as are theinternal auditory canals and labyrinthine structures. Flow void is seen within the vessels of the [place]. The globes and orbital contents are grossly normal. There is mild mucosal thickening of the ethmoid air cells. There is partial opacification of the right mastoid air cells. Impression: Atrophy and chronic ischemic change. Mild paranasal sinusitis. Report Dictated on Electronically Signed By: Corbin Kessler Electronically Signed Date/Time: 02/10/2023 11:54 AM EDT IMPRESSION and PLAN: Diagnosis Plan 1. Axonal sensorimotor neuropathy 2. 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 Will follow. He is losing appetite, so needs to switch from donepezil to memantine. Mixed dementia of Alzheimer's and vascular. He is already being treated for the atherosclerotic disease by Dr. Puente. No problem-specific Assessment & Plan notes found for this encounter. DERECK FRANCO MD I spent 30 minutes caring for this patient today, reviewing labs, records, seeing the patient, documenting in the record and arranging for studies. @SIGNATURE@ documented in this [facility]05-01-2023 Procedure note* Eitan Christensen MD - 02/01/2023 2:00 PM EDT Name: Raina Acuña Date of : 1945 Attending physician: Dereck Franco MD A report of nerve conduction studies and electromyography of both lower extremities Date of service: February 01, 2023 Findings: Sensory nerve conduction studies disclosed absent responses in the superficial peroneal nerves bilaterally, but normal response latencies and amplitudes in the sural nerves bilaterally. Motor nerve conduction studies disclosed normal distal latencies, response amplitudes and conduction velocities in the peroneal/fibular and tibial nerves bilaterally. Tibial nerve H-reflex latencies were mildly prolonged bilaterally. Needle EMG examination disclosed normal spontaneous activity in the vastus medialis and lateralis, tibialis anterior, lateral gastrocnemius, extensor digitorum brevis and abductor hallucis bilaterally, as well as the left extensor hallucis longus. Motor unit potential recruitment was markedly decreased in the left extensor digitorum brevis and moderately decreased in the right extensor digitorum brevis and abductor hallucis bilaterally; in each of these muscles there were enlarged polyphasic motor unit potentials. Motor unit potential recruitment was slightly decreased in the vastus lateralisbilaterally, the right tibialis anterior and the left extensor hallucis longus; in each of these mus cles there were occasional enlarged motor unit potentials. There were occasional enlarged motor unit potentials in the left lateral gastrocnemius without impairment of recruitment. Motor unit potential recruitment and morphology were normal in the vastus medialis bilaterally, the right lateral gastrocnemius, and the left tibialis anterior. 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 There was a marked discrepancy between the severity of the abnormalities on the needle EMG examination and the intact nerve conduction studies, apart from the absent superficial peroneal sensory nerve responses. These nerve conduction studies record the fastest responses from large myelinated nervefibers, and may not detect (or may underestimate the severity of) neuropathies that preferentially affect small and unmyelinated fibers. It is possible that the patient's symptoms may be related to asmall-fiber neuropathy that would be greatly underestimated by this testing. However, all motor nerve fibers are large and myelinated. Thus the widespread abnormalities seen onelectromyography indicate considerable involvement of large myelinated motor fibers along with small unmyelinated sensory fibers. 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 A less attractive diagnostic option can be arrived at by disregarding the absence of superficial peroneal sensory responses and declaring the nerve conduction studies normal. In this case, the EMG findings would be explained by multiple chronic motor radiculopathies involving L4-S1 bilaterally rather than a polyneuropathy. This option discounts the largely symmetric and prominent [id number]-[id number] gradient of the EMG abnormalities and the predominance of impaired sensation in the patient's complaints, although the latter could be attributed to simultaneous sensory radiculopathies that are not detected by this testing due to anatomic considerations. Clinical correlation is advised. Eitan Christensen MD Test numbers [id number] and [id number] Location: Testing was conducted at [facility] as an outpatient. [employer] Phone: [phone] Procedure note* Eitan Christensen MD - 02/01/2023 2:00 PM EDT Name: Raina Acuña Date of : 1945 Attending physician: Dereck Franco MD A report of nerve conduction studies and electromyography of both lower extremities Date of service: February 01, 2023 Findings: Sensory nerve conduction studies disclosed absent responses in the superficial peroneal nerves bilaterally, but normal response latencies and amplitudes in the sural nerves bilaterally. Motor nerve conduction studies disclosed normal distal latencies, response amplitudes and conduction velocities in the peroneal/fibular and tibial nerves bilaterally. Tibial nerve H-reflex latencies were mildly prolonged bilaterally. Needle EMG examination disclosed normal spontaneous activity in the vastus medialis and lateralis, tibialis anterior, lateral gastrocnemius, extensor digitorum brevis and abductor hallucis bilaterally, as well as the left extensor hallucis longus. Motor unit potential recruitment was markedly decreased in the left extensor digitorum brevis and moderately decreased in the right extensor digitorum brevis and abductor hallucis bilaterally; in each of these muscles there were enlarged polyphasic motor unit potentials. Motor unit potential recruitment was slightly decreased in the vastus lateralisbilaterally, the right tibialis anterior and the left extensor hallucis longus; in each of these mus cles there were occasional enlarged motor unit potentials. There were occasional enlarged motor unit potentials in the left lateral gastrocnemius without impairment of recruitment. Motor unit potential recruitment and morphology were normal in the vastus medialis bilaterally, the right lateral gastrocnemius, and the left tibialis anterior. 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 There was a marked discrepancy between the severity of the abnormalities on the needle EMG examination and the intact nerve conduction studies, apart from the absent superficial peroneal sensory nerve responses. These nerve conduction studies record the fastest responses from large myelinated nervefibers, and may not detect (or may underestimate the severity of) neuropathies that preferentially affect small and unmyelinated fibers. It is possible that the patient's symptoms may be related to asmall-fiber neuropathy that would be greatly underestimated by this testing. However, all motor nerve fibers are large and myelinated. Thus the widespread abnormalities seen onelectromyography indicate considerable involvement of large myelinated motor fibers along with small unmyelinated sensory fibers. 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 A less attractive diagnostic option can be arrived at by disregarding the absence of superficial peroneal sensory responses and declaring the nerve conduction studies normal. In this case, the EMG findings would be explained by multiple chronic motor radiculopathies involving L4-S1 bilaterally rather than a polyneuropathy. This option discounts the largely symmetric and prominent nvetok-ut-xneboghm gradient of the EMG abnormalities and the predominance of impaired sensation in the patient's complaints, although the latter could be attributed to simultaneous sensory radiculopathies that are not detected by this testing due to anatomic considerations. Clinical correlation is advised. Eitan Christensen MD Test numbers [id number] and [id number] Location: Testing was conducted at [facility] as an outpatient. documented in this [facility]04-10-2023 Telephone encounter Note* Telephone Encounter - Carly Posey MA - 01/11/2023 2:40 PM EDT Prescription Request: Last medication check: 04/22/2022 Last physical exam: 10/28/22 Next scheduled appointment: 04/29/2023 Last date of refill on this medication: 07/06/22 [id number] Miscellaneous Notes* Telephone Encounter - Carly Posey MA - 01/11/2023 2:40 PM EDT Prescription Request: Last medication check: 04/22/2022 Last physical exam: 10/28/22 Next scheduled appointment: 04/29/2023 Last date of refill on this medication: 07/06/22 documented in this [facility]03-14-2023 Telephone encounter Note* Telephone Encounter - Carly Posey MA - 12/15/2022 3:11 PM EDT Prescription Request: Last medication check: 04/22/2022 Last physical exam: 10/28/22 Next scheduled appointment: 04/29/2023 Last date of refill on this medication: 06/09/22 [id number] Miscellaneous Notes* Telephone Encounter - Carly Posey MA - 12/15/2022 3:11 PM EDT Prescription Request: Last medication check: 04/22/2022 Last physical exam: 10/28/22 Next scheduled appointment: 04/29/2023 Last date of refill on this medication: 06/09/22 documented in this [id number] Evaluation + Plan note* Assessment & Plan Note - Wilfred Puente MD - 10/28/2022 1:55 PM EST Associated Problem(s): Hyperlipidemia LDL goal <70 Controlled, continue fenofibrate 145 mg daily and simvastatin [address] [id number] Evaluation + Plan note* Assessment & Plan Note - Wilfred Puente MD - 10/28/2022 1:55 PM ESTAssociated Problem(s): Ataxia Neurology consult [facility] [id number] Miscellaneous Notes* Assessment & Plan Note - Wilfred Puente MD - 10/28/2022 1:55 PM ESTAssociated Problem(s): Hyperlipidemia LDL goal <70 Controlled, continue fenofibrate 145 mg daily and simvastatin 40 mg daily * Assessment & Plan Note - Wilfred Puente MD - 10/28/2022 1:55 PM EST Associated Problem(s): Ataxia Neurology consult * Assessment & Plan Note - Wilfred Puente MD - 10/28/2022 1:54 PM EST Associated Problem(s): Memory loss Neurology consult discussed * Assessment & Plan Note - Wilfred Puente MD - 10/28/2022 1:54 PM EST Associated Problem(s): Diabetes mellitus type 2 in obese (CMS/HCC) (HCC) Controlled, continue glimepiride 1 mg daily and metformin 1000 mg twice a day * Assessment & Plan Note - Wilfred Puente MD - 10/28/2022 1:53 PM EST Associated Problem(s): 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 Stable, continue allopurinol 100 mg daily * Assessment & Plan Note - Wilfred Puente MD - 10/28/2022 1:53 PM EST Associated Problem(s): Essential hypertension Controlled, continue atenolol 100 mg daily hydrochlorothiazide 25 mg daily and lisinopril 40 mg daily * Assessment & Plan Note - Wilfred Puente MD - 10/28/2022 1:53 PM EST Associated Problem(s): Atherosclerosis of [place] coronary artery of [place] heart without angina pectoris Stable, he has had no recent angina continue atenolol documented in this [facility]01-25-2023 Evaluation + Plan note* Assessment & Plan Note - Wilfred Puente MD - 10/28/2022 1:54 PM EST Associated Problem(s): Memory loss Neurology consult discussed [id number] Evaluation + Plan note* Assessment & Plan Note - Wilfred Puente MD - 10/28/2022 1:54 PM ESTAssociated Problem(s): Diabetes mellitus type 2 in obese (CMS/HCC) (HCC) Controlled, continue glimepiride 1 mg daily and metformin [address] 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 [facility] [id number] Evaluation + Plan note* Assessment & Plan Note - Wilfred Puente MD - 10/28/2022 1:53 PM ESTAssociated Problem(s): Essential hypertension Controlled, continue atenolol 100 mg daily hydrochlorothiazide 25 mg daily and lisinopril 40 mg daily [facility]01-25-2023 Evaluation + Plan note* Assessment & Plan Note - Wilfred Puente MD - 10/28/2022 1:53 PM ESTAssociated Problem(s): Atherosclerosis of [place] coronary artery of [place] heart without angina pect richard Stable, he has had no recent angina continue atenolol [facility] [id number] History of Present illness Narrative* Wilfred Puente MD - 10/28/2022 1:30 PM EST Images from the original note were not included. [address] [id number] Visit type: Established Patient Reason for Visit: Medicare Annual Wellness Visit Subsequent and Health Maintenance (Declines deisi, states he had an eye exam 2021 at [facility]-need to request report, we do not have a current JUDIT on file-will be updated at visit tomorrow) Assessment and Plan Problem List Items Addressed This Visit Circulatory Atherosclerosis of [place] coronary artery of [place] heart without angina pectoris Stable, he has had no recent angina continue atenolol Essential hypertension Controlled, continue atenolol 100 mg daily hydrochlorothiazide 25 mg daily and lisinopril 40 mg daily Musculoskeletal 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 Stable, continue allopurinol 100 mg daily Relevant Orders Uric acid Endocrine/Metabolic Diabetes mellitus type 2 in obese (CMS/HCC) ([facility]) Controlled, continue glimepiride 1 mg daily and metformin 1000 mg twice a day Relevant Orders Microalbumin / creatinine urine ratio Comprehensive metabolic panel Hemoglobin A1c Other Memory loss Neurology consult discussed Relevant Orders [facility] [place] Ataxia Neurology consult Relevant Orders [facility] [place] Hyperlipidemia LDL goal <70 Controlled, continue fenofibrate 145 mg daily and simvastatin 40 mg daily Relevant Orders Lipid panel Other Visit Diagnoses Medicare annual wellness visit, subsequent - Primary Follow up in about 6 months (around 04/27/2023). Hi HPI Raina comes in today for his annual Medicare well visit and follow-up on his multiple health issues which includes heart disease, hypertension, gout, diabetes, memory loss for which she was seen at the geriatric assessment group and no specific dementia diagnosis was Given however he had a MoCA score of 17 and this was 2 years ago. New complaints that his has is that he has been having some issues with balance getting dizzy and at times he will be walking and he will start walking really fast short steps and grab a hold ofsomething. She has noticed that this multiple times over the last 6 months or so. I have reviewed and reconciled the medication list with the patient today. Current Outpatient Medications Medication Sig Dispense Refill allopurinol (Zyloprim) 100 MG tablet TAKE 2 TABLETS BY MOUTH ONCE DAILY atenolol (Tenormin) 100 MG tablet Take 1 tablet by mouth in the morning. choline fenofibrate (Trilipix) [address] capsule Take 135 mg by mouth in the morning. clopidogrel (Plavix) 75 MG tablet Take 75 mg by mouth in the morning. Flaxseed, Linseed, (Flax Seed Oil) 1000 MG capsule Take by mouth. Garlic 1000 MG capsule Take by mouth. glimepiride (Amaryl) 1 MG tablet Take 1 tablet (1 mg) by mouth every morning (before breakfast). 90tablet 1 Glucose Blood (Blood Glucose Test) strip Test Bs bid hydroCHLOROthiazide (HYDRODiuril) 25 MG tablet Take 1 tablet (25 mg) by mouth daily. 90 tablet 1 lisinopril 40 MG tablet Take 1 tablet (40 mg) by mouth in the morning. 90 tablet 1 magnesium gluconate (Magonate) 500 MG tablet Take 250 mg by mouth in the morning. metFORMIN (Glucophage) 1000 MG tablet Take 1 tablet (1,000 mg) by mouth in the morning and 1 tablet(1,000 mg) in the evening. Take with meals. 180 tablet 1 Multiple Vitamins-Minerals (Oncovite) tablet Take by mouth. potassium chloride CR (Klor-Con) 10 MEQ ER tablet Take 10 mEq by mouth in the morning. simvastatin (Zocor) 40 MG tablet Take 40 mg by mouth Nightly. No current facility-administered medications for this visit. There are no discontinued medications. List of current healthcare providers: Patient Care Team: Wilfred Puente MD as PCP - General The following health maintenance schedule was reviewed with the patient and provided in printed form in the after visit summary: Health Maintenance Topic Date Due Hepatitis B Vaccines (1 of 3 - 3-dose series) Never done Diabetes: Foot Exam Never done Diabetes: Retinopathy Screening Never done Diabetes: Dental Exam Never done Hepatitis C Screening Never done DTaP/Tdap/Td Vaccines (1 - Tdap) Never done Zoster Vaccines (1 of 2) Never done Diabetes: Hemoglobin A1C 07/23/2022 Lipid Panel 10/22/2022 Diabetes: Urine Protein Screening 10/22/2022 Influenza Vaccine Completed Pneumococcal Vaccine: 65+ Years Completed COVID-19 Vaccine Completed HIB Vaccines Aged Out IPV Vaccines Aged Out Hepatitis A Vaccines Aged Out Meningococcal Vaccine Aged Out Rotavirus Vaccines Aged Out HPV Vaccines Aged Out Orders Placed This Encounter Procedures Microalbumin / creatinine urine ratio Standing Status: Future Number of Occurrences: 1 Standing Expiration Date: 10/27/2023 Lipid panel Standing Status: Future Number of Occurrences: 1 Standing Expiration Date: 10/27/2023 Comprehensive metabolic panel Standing Status: Future Number of Occurrences: 1 Standing Expiration Date: 10/27/2023 Hemoglobin A1c Standing Status: Future Number of Occurrences: 1 Standing Expiration Date: 10/27/2023 Uric acid Standing Status: Future Number of Occurrences: 1 Standing Expiration Date: 10/28/2023 [facility] Standing Status: Future Standing Expiration Date: 04/27/2023 Referral Priority: Routine Referral Type: Consultation Referral Reason: Specialty Services Required Referred to Provider: Dereck Franco MD Requested Specialty: Neurology Number of Visits Requested: 1 Health Risk Assessment: General In general, how would you say your health is?: Very good In the past 7 days, have you experienced any of the following: New or Increased Pain, New or Increased Fatigue, Loneliness, Social Isolation, Stress or Anger?: No Do you get the social and emotional suppport you need?: Yes Interventions: Health Habits / Nutrition On average, how many days per week do you engage in moderate to strenous exercise (like a brisk walk)?: (!) 0 days On average, how man minutes do you engage in exercise at this level?: (!) 0 min Have you lost any weight without trying in the past 3 months? : No Have you seen the dentist within the past year?: (!) No Interventions: Hearing / Vision Do you or your family notice any trouble with your hearing that hasn't been managed with hearing aids?: (!) Yes Do you have difficulty driving, watching TV, or doing any of your daily activities because of your eyesight?: No Have you had an eye exam within the past year?: Yes No results found. Interventions: Safety Do you have a working smoke detector?: Yes Do you have any tripping hazards - loose or unsecured carpets or rugs?: No Do you have any tripping hazards - clutter in doorways, halls, or stairs?: No Do you have either shower bars, grab bars, non-slip mats or non-slip surfaces in your shower or bathtub? : Yes Do all your stairways have a railing or banister? : Yes Do you fasten your seatbelt when you are in a car?: Yes Interventions: ADL In the past 7 days, did you need help from others to perform any of the following everyday activities: Eating, dressing, grooming,bathing, toileting, or walking / balance? : No In the past 7 days, did you need help from others to take care of any of the following: laundry, housekeeping, banking / finances,shopping, telephone use, food preparation, transportation, or taking medications? : Yes Select all that apply: Taking Medications, Transportation, Housekeeping Interventions: Living Will Do you have a living will?: Yes Interventions: Cognitive: Cognitive Screening: Mini-Cog Clock Drawing Test (CDT): 2 Words Recalled: 0 Total Score: 2 Total Score Interpretation: Abnormal Mini-Cog Interventions: Fall Risk: Interventions: No falls Depression Screening: Over the past 2 weeks, how often have you been bothered by any of the following problems? Little interest or pleasure in doing things: Not at all Feeling down, depressed, or hopeless: Not at all Patient Health Questionnaire-2 Score: 0 Interventions: Tobacco Use: Social History Tobacco Use Smoking Status Never Smokeless Tobacco Never Interventions: Alcohol Use: Audit Alcohol Screening Q1: How often do you have a drink containing alcohol?: Never Q2: How many drinks containing alcohol do you have on a typical day when you are drinking?: Patientdoes not drink Q3: How often do you have six or more drinks on one occasion?: Never Audit-C Score: 0 Skip to questions 9-10?: 1 Interventions: Drug Use: Drug Abuse Screening Test (DAST-10) Have you used drugs other than those required for medical reasons?: No Do you use more than one drug at a time?: No Interventions: Review of Systems Constitutional: Negative for activity change, appetite change, chills, fever and unexpected weight change. HENT: Negative for ear pain and sore throat. Respiratory: Negative for shortness of breath. Cardiovascular: Negative for chest pain and palpitations. Gastrointestinal: Negative for abdominal pain, blood in stool, constipation and diarrhea. Genitourinary: Negative for dysuria, frequency, hematuria and urgency. Musculoskeletal: Negative for arthralgias and back pain. Skin: Negative. Neurological: Negative for weakness and numbness. Psychiatric/Behavioral: Negative for dysphoric mood. The patient is not nervous/anxious. Immunization History Administered Date(s) Administered Covid-19, Pfizer Bivalent Booster, (Age 12y+), Im, 30 Mcg/0e 08/03/2022 Influenza, High Dose Seasonal, Preservative Free 07/18/2018, 08/04/2021 Influenza, High-dose Seasonal, Quadrivalent, Preservative Free 08/04/2021, 07/15/2022 Influenza, Unspecified 07/10/2015, 09/12/2016, 09/02/2017, 07/15/2020 Influenza, recombinant, quadrivalent, injectable, preservative free 07/19/2019 Moderna SARS-CoV-2 Vaccination 12/02/2020, 12/30/2020 Pfizer SARS-CoV-2 Vaccination 09/12/2021 Pneumococcal Conjugate PCV 13 04/12/2019 Pneumococcal Polysaccharide PPSV23 04/16/2020 No Known Allergies Outpatient Medications Prior to Visit Medication Sig Dispense Refill allopurinol (Zyloprim) 100 MG tablet TAKE 2 TABLETS BY MOUTH ONCE DAILY atenolol (Tenormin) 100 MG tablet Take 1 tablet by mouth in the morning. choline fenofibrate (Trilipix) [address] capsule Take 135 mg by mouth in the morning. clopidogrel (Plavix) 75 MG tablet Take 75 mg by mouth in the morning. Flaxseed, Linseed, (Flax Seed Oil) 1000 MG capsule Take by mouth. Garlic 1000 MG capsule Take by mouth. glimepiride (Amaryl) 1 MG tablet Take 1 tablet (1 mg) by mouth every morning (before breakfast). 90tablet 1 Glucose Blood (Blood Glucose Test) strip Test Bs bid hydroCHLOROthiazide (HYDRODiuril) 25 MG tablet Take 1 tablet (25 mg) by mouth daily. 90 tablet 1 lisinopril 40 MG tablet Take 1 tablet (40 mg) by mouth in the morning. 90 tablet 1 magnesium gluconate (Magonate) 500 MG tablet Take 250 mg by mouth in the morning. metFORMIN (Glucophage) 1000 MG tablet Take 1 tablet (1,000 mg) by mouth in the morning and 1 tablet(1,000 mg) in the evening. Take with meals. 180 tablet 1 Multiple Vitamins-Minerals (Oncovite) tablet Take by mouth. potassium chloride CR (Klor-Con) 10 MEQ ER tablet Take 10 mEq by mouth in the morning. simvastatin (Zocor) 40 MG tablet Take 40 mg by mouth Nightly. No facility-administered medications prior to visit. Past Medical History: Diagnosis Date CAD (coronary artery disease) Contact dermatitis and other eczema, due to unspecified cause Hyperlipidemia Hypertension Hypertrophy of prostate without urinary obstruction and other lower urinary tract symptoms (LUTS) Nonspecific abnormal finding in stool contents Type II or unspecified type diabetes mellitus without mention of complication, not stated as uncontrolled (HCC) Social History Socioeconomic History Marital status: Tobacco Use Smoking status: Never Smokeless tobacco: Never Substance and Sexual Activity Alcohol use: No Alcohol/week: 0.0 standard drinks Drug use: No Past Surgical History: Procedure Laterality Date CARDIAC CATHETERIZATION 12/18/2019 CATARACT EXTRACTION Bilateral CORONARY ARTERY BYPASS GRAFT Past Surgical History: Procedure Laterality Date CARDIAC CATHETERIZATION 12/18/2019 CATARACT EXTRACTION Bilateral CORONARY ARTERY BYPASS GRAFT Family History Problem Relation Name Age of Onset High Blood Pressure Mother Diabetes Mother Heart disease Father Objective BP 122/68 Pulse 69 Ht 5' 7.5 (1.715 m) Wt 197 lb 6.4 oz (89.5 kg) BMI 30.46 kg/m Physical Exam Vitals and nursing note reviewed. Constitutional: General: He is not in acute distress. Appearance: Normal appearance. HENT: Right Ear: Tympanic membrane, ear canal and external ear normal. Left Ear: Tympanic membrane, ear canal and external ear normal. Mouth/Throat: Mouth: Mucous membranes are moist. Pharynx: Oropharynx is clear. Eyes: Extraocular Movements: Extraocular movements intact. Pupils: Pupils are equal, round, and reactive to light. Neck: Vascular: No carotid bruit. Cardiovascular: Rate and Rhythm: Normal rate and regular rhythm. Heart sounds: Normal heart sounds. No murmur heard. Pulmonary: Effort: Pulmonary effort is normal. Breath sounds: Normal breath sounds. Abdominal: General: Bowel sounds are normal. Palpations: Abdomen is soft. Tenderness: There is no abdominal tenderness. Musculoskeletal: General: Normal range of motion. Cervical back: Neck supple. Lymphadenopathy: Cervical: No cervical adenopathy. Skin: General: Skin is warm and dry. Neurological: General: No focal deficit present. Mental Status: He is alert and oriented to person, place, and time. Psychiatric: Mood and Affect: Mood normal. Data Reviewed Labs: Imaging/Testing: Wilfred Puente MD 10/28/2022 1:56 PM documented in this [facility]01-25-2023 History of Present illness Narrative* Wilfred Puente MD - 10/28/2022 1:30 PM EST Images from the original note were not included. [place] [id number] [facility] [id number] Visit type: Established Patient Reason for Visit: Medicare Annual Wellness Visit Subsequent and Health Maintenance (Declines deisi, states he had an eye exam 2021 at [facility]-need to request report, we do not have a current JUDIT on file-will be updated at visit tomorrow) Assessment and Plan Problem List Items Addressed This Visit Circulatory Atherosclerosis of [place] coronary artery of [place] heart without angina pectoris Stable, he has had no recent angina continue atenolol Essential hypertension Controlled, continue atenolol 100 mg daily hydrochlorothiazide 25 mg daily and lisinopril 40 mg daily Musculoskeletal 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 Stable, continue allopurinol 100 mg daily Relevant Orders Uric acid (Completed) Endocrine/Metabolic Diabetes mellitus type 2 in obese (CMS/HCC) (HCC) Controlled, continue glimepiride 1 mg daily and metformin 1000 mg twice a day Relevant Orders Microalbumin / creatinine urine ratio (Completed) Comprehensive metabolic panel (Completed) Hemoglobin A1c (Completed) Other Memory loss Neurology consult discussed Relevant Orders [facility] [place] Ataxia Neurology consult Relevant Orders [facility] [place] Hyperlipidemia LDL goal <70 Controlled, continue fenofibrate 145 mg daily and simvastatin 40 mg daily Relevant Orders Lipid panel (Completed) Other Visit Diagnoses Medicare annual wellness visit, subsequent - Primary Follow up in about 6 months (around 04/27/2023). Subjective HPI Raina comes in today for his annual Medicare well visit and follow-up on his multiple health issues which includes heart disease, hypertension, gout, diabetes, memory loss for which she was seen at the geriatric assessment group and no specific dementia diagnosis was Given however he had a MoCA score of 17 and this was 2 years ago. New complaints that his has is that he has been having some issues with balance getting dizzy and at times he will be walking and he will start walking really fast short steps and grab a hold ofsomething. She has noticed that this multiple times over the last 6 months or so. I have reviewed and reconciled the medication list with the patient today. Current Outpatient Medications Medication Sig Dispense Refill allopurinol (Zyloprim) 100 MG tablet TAKE 2 TABLETS BY MOUTH ONCE DAILY atenolol (Tenormin) 100 MG tablet Take 1 tablet by mouth in the morning. choline fenofibrate (Trilipix) [address] capsule Take 135 mg by mouth in the morning. clopidogrel (Plavix) 75 MG tablet Take 75 mg by mouth in the morning. Flaxseed, Linseed, (Flax Seed Oil) 1000 MG capsule Take by mouth. Garlic 1000 MG capsule Take by mouth. glimepiride (Amaryl) 1 MG tablet Take 1 tablet (1 mg) by mouth every morning (before breakfast). 90tablet 1 Glucose Blood (Blood Glucose Test) strip Test Bs bid hydroCHLOROthiazide (HYDRODiuril) 25 MG tablet Take 1 tablet (25 mg) by mouth daily. 90 tablet 1 lisinopril 40 MG tablet Take 1 tablet (40 mg) by mouth in the morning. 90 tablet 1 magnesium gluconate (Magonate) 500 MG tablet Take 250 mg by mouth in the morning. metFORMIN (Glucophage) 1000 MG tablet Take 1 tablet (1,000 mg) by mouth in the morning and 1 tablet(1,000 mg) in the evening. Take with meals. 180 tablet 1 Multiple Vitamins-Minerals (Oncovite) tablet Take by mouth. potassium chloride CR (Klor-Con) 10 MEQ ER tablet Take 10 mEq by mouth in the morning. simvastatin (Zocor) 40 MG tablet Take 40 mg by mouth Nightly. No current facility-administered medications for this visit. There are no discontinued medications. List of current healthcare providers: Patient Care Team: Wilfred Puente MD as PCP - General The following health maintenance schedule was reviewed with the patient and provided in printed form in the after visit summary: Health Maintenance Topic Date Due Hepatitis B Vaccines (1 of 3 - 3-dose series) Never done Diabetes: Foot Exam Never done Diabetes: Retinopathy Screening Never done Diabetes: Dental Exam Never done Hepatitis C Screening Never done DTaP/Tdap/Td Vaccines (1 - Tdap) Never done Zoster Vaccines (1 of 2) Never done Diabetes: Hemoglobin A1C 01/26/2023 Lipid Panel 10/28/2023 Diabetes: Urine Protein Screening 10/28/2023 Influenza Vaccine Completed Pneumococcal Vaccine: 65+ Years Completed COVID-19 Vaccine Completed HIB Vaccines Aged Out IPV Vaccines Aged Out Hepatitis A Vaccines Aged Out Meningococcal Vaccine Aged Out Rotavirus Vaccines Aged Out HPV Vaccines Aged Out Orders Placed This Encounter Procedures Microalbumin / creatinine urine ratio Standing Status: Future Number of Occurrences: 1 Standing Expiration Date: 10/27/2023 Lipid panel Standing Status: Future Number of Occurrences: 1 Standing Expiration Date: 10/27/2023 Comprehensive metabolic panel Standing Status: Future Number of Occurrences: 1 Standing Expiration Date: 10/27/2023 Hemoglobin A1c Standing Status: Future Number of Occurrences: 1 Standing Expiration Date: 10/27/2023 Uric acid Standing Status: Future Number of Occurrences: 1 Standing Expiration Date: 10/28/2023 [facility] Standing Status: Future Standing Expiration Date: 04/27/2023 Referral Priority: Routine Referral Type: Consultation Referral Reason: Specialty Services Required Referred to Provider: Dereck Franco MD Requested Specialty: Neurology Number of Visits Requested: 1 Health Risk Assessment: General In general, how would you say your health is?: Very good In the past 7 days, have you experienced any of the following: New or Increased Pain, New or Increased Fatigue, Loneliness, Social Isolation, Stress or Anger?: No Do you get the social and emotional suppport you need?: Yes Interventions: Health Habits / Nutrition On average, how many days per week do you engage in moderate to strenous exercise (like a brisk walk)?: (!) 0 days On average, how man minutes do you engage in exercise at this level?: (!) 0 min Have you lost any weight without trying in the past 3 months? : No Have you seen the dentist within the past year?: (!) No Interventions: Hearing / Vision Do you or your family notice any trouble with your hearing that hasn't been managed with hearing aids?: (!) Yes Do you have difficulty driving, watching TV, or doing any of your daily activities because of your eyesight?: No Have you had an eye exam within the past year?: Yes No results found. Interventions: Safety Do you have a working smoke detector?: Yes Do you have any tripping hazards - loose or unsecured carpets or rugs?: No Do you have any tripping hazards - clutter in doorways, halls, or stairs?: No Do you have either shower bars, grab bars, non-slip mats or non-slip surfaces in your shower or bathtub? : Yes Do all your stairways have a railing or banister? : Yes Do you fasten your seatbelt when you are in a car?: Yes Interventions: ADL In the past 7 days, did you need help from others to perform any of the following everyday activities: Eating, dressing, grooming,bathing, toileting, or walking / balance? : No In the past 7 days, did you need help from others to take care of any of the following: laundry, housekeeping, banking / finances,shopping, telephone use, food preparation, transportation, or taking medications? : Yes Select all that apply: Taking Medications, Transportation, Housekeeping Interventions: Living Will Do you have a living will?: Yes Interventions: Cognitive: Cognitive Screening: Mini-Cog Clock Drawing Test (CDT): 2 Words Recalled: 0 Total Score: 2 Total Score Interpretation: Abnormal Mini-Cog Interventions: Fall Risk: Interventions: No falls Depression Screening: Over the past 2 weeks, how often have you been bothered by any of the following problems? Little interest or pleasure in doing things: Not at all Feeling down, depressed, or hopeless: Not at all Patient Health Questionnaire-2 Score: 0 Interventions: Tobacco Use: Social History Tobacco Use Smoking Status Never Smokeless Tobacco Never Interventions: Alcohol Use: Audit Alcohol Screening Q1: How often do you have a drink containing alcohol?: Never Q2: How many drinks containing alcohol do you have on a typical day when you are drinking?: Patientdoes not drink Q3: How often do you have six or more drinks on one occasion?: Never Audit-C Score: 0 Skip to questions 9-10?: 1 Interventions: Drug Use: Drug Abuse Screening Test (DAST-10) Have you used drugs other than those required for medical reasons?: No Do you use more than one drug at a time?: No Interventions: Review of Systems Constitutional: Negative for activity change, appetite change, chills, fever and unexpected weight change. HENT: Negative for ear pain and sore throat. Respiratory: Negative for shortness of breath. Cardiovascular: Negative for chest pain and palpitations. Gastrointestinal: Negative for abdominal pain, blood in stool, constipation and diarrhea. Genitourinary: Negative for dysuria, frequency, hematuria and urgency. Musculoskeletal: Negative for arthralgias and back pain. Skin: Negative. Neurological: Negative for weakness and numbness. Psychiatric/Behavioral: Negative for dysphoric mood. The patient is not nervous/anxious. Immunization History Administered Date(s) Administered Covid-19, Pfizer Bivalent Booster, (Age 12y+), Im, 30 Mcg/0e 08/03/2022 Influenza, High Dose Seasonal, Preservative Free 07/18/2018, 08/04/2021 Influenza, High-dose Seasonal, Quadrivalent, Preservative Free 08/04/2021, 07/15/2022 Influenza, Unspecified 07/10/2015, 09/12/2016, 09/02/2017, 07/15/2020 Influenza, recombinant, quadrivalent, injectable, preservative free 07/19/2019 Moderna SARS-CoV-2 Vaccination 12/02/2020, 12/30/2020 Pfizer SARS-CoV-2 Vaccination 09/12/2021 Pneumococcal Conjugate PCV 13 04/12/2019 Pneumococcal Polysaccharide PPSV23 04/16/2020 No Known Allergies Outpatient Medications Prior to Visit Medication Sig Dispense Refill allopurinol (Zyloprim) 100 MG tablet TAKE 2 TABLETS BY MOUTH ONCE DAILY atenolol (Tenormin) 100 MG tablet Take 1 tablet by mouth in the morning. choline fenofibrate (Trilipix) [address] capsule Take 135 mg by mouth in the morning. clopidogrel (Plavix) 75 MG tablet Take 75 mg by mouth in the morning. Flaxseed, Linseed, (Flax Seed Oil) 1000 MG capsule Take by mouth. Garlic 1000 MG capsule Take by mouth. glimepiride (Amaryl) 1 MG tablet Take 1 tablet (1 mg) by mouth every morning (before breakfast). 90tablet 1 Glucose Blood (Blood Glucose Test) strip Test Bs bid hydroCHLOROthiazide (HYDRODiuril) 25 MG tablet Take 1 tablet (25 mg) by mouth daily. 90 tablet 1 lisinopril 40 MG tablet Take 1 tablet (40 mg) by mouth in the morning. 90 tablet 1 magnesium gluconate (Magonate) 500 MG tablet Take 250 mg by mouth in the morning. metFORMIN (Glucophage) 1000 MG tablet Take 1 tablet (1,000 mg) by mouth in the morning and 1 tablet(1,000 mg) in the evening. Take with meals. 180 tablet 1 Multiple Vitamins-Minerals (Oncovite) tablet Take by mouth. potassium chloride CR (Klor-Con) 10 MEQ ER tablet Take 10 mEq by mouth in the morning. simvastatin (Zocor) 40 MG tablet Take 40 mg by mouth Nightly. No facility-administered medications prior to visit. Past Medical History: Diagnosis Date CAD (coronary artery disease) Contact dermatitis and other eczema, due to unspecified cause Hyperlipidemia Hypertension Hypertrophy of prostate without urinary obstruction and other lower urinary tract symptoms (LUTS) Nonspecific abnormal finding in stool contents Type II or unspecified type diabetes mellitus without mention of complication, not stated as uncontrolled (HCC) Social History Socioeconomic History Marital status: Tobacco Use Smoking status: Never Smokeless tobacco: Never Substance and Sexual Activity Alcohol use: No Alcohol/week: 0.0 standard drinks Drug use: No Past Surgical History: Procedure Laterality Date CARDIAC CATHETERIZATION 12/18/2019 CATARACT EXTRACTION Bilateral CORONARY ARTERY BYPASS GRAFT Past Surgical History: Procedure Laterality Date CARDIAC CATHETERIZATION 12/18/2019 CATARACT EXTRACTION Bilateral CORONARY ARTERY BYPASS GRAFT Family History Problem Relation Name Age of Onset High Blood Pressure Mother Diabetes Mother Heart disease Father Objective BP 122/68 Pulse 69 Ht 5' 7.5 (1.715 m) Wt 197 lb 6.4 oz (89.5 kg) BMI 30.46 kg/m Physical Exam Vitals and nursing note reviewed. Constitutional: General: He is not in acute distress. Appearance: Normal appearance. HENT: Right Ear: Tympanic membrane, ear canal and external ear normal. Left Ear: Tympanic membrane, ear canal and external ear normal. Mouth/Throat: Mouth: Mucous membranes are moist. Pharynx: Oropharynx is clear. Eyes: Extraocular Movements: Extraocular movements intact. Pupils: Pupils are equal, round, and reactive to light. Neck: Vascular: No carotid bruit. Cardiovascular: Rate and Rhythm: Normal rate and regular rhythm. Heart sounds: Normal heart sounds. No murmur heard. Pulmonary: Effort: Pulmonary effort is normal. Breath sounds: Normal breath sounds. Abdominal: General: Bowel sounds are normal. Palpations: Abdomen is soft. Tenderness: There is no abdominal tenderness. Musculoskeletal: General: Normal range of motion. Cervical back: Neck supple. Lymphadenopathy: Cervical: No cervical adenopathy. Skin: General: Skin is warm and dry. Neurological: General: No focal deficit present. Mental Status: He is alert and oriented to person, place, and time. Psychiatric: Mood and Affect: Mood normal. Data Reviewed Labs: Imaging/Testing: Wilfred Puente MD 11/05/2022 4:22 PM [facility] Diagnosis Numbness in both legs Disturbance of skin sensation documented in this encounter [facility]* Diagnosis Ataxia Lack of coordination Apraxia Apraxia, late effect of cardiovascular disease Unsteadiness on feet documented in this encounter [facility]* Diagnosis Axonal sensorimotor neuropathy- Primary Dementia without behavioral disturbance (HCC) Unsteadiness on feet documented in this encounter [facility]* Diagnosis Diabetes mellitus type 2 in obese ([facility]/HCC) (HCC)- Primary Type II or unspecified type diabetes mellitus without mention of complication, not stated as uncontrolled Atherosclerosis of [place] coronary artery of [place] heart without angina pectoris Essential hypertension Unspecified essential hypertension Hyperlipidemia LDL goal <70 Other and unspecified hyperlipidemia 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) 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 behavioral disturbance, psychotic disturbance, mood disturbance, or anxiety (HCC) documented in this encounter [facility]* Diagnosis Onset Date Resolution Status Atherosclerosis of coronary artery of [place] heart without angina pectoris chronic Essential (primary) hypertension chronic Hyperlipidemia chronic Ischemic cardiomyopathy [facility] Work Phone: Evaluation note* Diagnosis Diabetes mellitus type 2 in obese ([facility]) (HCC) Type II or unspecified type diabetes mellitus without mention of complication, not stated as uncontrolled documented in this encounter [facility]* Diagnosis Dementia without behavioral disturbance (HCC)- Primary Retinal artery branch occlusion of right eye Hypertriglyceridemia Pure hyperglyceridemia Unsteadiness on feet documented in this encounter [facility]* Diagnosis Essential hypertension Unspecified essential hypertension documented in this encounter [facility]* Diagnosis Medicare annual wellness visit, subsequent- Primary Diabetes mellitus type 2 in obese (CMS/HCC) (HCC) (HCC) Type II or unspecified type diabetes mellitus without mention of complication, not stated as uncontrolled 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) Essential hypertension Unspecified essential hypertension Atherosclerosis of [place] coronary artery of [place] heart without angina pectoris 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 Hyperlipidemia LDL goal <70 Other and unspecified hyperlipidemia [facility]* Diagnosis Diabetes mellitus type 2 in obese (CMS/HCC) (HCC) (HCC) Type II or unspecified type diabetes mellitus without mention of complication, not stated as uncontrolled [facility]* Diagnosis [place]abil[place]-neglect of left side- Primary Dementia with behavioral disturbance (HCC) Ataxia Lack of coordination [facility]* Diagnosis Mixed Alzheimer's and vascular dementia (HCC) [facility]* Diagnosis [place]abil[place]-neglect of left side Ataxia Lack of coordination [facility]* Diagnosis Dementia without behavioral disturbance (HCC)- Primary Unsteadiness on feet [facility]* Diagnosis 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)- Primary 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 behavioral disturbance, psychotic disturbance, mood disturbance, or anxiety (HCC) 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 (HCC) Hyperlipidemia LDL goal <70 Other and unspecified hyperlipidemia Essential hypertension Unspecified essential hypertension [facility]* Diagnosis Medicare annual wellness visit, subsequent- Primary Essential hypertension Unspecified essential hypertension 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 (HCC) Type II or unspecified type diabetes mellitus without mention of complication, not stated as uncontrolled Memory loss Hyperlipidemia LDL goal <70 Other and unspecified hyperlipidemia Ataxia Lack of coordination Atherosclerosis of [place] coronary artery of [place] heart without angina pectoris Diabetes mellitus type 2 in obese (HCC)- Primary Type II or unspecified type diabetes mellitus without mention of complication, not stated as uncontrolled Atherosclerosis of [place] coronary artery of [place] heart without angina pectoris Essential hypertension Unspecified essential hypertension Hyperlipidemia LDL goal <70 Other and unspecified hyperlipidemia 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) 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 behavioral disturbance, psychotic disturbance, mood disturbance, or anxiety ([facility]) Medicare annual wellness visit, subsequent- Primary Diabetes mellitus type 2 in obese ([facility]) Type II or unspecified type diabetes mellitus without mention of complication, not stated as uncontrolled 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) Essential hypertension Unspecified essential hypertension Atherosclerosis of [place] coronary artery of [place] heart without angina pectoris 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 Hyperlipidemia LDL goal <70 Other and unspecified hyperlipidemia 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)- Primary 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 behavioral disturbance, psychotic disturbance, mood disturbance, or anxiety ([facility]) 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 ([facility]) Hyperlipidemia LDL goal <70 Other and unspecified hyperlipidemia Essential hypertension Unspecified essential hypertension Mixed Alzheimer's and vascular dementia ([facility])- [facility] Diagnosis Medicare annual wellness visit, subsequent- Primary Essential hypertension Unspecified essential hypertension 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 (CMS/[facility]) ([facility]) Type II or unspecified type diabetes mellitus without mention of complication, not stated as uncontrolled Memory loss Hyperlipidemia LDL goal <70 Other and unspecified hyperlipidemia Ataxia Lack of coordination Atherosclerosis of [place] coronary artery of [place] heart without angina pectoris [facility] Diagnosis Medicare annual wellness visit, subsequent- Primary Essential hypertension Unspecified essential hypertension 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 (CMS/[facility]) ([facility]) Type II or unspecified type diabetes mellitus without mention of complication, not stated as uncontrolled Memory loss Hyperlipidemia LDL goal <70 Other and unspecified hyperlipidemia Ataxia Lack of coordination Atherosclerosis of [place] coronary artery of [place] heart without angina pectoris [facility] Diagnosis Medicare annual wellness visit, subsequent- Primary Essential hypertension Unspecified essential hypertension 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 ([facility]) Type II or unspecified type diabetes mellitus without mention of complication, not stated as uncontrolled Memory loss Hyperlipidemia LDL goal <70 Other and unspecified hyperlipidemia Ataxia Lack of coordination Atherosclerosis of [place] coronary artery of [place] heart without angina pectoris Diabetes mellitus type 2 in obese ([facility])- Primary Type II or unspecified type diabetes mellitus without mention of complication, not stated as uncontrolled Atherosclerosis of [place] coronary artery of [place] heart without angina pectoris Essential hypertension Unspecified essential hypertension Hyperlipidemia LDL goal <70 Other and unspecified hyperlipidemia 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) 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 behavioral disturbance, psychotic disturbance, mood disturbance, or anxiety (HCC) Medicare annual wellness visit, subsequent- Primary Diabetes mellitus type 2 in obese (HCC) Type II or unspecified type diabetes mellitus without mention of complication, not stated as uncontrolled 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) Essential hypertension Unspecified essential hypertension Atherosclerosis of [place] coronary artery of [place] heart without angina pectoris 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 Hyperlipidemia LDL goal <70 Other and unspecified hyperlipidemia 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)- Primary 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 behavioral disturbance, psychotic disturbance, mood disturbance, or anxiety (HCC) 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 (HCC) Hyperlipidemia LDL goal <70 Other and unspecified hyperlipidemia Essential hypertension Unspecified essential hypertension Routine general medical examination at health care facility- Primary Routine general medical examination at a health care facility 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) Type 2 diabetes mellitus with obesity (CMS/HCC) (HCC) (HCC) Essential hypertension Unspecified essential hypertension 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 Hyperlipidemia LDL goal <70 Other and unspecified hyperlipidemia [facility] Diagnosis Medicare annual wellness visit, subsequent- Primary Essential hypertension Unspecified essential hypertension 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 (HCC) Type II or unspecified type diabetes mellitus without mention of complication, not stated as uncontrolled Memory loss Hyperlipidemia LDL goal <70 Other and unspecified hyperlipidemia Ataxia Lack of coordination Atherosclerosis of [place] coronary artery of [place] heart without angina pectoris Diabetes mellitus type 2 in obese (HCC)- Primary Type II or unspecified type diabetes mellitus without mention of complication, not stated as uncontrolled Atherosclerosis of [place] coronary artery of [place] heart without angina pectoris Essential hypertension Unspecified essential hypertension Hyperlipidemia LDL goal <70 Other and unspecified hyperlipidemia 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) 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 behavioral disturbance, psychotic disturbance, mood disturbance, or anxiety (HCC) Medicare annual wellness visit, subsequent- Primary Diabetes mellitus type 2 in obese (HCC) Type II or unspecified type diabetes mellitus without mention of complication, not stated as uncontrolled 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) Essential hypertension Unspecified essential hypertension Atherosclerosis of [place] coronary artery of [place] heart without angina pectoris 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 Hyperlipidemia LDL goal <70 Other and unspecified hyperlipidemia 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)- Primary 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 behavioral disturbance, psychotic disturbance, mood disturbance, or anxiety (HCC) 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 (HCC) Hyperlipidemia LDL goal <70 Other and unspecified hyperlipidemia Essential hypertension Unspecified essential hypertension Routine general medical examination at health care facility- Primary Routine general medical examination at a health care facility 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) Type 2 diabetes mellitus with obesity (CMS/HCC) (HCC) (HCC) Essential hypertension Unspecified essential hypertension 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 Hyperlipidemia LDL goal <70 Other and unspecified hyperlipidemia Mixed Alzheimer's and vascular dementia (HCC)- Primary [facility] Diagnosis Medicare annual wellness visit, subsequent- Primary Essential hypertension Unspecified essential hypertension 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 (HCC) Type II or unspecified type diabetes mellitus without mention of complication, not stated as uncontrolled Memory loss Hyperlipidemia LDL goal <70 Other and unspecified hyperlipidemia Ataxia Lack of coordination Atherosclerosis of [place] coronary artery of [place] heart without angina pectoris Diabetes mellitus type 2 in obese (HCC)- Primary Type II or unspecified type diabetes mellitus without mention of complication, not stated as uncontrolled Atherosclerosis of [place] coronary artery of [place] heart without angina pectoris Essential hypertension Unspecified essential hypertension Hyperlipidemia LDL goal <70 Other and unspecified hyperlipidemia 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) 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 behavioral disturbance, psychotic disturbance, mood disturbance, or anxiety (HCC) Medicare annual wellness visit, subsequent- Primary Diabetes mellitus type 2 in obese (HCC) Type II or unspecified type diabetes mellitus without mention of complication, not stated as uncontrolled 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) Essential hypertension Unspecified essential hypertension Atherosclerosis of [place] coronary artery of [place] heart without angina pectoris 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 Hyperlipidemia LDL goal <70 Other and unspecified hyperlipidemia 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)- Primary 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 behavioral disturbance, psychotic disturbance, mood disturbance, or anxiety (HCC) 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 (HCC) Hyperlipidemia LDL goal <70 Other and unspecified hyperlipidemia Essential hypertension Unspecified essential hypertension Routine general medical examination at health care facility- Primary Routine general medical examination at a health care facility 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) Type 2 diabetes mellitus with obesity (CMS/HCC) (HCC) (HCC) Essential hypertension Unspecified essential hypertension 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 Hyperlipidemia LDL goal <70 Other and unspecified hyperlipidemia 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)- Primary Essential hypertension Unspecified essential hypertension Type 2 diabetes mellitus with obesity (CMS/HCC) (HCC) (HCC) Hyperlipidemia LDL goal <70 Other and unspecified hyperlipidemia 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 documented in this encounter [facility] for referral (narrative)* Consultation (Routine) - Pending Review Specialty Diagnoses / Procedures Referred By Rose t Referred To Contact Geriatric Medicine Diagnoses Dementia with behavioral disturbance (HCC) Procedures PA OFFICE/OUTPATIENT [facility] 60 MINUTES Dereck Franco MD [address] [facility] [address] [place] [address] Priya Schumacher MD [address] [place] [id number] Referral ID Status Reason Start Date Expiration Date Visits Requested Visits Authorized [id number] Pending Review Specialty Services Required 03/03/2024 03/03/2025 1 1 * Imaging (Routine) - Pending Review Specialty Diagnoses / Procedures Referred By Contac t Referred To Contact Radiology Diagnoses [place]abil[place]-neglect of left side Ataxia Procedures MR brain wo contrast Dereck Franco MD [address] [place] [address] Referral ID Status Reason Start Date Expiration Date V isits Requested Visits Authorized [id number] Pending Review 03/03/2024 03/03/2025 1 1 [facility] Consultation (Routine) - Pending Review Specialty Diagnoses / Procedures Referred By Contac t Referred To Contact Neurology Diagnoses Memory loss Ataxia Procedures PA OFFICE/OUTPATIENT [facility] 60-74 MINUTES Wilfred Puente MD [address] [facility] [place] [address] Dereck Franco MD [address] [place] [address] Referral ID Status Reason Start Date Expiration Date Visits Requested Visits Authorized [id number] Pending Review Specialty Services Required 10/28/2022 10/28/2023 1 1 [facility] [employer] [place] Summary Purpose Family History No Family History Records Found Relationship Condition Age at Onset Recorded Date/T walter mother Hypertension Unknown Diabetes mellitus Unknown father Cardiac disease Unknown Advance Directives No Advanced Directives Records Found Advance Directive Response Recorded Date/ Time Advance Directives Yes December 17, 020 8:43am Living Will Yes February 07, 2020 1: 59pm Power of Category Director Yes February 07, 2020 1:59pm Reason for Referral Specialty Diagnoses / Procedures Referred By Contac t Referred To Contact Radiology Diagnoses Numbness in both legs Procedures Nerve conduction test with EMG Dereck Franco MD [address] [facility] [address] [place] [address] Referral ID Status Reason Start Date Expiration Date Visits Re quested Visits Authorized [id number] Closed 01/19/2023 07/18/2023 1 1 Specialty Diagnoses / Procedures Referred By Contac t Referred To Contact Radiology Diagnoses Ataxia Apraxia Unsteadiness on feet Procedures MR brain wo contrast Dereck Franco MD [address] [facility] [address] [place] [address] Referral ID Status Reason Start Date Expiration Date Visits Re quested Visits Authorized [id number] Closed 01/19/2023 07/18/2023 1 1 Specialty Diagnoses / Procedures Referred By Contac t Referred To Contact Physical Therapy Diagnoses Axonal sensorimotor neuropathy Unsteadiness on feet Procedures [facility] 60-74 MINUTES Dereck Franco MD [address] [place] [address] Referral ID Status Reason Start Date Expiration Date Visits Requested Visits Authorized [id number] Pending Review Eval and Treat 04/07/2023 10/04/2023 99 99 Scheduling Instructions [place], [place] Imbalance, falls. Please perform balance performance assessment. [phone] Specialty Diagnoses / Procedures Referred By Contac t Referred To Contact Radiology Diagnoses [place]-neglect of left side Ataxia Procedures MR brain wo contrast Dereck Franco MD [address] [facility] [address] [place] [address] Referral ID Status Reason Start Date Expiration Date Visits Re quested Visits Authorized [id number] Closed 03/03/2024 03/03/2025 1 1 Chief Complaint and Reason for Visit Chief Complaint 1 YR FU UNSTEADINESS RX HERE Reason for Visit Atherosclerosis of [place] artery of [place] heart without angina pectoris Essential (primary) hypertension Hyperlipidemia Ischemic cardiomyopathy Additional Source Comments (unrecognized sect ion and content) No Status Records FoundNo Status Records FoundNo Status Records FoundNo Status Records Found INFORMATION SOURCE (unrecogn ized section and content) DATE CREATED AUTHOR 03/25/2018 [facility] DATE CREATED AUTHOR AUTHOR'S ORGANIZ ATION 03/25/2018 [facility] DATE CREATED AUTHOR AUTHOR'S ORGANIZ ATION 05/10/2023 [facility] DATE CREATED AUTHOR AUTHOR'S ORGANIZ ATION 08/12/2025 [facility] Reason for Visit (unrecogniz ed section and content) Reason Onset Date Comments Med Refill 12/15/2022 Reason Onset Date Comments Med Refill 01/10/2023 Specialty Diagnoses / Procedures Referred By Contac t Referred To Contact Radiology Diagnoses Numbness in both legs Procedures Nerve conduction test with EMG Dereck Franco MD [address] [facility] [address] [place] [address] Referral ID Status Reason Start Date Expiration Date Visits Re quested Visits Authorized [id number] Closed 01/19/2023 07/18/2023 1 1 Specialty Diagnoses / Procedures Referred By Contac t Referred To Contact Radiology Diagnoses Ataxia Apraxia Unsteadiness on feet Procedures MR brain wo contrast Dereck Franco MD [address] [place] [address] Referral ID Status Reason Start Date Expiration Date Visits Re quested Visits Authorized [id number] Closed 01/19/2023 07/18/2023 1 1 Reason Comments Follow-up After mri Reason Onset Date Comments Med Refill 04/10/2023 Reason Comments Hyperlipidemia Hypertension Diabetes Medication Check Blood Work Health Maintenance Hep c screening- ref useTdap vaccine- refuseShingles vaccine- refuse Reason Onset Date Comments Med Refill 05/23/2023 Reason Comments Follow-up Memory Loss Reason Onset Date Comments Med Refill 06/22/2023 Reason Onset Date Comments Med Refill 07/07/2023 Reason Onset Date Comments Med Refill 08/27/2023 Reason Comments Medicare Annual Wellness Visit Subsequen t Blood Work Health Maintenance Rsv vaccine- not don e5th covid vaccine- not done Reason Onset Date Comments Med Refill 12/16/2023 Reason Onset Date Comments Med Refill 01/11/2024 Reason Comments Follow-up Dementia Reason Comments Dementia Specialty Diagnoses / Procedures Referred By Rose pérez Referred To Contact Geriatric Medicine Diagnoses Dementia with behavioral disturbance (HCC) Procedures [facility] MDM 60 MINUTES Dereck Franco MD [address] [place] [address] Priya Schumacher MD [address] [place] [id number] Referral ID Status Reason Start Date Expiration Date Visits Requested Visits Authorized [id number] Pending Review Specialty Services Required 03/03/2024 03/03/2025 1 1 Specialty Diagnoses / Procedures Referred By Rose pérez Referred To Contact Radiology Diagnoses [place]-neglect of left side Ataxia Procedures MR brain wo contrast Dereck Franco MD [address] [place] [address] Referral ID Status Reason Start Date Expiration Date Visits Re quested Visits Authorized [id number] Closed 03/03/2024 03/03/2025 1 1 Reason Comments 6 Month Follow-up Medicine Check Diabetes Hypertension Hyperlipidemia Gout Alzheimer's Disease Health Maintenance Declines TDAPDecline s HarperixDid not get an RSV vaccine or a 5th COVID vaccine Reason Onset Date Comments Appointment 05/18/2024 Reason Onset Date Comments Med Refill 07/07/2024 Reason Comments Medicare Annual Wellness Visit Subsequen t Health Maintenance Declines chandrika lipscomb he had an eye exam 2021 at [facility]-need to request report, we do not have a current JUDIT on file-will be updated at visit tomorrow Reason Comments Medicare Annual Wellness Visit Subsequen t Blood Work Reason Onset Date Comments Results 11/03/2024 Reason Onset Date Comments Appointment 11/07/2024 Reason Onset Date Comments Med Refill 12/26/2024 Reason Onset Date Comments Med Refill 01/08/2025 Reason Onset Date Comments Med Refill 04/11/2025 Reason Comments Alzheimer's Disease Gout Diabetes Hyperlipidemia Hypertension Medication Check 6 month Cough With a chest rattle - lots of phlegm Reason Onset Date Comments Med Refill 07/18/2025 Reason Onset Date Comments Med Refill 07/25/2025 Reason Onset Date Comments Med Refill 08/10/2025 Care Teams (unrecognized sec tion and content) Real Estate Branch Manager Relationship Specialty Start Date End Date Wilfred Puente MD [address] [place] [address] PCP - General 10/04/18 Real Estate Branch Manager Relationship Specialty Start Date End Date Wilfred Puente MD [address] [place] [address] PCP - General 10/04/18 Real Estate Branch Manager Relationship Specialty Start Date End Date [facility] Puente [facility] [address] [facility] [place] [id number] PCP - General 10/04/18 Real Estate Branch Manager Relationship Specialty Start Date End Date Wilfred Puente MD [address] [facility] [place] [id number] PCP - General 10/04/18 Real Estate Branch Manager Relationship Specialty Start Date [place] [address] PCP - General 10/04/18 Real Estate Branch Manager Relationship Specialty Start Date [place] [address] PCP - General 10/04/18 Real Estate Branch Manager Relationship Specialty Start Date [place] [address] PCP - General 10/04/18 Team Status: Active Member Role Status Dates Dr. Wilfred Puente MD Primary Care Provider Active Team Status: Inactive Member Role Status Dates Dr. Wilfred Puente MD Primary Care Provider, Referri ng Provider Active Nicki Mazariegos PA, PA Attending Provider Active Team Status: Inactive Member Role Status Dates Dr. Wilfred Puente MD Primary Care Provider Active Dr. Dereck Franco MD Attending Provider, Referring Pro vider Active Real Estate Branch Manager Relationship Specialty Start Date [place] [address] PCP - General 10/04/18 Real Estate Branch Manager Relationship Specialty Start Date End Date Wilfred [facility]ente [facility] [place] [address] PCP - General 10/04/18 Real Estate Branch Manager Relationship Specialty Start Date [place] [address] PCP - General 10/04/18 Real Estate Branch Manager Relationship Specialty Start Date End Date Wilfred Puetne MD [address] [facility] [place] [address] PCP - General 10/04/18 Real Estate Branch Manager Relationship Specialty Start Date End Date Wilfred Puente MD [address] [place] [address] PCP - General 10/04/18 Real Estate Branch Manager Relationship Specialty Start Date End Date Wilfred Puente MD [address] [place] [address] PCP - General 10/04/18 Real Estate Branch Manager Relationship Specialty Start Date End Date Wilfred Puente MD [address] [place] [address] PCP - General 10/04/18 Real Estate Branch Manager Relationship Specialty Start Date End Date Wilfred Puente MD [address] [place] [address] PCP - General 10/04/18 Real Estate Branch Manager Relationship Specialty Start Date End Date Wilfred Puente MD [address] [place] [address] PCP - General 10/04/18 Real Estate Branch Manager Relationship Specialty Start Date End Date Wilfred Puente MD [address] [place] [address] PCP - General 10/04/18 Real Estate Branch Manager Relationship Specialty Start Date End Date Wilfred Puente MD [address] [facility] [place] [address] PCP - General 10/04/18 Real Estate Branch Manager Relationship Specialty Start Date End Date Wilfred Puente MD [address] [facility] [place] [address] PCP - General 10/04/18 Real Estate Branch Manager Relationship Specialty Start Date End Date Wilfred Puente MD [address] [facility] [place] [address] PCP - General 10/04/18 Real Estate Branch Manager Relationship Specialty Start Date End Date Wilfred Puente MD [address] [facility] [place] [address] PCP - General 10/04/18 Real Estate Branch Manager Relationship Specialty Start Date End Date Wilfred Puente MD [address] [facility] [place] [address] PCP - General 10/04/18 Real Estate Branch Manager Relationship Specialty Start Date End Date Wilfred Puente MD [address] [facility] [place] [address] PCP - General 10/04/18 Real Estate Branch Manager Relationship Specialty Start Date End Date Wilfred Puente MD [address] [facility] [place] [address] PCP - General 10/04/18 Real Estate Branch Manager Relationship Specialty Start Date End Date Wilfred Puente MD [address] [facility] [place] [address] PCP - General 10/04/18 Real Estate Branch Manager Relationship Specialty Start Date End Date Wilfred Puente MD 25 [facility] [[email or web address]] [place] [address] PCP General 10/04/18 Real Estate Branch Manager Relationship Specialty Start Date End Date Wilfred Puente MD 25 [facility] [place] [address] PCP [facility] 10/04/18 Real Estate Branch Manager Relationship Specialty Start Date End Date Wilfred Puente MD 25 [facility] [place] [address] [facility] 10/04/18 Real Estate Branch Manager Relationship Specialty Start Date End Date Wilfred Puente MD 25 [facility] [place] [address] [facility] 10/04/18 Real Estate Branch Manager Relationship Specialty Start Date End Date Wilfred Puente MD 25 [facility] [place] [address] [facility] 10/04/18 Goals (unrecognized section and content) Goals may be documented in a n alternate section FOR RECORDS PERTAINING TO PATIENTS WHO ARE OR HAVE BEEN ENROLLED IN A CHEMICAL DEPENDENCY/SUBSTANCEABUSE PROGRAM, SOME INFORMATION MAY BE OMITTED. This clinical summary was aggregated from multiple sources. Caution should be exercised in using it in the provision of clinical care. This summary normalizes information from multiple sources, and as a consequence, information in this document may materially change the coding, format and clinical context of patient data. In addition, data may be omitted in some cases. CLINICAL DECISIONS SHOULD BE BASED ON THE PRIMARY CLINICAL RECORDS. [facility] [employer] [facility]. provides no warranty or guarantee of the accuracy or completeness of information in this document.
--- NOTE | 2025-08-21 16:29 | CHAPLAIN ---
Type of Pastoral Visit _x__ Initial Visit ___ Follow-up Visit ___ On-call Visit ___ General Patient Visit ___ Spiritual Assessment ___ Family Conference ___ Bereavement ___ Rapid Response ___ Code Blue ___ Other (describe below) Pastoral Care Referral From ___ Patient _x__ Family ___ Nurse ___ Physician ___ Beauty Sales Consultant ___ Videographer ___ Other (describe below) Sacrament/Intervention _x__ Active listening ___ Anointing ___ Gnosticist ___ Bereavement ___ Communion _x__ Christal exploration ___ _x__ Life review _x__ Prayer ___ Reconciliation ___ Sacrament of Sick _x__ Supportive presence ___ Wedding ___ Other (describe below) Pastoral Comments patient is sleeping and is said to have Sun downers; his spouse is known to this social studies teacher and she gives a summary of his health and the recent difficulties at home including the need to come to ED; new information has been discovered about the patient's condition and more tests will be attempted; lots of time to listen and hear concerns of the spouse; spouse acknowledges that some major decisions may be coming for the family; affirmation of thoughts and feelings; support in presence and prayer given
--- NOTE | 2025-08-21 17:09 | PCM.HP.STD ---
HPI - General General Date of Admission: 08/21/25 HPI Narrative RAINA DELGADO, is a 79 M who presents to the hospital for weakness and multiple falls over the last couple of days. 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 According to the who is at bedside he was diagnosed with dementia in 2019 after heart cath and then has continued to decline since that time. He is been evaluated by neurology in the outpatient side and had a Mini-Mental status exam performed where he scored a 7 out of 30. She has not noticed any fevers or chills but she has noticed that he has been coughing a little bit more and has been a little bit more productive. CT scan of the brain was concerning for possible NPH though he does have significant volume loss and they are recommending an MRI for further evaluation of possible NPH. No leukocytosis and urine was unremarkable. Obtain respiratory panel and COVID panel. [facility] Medical History (Updated 08/21/25 @ 12:[address] 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) Essential (primary) hypertension Atherosclerosis of coronary artery of [place] heart without angina pectoris Home Medications ?Medication ?Instructions ?Recorded ?Last Taken ?Type atenolol 100 mg tablet 100 mg PO DAILY 11/13/19 08/17/25 History lisinopril 40 mg tablet 40 mg PO DAILY blood pressure 11/13/19 08/17/25 History metformin 1,000 mg tablet 1,000 mg PO BID blood sugar 11/13/19 08/17/25 History multivitamin 1 tab PO DAILY 11/13/19 08/17/25 History glimepiride 1 mg tablet 1 mg PO DAILY blood sugar 05/28/21 08/17/25 History allopurinol 100 mg tablet 200 mg PO DAILY gout 02/12/22 08/17/25 History aspirin 81 mg tablet,delayed 81 mg PO DAILY heart 08/21/25 08/17/25 History release (Ecotrin Low Strength) simvastatin 40 mg tablet 40 mg PO QHS 08/21/25 08/17/25 History Allergy/AdvReac Type Severity Reaction Status Date / Time No Known Allergies Allergy Verified 05/10/23 10:05 Family History Mother Hypertension Diabetes Father Heart disease Surgical History History of coronary artery stent placement (12/18/19) History of left heart catheterization (07/06/05) History of cataract surgery H/O coronary artery bypass surgery (07/08/05) Social History (Updated 08/21/25 @ 09:[address] Bertin Zamora MD) household members: spouse Smoking Status: Former smoker ROS Review of Systems ROS Unobtainable: due to mental status Vital Signs Vital Signs Vital Signs: 08/21/25 09:38 08/21/25 09:40 08/21/25 10:37 Temperature 98.4 F Temperature Source Oral Pulse Rate 78 78 Respiratory Rate 18 16 Respiratory Effort Normal Non-Labored Respiratory Depth Normal Respiratory Pattern Normal Blood Pressure 156/88 H 115/72 Blood Pressure Mean 110 86 Blood Pressure Source Blood Pressure Position Blood Pressure Location Pulse Ox 93 98 Oxygen Delivery Method Room Air Room Air Room Air 08/21/25 11:00 08/21/25 12:00 08/21/25 12:48 Temperature 98.7 F Temperature Source Pulse Rate 88 89 89 Respiratory Rate 18 18 16 Respiratory Effort Respiratory Depth Respiratory Pattern Blood Pressure 115/78 129/77 H 134/78 H Blood Pressure Mean 90 94 96 Blood Pressure Source Blood Pressure Position Blood Pressure Location Pulse Ox 98 98 99 Oxygen Delivery Method Room Air Room Air 08/21/25 13:08 08/21/25 14:00 08/21/25 16:36 Temperature 97.3 F L Temperature Source Temporal Pulse Rate 72 Respiratory Rate 14 Respiratory Effort Respiratory Depth Respiratory Pattern Blood Pressure 84/52 L 156/79 H Blood Pressure Mean 62 104 Blood Pressure Source Monitor Monitor Blood Pressure Position Left Lateral Supine Blood Pressure Location Right Arm Left Arm Pulse Ox 95 Oxygen Delivery Method Room Air Room Air Weight Weight: 191 lb 5.78 oz Body Mass Index (BMI) 28.2 Physical Exam Narrative General: Alert, confused, no apparent distress HEENT: Atraumatic, PERRLA, EOMI, Normocephalic, hard of hearing Oral: Moist Mucosa Neck: Supple, No JVD Lungs: Diminished, Normal air movement, No rhonchi, No wheeze, No rales Cardiovascular: Regular rate, Regular Rhythm, Normal S1, Normal S2, No murmurs Abdomen: Soft, Non Tender, Non-Distended, No Hepato-splenomegaly Extremities: Trace edema, Capillary Refill Less than 3 Seconds Skin: No rashes, No breakdown Musculoskeletal: No Tenderness to Palpation of Joints or Extremities Neurological: No focal neurological deficits, moves all extremities, does not follow exam Psych/Mental Status: Appropriate Results Lab / Micro Data 08/21/25 10:32 08/21/25 10:32 Labs: Laboratory Results - last 24 hr 08/21/25 10:32: WBC 8.4, RBC 3.79 L, Hgb 11.2 L, Hct 35.5 L, MCV 93.7, MCH 29.6, MCHC 31.5 L, RDW Std Deviation 50.9 H, RDW Coeff of Carlos Enrique 14.8 H, Plt Count 209, MPV 11.3, Immature Gran % (Auto) 0.500, Neut % (Auto) 77.1 H, Lymph % (Auto) 5.2 L, [place] % (Auto) 7.1, Eos % (Auto) 9.6 H, Baso % (Auto) 0.5, Absolute Neuts (auto) 6.5, Absolute Lymphs (auto) 0.44 L, Nucleated RBC % 0, Sodium 141, Potassium 3.6, Chloride 107, Carbon Dioxide 20.1 L, Anion Gap 15, BUN 21 H, Creatinine 1.10, Estim Creat Clear Calc 58.69, Est GFR (MDRD) Non-Af 67, BUN/Creatinine Ratio 18.6, Glucose 115 H, Lactic Acid 1.3, Calcium 8.3, Total Bilirubin 0.82, AST 35, ALT 35, Alkaline Phosphatase 74, Total Protein 6.4, Albumin 3.4, Globulin 3.0, Albumin/Globulin Ratio 1.1 08/21/25 11:00: Urine Color Yellow, Urine Clarity Clear, Urine pH 5.0, Ur Specific [place] 1.025, Urine Protein 100 H, Urine Glucose (UA) Normal, Urine Ketones 5 H, Urine Occult Blood 10 H, Urine Nitrite Negative, Urine Bilirubin Negative, Urine Urobilinogen Normal, Ur Leukocyte Esterase Negative, Urine RBC 0-5 SEEN, Urine WBC 0 SEEN, Ur Squamous Epith Cells 0 SEEN, Urine Bacteria 0 SEEN, Urine Mucus 0 SEEN Imaging Radiology Impression Brain CT 08/21/25 09:51 IMPRESSION: CHRONIC CHANGES. NO ACUTE FINDINGS. Questionable element of normal pressure hydrocephalus. Reading Location: [id number] Assessment & Plan Assessment/Plan (1) Frequent falls: PLAN: Plan 1. Increasing debility and worsening dementia with frequent falls ? PT/OT ? MRI is pending, will likely need Ativan in the morning completed ? Will obtain respiratory panel and COVID panel to evaluate for an infectious etiology for his decline ? I did have a 20-minute discussion with the on advance care planning with the difference between palliative care and hospice care as well as options for dementia care including memory care unit versus going to get her into an assisted living versus home health aide ? She will discuss with family and with case management what her options would be going forward 2. CAD status post CABG and stent/history of atrial myxoma/essential HTN/HLD ? Blood pressures are stable ? Can resume his home blood pressure medications ? Continue with his cholesterol medications ? Continue aspirin 3. DM2 ? Insulin ? Accu-Cheks ? Will monitor and make adjustments as necessary 4. Gout ? Stable ? Continue with allopurinol DVT: Lovenox 60 minutes was spent on direct patient care, including documentation as well as chart review and collaboration with colleagues Charges/Coding Multi Select Codes Visit Charges Visit Charges: 12709 Init Hosp L2 Hospitalists' Procedures Procedures: 67221 Advncd Care Plan 30 Min
[2025-08-22 03:00] VITALS: PULSE 74
[2025-08-22 03:31] VITALS: RESP 18; O2SAT 88
[2025-08-22 03:34] VITALS: BP 131/63; PULSE 80; RESP 17; TEMP 36.9; O2SAT 93
[2025-08-22 06:12] LABS: Hematocrit 31.7 % (40-54); Hemoglobin 9.8 g/dL (13.0-16.5); Immature Granulocytes Count 0.020 X10^3/uL (0.0-0.0); Mean Corp Hgb Conc 30.9 g/dL (32-36); Mean Corpuscular Volume 94.1 fL (80-94); Mean Platelet Vol. 11.3 fl (6.2-12.0); NRBC Flagged by Analyzer 0 % (0-5); POSITIVE DIFFERENTIAL YES; Platelet Count 191 K/mm3 (150-450); RBC Distribution Width CV 14.7 % (11.6-14.6); RBC Distribution Width SD 51.1 fl (35.1-43.9); Red Blood Count 3.37 M/mm3 (4.6-6.2); White Blood Count 5.8 K/mm3 (4.4-11.0)
[2025-08-22 06:50] LABS: Anion Gap 9 (5-15); BUN 17 mg/dL (4-19); BUN/Creat Ratio 18.3 RATIO (10-20); Calcium,Total 8.3 mg/dL (7.6-11.0); Carbon Dioxide 23.6 mmol/L (21.0-32.0); Chloride 108 mmol/L (98-108); Estimated Creatinine Clearance 66.54 ml/min (50-250); Glucose 109 mg/dL (70-99); Potassium 3.3 mmol/L (3.3-5.1)
[2025-08-22] MEDS: Aspirin E.C. 81 MG Tablet PO (09:03)
[2025-08-22 09:30] VITALS: BP 158/88; PULSE 82; RESP 18; TEMP 36.6; O2SAT 93
--- NOTE | 2025-08-22 10:51 | CASEMGMT ---
ELLY Met with pts to complete [place] form. [place]A form and its content were verbally explained and questions were answered to the best of my ability.? Patient's voiced understanding and signed [place] form.? Patient provided a copy of signed [place] form and original placed in patient's chart.? Patient had no further questions. Mireille Marx, Discharge Planning Asst
--- NOTE | 2025-08-22 11:06 | CASEMGMT ---
Discharge Planning A list of SNF providers including quality and resource use data and consistent with the patient's preferred geographic region, medical needs, and insurance network was created in [facility] Guide.? This list was provided to the SW. Mireille Marx Discharge Planning Asst.
--- NOTE | 2025-08-22 11:45 | CASEMGMT ---
Social Work SW spoke with the , son and 2 daughters in the patients room. The asked about palliative or hospice. SW asked if SW can submit a referral to the inpatient palliative [employer] [facility] and the stated yes. The reported she spoke with the insurance company and is interested in a referral to a SNF at [place]. SW informed her SW can provide a list SNF facilities but the insurance company will need to approve it. BARTOLO Garcia
[2025-08-22] MEDS: FLU VACCINE HIGH DOSE 25-26(65YR UP) 180 MCG/0.5 ML SYRINGE IM (11:47)
--- NOTE | 2025-08-22 11:54 | CASEMGMT ---
Social Work A list of?SNF providers including quality and resource use data and consistent with the patient's preferred geographic region, medical needs, and insurance network was created in [facility] Guide.?This list was provided to the . BARTOLO Conteh
--- NOTE | 2025-08-22 12:09 | PCM.CONS.P ---
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) Essential (primary) hypertension Atherosclerosis of coronary artery of [place] heart without angina pectoris Home Medications ?Medication ?Instructions ?Recorded ?Last Taken ?Type atenolol 100 mg tablet 100 mg PO DAILY 11/13/19 08/17/25 History lisinopril 40 mg tablet 40 mg PO DAILY blood pressure 11/13/19 08/17/25 History metformin 1,000 mg tablet 1,000 mg PO BID blood sugar 11/13/19 08/17/25 History multivitamin 1 tab PO DAILY 11/13/19 08/17/25 History glimepiride 1 mg tablet 1 mg PO DAILY blood sugar 05/28/21 08/17/25 History allopurinol 100 mg tablet 200 mg PO DAILY gout 02/12/22 08/17/25 History aspirin 81 mg tablet,delayed 81 mg PO DAILY heart 08/21/25 08/17/25 History release (Ecotrin Low Strength) simvastatin 40 mg tablet 40 mg PO QHS 08/21/25 08/17/25 History Allergy/AdvReac Type Severity Reaction Status Date / Time No Known Allergies Allergy Verified 02/10/23 10:05 Family History Mother Hypertension Diabetes Father Heart disease Surgical History History of coronary artery stent placement (12/18/19) History of left heart catheterization (07/06/05) History of cataract surgery H/O coronary artery bypass surgery (07/08/05) Social History household members: spouse Smoking Status: Former smoker ROS ROS Narrative ROS severely limited by patient's mental status. He does deny pain or shortness of breath. He does not appear to be in pain or to have shortness of breath. Review of Systems ROS Unobtainable: due to mental condition and due to mental status Physical Exam Const alert Constitutional Narrative: Patient is oriented to person only HEENT normocephalic Eyes PERRL Lymph Lymphatic: no lymphadenopathy noted Resp normal respiratory effort, normal air movement and clear to auscultation bilaterally Cardio regular rate Rhythm: abnormal rhythm GI normal to inspection, nondistended, normoactive bowel sounds, soft to palpation and non-tender Extremity normal capillary refill Skin no rashes or lesions noted Neuro Neuro Narrative: Unable to follow one-step commands. Reflexes are intact. Speech: speech normal Gait (Neuro): unable to assess gait Psych Mood & Affect: flat affect Charges/Coding Palliative Care Palliative Care: 82226 New Pt Consult 60-79 min HPI Current admission Current Code Status: DNR CCA no intubation Associated Diagnosis: Multiple falls, severe dementia/Alzheimer's Consult Data Date of Consult: 08/22/25 Location of consult: PCU Reason for referral: Goals of care and CODE STATUS Referral source: Dr. Burrell Palliative care diagnosis (Summary list): Severe dementia/Alzheimer's, unable to follow one-step commands, Mini-Mental 05/02, multiple falls Palliative care services/treatment (Accepted, as consult): Accepted Case discussed with referring provider: Goals of care HPI Narrative HPI Narrative: PAIN ASSESSMENT patient currently denies pain Prior to meeting with the patient and family at bedside I reviewed labs and radiological studies I also reviewed previous documentation. I then met with the patient and his family at bedside. I introduced myself and concept of palliative care in which they voluntarily excepted our services. When I asked the patient upon entering the room who the other people were in the room he pointed to his and stated that that was his mom, he pointed to his daughter and stated that that was his sister. I did review of therapy notes which indicated that he was unable to manage one-step commands today. Family states that he has had significant cognitive decline since Wednesday and has had multiple falls at home. I did review his Mini-Mental where he scored 7 out of 30. He did have a good appetite today but his family was feeding him. His appetite does wax and wane. I did note that his hemoglobin has dropped significantly from 11.2 yesterday to 9.8 today. His BUN has improved since yesterday and is now 17 from 21 yesterday. He has a creatinine of 0.9 and GFR of 66. He did have a MRI today which family stated that they thought he was getting another MRI with sedation because the one that they had completed was not very good because of artifact. 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 During the family meeting they stated that they were given a list of SNF or outpatient rehab but understand that the patient may not be to rehab at all and that he will have to be excepted by his insurance and the chosen facilities. I did prepare them for the fact that they may not qualify for SNF rehab. I also introduced the possibility of home with hospice which they state they are also interested in in the event that the patient is unable to go to SNF rehab. I will be following up with the patient's family tomorrow after they find out more about rehab. They do state understanding that if the patient does back to rehab and is excepted if he does not participate with rehab they may discontinue and have to go a different direction and make choices about next steps. They did state that if that were to happen they would most likely go home with hospice. Lastly, I did discuss CODE STATUS in which at the time of assessment the patient was a full code. We did discuss the benefits versus burdens and CODE STATUS was changed to DNR CCA with no intubation. I did answer all questions. Palliative care will continue to follow for goals of care conversations as clinical picture evolves. per MRI:Dilated ventricles out of proportion to the degree of cerebral atrophy concerning for normal pressure hydrocephalus. Per hospitalist:RAINA DELGADO, is a 79 M who presents to the hospital for weakness and multiple falls over the last couple of days. 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 According to the who is at bedside he was diagnosed with dementia in 2019 after heart cath and then has continued to decline since that time. He is been evaluated by neurology in the outpatient side and had a Mini-Mental status exam performed where he scored a 7 out of 30. She has not noticed any fevers or chills but she has noticed that he has been coughing a little bit more and has been a little bit more productive. CT scan of the brain was concerning for possible NPH though he does have significant volume loss and they are recommending an MRI for further evaluation of possible NPH. No leukocytosis and urine was unremarkable. Obtain respiratory panel and COVID panel. This note was generated with [employer] dictation software. It may contain incorrect words, spelling, and punctuation that were not noted in checking the note before signing. Palliative Assessment Advanced Directive - Current Admission Advance Directive: Advance Directive ON ADMISSION - REFERENCE Do you have a Healthcare Yes 08/21/25 13:08 Living Will? Is a Healthcare Living Will No, requested patient 08/21/25 13:08 present in the medical record? international account representative bring copy into [facility] Do you have a Healthcare Power Yes 08/22/25 10:32 of Animal Taxonomist? Is a Healthcare Power of No, requested patient 08/21/25 13:08 Animal Taxonomist present in the international account representative bring copy medical rec into [facility] Do You Want Additional Declined 08/21/25 13:08 Information on Advanced Directives or Healthcare Proxy/DPOA comments: Patient's Psychosocial/Spiritual Information Living situation/Marital status: Patient is and lives with his Geographic location: [place] Supports: Family Baptist/Christal or spiritual preference: Latter-Day Spiritual distress: None apparent Prior functional status: Prior to hospitalization he was able to ambulate. Family states he would sometimes use a walker but mostly better Assistive devices at home: Walker Cultrual issues: None Information about the patient as a person: Patient currently spends most of his time in a recliner watching television. Symptoms Palliative performance scale: 40-50% Palliative prognostic index: 7.5 Dyspnea symptoms: Mild Anorexia symptoms: Moderate Fatigue symptoms: Mild Weakness symptoms: Moderate Confusion symptoms: Severe Objective Data Objective Data Vital Signs: Vital Signs Temp Pulse Resp BP Pulse Ox O2 Del Method O2 Flow Rate 97.8 F 82 18 158/88 H 93 Room Air 3 08/22/25 09:30 08/22/25 09:30 08/22/25 09:30 08/22/25 09:30 08/22/25 09:30 08/22/25 10:00 08/22/25 03:36 Oxygen Flow Rate (L/min) 3 Oxygen Delivery Method Room Air Weight: 191 lb 5.78 oz Body Mass Index (BMI) 28.2 Intake & Output: Intake and Output for Last 24 Hours 08/20/25 08/21/25 08/22/25 23:59 23:59 23:59 Intake Total 250 / 250 Output Total 300 / 300 1050 / 1050 Balance -50 / -50 -1050 / -1050 Lab / Micro Data Attestation: I reviewed the patient's lab results. Lab results narrative: See HPI. 08/22/25 05:29 08/22/25 05:29 Labs: Laboratory Results - last 24 hr 08/21/25 21:08: POC Glucose 135 H 08/22/25 05:29: WBC 5.8, RBC 3.37 L, Hgb 9.8 L, Hct 31.7 L, MCV 94.1 H, MCH 29.1, MCHC 30.9 L, RDW Std Deviation 51.1 H, RDW Coeff of Carlos Enrique 14.7 H, Plt Count 191, MPV 11.3, Immature Gran % (Auto) 0.300, Neut % (Auto) 67.3, Lymph % (Auto) 9.4 L, [place] % (Auto) 11.0 H, Eos % (Auto) 11.5 H, Baso % (Auto) 0.5, Absolute Neuts (auto) 3.9, Absolute Lymphs (auto) 0.55 L, Nucleated RBC % 0, Sodium 141, Potassium 3.3, Chloride 108, Carbon Dioxide 23.6, Anion Gap 9, BUN 17, Creatinine 0.95, Estim Creat Clear Calc 66.54, Est GFR (MDRD) Non-Af 81, BUN/Creatinine Ratio 18.3, Glucose 109 H, Calcium 8.3 08/22/25 06:36: POC Glucose 113 H 08/22/25 11:19: POC Glucose 96 Micro: Microbiology 08/21/25 17:08 Mucosa - Nasopharyngeal Coronavirus COVID-19 PCR - Final 08/21/25 17:08 Mucosa - Nasopharyngeal Respiratory Panel (PCR) - Final Radiography Diagnostic Testing: Radiology Impression Brain MRI 08/21/25 13:04 IMPRESSION: Dilated ventricles out of proportion to the degree of cerebral atrophy concerning for normal pressure hydrocephalus. Reading Location: [facility] Impressions & Recommendations Patient & Family Issues discussed with the patient and family: Goals of care going forward and CODE STATUS Patient goal: Patient is unable to discuss goals of care. Family goal: Family would like the best for their father/ that are realistic and expectations. Ethical & Legal Ethical and legal: POA is the patient's . Legal paperwork is in place. Patient is unable to make decisions for himself related to severe dementia/Alzheimer's Impressions Impressions: Patient has a very supportive family and would do well with home hospice if they so chose. Recommentation Palliative recommendations: Patient would benefit from hospice or outpatient palliative care. Encouter Achieved as a result of this Palliative Care Encounter: [ [id number], [id number], [id number], [id number]] minutes were spent in total for this visit which consisted, primarily of counseling and education dealing with the complex and emotionally intense issues of symptom management and palliative care in the setting of serious and potentially life-threatening illness. Review of documentation, labs and radiological studies. 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 *CODE STATUS changed to DNR CCA with no intubation.
--- NOTE | 2025-08-22 12:29 | NEURO.CONS ---
Assessment and Plan: Neuro Assessment/Plan RAINA DELGADO Jr. is a 79 M with a past medical history of dementia, being evaluated by Teleneurology for new falls. PAtient has had a slow decline in walking but not had many falls until this past weekend. Since then patient has not been able to stand and the exam is concerning for L leg weakness and pain. Unclear why the L leg is weak but it is more proximal than distal. Concerning for a muscle strain, possible DVT, bone fracture, high level radiculopathy - very hard to say without clear history. Recommend additional workup for at least DVT but would recommend against surgical interventions Plan: - can eval for causes of LLE weakness and pain: MRI lumbar spine, LE doppler, hip xrays Delirium precautions while in hospital I personally attended this patient and spent a total time of 45minutes evaluating this patient including clinical assessment, review of chart, medical history imaging, and determining appropriate treatment and workup. HPI Consult Data Date of Consult: 08/22/25 HPI Narrative HPI Narrative: RAINA DELGADO, is a 79 M who presents to the hospital for weakness and multiple falls over the last couple of days. 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 According to the who is at bedside he was diagnosed with dementia in 2019 after heart cath and then has continued to decline since that time. He is been evaluated by neurology in the outpatient side and had a Mini-Mental status exam performed where he scored a 7 out of 30. She has not noticed any fevers or chills but she has noticed that he has been coughing a little bit more and has been a little bit more productive. CT scan of the brain was concerning for possible NPH though he does have significant volume loss and they are recommending an MRI for further evaluation of possible NPH. No leukocytosis and urine was unremarkable. Obtain respiratory panel and COVID panel. Neurologic History Saw neurology 2-3 years and has not been able to followup recently because providers are cancelling appointments. 6 months ago did a simpler test and did slightly better. Able to walk on his own (was supposed to use a cane, sometimes will furniture surf), but would occasionally have dizzy spells. Able to normally recognize most family members (but sometimes will forget people), pt is incontinenet at baseline, at good times will have difficulty finding restroom. Will currently eat 2 meals a day - will usually refuse evening meals. The last couple of days (started wednesday morning), pt was found on the kitchen floor and could not get up again, was able to crawl to his bedroom and slept very hard. Since then has needed to walker to walk. Getting up from a chair is very difficult, would get tired more. Has had more falls since then but seems more like he is lowering himself to the floor. Not able to walk far anymore - not like he used to. Has been gradually decreasing in how far he is able to walk.. Pt denies headache. No indications of hitting his head. No new medications recently, no stopped medications. Eating since Wednesday has diminished lately. Has had a new cough for the last 2 months, no diarrhea. Last bowel movement was Wednesday. Denies pain anywhere. Exam -? NEURO: -? Mental Status: The patient was alert but not oriented to time, place (did know city but no building), and person. Normal recent/remote memory, concentration, and general fund of knowledge. -? Language: speech is clear.? Naming, repetition, fluency, and comprehension intact. -? Cranial Nerves: PERRL 3mm/brisk. EOMI, visual white full, no facial asymmetry, facial sensation intact, hearing intact, tongue midline -? Motor: UE antigravity b/l, RLE antigravity but no antigravity in LLE -? Detailed strength exam as performed by the nurse/JESSICA and witnessed by the physician: R L SA 5 5 EE EF WE WF [place] 5 5 HF 4 2 KE KF DF 5 5 PF 5 5 -? Tone: is normal and bulk is normal -? Sensation- Intact to light touch bilaterally -? Coordination: No dysmetria on [id number] b/l -? 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) Essential (primary) hypertension Atherosclerosis of coronary artery of [place] heart without angina pectoris Home Medications ?Medication ?Instructions ?Recorded ?Last Taken ?Type atenolol 100 mg tablet 100 mg PO DAILY 11/13/19 08/17/25 History lisinopril 40 mg tablet 40 mg PO DAILY blood pressure 11/13/19 08/17/25 History metformin 1,000 mg tablet 1,000 mg PO BID blood sugar 11/13/19 08/17/25 History multivitamin 1 tab PO DAILY 11/13/19 08/17/25 History glimepiride 1 mg tablet 1 mg PO DAILY blood sugar 05/28/21 08/17/25 History allopurinol 100 mg tablet 200 mg PO DAILY gout 02/12/22 08/17/25 History aspirin 81 mg tablet,delayed 81 mg PO DAILY heart 08/21/25 08/17/25 History release (Ecotrin Low Strength) simvastatin 40 mg tablet 40 mg PO QHS 08/21/25 08/17/25 History Allergy/AdvReac Type Severity Reaction Status Date / Time No Known Allergies Allergy Verified 02/10/23 10:05 Family History Mother Hypertension Diabetes Father Heart disease Surgical History History of coronary artery stent placement (12/18/19) History of left heart catheterization (07/06/05) History of cataract surgery H/O coronary artery bypass surgery (07/08/05) Social History (Updated 08/21/25 @ 09:[address] Bertin Zamora MD) household members: spouse Smoking Status: Former smoker Vital Signs Vital Signs Vital Signs: 08/21/25 12:48 08/21/25 13:08 08/21/25 14:00 Temperature 98.7 F 97.3 F L Temperature Source Temporal Pulse Rate 89 72 Pulse Strength Respiratory Rate 16 14 Respiratory Effort Respiratory Depth Respiratory Pattern Blood Pressure 134/78 H 84/52 L Blood Pressure Mean 96 62 Blood Pressure Source Monitor Blood Pressure Position Left Lateral Blood Pressure Location Right Arm Pulse Ox 99 95 Oxygen Delivery Method Room Air Room Air Oxygen Flow Rate (L/min) 08/21/25 16:36 08/21/25 20:31 08/21/25 20:56 Temperature 98.5 F Temperature Source Oral Pulse Rate 104 H Pulse Strength Respiratory Rate 19 H 20 H Respiratory Effort Normal Non-Labored Respiratory Depth Normal Respiratory Pattern Tachypnea Blood Pressure 156/79 H 154/89 H Blood Pressure Mean 104 110 Blood Pressure Source Monitor Monitor Blood Pressure Position Supine Semi-Fowlers Blood Pressure Location Left Arm Right Arm Pulse Ox 95 Oxygen Delivery Method Nasal Cannula Nasal Cannula Oxygen Flow Rate (L/min) 4 4 08/21/25 21:10 08/21/25 21:12 08/21/25 21:16 Temperature Temperature Source Pulse Rate 99 Pulse Strength Respiratory Rate 17 17 Respiratory Effort Respiratory Depth Respiratory Pattern Blood Pressure Blood Pressure Mean Blood Pressure Source Blood Pressure Position Blood Pressure Location Pulse Ox 99 98 Oxygen Delivery Method Nasal Cannula Nasal Cannula Oxygen Flow Rate (L/min) 4 3 08/21/25 21:18 08/22/25 03:00 08/22/25 03:31 Temperature Temperature Source Pulse Rate 74 Pulse Strength Respiratory Rate 16 18 Respiratory Effort Respiratory Depth Respiratory Pattern Blood Pressure Blood Pressure Mean Blood Pressure Source Blood Pressure Position Blood Pressure Location Pulse Ox 95 88 Oxygen Delivery Method Nasal Cannula Nasal Cannula Oxygen Flow Rate (L/min) 2 2 08/22/25 03:34 08/22/25 03:36 08/22/25 09:30 Temperature 98.5 F 97.8 F Temperature Source Oral Temporal Pulse Rate 80 82 Pulse Strength Respiratory Rate 17 18 Respiratory Effort Normal Non-Labored Respiratory Depth Respiratory Pattern Blood Pressure 131/63 H 158/88 H Blood Pressure Mean 85 111 Blood Pressure Source Monitor Monitor Blood Pressure Position Semi-Fowlers Blood Pressure Location Left Arm Pulse Ox 93 93 Oxygen Delivery Method Nasal Cannula Nasal Cannula Room Air Oxygen Flow Rate (L/min) 3 3 08/22/25 10:00 08/22/25 10:00 Temperature Temperature Source Pulse Rate Pulse Strength Normal (2+) Respiratory Rate Respiratory Effort Respiratory Depth Normal Respiratory Pattern Normal Blood Pressure Blood Pressure Mean Blood Pressure Source Blood Pressure Position Blood Pressure Location Pulse Ox Oxygen Delivery Method Room Air Oxygen Flow Rate (L/min) Weight Weight: 86.8 kg Body Mass Index (BMI) 28.2 EEG Results Procedure Details EEG Procedure Details: RAINA CEASAR COPUS Jr. is a 79 year old M with a past medical history of , who presents for evaluation of Electroencephalogram on DATE at TIME Lab / Micro Data 08/22/25 05:29 08/22/25 05:29 Labs: Laboratory Results - last 24 hr 08/21/25 21:08: POC Glucose 135 H 08/22/25 05:29: WBC 5.8, RBC 3.37 L, Hgb 9.8 L, Hct 31.7 L, MCV 94.1 H, MCH 29.1, MCHC 30.9 L, RDW Std Deviation 51.1 H, RDW Coeff of Carlos Enrique 14.7 H, Plt Count 191, MPV 11.3, Immature Gran % (Auto) 0.300, Neut % (Auto) 67.3, Lymph % (Auto) 9.4 L, [place] % (Auto) 11.0 H, Eos % (Auto) 11.5 H, Baso % (Auto) 0.5, Absolute Neuts (auto) 3.9, Absolute Lymphs (auto) 0.55 L, Nucleated RBC % 0, Sodium 141, Potassium 3.3, Chloride 108, Carbon Dioxide 23.6, Anion Gap 9, BUN 17, Creatinine 0.95, Estim Creat Clear Calc 66.54, Est GFR (MDRD) Non-Af 81, BUN/Creatinine Ratio 18.3, Glucose 109 H, Calcium 8.3 08/22/25 06:36: POC Glucose 113 H 08/22/25 11:19: POC Glucose 96 Micro: Microbiology 08/21/25 17:08 Mucosa - Nasopharyngeal Coronavirus COVID-19 PCR - Final 08/21/25 17:08 Mucosa - Nasopharyngeal Respiratory Panel (PCR) - Final Imaging Radiology Impression Brain MRI 08/21/25 13:04 IMPRESSION: Dilated ventricles out of proportion to the degree of cerebral atrophy concerning for normal pressure hydrocephalus. Reading Location: [facility] Active Medications Active Medications Active Medications: Current Medications Generic Name Dose Route Start Last Admin Trade Name Freq PRN Reason Stop Dose Admin Allopurinol 200 mg 08/22/25 10:00 08/22/25 09:07 Allopurinol 100 Mg Tablet PO 200 mg DAILY KAY Administration Aspirin 81 mg 08/22/25 08:00 08/22/25 09:03 Aspirin E.C. 81 Mg Tablet PO 81 mg BREAKFAST KAY Administration Atenolol 100 mg 08/22/25 10:00 08/22/25 09:06 Atenolol 100 Mg Tablet PO 100 mg DAILY KAY Administration Protocol Atorvastatin Calcium 20 mg 08/21/25 22:00 08/21/25 21:04 Atorvastatin Calcium 20 Mg Tablet PO 20 mg QHS KAY Administration Enoxaparin Sodium 40 mg 08/22/25 10:00 08/22/25 09:03 Enoxaparin 40 Mg/0.4 Ml Syringe SC 40 mg DAILY KAY Administration Glimepiride 1 mg 08/22/25 08:00 08/22/25 09:03 Glimepiride 1 Mg Tablet PO 1 mg DAILYCM KAY Administration Glucagon 1 mg 08/21/25 17:13 Glucagon 1 Mg/Ml Syringe IM X1 PRN Hypoglycemia Protocol Sodium Chloride 250 mls @ 15 mls/hr 08/21/25 13:31 IV .[id number] PRN Saline Flush Sodium Chloride 250 mls @ 15 mls/hr 08/21/25 13:31 IV .[id number] PRN Additional IVPB Infusion Dextrose 250 mls @ 0 mls/hr 08/21/25 17:13 Dextrose 10%-Water IV .Q0M PRN HYPOGLYCEMIA Protocol As Directed Insulin Human Lispro 0 unit 08/21/25 22:00 08/22/25 11:22 Insulin Lispro 100 Unit/Ml Insuln.Pen SC Not Given ACHS [facility] Protocol Lisinopril 40 mg 08/22/25 10:00 08/22/25 09:07 Lisinopril 40 Mg Tablet PO 40 mg DAILY KAY Administration Protocol Nystatin 1 applic 08/21/25 22:00 08/22/25 09:04 Nystatin Powder 15gm Bottle TOPICAL 1 applic BID KAY Administration Protocol Risperidone 0.5 mg 08/21/25 22:00 08/22/25 09:06 Risperidone 0.5 Mg Tablet PO 0.5 mg BID KAY Administration Protocol Sodium Chloride 10 - 40 ml 08/21/25 13:31 0.9% Saline Lock 10 Ml Syringe IV UD PRN SALINE FLUSH
--- NOTE | 2025-08-22 13:36 | CASEMGMT ---
Social Work SW spoke with the and her SN[facility] choices [facility]. A SNF referral will be sent to [facility]. The family is meeting with Palliative nurse Edith this afternoon. BARTOLO Garcia
--- NOTE | 2025-08-22 15:50 | CASEMGMT ---
Addendum entered by Mireille Marx 08/22/25 16:04: [facility] has declined d/t being [id number]. SW updated. Mireille Marx DC Planning Asst. Original Note: Discharge Planning Referral sent via [facility] to [facility]. Mireille Marx DC Planning Asst.
--- NOTE | 2025-08-22 16:04 | CASEMGMT ---
Addendum entered by Mireille Marx 08/22/25 16:32: [facility] has accepted. Precert has not been submitted. Mireille Marx DC Planning Asst. Original Note: Discharge Planning Referral sent via [facility] to [facility]. Mireille Marx DC Planning Asst
--- NOTE | 2025-08-22 19:31 | PN.HOSP_ITS ---
Subjective Subjective Patient was seen and examined today, I talked with his family members including his who is in the room at the time my examination. Patient remains confused and does not know where he is. I talked with neurology at length robert-I had teleneurology see the patient they felt that I should look into his left hip to see if there was an occult fracture and also do a venous Doppler study of his lower extremities and to make sure that he does not have a DVT- teleneurology told me that the patient has proximal leg weakness on the left and they do not think that it is due to radicular pain. They also do not think the patient has normal pressure hydrocephalus. I will order left hip x-ray and venous duplex of his legs. We are waiting on approval for placement at an extended care facility for short-term skilled services. Objective Data Objective Data Vital Signs: Vital Signs Temp Pulse Resp BP Pulse Ox O2 Del Method O2 Flow Rate 97.8 F 82 18 158/88 H 93 Room Air 3 08/22/25 09:30 08/22/25 09:30 08/22/25 09:30 08/22/25 09:30 08/22/25 09:30 08/22/25 14:00 08/22/25 03:36 Oxygen Flow Rate (L/min) 3 Oxygen Delivery Method Room Air Weight: 86.8 kg Body Mass Index (BMI) 28.2 Intake & Output: Intake and Output for Last 24 Hours 08/20/25 08/21/25 08/22/25 23:59 23:59 23:59 Intake Total 250 / 250 500 / 500 Output Total 300 / 300 2049 / 2049 Balance -50 / -50 -1550 / -1550 Lab / Micro Data 08/22/25 05:29 08/22/25 05:29 Labs: Laboratory Results - last 24 hr 08/21/25 21:08: POC Glucose 135 H 08/22/25 05:29: WBC 5.8, RBC 3.37 L, Hgb 9.8 L, Hct 31.7 L, MCV 94.1 H, MCH 29.1, MCHC 30.9 L, RDW Std Deviation 51.1 H, RDW Coeff of Carlos Enrique 14.7 H, Plt Count 191, MPV 11.3, Immature Gran % (Auto) 0.300, Neut % (Auto) 67.3, Lymph % (Auto) 9.4 L, Piute % (Auto) 11.0 H, Eos % (Auto) 11.5 H, Baso % (Auto) 0.5, Absolute Neuts (auto) 3.9, Absolute Lymphs (auto) 0.55 L, Nucleated RBC % 0, Sodium 141, Potassium 3.3, Chloride 108, Carbon Dioxide 23.6, Anion Gap 9, BUN 17, Creatinine 0.95, Estim Creat Clear Calc 66.54, Est GFR (MDRD) Non-Af 81, BUN/Creatinine Ratio 18.3, Glucose 109 H, Calcium 8.3 08/22/25 06:36: POC Glucose 113 H 08/22/25 11:19: POC Glucose 96 08/22/25 16:58: POC Glucose 138 H Micro: Microbiology 08/21/25 17:08 Mucosa - Nasopharyngeal Coronavirus COVID-19 PCR - Final 08/21/25 17:08 Mucosa - Nasopharyngeal Respiratory Panel (PCR) - Final Radiography Diagnostic Testing: Radiology Impression Brain MRI 08/21/25 13:04 IMPRESSION: Dilated ventricles out of proportion to the degree of cerebral atrophy concerning for normal pressure hydrocephalus. Reading Location: [facility] Physical Exam Const alert and no apparent distress General Appearance: cooperative, well kempt and well developed Orientation / Consciousness: awake, oriented to person and confused HEENT normocephalic, head/scalp atraumatic and moist oral mucous membranes Eyes PERRL, EOMs intact bilaterally and conjunctivae normal Neck supple, no JVD, thyroid normal and no carotid bruits General: trachea midline Resp normal respiratory effort, no retractions, no use of accessory muscles and clear to auscultation bilaterally Auscultation: Negative for rales, rhonchi or wheezes Cardio regular rate, regular rhythm, S1 normal heart sound, S2 normal heart sound, no murmurs, no rub and no gallops GI normal to inspection, nondistended, normoactive bowel sounds, soft to palpation, non-tender and non-distended Extremity Extremity Narrative: Patient has +1 to +2 pitting edema of the lower legs bilaterally Skin no rashes or lesions noted General Skin Exam: no breakdown Neuro CN's II-XII intact bilaterally, no focal motor deficits and no sensory deficits noted Neuro Narrative: Patient is confused and not oriented as to time or place Sensorium / Orientation: awake and alert Psych Psych Narrative: Patient is confused and not oriented as to time or place Assessment & Plan Assessment/Plan (1) Inability to walk: PLAN: Plan 1. Acute on chronic debility secondary to worsening dementia and multiple medical problems-PT and OT will continue to see the patient, we are waiting pre- CERT for the patient to go to a [facility] facility for rehab services. #2 coronary artery disease-patient appears stable at this time on his present medications #3 type 2 diabetes-fingerstick blood sugars are being monitored, insulin will be administered as indicated #4 Alzheimer's dementia-complicates care, management, recovery, and prognosis #5 left upper leg weakness-etiology unclear, venous duplex was ordered to rule out DVT, I have ordered bilateral hip x-rays to rule out hip fracture. Total clinical time spent by myself addressing patient's medical issues, reviewing all of his data, and collaborating with patient's care team: 35 minutes Charges/Coding Visit Charges Inpatient E&M: 99150 Subs Hosp L2
--- NOTE | 2025-08-22 19:47 | VDLE_ITS ---
Reason For Study Reason For Study: BLE Pain RIGHT LEFT GSV is normal. GSV is normal. CFV is compressible, spontaneous, phasic, competent CFV is compressible, spontaneous, phasic, competent, and demonstrates normal augmentation. and demonstrates normal augmentation. FV is compressible, spontaneous, phasic, competent FV is compressible, spontaneous, phasic, competent and demonstrates normal augmentation. and demonstrates normal augmentation. POP V is compressible, spontaneous, phasic, competent POP V is compressible, spontaneous, phasic, competent and demonstrates normal augmentation. and demonstrates normal augmentation. T/P Trunk is compressible. T/P Trunk is compressible. PTV is compressible. PTV is compressible. RT PerV is compressible. LT PerV is compressible. Procedure This is a venous duplex using B-mode, color flow and spectral Doppler. Exam performed portable in patient room. The exam was diagnostic. A preliminary report was called and/or faxed to [facility] - U behavior support specialist. VL/Venous Duplex US - Denys Extrem Interpretation Summary Deep veins of the lower extremities are bilaterally patent and compressible seg mentally. There is no evidence of deep vein thrombosis on either side. Valvular competence appears intact within the p roximal deep venous systems bilaterally. The great saphenous veins appear bilaterally patent and compressible segmentall y. Ordering Physician: Rufus Mendoza Referring Physician: Wilfred Luu Performed By: Nabil Marrufo, RVT
--- NOTE | 2025-08-22 20:10 | RAD_ITS ---
PROCEDURE: HIPS B/L MIN 2 VIEWS W/ PELVIS 08/22/2025 REASON FOR EXAM: LEFT LEG WEAKNESS TECHNIQUE: Procedure Code: RADHPELP Modality: DX Procedure: HIPS B/L MIN 2 VIEWS W/ PELVIS Laterality: FINDINGS: No evidence acute fracture or dislocation. Moderate degenerative changes of the bilateral hips. Degenerative changes of the partially visualized spine. RAD/Hips B/L min 2 views w/ Pelvis IMPRESSION: Bilateral hip osteoarthrosis. Reading Location: [id number]
[2025-08-22 21:11] VITALS: BP 103/75; PULSE 110; RESP 18; TEMP 36.3; O2SAT 92
[2025-08-23 04:00] VITALS: BP 150/81; PULSE 92; RESP 18; TEMP 36.2; O2SAT 93
--- NOTE | 2025-08-23 09:06 | CASEMGMT ---
Addendum entered by Mireille Marx 08/23/25 10:49: [facility] has accepted and will submit for precert. [facility] asked to cancel referral. SW updated. Mireille Marx DC Planning Asst. Original Note: Discharge Planning Call placed to pts to update her on referrals and to let her know that snf list given was incorrect. [facility] should have been on the list. Pts requested referral be made to [facility] and wishes to proceed with them should they accept. SW updated. Referral sent via [facility] to [facility]. Mireille Marx DC Planning Asst.
[2025-08-23 10:00] VITALS: BP 154/94; PULSE 95; RESP 18; TEMP 36.7; O2SAT 91
[2025-08-23] MEDS: Aspirin E.C. 81 MG Tablet PO (10:35)
--- NOTE | 2025-08-23 11:11 | PN.PALL_ITS ---
Subjective Subjective PAIN ASSESSMENT patient currently denies pain 08/23/25: Prior to meeting with the pt and his at bedside, I reviewed documentation, labs and radiological studies. I then met with the pt and at bedside. did state that they are hoping to be transferred to [facility] at discharge. She did state that she was interested in outpatient palliative care for Raina when he goes to the SNF. I was able to meet, briefly with the rep from [facility] and she stated that there ae 2 agencies they typically use. I presented these to the pts , in which she chose [facility]. I did send a warm handoff to [facility] providers. Pt is currently obtaining a Doppler to his lower extremities. He continues to be alert to person only. All questions the had were answered. 08/22/25: Prior to meeting with the patient and family at bedside I reviewed labs and radiological studies I also reviewed previous documentation. I then met with the patient and his family at bedside. I introduced myself and concept of palliative care in which they voluntarily excepted our services. When I asked the patient upon entering the room who the other people were in the room he pointed to his and stated that that was his mom, he pointed to his daughter and stated that that was his sister. I did review of therapy notes which indicated that he was unable to manage one-step commands today. Family states that he has had significant cognitive decline since Wednesday and has had multiple falls at home. I did review his Mini-Mental where he scored 7 out of 30. He did have a good appetite today but his family was feeding him. His appetite does wax and wane. I did note that his hemoglobin has dropped significantly from 11.2 yesterday to 9.8 today. His BUN has improved since yesterday and is now 17 from 21 yesterday. He has a creatinine of 0.9 and GFR of 66. He did have a MRI today which family stated that they thought he was getting another MRI with sedation because the one that they had completed was not very good because of artifact. 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 During the family meeting they stated that they were given a list of SNF or outpatient rehab but understand that the patient may not be to rehab at all and that he will have to be excepted by his insurance and the chosen facilities. I did prepare them for the fact that they may not qualify for SNF rehab. I also introduced the possibility of home with hospice which they state they are also interested in in the event that the patient is unable to go to SNF rehab. I will be following up with the patient's family tomorrow after they find out more about rehab. They do state understanding that if the patient does back to rehab and is excepted if he does not participate with rehab they may discontinue and have to go a different direction and make choices about next steps. They did state that if that were to happen they would most likely go home with hospice. Lastly, I did discuss CODE STATUS in which at the time of assessment the patient was a full code. We did discuss the benefits versus burdens and CODE STATUS was changed to DNR CCA with no intubation. I did answer all questions. Palliative care will continue to follow for goals of care conversations as clinical picture evolves. per MRI:Dilated ventricles out of proportion to the degree of cerebral atrophy concerning for normal pressure hydrocephalus. Per hospitalist:RAINA DELGADO, is a 79 M who presents to the hospital for weakness and multiple falls over the last couple of days. 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 According to the who is at bedside he was diagnosed with dementia in 2019 after heart cath and then has continued to decline since that time. He is been evaluated by neurology in the outpatient side and had a Mini- Mental status exam performed where he scored a 7 out of 30. She has not noticed any fevers or chills but she has noticed that he has been coughing a little bit more and has been a little bit more productive. CT scan of the brain was concerning for possible NPH though he does have significant volume loss and they are recommending an MRI for further evaluation of possible NPH. No leukocytosis and urine was unremarkable. Obtain respiratory panel and COVID panel. This note was generated with [employer] dictation software. It may contain incorrect words, spelling, and punctuation that were not noted in checking the note before signing. Objective Data Objective Data Vital Signs: Vital Signs Temp Pulse Resp BP Pulse Ox O2 Del Method O2 Flow Rate 98.0 F 95 18 154/94 H 91 Nasal Cannula 2 08/23/25 10:00 08/23/25 10:00 08/23/25 10:00 08/23/25 10:00 08/23/25 10:00 08/23/25 10:00 08/23/25 10:00 Oxygen Flow Rate (L/min) 2 Oxygen Delivery Method Nasal Cannula Weight: 191 lb 5.78 oz Body Mass Index (BMI) 28.2 Intake & Output: Intake and Output for Last 24 Hours 08/21/25 08/22/25 08/23/25 23:59 23:59 23:59 Intake Total 250 / 250 500 / 500 Output Total 300 / 300 2750 / 2750 250 / 250 Balance -50 / -50 -2250 / -2250 -250 / -250 Lab / Micro Data Attestation: I reviewed the patient's lab results. Lab results narrative: last labs completed yesterday 08/22/25 05:29 08/22/25 05:29 Labs: Laboratory Results - last 24 hr 08/22/25 11:19: POC Glucose 96 08/22/25 16:58: POC Glucose 138 H 08/22/25 21:16: POC Glucose 118 H 08/23/25 06:28: POC Glucose 113 H Micro: Microbiology 08/21/25 17:08 Mucosa - Nasopharyngeal Coronavirus COVID-19 PCR - Final 08/21/25 17:08 Mucosa - Nasopharyngeal Respiratory Panel (PCR) - Final Radiography Diagnostic Testing: Radiology Impression Hip/Pelvis X-Ray 08/22/25 20:10 IMPRESSION: Bilateral hip osteoarthrosis. Reading Location: [address] Physical Exam Const alert Constitutional Narrative: Patient is oriented to person only HEENT normocephalic Eyes PERRL Lymph Lymphatic: no lymphadenopathy noted Resp normal respiratory effort, normal air movement and clear to auscultation bilaterally Cardio regular rate Rhythm: abnormal rhythm GI normal to inspection, nondistended, normoactive bowel sounds, soft to palpation and non-tender Extremity normal capillary refill Skin no rashes or lesions noted Neuro Neuro Narrative: Unable to follow one-step commands. Reflexes are intact. Speech: speech normal Gait (Neuro): unable to assess gait Psych Mood & Affect: flat affect Charges/Coding Palliative Care Palliative Care: 58129 Follow up 35-49 min Consulation Summary Current admission Current Code Status: DNRCC-A no intubation Associated Diagnosis: severe dementia/Alzheimers Consult Data Date of Consult: 08/22/25 Location of consult: [facility] Reason for referral: Goals of care and CODE STATUS Referral source: Dr. Burrell Palliative care diagnosis (Summary list): Severe dementia/Alzheimer's, unable to follow one-step commands, Mini-Mental 7/30, multiple falls Palliative care services/treatment (Accepted, as consult): Accepted Case discussed with referring provider: advised SW about family wishes for outpt palliative Palliative Assessment Advanced Directive - Current Admission Advance Directive: Advance Directive ON ADMISSION - REFERENCE 3 Do you have a Healthcare Yes 08/21/25 13:08 Living Will? Is a Healthcare Living Will No, requested patient 08/21/25 13:08 present in the medical record? outreach representative bring copy into [facility] Do you have a Healthcare Power Yes 08/23/25 10:32 of Enterprise Systems Manager? Is a Healthcare Power of No, requested patient 08/21/25 13:08 Enterprise Systems Manager present in the outreach representative bring copy medical rec into [facility] Do You Want Additional Declined 08/21/25 13:08 Information on Advanced Directives or Healthcare Proxy/DPOA comments: Symptoms Dyspnea symptoms: Mild Weakness symptoms: Moderate Confusion symptoms: Severe Impression & Recommendations Impressions Impressions: end stage Alzheimers Recommentation Palliative recommendations: Patient would benefit from hospice or outpatient palliative care. Encouter Achieved as a result of this Palliative Care Encounter: [ [id number], [id number]] minutes were spent in total for this visit which consisted, primarily of counseling and education dealing with the complex and emotionally intense issues of symptom management and palliative care in the setting of serious and potentially life-threatening illness. Review of documentation, labs and radiological studies. ?Patient/family had the opportunity to ask questions Plan (1) Acute alteration in mental status: (2) Atherosclerosis of coronary artery of [place] heart without angina pectoris: (3) Inability to walk: (4) History of coronary artery disease: (5) Frequent falls: (6) Goals of care, counseling/discussion: (7) Palliative care encounter: PLAN: Plan *Medical management per primary team *Family meeting to discuss goals of care going forward *Family is interested if patient will qualify for SNF rehab *If patient does not qualify for SNF rehab but they may transition to home with hospice they are very interested in getting a repeat MRI to help with prognostication. *CODE STATUS changed to DNR CCA with no intubation. *outpatient palliative care with [facility]. SW updated on request for referral * ROS ROS Narrative ROS severely limited by patient's mental status. He does deny pain or shortness of breath. He does not appear to be in pain or to have shortness of breath. Review of Systems ROS Unobtainable: due to mental condition and due to mental status
--- NOTE | 2025-08-23 11:15 | CASEMGMT ---
Addendum entered by Tiff Powell 08/23/25 11:33: SW received confirmation of palliative referral. VARSHA Carlos Original Note: Social Work- SW met with pt and pt to advise that [facility] accepted referral. Melba from [facility] arrived to room to meet pt. Palliative TRADING MANAGER also met with pt and [facility] was chosen for referral for services. SW completed referral to [facility] via email. SW remains available to follow. Plan: [facility]; precert pending with palliative services VARSHA Carlos
--- NOTE | 2025-08-23 15:08 | CHAPLAIN ---
Type of Pastoral Visit ___ Initial Visit _x__ Follow-up Visit ___ On-call Visit ___ General Patient Visit ___ Spiritual Assessment ___ Family Conference ___ Bereavement ___ Rapid Response ___ Code Blue ___ Other (describe below) Pastoral Care Referral From ___ Patient _x__ Family ___ Nurse ___ Physician ___ Manager Custom ___ Commissioning Agent ___ Other (describe below) Sacrament/Intervention _x__ Active listening ___ Anointing ___ Catholic ___ Bereavement ___ Communion ___ Christal exploration ___ ___ Life review _x__ Prayer ___ Reconciliation ___ Sacrament of Sick _x__ Supportive presence ___ Wedding ___ Other (describe below) Pastoral Comments support given to spouse as pt is sleeping and unable to get awake; pt sleeps during the day and is awake during the night; family has chosen Palliative Care and transferring patient is a SNF for the time being; supportive listening and care given to this spouse who has had life long marriage and partnership with her ; pt has family support from children too; 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
[2025-08-23 16:00] VITALS: BP 136/70; PULSE 83; RESP 18; TEMP 36.6; O2SAT 96
--- NOTE | 2025-08-23 19:55 | PCM.PN.HOSP ---
Subjective Subjective Patient was seen and examined today, nursing states that the patient had some restlessness and agitation last night, they requested that the patient's Risperdal dosage be increased if possible. I increased it to 1 mg twice daily. We are still waiting for pre-CERT for the patient to go to a senior care facility Objective Data Objective Data Vital Signs: Vital Signs Temp Pulse Resp BP Pulse Ox O2 Del Method O2 Flow Rate 97.9 F 83 18 136/70 H 96 Nasal Cannula 2 08/23/25 16:00 08/23/25 16:00 08/23/25 16:00 08/23/25 16:00 08/23/25 16:00 08/23/25 16:00 08/23/25 16:00 Oxygen Flow Rate (L/min) 2 Oxygen Delivery Method Nasal Cannula Weight: 86.8 kg Body Mass Index (BMI) 28.2 Intake & Output: Intake and Output for Last 24 Hours 08/21/25 08/22/25 08/23/25 23:59 23:59 23:59 Intake Total 250 / 250 500 / 500 Output Total 300 / 300 2750 / 2750 600 / 600 Balance -50 / -50 -2250 / -2250 -600 / -600 Lab / Micro Data 08/22/25 05:29 08/22/25 05:29 Labs: Laboratory Results - last 24 hr 08/22/25 21:16: POC Glucose 118 H 08/23/25 06:28: POC Glucose 113 H 08/23/25 11:43: POC Glucose 151 H 08/23/25 17:20: POC Glucose 148 H Micro: Microbiology 08/21/25 17:08 Mucosa - Nasopharyngeal Coronavirus COVID-19 PCR - Final 08/21/25 17:08 Mucosa - Nasopharyngeal Respiratory Panel (PCR) - Final Radiography Diagnostic Testing: Radiology Impression Hip/Pelvis X-Ray 08/22/25 20:10 IMPRESSION: Bilateral hip osteoarthrosis. Reading Location: [address] Physical Exam Narrative alert and no apparent distress General Appearance: cooperative, well kempt and well developed Orientation / Consciousness: awake, oriented to person and confused HEENT normocephalic, head/scalp atraumatic and moist oral mucous membranes Eyes PERRL, EOMs intact bilaterally and conjunctivae normal Neck supple, no JVD, thyroid normal and no carotid bruits General: trachea midline Resp normal respiratory effort, no retractions, no use of accessory muscles and clear to auscultation bilaterally Auscultation: Negative for rales, rhonchi or wheezes Cardio regular rate, regular rhythm, S1 normal heart sound, S2 normal heart sound, no murmurs, no rub and no gallops GI normal to inspection, nondistended, normoactive bowel sounds, soft to palpation, non-tender and non-distended Extremity Extremity Narrative: Patient has +1 to +2 pitting edema of the lower legs bilaterally Skin no rashes or lesions noted General Skin Exam: no breakdown Neuro CN's II-XII intact bilaterally, no focal motor deficits and no sensory deficits noted Neuro Narrative: Patient is confused and not oriented as to time or place Sensorium / Orientation: awake and alert Psych Psych Narrative: Patient is confused and not oriented as to time or place Assessment & Plan Assessment/Plan (1) Inability to walk: PLAN: Plan 1. Acute on chronic debility secondary to worsening dementia and multiple medical problems-PT and OT will continue to see the patient, we are waiting pre-CERT for the patient to go to a senior care facility for rehab services. #2 coronary artery disease-patient appears stable at this time on his present medications #3 type 2 diabetes-fingerstick blood sugars are being monitored, insulin will be administered as indicated #4 Alzheimer's dementia-complicates care, management, recovery, and prognosis #5 left upper leg weakness-etiology unclear, venous duplex scan did not show evidence of a DVT in the patient's x-rays of the pelvis and hips showed only osteoarthritis.. Total clinical time spent by myself addressing patient's medical issues, reviewing all of his data, and collaborating with patient's care team: 35 minutes Charges/Coding Visit Charges Inpatient E&M: 89330 Subs Hosp L2
[2025-08-23 20:58] VITALS: BP 117/79; PULSE 103; RESP 18; TEMP 36.1; O2SAT 93
[2025-08-24] VITALS (7 sets, daily range): BP systolic 116–155; BP diastolic 58–87; PULSE 66–92; RESP 18–20; TEMP 36.1–37; O2SAT 92–96
[2025-08-24] MEDS: Aspirin E.C. 81 MG Tablet PO (08:11)
--- NOTE | 2025-08-24 08:13 | CASEMGMT ---
Discharge Planning Updates sent via [facility] to [facility]. Precert remains pending. Mireille Marx DC Planning Asst.
--- NOTE | 2025-08-24 09:36 | CASEMGMT ---
Social Work SW completed a PASSR. BARTOLO Garcia
--- NOTE | 2025-08-24 13:39 | CASEMGMT ---
Addendum entered by Mireille Marx 08/24/25 14:22: Green sheet completed and given to SW. Mireille Marx DC Planning Asst Original Note: [facility] has obtained auth to admit. SW updated. Mireille Marx DC Planning Asst.
--- NOTE | 2025-08-24 14:10 | PCM.TXEXTCAR ---
Diet Diet Order/Speech Therapy: INPATIENT Hospital Diet / Speech Therapy Order(s) 08/21/25 13:04 Diet: Cardiac - Heart Healthy Food consistency:: Regular Liquid Consistency:: Regular/Thin Dietary Modifications:: Consistent Carbohydrate Type of Dietary Supplement:: Ensure Plus High Protein Diet Comments: 240mL chocolate ensure plus HP w/ lunch and dinner Routine Orders/Code Status Code Status: DNRCC-A (No intubation) DC O2, CPAP, BIPAP needs Home O2 Discharge instructions: Yes Type of respiratory needs?: Oxygen Oxygen frequency: Continuous Continuous oxygen liters per minute: 2 L Wound(s) L hand: Wound Type: Abrasion Problem/Diagnosis (1) Inability to walk: Status: Acute Code(s): R26.2 - Difficulty in walking, not elsewhere classified Plan 1. Acute on chronic debility secondary to worsening dementia and multiple medical problems-PT and OT will continue to see the patient, we are waiting pre-CERT for the patient to go to a group home facility for rehab services. #2 coronary artery disease-patient appears stable at this time on his present medications #3 type 2 diabetes-fingerstick blood sugars are being monitored, insulin will be administered as indicated #4 Alzheimer's dementia-complicates care, management, recovery, and prognosis #5 left upper leg weakness-etiology unclear, venous duplex scan did not show evidence of a DVT in the patient's x-rays of the pelvis and hips showed only osteoarthritis.. Total clinical time spent by myself addressing patient's medical issues, reviewing all of his data, and collaborating with patient's care team: 35 minutes Allergies/Procedures Done in Hospital Allergies No Known Allergies Allergy (Verified 02/10/23 10:05) Dietary and Speech Recommendations Dietitian Recommendations/Changes: Cardiac/consistent carbohydrate diet; no caloric restriction. Will add 240mL chocolate ensure plus with lunch and dinner tray. Adjust ONS as needed. Trend weight as available. Discharge Plan Admission Admit Date/Time: 08/21/25 12:29 Attending Provider: Rufus Mendoza Primary Care Provider: Wilfred Luu Consulting Providers: Cristopher Burrell; Edith Hernandez; Eitan Parrish; Joanna Hassan; Jen Villafuerte; Pilar Nina; Marilee Davies SUSTAINABLE LANDSCAPE ARCHITECT; Adelia Silva Discharge Orders/Prescriptions Prescriptions: No Action metformin 1,000 mg tablet 1,000 mg PO BID atenolol 100 mg tablet 100 mg PO DAILY lisinopril 40 mg tablet 40 mg PO DAILY multivitamin Tablet 1 tab PO DAILY allopurinol 100 mg tablet 200 mg PO DAILY glimepiride 1 mg tablet 1 mg PO DAILY simvastatin 40 mg tablet 40 mg PO QHS aspirin [Ecotrin Low Strength] 81 mg tablet,delayed release (DR/EC) 81 mg PO DAILY Referrals / Follow Up: Wilfred Luu MD [Primary Care Provider, Family Practice]
--- NOTE | 2025-08-24 14:25 | RAD_ITS ---
PROCEDURE: CHEST 1 VIEW (PORTABLE) 08/24/2025 REASON FOR EXAM: HYPOXIA TECHNIQUE: Frontal view of the chest. COMPARISON: December 12, 2019. FINDINGS: Hardware: None Heart: Prior midline sternotomy and coronary artery bypass surgery. Borderline cardiomegaly. Atherosclerotic calcification of the aortic arch. Lungs: Vascular congestion and CHF. Bones: Degenerative changes are identified within the thoracic spine. RAD/Chest 1 View (Portable) IMPRESSION: Borderline cardiomegaly. Vascular congestion and CHF. Reading Location: [id number]
--- NOTE | 2025-08-24 15:13 | CASEMGMT ---
Social Work SW spoke with the patient, his and children and informed them that the patient has been approved to DC to [facility] today. The reported she has not heard from [facility]. SW informed the SW will follow up with [facility]. BARTOLO Garcia
--- NOTE | 2025-08-24 15:18 | CASEMGMT ---
Social Work SW called [facility] regarding the palliative referral. They reported it will take 10 days to 2 weeks before this is scheduled. SW informed the and family. BARTOLO Garcia
--- NOTE | 2025-08-24 15:22 | CASEMGMT ---
Social Work Precert has been obtained. Physician updated and pt is ready for discharge today. PASSR completed in [facility] and sent along with discharge orders to [facility] via [facility]. Transportation arranged with Physician ambulance for cot pickup. SW notified the nurse, and family. Disposition: Pt discharge to [facility], skilled level care BARTOLO Garcia
--- NOTE | 2025-08-24 15:57 | CASEMGMT ---
Social Work Patient accepted at [facility] and pre-cert received. PASSR completed, transport paper started, green sheet in the chart. Patient should DC today.? BARTOLO Garcia
--- NOTE | 2025-08-24 17:27 | PCM.TXEXTCAR ---
Diet Diet Order/Speech Therapy: INPATIENT Hospital Diet / Speech Therapy Order(s) 08/21/25 13:04 Diet: Cardiac - Heart Healthy Food consistency:: Regular Liquid Consistency:: Regular/Thin Dietary Modifications:: Consistent Carbohydrate Type of Dietary Supplement:: Ensure Plus High Protein Diet Comments: 240mL chocolate ensure plus HP w/ lunch and dinner Routine Orders/Code Status Routine Lab Work: [facility] (On 08/27/2025) Code Status: DNRCC-A (No intubation) DC O2, CPAP, BIPAP needs Home O2 Discharge instructions: No Wound(s) L hand: Wound Type: Abrasion Therapies Weight Bearing: Full weight bearing Physical Therapy: Eval and Treat Occupational Therapy: Eval and Treat Problem/Diagnosis (1) Inability to walk: Status: Acute Code(s): R26.2 - Difficulty in walking, not elsewhere classified Plan 1. Acute on chronic debility secondary to worsening dementia and multiple medical problems-PT and OT will continue to see the patient, we are waiting pre-CERT for the patient to go to a alf facility for rehab services. #2 coronary artery disease-patient appears stable at this time on his present medications #3 type 2 diabetes-fingerstick blood sugars are being monitored, insulin will be administered as indicated #4 Alzheimer's dementia-complicates care, management, recovery, and prognosis #5 left upper leg weakness-etiology unclear, venous duplex scan did not show evidence of a DVT in the patient's x-rays of the pelvis and hips showed only osteoarthritis.. #6 congestive heart failure with reduced ejection fraction-patient will be placed on Lasix and carvedilol #7 ischemic cardiomyopathy #8 hyperlipidemia Total clinical time spent by myself addressing patient's medical issues, reviewing all of his data, and collaborating with patient's care team: 35 minutes Allergies/Procedures Done in Hospital Allergies No Known Allergies Allergy (Verified 02/10/23 10:05) Procedures: None Type of Care/Length of Stay Estimated LOS: Convalescent Care Less Than 30 days Type of Care Needed: Skilled Rehab Potential: Fair Prognosis: Fair Additional Orders/Day of Discharge H&P will serve as current which was dated: 08/21/25 Day of Discharge: 08/24/25 Dietary and Speech Recommendations Dietitian Recommendations/Changes: Cardiac/consistent carbohydrate diet; no caloric restriction. Will add 240mL chocolate ensure plus with lunch and dinner tray. Adjust ONS as needed. Trend weight as available. Discharge Plan Admission Admit Date/Time: 08/21/25 12:29 Primary Reason for Your Visit: Acute on chronic debility, dementia, congestive heart failure with low EF Attending Provider: Rufus Mendoza Primary Care Provider: Wilfred Luu Consulting Providers: Cristopher Burrell; Edith Hernandez; Eitan Parrish; Joanna Hassan; Jen Villafuerte; Pilar Nina; Marilee Davies LUMBER SCALER; Adelia Silva Instructions Additional Instructions / Restrictions: Palliative care to follow Discharge Orders/Prescriptions Prescriptions: New acetaminophen 500 mg Tablet 1,000 mg PO Q8H PRN PRN (Reason: Pain Score 1-10) Qty: 0 0RF insulin lispro [Humalog KwikPen Insulin] 100 unit/mL Insulin Pen See Protocol subcut ACHS Qty: 0 0RF Protocol: 3. Sliding Scale Insulin Med Dosing Condition: 150-189 mg/dl = 1 unit Condition: 190-229 mg/dl = 2 units Condition: 230-269 mg/dl = 3 units Condition: 270-309 mg/dl = 4 units Condition: 310-349 mg/dl = 5 units Condition: 350-399 mg/dl = 6 units Condition: 400-449 mg/dl = 7 units Condition: Greater than 449 call physician Protocol Text: Suggested for: - Patients on Total Daily Insulin Dose of 37-55 units - Obese, infected, or steroid patients MEDIUM DOSING ALGORITHIM nystatin 100,000 unit/gram Powder 1 applic topical BID Qty: 0 0RF Protocol: *Topical Application Instructions APPLICATION INSTRUCTIONS: Bilat. Groin risperidone 1 mg Tablet 0.5 mg PO QHS Qty: 0 0RF carvedilol [Coreg] 12.5 mg tablet 12.5 mg PO BID Qty: 1 0RF Rx Instructions: must administer with a meal/food furosemide [Lasix] 40 mg tablet 60 mg PO DAILY Qty: 1 0RF Continued metformin 1,000 mg tablet 1,000 mg PO BID lisinopril 40 mg tablet 40 mg PO DAILY multivitamin Tablet 1 tab PO DAILY allopurinol 100 mg tablet 200 mg PO DAILY glimepiride 1 mg tablet 1 mg PO DAILY simvastatin 40 mg tablet 40 mg PO QHS aspirin [Ecotrin Low Strength] 81 mg tablet,delayed release (DR/EC) 81 mg PO DAILY Discontinued atenolol 100 mg tablet 100 mg PO DAILY Referrals / Follow Up: Wilfred Luu MD [Primary Care Provider, Family Practice] Disposition Disposition (needs filled in before D/C Order can be placed): [facility]
--- NOTE | 2025-08-24 17:40 | DS.PCM_ITS ---
Providers Date of Admission: 08/21/25 Date of Discharge: 08/24/25 Primary Care Physician: Dr. Wilfred Luu MD Consultations 08/22/25 09:48 Consult: Tele-Neurology Routine Consulting Provider: [facility] Reason for Consult: ? NPH EMERGENT Consult: No MD Notified: Yes Date Notified: 08/22/25 Time Notified: 09:48 Method of Notification: Answering Service Comments:: dementia per Nursing Unit Staff Notify [facility] of Tele-Neurology Consult: Yes 08/22/25 11:43 Consult: Inpatient Palliative Care Routine Consulting Provider: Edith Hernandez Reason for Consult: family requested EMERGENT Consult: No MD Notified: Yes Date Notified: 08/22/25 Time Notified: 11:44 Method of Notification: Verbal 08/23/25 11:17 Consult: Hospice / Outpatient Palliative Care Routine Consulting Provider: [facility] Reason for Consult: Palliative consult d/t pt medical decline EMERGENT Consult: No MD Notified: Yes Date Notified: 08/23/25 Time Notified: 11:18 Method of Notification: Verbal Reason For Visit: [place] Diagnosis Discharge Diagnosis (1) Inability to walk: Status: Acute Code(s): R26.2 - Difficulty in walking, not elsewhere classified Plan 1. Acute on chronic debility secondary to worsening dementia and multiple medical problems-PT and OT will continue to see the patient, we are waiting pre- CERT for the patient to go to a intermediate facility for rehab services. #2 coronary artery disease-patient appears stable at this time on his present medications #3 type 2 diabetes-fingerstick blood sugars are being monitored, insulin will be administered as indicated #4 Alzheimer's dementia-complicates care, management, recovery, and prognosis #5 left upper leg weakness-etiology unclear, venous duplex scan did not show evidence of a DVT in the patient's x-rays of the pelvis and hips showed only osteoarthritis.. #6 congestive heart failure with reduced ejection fraction-patient will be placed on Lasix and carvedilol #7 ischemic cardiomyopathy #8 hyperlipidemia Total clinical time spent by myself addressing patient's medical issues, reviewing all of his data, and collaborating with patient's care team: 35 minutes Medications at Discharge Home Medications lisinopril 40 mg tablet 40 mg PO DAILY blood pressure 02/10/20 metformin 1,000 mg tablet 1,000 mg PO BID blood sugar 11/13/19 multivitamin 1 tab PO DAILY 11/13/19 glimepiride 1 mg tablet 1 mg PO DAILY blood sugar 05/28/21 allopurinol 100 mg tablet 200 mg PO DAILY gout 02/12/22 aspirin 81 mg tablet,delayed release (Ecotrin Low Strength) 81 mg PO DAILY heart 08/21/25 simvastatin 40 mg tablet 40 mg PO QHS 08/21/25 acetaminophen 500 mg tablet 1,000 mg (2 x 500 mg) PO Q8H PRN PRN Pain Score 1-10 #0 tabs 08/24/25 carvedilol 12.5 mg tablet (Coreg) 12.5 mg PO BID #1 TAB 08/24/25 furosemide 40 mg tablet (Lasix) 60 mg (1.5 x 40 mg) PO DAILY #1 TAB 08/24/25 insulin lispro 100 unit/mL subcutaneous pen (Humalog KwikPen (U-100) Insulin) See Protocol subcut ACHS #0 mL 08/24/25 nystatin 100,000 unit/gram topical powder 1 applic topical BID #0 grams 08/24/25 risperidone 1 mg tablet 0.5 mg (1/2 x 1 mg) PO QHS #0 tabs 08/24/25 Hospital Course Operations None Summary of Care Provided Minutes Spent on Discharge: 32 Hospital Course: This 79-year-old white male was seen in the emergency room at [facility] for complaints of weakness and multiple falls at home, patient has severe dementia and lives with his . Workup in the emergency room included CT scan of the brain which was concerning for possible NPH, CBC was remarkable for hemoglobin 11.2, chemistry profile was unremarkable, and urine was unremarkable. Patient was placed under observation status on PCU, he was seen by PT and OT and he was also seen by teleneurology. Teleneurology noted that the patient had complaints of weakness in his left upper leg, they recommended obtaining x-rays of his left hip and venous duplex scan of the leg. Hip and pelvic x-rays revealed osteoarthritis of the hips, there was no evidence of DVT. MRI of the brain was obtained, according to teleneurology they did not feel that he had normal pressure hydrocephalus but there was atrophy of the brain noted. Patient's desired the patient to go to an extended care facility and pre-CERT was obtained. . Chest x-ray [facility] due to periods of hypoxia, there is noted to be borderline cardiomegaly with vascular congestion and CHF. Patient was given oral Lasix and Lasix was added to his medical regimen. Patient was seen by palliative care on 08/23/2025 and they agreed to [facility] the [facility]. Physical exam on 08/24/2025: General Appearance: cooperative, well kempt and well developed Orientation / Consciousness: awake, oriented to person and confused HEENT normocephalic, head/scalp atraumatic and moist oral mucous membranes Eyes PERRL, EOMs intact bilaterally and conjunctivae normal Neck supple, no JVD, thyroid normal and no carotid bruits General: trachea midline Resp normal respiratory effort, no retractions, no use of accessory muscles and clear to auscultation bilaterally Auscultation: Negative for rales, rhonchi or wheezes Cardio regular rate, regular rhythm, S1 normal heart sound, S2 normal heart sound, no murmurs, no rub and no gallops GI normal to inspection, nondistended, normoactive bowel sounds, soft to palpation, non-tender and non-distended Extremity Extremity Narrative: Patient has +1 to +2 pitting edema of the lower legs bilaterally Skin no rashes or lesions noted General Skin Exam: no breakdown Neuro CN's II-XII intact bilaterally, no focal motor deficits and no sensory deficits noted Neuro Narrative: Patient is confused and not oriented as to time or place Sensorium / Orientation: awake and alert Psych Psych Narrative: Patient is confused and not oriented as to time or place Patient appears stable for transfer to an extended care facility on 08/24/2025 Weight / BMI Weight Weight: 86.8 kg Body Mass Index (BMI) 28.2 ABG / Lab / Microbiology Data 08/22/25 05:29 08/22/25 05:29 Laboratory: Laboratory Results - last 24 hr 08/23/25 21:01: POC Glucose 130 H 08/24/25 06:08: POC Glucose 133 H 08/24/25 11:36: POC Glucose 135 H 08/24/25 16:25: POC Glucose 175 H Microbiology: Microbiology 08/21/25 17:08 Mucosa - Nasopharyngeal Coronavirus COVID-19 PCR - Final 08/21/25 17:08 Mucosa - Nasopharyngeal Respiratory Panel (PCR) - Final Radiography Diagnostic Testing: Radiology Impression Venous Doppler Study 08/22/25 19:47 Interpretation Summary Deep veins of the lower extremities are bilaterally patent and compressible segmentally. There is no evidence of deep vein thrombosis on either side. Valvular competence appears intact within the proximal deep venous systems bilaterally. The great saphenous veins appear bilaterally patent and compressible segmentally. Ordering Physician: Rufus Mendoza Referring Physician: Wlifred Luu Performed By: Nabil Marrufo Leonard Chest X-Ray 08/24/25 14:25 IMPRESSION: Borderline cardiomegaly. Vascular congestion and CHF. Reading Location: [id number]/C Instructions DC O2, CPAP, BIPAP Needs Home O2 Discharge instructions: No Meaningful Use Info Meaningful Use Meaningful Use Diagnoses (Choose all that apply): CHF CHF KEVIN/ARB ordered at discharge?: Yes Documented LVEF (%): 40 Discharge Plan Admission Admit Date/Time: 08/21/25 12:29 Primary Reason for Your Visit: Acute on chronic debility, dementia, congestive heart failure with low EF Attending Provider: Rufus Mendoza Primary Care Provider: Wilfred Luu Consulting Providers: Cristopher Burrell; Edith Hernandez; Eitan Parrish; Joanna Hassan; Jen Villafuerte; Pilar Nina; Marilee Davies NP; Adelia Silva Instructions Additional Instructions / Restrictions: Palliative care to follow Discharge Orders/Prescriptions Prescriptions: New acetaminophen 500 mg Tablet 1,000 mg PO Q8H PRN PRN (Reason: Pain Score 1-10) Qty: 0 0RF insulin lispro [Humalog KwikPen Insulin] 100 unit/mL Insulin Pen See Protocol subcut ACHS Qty: 0 0RF Protocol: 3. Sliding Scale Insulin Med Dosing Condition: 150-189 mg/dl = 1 unit Condition: 190-229 mg/dl = 2 units Condition: 230-269 mg/dl = 3 units Condition: 270-309 mg/dl = 4 units Condition: 310-349 mg/dl = 5 units Condition: 350-399 mg/dl = 6 units Condition: 400-449 mg/dl = 7 units Condition: Greater than 449 call physician Protocol Text: Suggested for: - Patients on Total Daily Insulin Dose of 37-55 units - Obese, infected, or steroid patients MEDIUM DOSING ALGORITHIM nystatin 100,000 unit/gram Powder 1 applic topical BID Qty: 0 0RF Protocol: *Topical Application Instructions APPLICATION INSTRUCTIONS: Bilat. Groin risperidone 1 mg Tablet 0.5 mg PO QHS Qty: 0 0RF carvedilol [Coreg] 12.5 mg tablet 12.5 mg PO BID Qty: 1 0RF Rx Instructions: must administer with a meal/food furosemide [Lasix] 40 mg tablet 60 mg PO DAILY Qty: 1 0RF Continued metformin 1,000 mg tablet 1,000 mg PO BID lisinopril 40 mg tablet 40 mg PO DAILY multivitamin Tablet 1 tab PO DAILY allopurinol 100 mg tablet 200 mg PO DAILY glimepiride 1 mg tablet 1 mg PO DAILY simvastatin 40 mg tablet 40 mg PO QHS aspirin [Ecotrin Low Strength] 81 mg tablet,delayed release (DR/EC) 81 mg PO DAILY Discontinued atenolol 100 mg tablet 100 mg PO DAILY Referrals / Follow Up: Wilfred Luu MD [Primary Care Provider, Family Practice] Disposition Disposition (needs filled in before D/C Order can be placed): [facility] Charges/Coding Visit Charges Inpatient E&M: 61596 Disch Hosp >30min
--- NOTE | 2025-08-24 22:48 | NURSING ---
Report called to Celia at [facility] to give update on patient status. Report was called earlier today by day shift RN. Transport to arrive within the hour. Celia to [facility] report to unit nurses at [facility].
--- NOTE | 2025-08-25 01:33 | NURSING ---
EMS here for patient at 2330. Report given. Report already called to accepting facility. [facility] transferring patient from bed to stretcher. Patient discharged at 2350 to [facility].
--- NOTE | 2025-09-06 16:02 | CASEMGMT ---
JAN LORENZ palliative referral follow-up: JAN LORENZ placed call to pt's , Heavenly. She states [facility] did meet w/pt @ [facility]. Pt has since been referred to hospice services and has signed on w/hospice. Per , the plan is for pt to dc home from [facility] on hospice in a few days. Garcia SNIDER RN, CM
== END 2025-08-24 23:50 ==
LOC: ED 12:40 → PCU 12:45
PROVIDERS: Admitting Provider Family Medicine; Emergency Provider Emergency Medicine; PCP Family Medicine; Visit Provider Internal Medicine
DX: R41.82 Altered mental status, unspecified (principal); I11.0 Hypertensive heart disease with heart failure; I50.21 Acute systolic (congestive) heart failure; F02.C0 Dementia in other diseases classified elsewhere, severe, without behavioral disturbance, psychotic disturbance, mood disturbance, and anxiety; G30.9 Alzheimer's disease, unspecified; F01.C0 Vascular dementia, severe, without behavioral disturbance, psychotic disturbance, mood disturbance, and anxiety; E11.9 Type 2 diabetes mellitus without complications; Z51.5 Encounter for palliative care; I25.5 Ischemic cardiomyopathy; R29.898 Other symptoms and signs involving the musculoskeletal system; I44.7 Left bundle-branch block, unspecified; I25.10 Atherosclerotic heart disease of native coronary artery without angina pectoris; E78.5 Hyperlipidemia, unspecified; R53.1 Weakness; Z87.891 Personal history of nicotine dependence; R09.02 Hypoxemia; R29.6 Repeated falls; Z79.899 Other long term (current) drug therapy; Z79.84 Long term (current) use of oral hypoglycemic drugs; Z79.82 Long term (current) use of aspirin; D64.9 Anemia, unspecified; R94.31 Abnormal electrocardiogram [ECG] [EKG]; M10.9 Gout, unspecified; Z66 Do not resuscitate; R45.1 Restlessness and agitation; M79.605 Pain in left leg
CPT/HCPCS: 36415; 51702; 70450; 70551; 71045; 73521; 80048; 80053; 81001; 82962; 83605; 85025; 87633; 87635; 93005; 93970; 96372; 96374; 97162; 97166; 97530; 97802; 99221; 99285; A4216; G0378